=== PATIENT | female | born 1935 | race Caucasian/White ===

== ENCOUNTER 2016-06-27 08:40 | Emergency (ER) | payer MEDICARE, MEDICAID ==
[2016-06-27 08:41] VITALS: BMI 27.3
--- NOTE | 2016-06-27 09:27 | C.PDOC ---
History Of Present Illness 81 year old female is brought into the ED by her daughter due to increased aggression at home. Patient states she feels like she wants to but wanted to come here for help. She notes she sees flames when she closes her eyes and denies auditory hallucination, SOB, chest pain, headache, or taking anything other than her prescribed medication. Time Seen by Provider: 06/27/16 08:50 Chief Complaint (Nursing): Psychiatric Evaluation History Per: Patient, Family (Daughter) History/Exam Limitations: no limitations Onset/Duration Of Symptoms: Days Current Symptoms Are (Timing): Still Present Suicide/Self Injury Attempted (Context): None Modifying Factor(s): None Severity: Mild Past Medical History Reviewed: Historical Data, Nursing Documentation, Vital Signs Vital Signs: Last Vital Signs Temp 98.9 F 06/27/16 14:56 Pulse 78 06/27/16 18:05 Resp 18 06/27/16 18:05 BP 151/79 H 06/27/16 18:05 Pulse Ox 96 06/27/16 18:05 - Medical History PMH: Anxiety, Asthma, COPD (ASTHMA), Depression, Diabetes, Gastritis, HTN, Hypercholesterolemia, Schizophrenia Surgical History: Coronary Stent (CANNOT RECALL DATE) Family History: States: Unknown Family Hx - Social History Hx Tobacco Use: No Hx Alcohol Use: No Hx Substance Use: No - Immunization History Hx Tetanus Toxoid Vaccination: No Hx Influenza Vaccination: Yes Hx Pneumococcal Vaccination: Yes Review Of Systems Except As Marked, All Systems Reviewed And Found Negative. Constitutional: Positive for: Other (+Aggression). Negative for: Fever, Chills Cardiovascular: Negative for: Chest Pain Respiratory: Negative for: Shortness of Breath Neurological: Negative for: Headache Physical Exam - Physical Exam Appears: Non-toxic, No Acute Distress Skin: Normal Color, Warm, Dry Head: Atraumatic, Normacephalic Eye(s): bilateral: Normal Inspection Oral Mucosa: Moist Chest: Symmetrical, No Deformity Cardiovascular: Rhythm Regular, No Murmur Respiratory: Normal Breath Sounds, No Rales, No Rhonchi, No Wheezing Gastrointestinal/Abdominal: Soft, No Distention Extremity: Normal ROM Neurological/Psych: Oriented x3, Normal Speech, Normal Cognition ED Course And Treatment - Laboratory Results Result Diagrams: 06/27/16 09:29 06/27/16 09:29 ECG: Interpreted By Me ECG Rhythm: Sinus Rhythm ECG Interpretation: Normal Rate From EC O2 Sat by Pulse Oximetry: 97 (Room air) Pulse Ox Interpretation: Normal - CT Scan/US CT Head w/o contrast Other Rad Studies (CT/US): Read By Radiologist, Radiology Report Reviewed CT/US Interpretation: IMPRESSION: No intracranial mass, hemorrhage or evidence of acute infarct. Remote ischemic change right caudate head, right external capsule and right thalamus. Moderate chronic microvascular ischemic change. Age -appropriate atrophy. Progress Note: CT Head w/o contrast, CXR, EKG, Blood work, and Urinalysis ordered and reviewed. Case discussed with the crisis who will evaluate the patient. Medical Decision Making Medical Decision Making: Pt is medically stable for PES evaluation / admission Labs unremarkable except, glu 150, urine with 3+ mercedes and 600+ wbc's however pt is asymptomatic culture sent and first dose of macrobid given Recommend, continuing usual meds as well as macrobid pending results of culture Case discussed with dr Tatum at [facility] ED, pt already started abx for the UTI, given cozzar (pt on valsarten our replacement) with improvement in BP Disposition - Disposition Disposition: Trans to Other Acute Care Hosp Disposition Time: 19:12 Condition: FAIR - Clinical Impression Clinical Impression: Schizophrenia - Scribe Statement The provider has reviewed the documentation as recorded by the Scribe Vandana King. Provider Attestation: All medical record entries made by the Scribe were at my direction and personally dictated by me. I have reviewed the chart and agree that the record accurately reflects my personal performance of the history, physical exam, medical decision making, and the department course for this patient. I have also personally directed, reviewed, and agree with the discharge instructions and disposition. Physician Patient Turnover Patient Signed Over To: Clau Lyle Handoff Comments: Pending Tx to [facility]
[2016-06-27 09:36] LABS: BASO % 0.5 % (0.0-2.0); EOS % 0.4 % (0.0-4.0); HEMATOCRIT 35.7 % (34.0-47.0); LYMPH # 2.6 K/uL (1.0-4.3); LYMPH % 35.5 % (20.0-40.0); MEAN CORPUSCULAR HEMOGLOBIN 29.3 pg (27.0-31.0); MEAN CORPUSCULAR HGB CONC 32.7 g/dL (33.0-37.0); MEAN PLATELET VOLUME 8.8 fL (7.2-11.7); MONO # 1.2 K/uL (0.0-0.8); MONO % 15.9 % (0.0-10.0); RED CELL DISTRIBUTION WIDTH 14.5 % (11.5-14.5); WHITE BLOOD COUNT 7.4 K/uL (4.8-10.8)
[2016-06-27 09:40] LABS: MEAN CELL VOLUME 89.6 fL (81.0-99.0)
[2016-06-27 09:47] LABS: CHLORIDE 101 mmol/L (98-107); POTASSIUM 4.2 mmol/L (3.6-5.2); SODIUM 143 mmol/L (132-148)
[2016-06-27 09:49] LABS: ALB/GLOB RATIO 1.1 (1.0-2.1); ALKALINE PHOSPHATASE 73 U/L (38-126); AST/SGOT 19 U/L (14-36); BILIRUBIN,TOTAL 0.2 mg/dL (0.2-1.3); CARBON DIOXIDE 27 mmol/L (22-30); GFR AFRICAN-AMERICAN > 60; TOTAL PROTEIN 7.7 g/dL (6.3-8.3)
[2016-06-27 09:50] LABS: ALCOHOL SERUM < 10 mg/dl (0-10); ALT/SGPT 12 U/L (9-52); BLOOD UREA NITROGEN 24 mg/dL (7-17); CALCIUM 9.5 mg/dl (8.6-10.4); GLUCOSE,RANDOM 150 mg/dL (65-105)
--- NOTE | 2016-06-27 10:15 | CT ---
PROCEDURE: CT HEAD WITHOUT CONTRAST. HISTORY: seeing things, COMPARISON: 04/20/2016 TECHNIQUE: Axial computed tomography images were obtained through the head/brain without intravenous contrast. Radiation dose: Total exam DLP = 759.73 mGy-cm. FINDINGS: HEMORRHAGE: Large remote ischemic change right external capsule/caudate head unchanged from prior. Moderate periventricular and patchy and confluent deep and subcortical chronic microvascular white matter ischemic change. No evidence of acute infarct. BRAIN: No mass effect or edema. Mild diffuse age-appropriate atrophy. VENTRICLES: Dilatation frontal horn right lateral ventricle secondary to adjacent remote ischemic change. No hydrocephalus. No midline shift. CALVARIUM: Unremarkable. PARANASAL SINUSES: Unremarkable as visualized. No significant inflammatory changes. MASTOID AIR CELLS: Unremarkable as visualized. No inflammatory changes. OTHER FINDINGS: None. IMPRESSION: No intracranial mass, hemorrhage or evidence of acute infarct. Remote ischemic change right caudate head, right external capsule and right thalamus. Moderate chronic microvascular ischemic change. Age-appropriate atrophy.
[2016-06-27 11:29] VITALS: RESP 18
--- NOTE | 2016-06-27 11:35 | RAD ---
PROCEDURE: CHEST RADIOGRAPH, 1 VIEW Technique: Single view portable semi erect @ 09:45. HISTORY: Detox/Psy COMPARISON: None. FINDINGS: LUNGS: Clear. PLEURA: No pneumothorax or pleural fluid seen. CARDIOVASCULAR: No radiographic findings to suggest acute or significant cardiovascular disease. OSSEOUS STRUCTURES: No significant abnormalities. VISUALIZED UPPER ABDOMEN: Normal. OTHER FINDINGS: None. IMPRESSION: No active disease.
[2016-06-27 12:27] LABS: RBC URINE 10 /hpf (0-3); URINE BACTERIA MANY (<OCC); URINE BILIRUBIN NEGATIVE (NEGATIVE); URINE BLOOD 1+ (NEGATIVE); URINE COLOR Yellow (YELLOW); URINE GLUCOSE (UA) NORMAL (Normal); URINE KETONE TRACE mg/dL (NEGATIVE); URINE LEUKOCYTE ESTERASE 3+ Leu/uL (Negative); URINE PROTEIN 1+ mg/dL (NEGATIVE); URINE UROBILINOGEN NORMAL mg/dL (0.2-1.0); WBC URINE 608 /hpf (0-5)
[2016-06-27 20:23] VITALS: BP 166/81; PULSE 74; TEMP 98.5; O2SAT 95
--- NOTE | 2016-06-28 10:50 | CARD ---
APPROVED REPORT EKG Measurement Heart [id number] <Conclusion> Normal sinus rhythm Normal ECG
== END 2016-06-27 22:15 | disposition short-term general hospital (02) ==
LOC: C.ER 08:40
DX: F20.9 Schizophrenia, unspecified (principal); N39.0 Urinary tract infection, site not specified; I10 Essential (primary) hypertension
CPT/HCPCS: 70450; 71010; 80053; 81001; 82948; 85025; 87086; 93005; 99285; G0480

== ENCOUNTER 2016-12-15 11:19 | Emergency (ER) | payer MEDICARE, OTHER ==
[2016-12-15 11:21] VITALS: BMI 27.3
[2016-12-15 12:49] LABS: BASO % 0.7 % (0.0-2.0); EOS % 0.5 % (0.0-4.0); HEMATOCRIT 36.4 % (34.0-47.0); LYMPH # 2.4 K/uL (1.0-4.3); LYMPH % 32.5 % (20.0-40.0); MEAN CORPUSCULAR HGB CONC 33.7 g/dL (33.0-37.0); MONO % 14.3 % (0.0-10.0); NRBC % 0.1 % (0.0-2.0); RED CELL DISTRIBUTION WIDTH 13.5 % (11.5-14.5); WHITE BLOOD COUNT 7.3 K/uL (4.8-10.8)
[2016-12-15 13:02] LABS: CHLORIDE 103 mmol/L (98-107)
[2016-12-15 13:03] LABS: POTASSIUM 3.8 mmol/L (3.6-5.2); SODIUM 140 mmol/L (132-148)
[2016-12-15 13:05] LABS: ALB/GLOB RATIO 1.2 (1.0-2.1); ALKALINE PHOSPHATASE 67 U/L (38-126); AST/SGOT 20 U/L (14-36); BILIRUBIN,TOTAL 0.5 mg/dL (0.2-1.3); BLOOD UREA NITROGEN 17 mg/dL (7-17); CARBON DIOXIDE 26 mmol/L (22-30); GFR AFRICAN-AMERICAN > 60; TOTAL PROTEIN 7.6 g/dL (6.3-8.3)
[2016-12-15 13:06] LABS: ALCOHOL SERUM < 10 mg/dl (0-10); ALT/SGPT 26 U/L (9-52); CALCIUM 9.3 mg/dl (8.6-10.4); GLUCOSE,RANDOM 119 mg/dL (65-105)
--- NOTE | 2016-12-15 13:44 | CT ---
PROCEDURE: CT HEAD WITHOUT CONTRAST. HISTORY: hx falls, confused COMPARISON: 06/27/2016 TECHNIQUE: Axial computed tomography images were obtained through the head/brain without intravenous contrast. Radiation dose: Total exam DLP = 1119.61 mGy-cm. This CT exam was performed using one or more of the following dose reduction techniques: Automated exposure control, adjustment of the mA and/or kV according to patient size, and/or use of iterative reconstruction technique. FINDINGS: HEMORRHAGE: No intracranial hemorrhage. BRAIN: Mild diffuse atrophy consistent with patient age. 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 Small old right thalamic lacunar infarct. Mild to moderate periventricular white matter lucency consistent with microvascular ischemic change. No evidence of acute infarct. VENTRICLES: Mild dilatation of the frontal horn of the right lateral ventricle due to ex vacuo dilatation, associated with large right basal ganglia lacunar infarct. No midline shift. CALVARIUM: Unremarkable. PARANASAL SINUSES: Unremarkable as visualized. No significant inflammatory changes. MASTOID AIR CELLS: Unremarkable as visualized. No inflammatory changes. OTHER FINDINGS: None. IMPRESSION: No intracranial hemorrhage. 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 Mild to moderate periventricular white matter ischemic change. No evidence of acute infarct. No intracranial mass.
[2016-12-15 13:48] LABS: RBC URINE < 1 /hpf (0-3); URINE BACTERIA RARE (<OCC); URINE BILIRUBIN NEGATIVE (NEGATIVE); URINE BLOOD NEGATIVE (NEGATIVE); URINE COLOR Yellow (YELLOW); URINE GLUCOSE (UA) NORMAL (Normal); URINE KETONE NEGATIVE (NEGATIVE); URINE LEUKOCYTE ESTERASE NEG Leu/uL (Negative); URINE PROTEIN NEGATIVE (NEGATIVE); URINE UROBILINOGEN NORMAL mg/dL (0.2-1.0); WBC URINE 1 /hpf (0-5)
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
--- NOTE | 2016-12-15 16:23 | RAD ---
HISTORY: med clearance COMPARISON: 06/27/2016 FINDINGS: LUNGS: Examination limited due to steep oblique positioning. No infiltrate. PLEURA: No significant pleural effusion identified, no pneumothorax apparent. CARDIOVASCULAR: Normal. OSSEOUS STRUCTURES: No significant abnormalities. VISUALIZED UPPER ABDOMEN: Normal. OTHER FINDINGS: None. IMPRESSION: No active disease.
[2016-12-15 19:52] VITALS: BP 146/75; PULSE 80; RESP 16; TEMP 97.6; O2SAT 96
== END 2016-12-15 20:02 | disposition short-term general hospital (02) ==
LOC: C.ER 11:19
DX: F20.9 Schizophrenia, unspecified (principal); G30.9 Alzheimer's disease, unspecified; F02.80 Dementia in other diseases classified elsewhere, unspecified severity, without behavioral disturbance, psychotic disturbance, mood disturbance, and anxiety; F41.9 Anxiety disorder, unspecified; I10 Essential (primary) hypertension; E11.9 Type 2 diabetes mellitus without complications; E78.00 Pure hypercholesterolemia, unspecified
CPT/HCPCS: 70450; 71010; 80053; 81001; 85025; 99284; G0480

== ENCOUNTER 2017-02-19 16:38 | Inpatient (IN) | payer MEDICARE, MEDICAID ==
[2017-02-19] MEDS ORDERED: Dextrose 50% SYRINGE Inj (50 ml) ONE ×2 (16:48→21:30)
[2017-02-19 16:53] VITALS: BMI 29.2
[2017-02-19] MEDS ORDERED: Dextrose 50% SYRINGE Inj (50 ml) IV STA ×2 (17:07→21:28)
[2017-02-19 17:17] LABS: BASO % 0.4 % (0.0-2.0); EOS % 0.4 % (0.0-4.0); HEMATOCRIT 37.7 % (34.0-47.0); LYMPH # 2.6 K/uL (1.0-4.3); LYMPH % 24.8 % (20.0-40.0); MEAN CELL VOLUME 88.6 fL (81.0-99.0); MEAN CORPUSCULAR HEMOGLOBIN 29.9 pg (27.0-31.0); MEAN CORPUSCULAR HGB CONC 33.7 g/dL (33.0-37.0); MEAN PLATELET VOLUME 8.9 fL (7.2-11.7); MONO # 1.2 K/uL (0.0-0.8); MONO % 11.4 % (0.0-10.0); NRBC % 0.1 % (0.0-2.0); RED CELL DISTRIBUTION WIDTH 14.1 % (11.5-14.5); WHITE BLOOD COUNT 10.5 K/uL (4.8-10.8)
--- NOTE | 2017-02-19 17:57 | CT ---
PROCEDURE: CT scan brain dated 02/19/2017. HISTORY: altered COMPARISON: Comparison made with prior CT scan brain dated 12/15/2016. TECHNIQUE: Axial computed tomography images were obtained through the head/brain without intravenous contrast. Radiation dose: Total exam DLP = 785.46 mGy-cm. This CT exam was performed using one or more of the following dose reduction techniques: Automated exposure control, adjustment of the mA and/or kV according to patient size, and/or use of iterative reconstruction technique. FINDINGS: HEMORRHAGE: No intracranial hemorrhage. BRAIN: Chronic right anterolateral basal nuclei and right thalamic lacunar type infarcts with ex vacuo dilatation of the right frontal horn. . Additionally, there is very mild chronic periventricular white matter ischemic changes. Mild vascular calcifications are again seen. . Moderate generalized volume loss not withstanding at aforementioned ex vacuo dilatation. VENTRICLES: No obstructive hydrocephalus CALVARIUM: There are no acute calvarial fractures the no PARANASAL SINUSES: Unremarkable as visualized. No significant inflammatory changes. MASTOID AIR CELLS: Unremarkable as visualized. No inflammatory changes. OTHER FINDINGS: Changes of bilateral cataract surgery again noted. IMPRESSION: No acute intracranial hemorrhage. Re- demonstrated are chronic right basal ganglia lacunar type infarct with ex vacuo dilatation of the right frontal horn and anterior body right lateral ventricle. Moderate chronic white matter ischemic changes
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
[2017-02-19 18:00] LABS: ALB/GLOB RATIO 1.2 (1.0-2.1); ALKALINE PHOSPHATASE 70 U/L (38-126); ALT/SGPT 34 U/L (9-52); AST/SGOT 20 U/L (14-36); BILIRUBIN,TOTAL 0.7 mg/dL (0.2-1.3); BLOOD UREA NITROGEN 18 mg/dL (7-17); CARBON DIOXIDE 26 mmol/L (22-30); CHLORIDE 100 mmol/L (98-107); GFR AFRICAN-AMERICAN > 60; GLUCOSE,RANDOM 36 mg/dL (65-105); POTASSIUM 3.3 mmol/L (3.6-5.2); SODIUM 138 mmol/L (132-148); TOTAL PROTEIN 8.2 g/dL (6.3-8.3)
[2017-02-19 21:25] LABS: ALCOHOL SERUM < 10 mg/dl (0-10)
[2017-02-19] MEDS ORDERED: Albuterol-Ipratrop 3 mg / 0.5 (3 ml) UD INH PRN (22:46)
--- NOTE | 2017-02-19 23:22 | CP.PCM.HP ---
<Roseann EdwardsXavier - Last Filed: 02/19/17 23:23> History of Present Illness - History of Present Illness History of Present Illness: CC: legs felt paralyzed HPI: Patient is an 82 y/o F with PMHx of DM, HLD, HTN, Paranoid Schizophrenia who was brought in by her and daughter after an episode where the patient said her legs felt paralyzed. At baseline patient needs help walking and can only walk a small amount in the house. Today, patient's and daughter were helping her walk down the stairs when she stopped and said she couldn't walk further because her legs felt paralyzed. With help she was able to walk down the rest of the stairs. Family was worried and called the ambulance. In ED patient was found to have glucose of 36 and was given 2 amps of D50 and started on D5 @80 mls/hr. Patient's checks her blood sugars and say they range between 100-200. In ED patient complains of diffuse abdominal pain. She says she has not had a bowel movement in two days. Patient also complains of bilateral leg cramping. Patient denies headache, nausea or vomiting. Patient says she is not currently hearing voices or seeing hallucinations, except for when she closes her eyes she sees a hole and herself next to a big rock. Patient admits to having feelings of wanting to hurt herself in the past and right now. PMD: Dr. Rosas Psych: Dr. Avina PMHx: DM, HLD, HTN, Paranoid Schizophrenia Psurg: colonoscopy, hemorrhoidectomy, tubal ligation, hysterectomy Famhx: unknown Social : denies tobacco, alcohol, drugs. Lives with in the same building as her daughter, has a homemaker that comes 6 days per week Allergies: NKDA Present on Admission - Present on Admission Any Indicators Present on Admission: No History of DVT/PE: No History of Uncontrolled Diabetes: No Urinary Catheter: No Decubitus Ulcer Present: No Review of Systems - Constitutional Constitutional: absent: Fever, Headache - Cardiovascular Cardiovascular: absent: Dyspnea, Leg Edema, Pedal Edema - Respiratory Respiratory: absent: Cough, Dyspnea, Wheezing, Stridor - Gastrointestinal Gastrointestinal: Abdominal Pain, Constipation. absent: Diarrhea, Nausea, Vomiting - Genitourinary Genitourinary: absent: Difficulty Urinating - Musculoskeletal Musculoskeletal: Muscle Cramps - Integumentary Integumentary: absent: Rash - Neurological Neurological: Confusion - Psychiatric Psychiatric: Confusion, Depression, Irritability, Paranoia, Suicidal Ideation Past Patient History - Past Medical History & Family History Past Medical History?: Yes - Past Social History Smoking Status: Never Smoked - CARDIAC Hx Cardiac Disorders: No (Patient denied. None reported) Hx Hypertension: Yes - PULMONARY Hx Tuberculosis: No (Patient denied. None reported) - NEUROLOGICAL HX Cerebrovascular Accident: No (Patient denied. None reported) Hx Seizures: No (Patient denied. None reported) - HEENT Hx HEENT Problems: No - RENAL Hx Chronic Kidney Disease: No - ENDOCRINE/METABOLIC Hx Endocrine Disorders: Yes Hx Diabetes Mellitus Type 2: Yes - HEMATOLOGICAL/ONCOLOGICAL Hx Cancer: No (Patient denied. None reported) Hx Human Immunodeficiency Virus (HIV): No (Patient denied. None reported) - INTEGUMENTARY Hx Dermatological Problems: No - MUSCULOSKELETAL/RHEUMATOLOGICAL Hx Falls: Yes - GASTROINTESTINAL Hx Gastritis: Yes - GENITOURINARY/GYNECOLOGICAL Hx Sexually Transmitted Disorders: No (Patient denied. None reported) - PSYCHIATRIC Hx Anxiety: Yes Hx Bipolar Disorder: Yes Hx Depression: Yes Hx Schizophrenia: Yes Hx Substance Use: No - SURGICAL HISTORY Hx Coronary Stent: Yes (CANNOT RECALL DATE) - ANESTHESIA Hx Anesthesia: Yes Hx Anesthesia Reactions: No Hx Malignant Hyperthermia: No Meds Allergies/Adverse Reactions: Allergies Allergy/AdvReac Type Severity Reaction Status Date / Time No Known Allergies Allergy Verified 02/19/17 16:53 Physical Exam - Constitutional Appears: Non-toxic, No Acute Distress - Head Exam Head Exam: ATRAUMATIC, NORMAL INSPECTION, NORMOCEPHALIC - Eye Exam Eye Exam: EOMI, Normal appearance - ENT Exam ENT Exam: Mucous Membranes Moist - Respiratory Exam Respiratory Exam: Clear to Auscultation Bilateral, NORMAL BREATHING PATTERN - Cardiovascular Exam Cardiovascular Exam: +S1, +S2 - GI/Abdominal Exam GI & Abdominal Exam: Distended, Normal Bowel Sounds, Soft - Extremities Exam Extremities exam: Positive for: normal inspection. Negative for: pedal edema - Neurological Exam Neurological exam: Alert - Psychiatric Exam Psychiatric exam: Agitated, Anxious, Depressed - Skin Skin Exam: Intact, Normal Color, Warm Results - Vital Signs Recent Vital Signs: Last Vital Signs Temp 97.4 F L 02/19/17 16:40 Pulse 80 02/19/17 22:49 Resp 20 02/19/17 22:49 BP 128/58 L 02/19/17 22:49 Pulse Ox 95 02/19/17 22:49 - Labs Result Diagrams: 02/19/17 17:12 02/19/17 17:12 Labs: Laboratory Results - last 24 hr 02/19/17 02/19/17 02/19/17 16:49 17:12 17:12 WBC 10.5 RBC 4.25 Hgb 12.7 Hct 37.7 MCV 88.6 MCH 29.9 MCHC 33.7 RDW 14.1 Plt Count 282 MPV 8.9 Neut % (Auto) 63.0 Lymph % (Auto) 24.8 [place] % (Auto) 11.4 H Eos % (Auto) 0.4 Baso % (Auto) 0.4 Neut # 6.6 Lymph # 2.6 [place] # 1.2 H Eos # 0.0 Baso # 0.0 Sodium 138 Potassium 3.3 L Chloride 100 Carbon Dioxide 26 Anion Gap 15 BUN 18 H Creatinine 0.7 Est GFR ( Amer) > 60 Est GFR (Non-Af Amer) > 60 POC Glucose (mg/dL) 32 L* Random Glucose 36 L* D Calcium 9.0 Total Bilirubin 0.7 AST 20 ALT 34 Alkaline Phosphatase 70 Total Creatine Kinase 120 CK-MB (Mass) 1.16 Troponin I < 0.0120 Total Protein 8.2 Albumin 4.4 Globulin 3.8 Albumin/Globulin Ratio 1.2 Alcohol, Quantitative < 10 02/19/17 02/19/17 02/19/17 18:00 19:06 21:20 WBC RBC Hgb Hct MCV MCH MCHC RDW Plt Count MPV Neut % (Auto) Lymph % (Auto) [place] % (Auto) Eos % (Auto) Baso % (Auto) Neut # Lymph # [place] # Eos # Baso # Sodium Potassium Chloride Carbon Dioxide Anion Gap BUN Creatinine Est GFR ( Amer) Est GFR (Non-Af Amer) POC Glucose (mg/dL) 151 H 86 50 L Random Glucose Calcium Total Bilirubin AST ALT Alkaline Phosphatase Total Creatine Kinase CK-MB (Mass) Troponin I Total Protein Albumin Globulin Albumin/Globulin Ratio Alcohol, Quantitative 02/19/17 22:10 WBC RBC Hgb Hct MCV MCH MCHC RDW Plt Count MPV Neut % (Auto) Lymph % (Auto) [place] % (Auto) Eos % (Auto) Baso % (Auto) Neut # Lymph # [place] # Eos # Baso # Sodium Potassium Chloride Carbon Dioxide Anion Gap BUN Creatinine Est GFR ( Amer) Est GFR (Non-Af Amer) POC Glucose (mg/dL) 253 H Random Glucose Calcium Total Bilirubin AST ALT Alkaline Phosphatase Total Creatine Kinase CK-MB (Mass) Troponin I Total Protein Albumin Globulin Albumin/Globulin Ratio Alcohol, Quantitative Assessment & Plan - Assessment and Plan (Free Text) Assessment: AMS 2/2 hypoglycemia, hx schizophrenia CT Head: no acute intracranial hemorrhage. 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 Moderate chronic white matter ischemic changes. Hypoglycemia Patient given 2 amps D50 and started on D5 @ 80 mls/ hr in ED- glucose increased from 36 to 253 D5 lowered to 50 mls/hr, will d/c if blood sugar remains elevated accuchecks q2h Hx DM hold home medications 2/2 hypoglycemia continue home medication: Neurontin 600mg po daily Hx schizophrenia, suicidal ideation Patient 1:1 monitoring Psych, Dr. Oconnell, consulted continue home psych medications: Mirtazapine 15mg PO HS, Seroquel 300mg PO HS Constipation Colace 100mg po TID Hypokalemia K+3.3, KDur 40 meq given Hx HTN Losartan 100mg po daily EKG: NSR @ 73 Hx HLD continue home medication: Rosuvastatin 5 mg PO HS Prophylaxis DVT: SCDs, Heparin 5000u sc q8h GI: Pepcid 20mg po daily <Jake Patten - Last Filed: 02/20/17 06:24> Results - Vital Signs Recent Vital Signs: Last Vital Signs Temp 97.2 F L 02/20/17 00:00 Pulse 86 02/20/17 00:00 Resp 20 02/20/17 00:00 BP 131/68 02/20/17 00:00 Pulse Ox 96 02/20/17 00:00 - Labs Result Diagrams: 02/19/17 17:12 02/19/17 17:12 Labs: Laboratory Results - last 24 hr 02/19/17 02/19/17 02/19/17 16:49 17:12 17:12 WBC 10.5 RBC 4.25 Hgb 12.7 Hct 37.7 MCV 88.6 MCH 29.9 MCHC 33.7 RDW 14.1 Plt Count 282 MPV 8.9 Neut % (Auto) 63.0 Lymph % (Auto) 24.8 [place] % (Auto) 11.4 H Eos % (Auto) 0.4 Baso % (Auto) 0.4 Neut # 6.6 Lymph # 2.6 [place] # 1.2 H Eos # 0.0 Baso # 0.0 Sodium 138 Potassium 3.3 L Chloride 100 Carbon Dioxide 26 Anion Gap 15 BUN 18 H Creatinine 0.7 Est GFR ( Amer) > 60 Est GFR (Non-Af Amer) > 60 POC Glucose (mg/dL) 32 L* Random Glucose 36 L* D Calcium 9.0 Total Bilirubin 0.7 AST 20 ALT 34 Alkaline Phosphatase 70 Total Creatine Kinase 120 CK-MB (Mass) 1.16 Troponin I < 0.0120 Total Protein 8.2 Albumin 4.4 Globulin 3.8 Albumin/Globulin Ratio 1.2 Alcohol, Quantitative < 10 02/19/17 02/19/17 02/19/17 18:00 19:06 21:20 WBC RBC Hgb Hct MCV MCH MCHC RDW Plt Count MPV Neut % (Auto) Lymph % (Auto) [place] % (Auto) Eos % (Auto) Baso % (Auto) Neut # Lymph # [place] # Eos # Baso # Sodium Potassium Chloride Carbon Dioxide Anion Gap BUN Creatinine Est GFR ( Amer) Est GFR (Non-Af Amer) POC Glucose (mg/dL) 151 H 86 50 L Random Glucose Calcium Total Bilirubin AST ALT Alkaline Phosphatase Total Creatine Kinase CK-MB (Mass) Troponin I Total Protein Albumin Globulin Albumin/Globulin Ratio Alcohol, Quantitative 02/19/17 02/20/17 22:10 05:22 WBC RBC Hgb Hct MCV MCH MCHC RDW Plt Count MPV Neut % (Auto) Lymph % (Auto) [place] % (Auto) Eos % (Auto) Baso % (Auto) Neut # Lymph # [place] # Eos # Baso # Sodium Potassium Chloride Carbon Dioxide Anion Gap BUN Creatinine Est GFR ( Amer) Est GFR (Non-Af Amer) POC Glucose (mg/dL) 253 H 146 H Random Glucose Calcium Total Bilirubin AST ALT Alkaline Phosphatase Total Creatine Kinase CK-MB (Mass) Troponin I Total Protein Albumin Globulin Albumin/Globulin Ratio Alcohol, Quantitative Assessment & Plan - Date & Time Date: 02/20/17 (I have seen and examined the patient. I agree with the findings and plan of care as documented by Dr. Edwards. Patient with altered mental status. CT head negative for acute findings. Persistent hypoglycemia. On D5 IVF. Titrate as necessary. Admits to suicidal ideation. Psych consult. 1:1 observation. Monitor for acute changes.) Time: 06:23 Attending/Attestation - Attestation I have personally seen and examined this patient.: Yes I have fully participated in the care of the patient.: Yes I have reviewed all pertinent clinical information: Yes
[2017-02-19] MEDS ORDERED: Potassium Chloride 20 mEq ER Tab PO ONE (23:38)
[2017-02-20] MEDS ORDERED: Potassium Chloride 20 mEq ER Tab PO ONE (03:00)
--- NOTE | 2017-02-20 08:23 | RAD ---
PROCEDURE: CHEST RADIOGRAPH, 1 VIEW HISTORY: Weakness. COMPARISON: None available. FINDINGS: LUNGS: Mild venous congestion. Patchy linear atelectatic changes at the left lung base. Biapical pleural thickening. Chin obscures evaluation of the upper lung zones. Minimal patchy increased markings at the right lung base laterally. PLEURA: No pneumothorax or pleural fluid seen. CARDIOVASCULAR: Tortuous ectatic aorta. OSSEOUS STRUCTURES: Degenerative changes in the spine and shoulders. VISUALIZED UPPER ABDOMEN: Normal. OTHER FINDINGS: None. IMPRESSION: Mild venous congestion. Patchy linear atelectatic changes at the left lung base. Biapical pleural thickening. Chin obscures evaluation of the upper lung zones. Minimal patchy increased markings at the right lung base laterally.
[2017-02-20 08:35] LABS: BASO % 0.4 % (0.0-2.0); EOS % 0.5 % (0.0-4.0); HEMATOCRIT 32.8 % (34.0-47.0); LYMPH # 2.2 K/uL (1.0-4.3); LYMPH % 36.1 % (20.0-40.0); MEAN CELL VOLUME 89.5 fL (81.0-99.0); MEAN CORPUSCULAR HEMOGLOBIN 30.2 pg (27.0-31.0); MEAN CORPUSCULAR HGB CONC 33.8 g/dL (33.0-37.0); MEAN PLATELET VOLUME 9.4 fL (7.2-11.7); MONO # 0.7 K/uL (0.0-0.8); MONO % 11.4 % (0.0-10.0); RED CELL DISTRIBUTION WIDTH 14.2 % (11.5-14.5)
[2017-02-20 09:02] LABS: CHLORIDE 98 mmol/L (98-107)
[2017-02-20 09:25] LABS: ALB/GLOB RATIO 1.3 (1.0-2.1); ALKALINE PHOSPHATASE 62 U/L (38-126); ALT/SGPT 31 U/L (9-52); AST/SGOT 17 U/L (14-36); BILIRUBIN,TOTAL 0.7 mg/dL (0.2-1.3); BLOOD UREA NITROGEN 16 mg/dL (7-17); CALCIUM 8.2 mg/dl (8.6-10.4); CARBON DIOXIDE 25 mmol/L (22-30); GFR AFRICAN-AMERICAN > 60; GLUCOSE,RANDOM 135 mg/dL (65-105); MAGNESIUM 1.6 mg/dL (1.6-2.3); PHOSPHOROUS 3.2 mg/dL (2.5-4.5); POTASSIUM 4.1 mmol/L (3.6-5.2); SODIUM 132 mmol/L (132-148); TOTAL PROTEIN 6.4 g/dL (6.3-8.3)
[2017-02-20] MEDS ORDERED: Potassium Chloride 20 mEq ER Tab PO SCH (10:00)
--- NOTE | 2017-02-20 10:27 | PCM.PSYCH ---
Initial Psychiatric Evaluation - Initial Psychiatric Evaluation Type of Admission: Voluntary Legal Status: Capacity Chief Complaint (in patient's own words): I feel better History of Present Illness and Precipitating Events: The patient was seen, chart reviewed, and case discussed with staff. This is an 82 year old female who lives at home with . He was brought to the hospital because of leg paralysis and pain. Patient reports outpatient psychiatric care with Dr Avina, last seen this month. Staff reports that overnight the patient was talking to herself and voicing suicidal ideations. Daytime staff reports that she has not been talking to herself today. Pt remained somewhat disorganized and internally preoccupied throughout the interview. She remained superficially cooperative but remained guarded about the details. As per the staff last night remained delirious, irritable and agitated. Patient reports multiple past inpatient psychiatric hospitalization. She reports outpatient psychiatric care with a psychiatrist in [place]. She denies any heroin, cocaine, marijuana, or other drug use. Today she denies any SI/HI. Family psychiatric history: unknown Past medical history: DM, HLD, HLD Current Medications: Active Medications Generic Name Dose Route Start Last Admin Trade Name Freq PRN Reason Stop Dose Admin Acetaminophen 650 mg 02/20/17 03:28 02/20/17 03:45 Tylenol 325mg Tab PO 650 mg Q6 PRN Administration Pain, moderate (4-7) Albuterol/Ipratropium 3 ml 02/19/17 22:46 Duoneb 3 Mg/0.5 Mg (3 Ml) Ud INH RQ6 PRN Shortness of Breath Docusate Sodium 100 mg 02/20/17 10:00 Colace PO TID SANTO Famotidine 20 mg 02/20/17 10:00 Pepcid PO DAILY SANTO Gabapentin 600 mg 02/20/17 10:00 Neurontin PO DAILY SANTO Heparin Sodium (Porcine) 5,000 units 02/19/17 23:00 02/20/17 05:50 Heparin SC 5,000 units Q8 SANTO Administration Hydroxyzine HCl 25 mg 02/20/17 10:26 Atarax PO Q6 PRN Agitation Losartan Potassium 100 mg 02/20/17 10:00 Cozaar PO DAILY SANTO Mirtazapine 15 mg 02/19/17 23:00 02/20/17 03:04 Remeron PO 15 mg HS SANTO Administration Pneumococcal Polyvalent Vaccine 0.5 ml 02/21/17 10:00 Pneumovax 23 Vaccine IM 02/21/17 10:01 .ONCE ONE Quetiapine Fumarate 300 mg 02/19/17 23:00 02/20/17 03:00 Seroquel PO 300 mg HS [facility] Administration Rosuvastatin Calcium 5 mg 02/20/17 22:00 Crestor PO [facility] Past Psychiatric History - Past Psychiatric History Previous Treatment History: Inpatient Pertinent Medical Hx (Current Medical&Sleep Prob, Allergies): Allergies Allergy/AdvReac Type Severity Reaction Status Date / Time No Known Allergies Allergy Verified 02/19/17 16:53 Albuterol/Ipratropium [Duoneb 3 mg/0.5 mg (3 ml) UD] 3 ml INH RQ6 PRN #1 neb Atorvastatin [Lipitor] 10 mg PO HS #30 tab 12/25/16 Docusate [Colace] 100 mg PO BID #60 cap 12/25/16 Gabapentin [Neurontin] 600 mg PO DAILY #30 tab 12/25/16 Insulin Glargine, Recombina [Lantus] 25 unit SC HS #1 unit 12/25/16 MetFORMIN [glucoPHAGE] 1,000 mg PO BID #60 tab 12/25/16 Mirtazapine [Remeron] 15 mg PO HS #30 tab 12/25/16 QUEtiapine [SEROquel] 300 mg PO HS #30 tab 12/25/16 Valsartan [Diovan] 160 mg PO DAILY #30 tab 12/25/16 Mental Status Examination - Personal Presentation Personal Presentation: Looks stated age - Affect Affect: Constricted - Motor Activity Motor Activity: Psychomotor Retardation - Reliability in Providing Information Reliability in Providing Information: Poor, due to alteration in thoughts - Speech Speech: Disorganized - Mood Mood: Anxious - Formal Thought Process Formal Thought Process: Hallucinations, Loosening of associations - Obsessions/Compulsions Obsessions: No Compulsions: No - Cognitive Functions Orientation: Person, Place, Situation, Time Sensorium: Alert Attention/Concentration: Attentive Abstract Thinking: Mcgrann Estimate of Intelligence: Below average Judgement: Imparied, as evidence by: Poor judgement, Imparied, as evidence by: Lack of insight into illness - Risk Risk: Diminished functioning - Limitations Limitations: Living alone DSM 5 DX - DSM 5 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
--- NOTE | 2017-02-20 19:43 | CP.PCM.PN ---
Subjective - Date & Time of Evaluation Date of Evaluation: 02/20/17 Time of Evaluation: 15:00 - Subjective Subjective: Patient was seen and examined,Sleeping Objective - Vital Signs/Intake and Output Vital Signs (last 24 hours): Temp Pulse Resp BP Pulse Ox 97.7 F 71 20 104/64 98 02/20/17 15:15 02/20/17 15:15 02/20/17 15:15 02/20/17 15:15 02/20/17 15:15 Intake and Output: 02/20/17 02/21/17 18:59 06:59 Intake Total 650 Balance 650 - Medications Medications: Current Medications Acetaminophen (Tylenol 325mg Tab) 650 mg PO Q6 PRN PRN Reason: Pain, moderate (4-7) Last Admin: 02/20/17 03:45 Dose: 650 mg Albuterol/Ipratropium (Duoneb 3 Mg/0.5 Mg (3 Ml) Ud) 3 ml INH RQ6 PRN PRN Reason: Shortness of Breath Docusate Sodium (Colace) 100 mg PO TID [facility] Last Admin: 02/20/17 18:40 Dose: 100 mg Famotidine (Pepcid) 20 mg PO DAILY [facility] Last Admin: 02/20/17 10:38 Dose: 20 mg Gabapentin (Neurontin) 300 mg PO BID [facility] Last Admin: 02/20/17 18:40 Dose: 300 mg Heparin Sodium (Porcine) (Heparin) 5,000 units SC Q8 [facility] Last Admin: 02/20/17 14:09 Dose: 5,000 units Hydroxyzine HCl (Atarax) 25 mg PO Q6 PRN PRN Reason: Agitation Insulin Glargine (Lantus) 16 unit SC [facility] Losartan Potassium (Cozaar) 100 mg PO DAILY [facility] Last Admin: 02/20/17 10:38 Dose: Not Given Losartan Potassium (Cozaar) 100 mg PO DAILY [facility] Last Admin: 02/20/17 14:54 Dose: Not Given Mirtazapine (Remeron) 15 mg PO [facility] Last Admin: 02/20/17 03:04 Dose: 15 mg Pneumococcal Polyvalent Vaccine (Pneumovax 23 Vaccine) 0.5 ml IM .ONCE ONE Stop: 02/21/17 10:01 Quetiapine Fumarate (Seroquel) 300 mg PO [facility] Last Admin: 02/20/17 03:00 Dose: 300 mg Rosuvastatin Calcium (Crestor) 5 mg PO HS [facility]ANT[facility] - Labs Labs: 02/20/17 08:30 02/20/17 08:30
--- NOTE | 2017-02-20 19:52 | CP.PCM.PN ---
Subjective - Date & Time of Evaluation Date of Evaluation: 02/20/17 Time of Evaluation: 10:00 - Subjective Subjective: Progress note for Dr. Michelle Patient seen and examined at bedside. Patient states she has a lot of pain in her legs and finds it difficult to walk. Patient states she needs help when she walks around. Patient states she has no other complaints other than abdominal pain. Patient denies headache, fever, chills, nausea, vomiting, diarrhea. With attending, patient was more somnolent and fell asleep multiple times during the conversation. Per cardiac cath technologist and RN, patient was given medication during the day which may be the cause of her somnolence. RN noted her blood pressure was low, so home medication for HTN was not administered. Objective - Vital Signs/Intake and Output Vital Signs (last 24 hours): Temp Pulse Resp BP Pulse Ox 97.7 F 71 20 104/64 98 02/20/17 15:15 02/20/17 15:15 02/20/17 15:15 02/20/17 15:15 02/20/17 15:15 Intake and Output: 02/20/17 02/21/17 18:59 06:59 Intake Total 650 Balance 650 - Medications Medications: Current Medications Acetaminophen (Tylenol 325mg Tab) 650 mg PO Q6 PRN PRN Reason: Pain, moderate (4-7) Last Admin: 02/20/17 03:45 Dose: 650 mg Albuterol/Ipratropium (Duoneb 3 Mg/0.5 Mg (3 Ml) Ud) 3 ml INH RQ6 PRN PRN Reason: Shortness of Breath Docusate Sodium (Colace) 100 mg PO TID [facility]S [facility]CLUDE 234 BEDS AT [facility] Last Admin: 02/20/17 18:40 Dose: 100 mg Famotidine (Pepcid) 20 mg PO DAILY [facility]S INCLUDE 234 BEDS AT THE [facility] Last Admin: 02/20/17 10:38 Dose: 20 mg Gabapentin (Neurontin) 300 mg PO BID COUNTS INCLUDE 234 BEDS AT THE [facility] Last Admin: 02/20/17 18:40 Dose: 300 mg Heparin Sodium (Porcine) (Heparin) 5,000 units SC Q8 [facility]S INCLUDE 234 BEDS AT THE [facility] Last Admin: 02/20/17 14:09 Dose: 5,000 units Hydroxyzine HCl (Atarax) 25 mg PO Q6 PRN PRN Reason: Agitation Insulin Glargine (Lantus) 10 unit SC HS COUNTS INCLUDE 234 BEDS AT THE [facility] Losartan Potassium (Cozaar) 100 mg PO DAILY COUNTS INCLUDE 234 BEDS AT THE [facility] Last Admin: 02/20/17 10:38 Dose: Not Given Losartan Potassium (Cozaar) 100 mg PO DAILY COUNTS INCLUDE 234 BEDS AT THE [facility] Last Admin: 02/20/17 14:54 Dose: Not Given Mirtazapine (Remeron) 15 mg PO HS COUNTS INCLUDE 234 BEDS AT THE [facility] Last Admin: 02/20/17 03:04 Dose: 15 mg Pneumococcal Polyvalent Vaccine (Pneumovax 23 Vaccine) 0.5 ml IM .ONCE ONE Stop: 02/21/17 10:01 Quetiapine Fumarate (Seroquel) 300 mg PO [facility] Last Admin: 02/20/17 03:00 Dose: 300 mg Rosuvastatin Calcium (Crestor) 5 mg PO [facility] - Labs Labs: 02/20/17 08:30 02/20/17 08:30 - Constitutional Appears: Non-toxic - Head Exam Head Exam: NORMAL INSPECTION - Eye Exam Additional comments: patient kept her eyes closed for most of the conversation - Respiratory Exam Respiratory Exam: NORMAL BREATHING PATTERN. absent: Accessory Muscle Use, Wheezes - Cardiovascular Exam Cardiovascular Exam: REGULAR RHYTHM, +S1, +S2 - GI/Abdominal Exam GI & Abdominal Exam: Distended, Soft, Tenderness Additional comments: tenderness to palpation of left lower quadrant and right upper quadrant. no rebound tenderness - Extremities Exam Extremities Exam: Full ROM - Neurological Exam Neurological Exam: Awake Neuro motor strength exam: Left Upper Extremity: 5, Right Upper Extremity: 5, Left Lower Extremity: 4, Right Lower Extremity: 4 - Psychiatric Exam Psychiatric exam: Flat Affect - Skin Skin Exam: Dry, Pallor Assessment and Plan - Assessment and Plan (Free Text) Assessment: AMS 2/2 hypoglycemia, hx schizophrenia CT Head: no acute intracranial hemorrhage. 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 Moderate chronic white matter ischemic changes. Hypoglycemia Patient given 2 amps D50 and started on D5 @ 80 mls/ hr in ED- glucose increased from 36 to 253 D5 lowered to 50 mls/hr, will d/c if blood sugar remains elevated accuchecks q2h Hx DM 02/19 hold home medications 2/2 hypoglycemia continue home medication: Neurontin 600mg po daily 02/20 lantus 10u added Glucose Accucheck Hx schizophrenia, suicidal ideation Patient 1:1 monitoring Psych consult: Dr. Anish continue home psych medications: Mirtazapine 15mg PO HS, Seroquel 300mg PO HS Constipation Colace 100mg po TID monitor BM Hypokalemia, repleted Hx HTN Losartan 100mg POQD, hold if BP Systolic <110 EKG: NSR @ 73 Hx HLD continue home medication: Rosuvastatin 5 mg PO HS Prophylaxis DVT: SCDs, Heparin 5000u sc q8h GI: Pepcid 20mg po daily discussed with Dr. Miguel Angel Mitchell, DO PGY1
[2017-02-20] MEDS ORDERED: (Lantus) Insulin Glargine, Recombinant SC SCH ×2 (22:00)
[2017-02-20] MEDS ORDERED: POLYETHYLENE GLYCOL 3350 17 GM/Dose PACKET PO PRN (23:47)
[2017-02-21 08:05] VITALS: O2SAT 99
[2017-02-21] MEDS ORDERED: Pneumococcal 23-Valent Vaccine IM ONE (10:00)
[2017-02-21] MEDS ORDERED: Influenza Vaccine 60 mcg/0.5 mL SYR (4YR UP) IM ONE (10:00)
[2017-02-21 12:05] LABS: BASO % 0.5 % (0.0-2.0); EOS % 0.5 % (0.0-4.0); HEMATOCRIT 35.3 % (34.0-47.0); LYMPH # 3.2 K/uL (1.0-4.3); LYMPH % 36.2 % (20.0-40.0); MEAN CELL VOLUME 89.7 fL (81.0-99.0); MEAN CORPUSCULAR HEMOGLOBIN 30.1 pg (27.0-31.0); MEAN CORPUSCULAR HGB CONC 33.6 g/dL (33.0-37.0); MEAN PLATELET VOLUME 9.1 fL (7.2-11.7); MONO # 1.2 K/uL (0.0-0.8); MONO % 13.2 % (0.0-10.0); RED CELL DISTRIBUTION WIDTH 14.3 % (11.5-14.5); WHITE BLOOD COUNT 8.8 K/uL (4.8-10.8)
--- NOTE | 2017-02-21 12:15 | CP.PCM.DIS ---
Provider - Provider Date of Admission: 02/19/17 21:34 Attending physician: Jake Patten MD Time Spent in preparation of Discharge (in minutes): 35 Hospital Course - Lab Results Lab Results: Most Recent Lab Values WBC 8.8 K/uL (4.8-10.8) 02/21/17 11:55 RBC 3.93 Mil/uL (3.80-5.20) 02/21/17 11:55 Hgb 11.8 g/dL (11.0-16.0) 02/21/17 11:55 Hct 35.3 % (34.0-47.0) 02/21/17 11:55 MCV 89.7 fL (81.0-99.0) 02/21/17 11:55 MCH 30.1 pg (27.0-31.0) 02/21/17 11:55 MCHC 33.6 g/dL (33.0-37.0) 02/21/17 11:55 RDW 14.3 % (11.5-14.5) 02/21/17 11:55 Plt Count 277 K/uL (130-400) 02/21/17 11:55 MPV 9.1 fL (7.2-11.7) 02/21/17 11:55 Neut % (Auto) 49.6 % (50.0-75.0) L 02/21/17 11:55 Lymph % (Auto) 36.2 % (20.0-40.0) 02/21/17 11:55 Terry % (Auto) 13.2 % (0.0-10.0) H 02/21/17 11:55 Eos % (Auto) 0.5 % (0.0-4.0) 02/21/17 11:55 Baso % (Auto) 0.5 % (0.0-2.0) 02/21/17 11:55 Neut # 4.4 K/uL (1.8-7.0) 02/21/17 11:55 Lymph # 3.2 K/uL (1.0-4.3) 02/21/17 11:55 Terry # 1.2 K/uL (0.0-0.8) H 02/21/17 11:55 Eos # 0.0 K/uL (0.0-0.7) 02/21/17 11:55 Baso # 0.0 K/uL (0.0-0.2) 02/21/17 11:55 Sodium 132 mmol/L (132-148) 02/20/17 08:30 Potassium 4.1 mmol/L (3.6-5.2) 02/20/17 08:30 Chloride 98 mmol/L (98-107) 02/20/17 08:30 Carbon Dioxide 25 mmol/L (22-30) 02/20/17 08:30 Anion Gap 13 (10-20) 02/20/17 08:30 BUN 16 mg/dL (7-17) 02/20/17 08:30 Creatinine 0.7 mg/dL (0.7-1.2) 02/20/17 08:30 Est GFR ( Amer) > 60 02/20/17 08:30 Est GFR (Non-Af Amer) > 60 02/20/17 08:30 POC Glucose (mg/dL) 235 mg/dL (65-110) H 02/21/17 11:49 Random Glucose 135 mg/dL (65-105) H 02/20/17 08:30 Hemoglobin A1c 7.1 % (4.2-6.5) H 02/20/17 17:29 Calcium 8.2 mg/dl (8.6-10.4) L 02/20/17 08:30 Phosphorus 3.2 mg/dL (2.5-4.5) 02/20/17 08:30 Magnesium 1.6 mg/dL (1.6-2.3) 02/20/17 08:30 Total Bilirubin 0.7 mg/dL (0.2-1.3) 02/20/17 08:30 AST 17 U/L (14-36) 02/20/17 08:30 ALT 31 U/L (9-52) 02/20/17 08:30 Alkaline Phosphatase 62 U/L (38-126) 02/20/17 08:30 Total Creatine Kinase 120 U/L (30-135) 02/19/17 17:12 CK-MB (Mass) 1.16 ng/mL (0.0-3.38) 02/19/17 17:12 Troponin I < 0.0120 ng/mL (0.00-0.120) 02/19/17 17:12 Total Protein 6.4 g/dL (6.3-8.3) 02/20/17 08:30 Albumin 3.6 g/dL (3.5-5.0) 02/20/17 08:30 Globulin 2.8 gm/dL (2.2-3.9) 02/20/17 08:30 Albumin/Globulin Ratio 1.3 (1.0-2.1) 02/20/17 08:30 Alcohol, Quantitative < 10 mg/dl (0-10) 02/19/17 17:12 - Hospital Course Hospital Course: HPI Patient is an 82 y/o F with PMHx of DM, HLD, HTN, Paranoid Schizophrenia who was brought in by her and daughter after an episode where the patient said her legs felt paralyzed. At baseline patient needs help walking and can only walk a small amount in the house. Today, patient's and daughter were helping her walk down the stairs when she stopped and said she couldn't walk further because her legs felt paralyzed. With help she was able to walk down the rest of the stairs. Family was worried and called the ambulance. In ED patient was found to have glucose of 36 and was given 2 amps of D50 and started on D5 @80 mls/hr. Patient's checks her blood sugars and say they range between 100-200. In ED patient complains of diffuse abdominal pain. She says she has not had a bowel movement in two days. Patient also complains of bilateral leg cramping. Patient denies headache, nausea or vomiting. Patient says she is not currently hearing voices or seeing hallucinations, except for when she closes her eyes she sees a hole and herself next to a big rock. Patient admits to having feelings of wanting to hurt herself in the past and right now. Hospital Course: psychiatry consult Dr. Oconnell On admission, patient had Head CT no signs of bleed or acute processes. Chest XRAY mild venous congestion, biapical pleural thickening, minimal patchy increaed markings at right lung base. Patient's A1c 7.1. Patient treated for hypoglycemia, which normalized in the 100s during hospital stay. Patient placed on Lantus 16 units initially and decreased to Lantus 10 units on 02/20. 02/20 Psychiatry placed patient on Remeron 15mg by mouth QHS, neurontin 300mg POBID, seroquel 300mg POQHS Patient is medically cleared for discharge. Patient has home care who will administer Lantus 16units QHS for the patient. Patient discharged with instructions to follow up with primary care doctor for any adjustments for diabetes medication and to follow up with psychiatrist for new doses of medications. - Date & Time of H&P Date of H&P: 02/21/17 Time of H&P: 14:00 Discharge Exam - Head Exam Head Exam: NORMAL INSPECTION Discharge Plan - Discharge Medications Prescriptions: Gabapentin [Neurontin] 600 mg PO DAILY #30 tab Insulin Glargine, Recombina [Lantus] 16 unit SC HS 14 Days #200 units Mirtazapine [Remeron] 15 mg PO HS 30 Days tab QUEtiapine [SEROquel] 300 mg PO HS #30 tab - Follow Up Plan Condition: FAIR Disposition: HOME/ ROUTINE Additional Instructions: follow up with primary care doctor in 1 week to reevaluate hb A1c 7.1, and lantus 16 units QHS follow up with psychiatrist in 1 week regarding medications home physical therapy ordered please return to ED if symptoms of dizziness, weakness, fainting occur.
[2017-02-21 12:55] LABS: ALB/GLOB RATIO 1.2 (1.0-2.1); ALKALINE PHOSPHATASE 78 U/L (38-126); ALT/SGPT 25 U/L (9-52); AST/SGOT 17 U/L (14-36); BILIRUBIN,TOTAL 0.6 mg/dL (0.2-1.3); BLOOD UREA NITROGEN 17 mg/dL (7-17); CALCIUM 8.6 mg/dl (8.6-10.4); CARBON DIOXIDE 27 mmol/L (22-30); CHLORIDE 98 mmol/L (98-107); GFR AFRICAN-AMERICAN > 60; GLUCOSE,RANDOM 229 mg/dL (65-105); POTASSIUM 4.1 mmol/L (3.6-5.2); SODIUM 136 mmol/L (132-148); TOTAL PROTEIN 7.1 g/dL (6.3-8.3)
[2017-02-21 17:11] VITALS: BP 122/65; PULSE 64; RESP 20; TEMP 97.6
--- NOTE | 2017-02-21 19:10 | CARD ---
APPROVED REPORT EKG Measurement Heart [id number] <Conclusion> Normal sinus rhythm Normal ECG
== END 2017-02-21 17:15 | disposition home or self-care (01) | DRG 638 ==
LOC: C.ER 16:38 → C.9E 21:34 → C.3T 22:29
PROVIDERS: ADMIT Family Medicine; ATTEND Family Medicine
DX: E11.649 Type 2 diabetes mellitus with hypoglycemia without coma (principal); F20.0 Paranoid schizophrenia; R45.851 Suicidal ideations; I10 Essential (primary) hypertension; E78.5 Hyperlipidemia, unspecified; K59.00 Constipation, unspecified; F41.9 Anxiety disorder, unspecified; F31.9 Bipolar disorder, unspecified; Z95.5 Presence of coronary angioplasty implant and graft; E87.6 Hypokalemia; Z79.899 Other long term (current) drug therapy; R45.1 Restlessness and agitation

== ENCOUNTER 2017-02-24 07:08 | Emergency (ER) | payer MEDICARE, MEDICAID ==
[2017-02-24 07:09] VITALS: BMI 29.2
[2017-02-24 07:14] VITALS: O2SAT 100
--- NOTE | 2017-02-24 07:50 | C.PDOC ---
History Of Present Illness 82 y/o female with PMHx of Dementia brought to ED by EMS and [employer] status post patient being retrieved by from restaurant near home. As per who is at bedside patient has not taken medication and became very aggressive while at the restaurant. HPI limited secondary to patient's clinical condition. Time Seen by Provider: 02/24/17 07:30 Chief Complaint (Nursing): Medical Clearance History Per: Family History/Exam Limitations: clinical condition Onset/Duration Of Symptoms: Hrs Current Symptoms Are (Timing): Still Present Past Medical History Reviewed: Historical Data, Nursing Documentation, Vital Signs Vital Signs: Last Vital Signs Temp 98.6 F 02/24/17 07:57 Pulse 88 02/24/17 07:57 Resp 18 02/24/17 07:57 BP 170/74 H 02/24/17 07:57 Pulse Ox 100 02/24/17 07:57 - Medical History PMH: Alzheimer's Disease, Anxiety, Asthma, Bipolar Disorder, COPD, Depression, Diabetes (type 2), Gastritis, HTN, Hypercholesterolemia, Schizophrenia Surgical History: Coronary Stent - [facility] Procedures GROUP PSYCHOTHERAPY (12/15/16) INDIVIDUAL PSYCHOTHERAPY, BEHAVIORAL (12/15/16) Family History: States: No Known Family Hx - Social History Hx Tobacco Use: No Hx Alcohol Use: No Hx Substance Use: No - Immunization History Hx Tetanus Toxoid Vaccination: No Hx Influenza Vaccination: No Hx Pneumococcal Vaccination: Yes Review Of Systems Constitutional: Negative for: Fever, Chills Cardiovascular: Negative for: Chest Pain Gastrointestinal: Negative for: Nausea, Vomiting Skin: Negative for: Rash Neurological: Negative for: Weakness, Numbness Psych: Negative for: Suicidal ideation Physical Exam - Physical Exam Appears: Non-toxic, No Acute Distress Skin: Warm, Dry, No Rash Head: Atraumatic, Normacephalic Eye(s): bilateral: Normal Inspection Oral Mucosa: Moist Neck: Normal ROM, Supple Chest: Symmetrical, No Tenderness Cardiovascular: Rhythm Regular, No Friction Rub, No Murmur Respiratory: Normal Breath Sounds, No Rales, No Rhonchi, No Wheezing Gastrointestinal/Abdominal: Soft, No Tenderness, No Guarding, No Rebound Back: Normal Inspection, No CVA Tenderness Extremity: Normal ROM, Capillary Refill (<2 seconds), No Swelling Neurological/Psych: Normal Speech, Normal Motor Gait: Steady ED Course And Treatment O2 Sat by Pulse Oximetry: 100 (RA) Pulse Ox Interpretation: Normal Medical Decision Making Medical Decision Making: Patient has normal physical exam and has no compliants. Husbands reports that the patient is at baseline and feels comfortably taking the patient home. Disposition - Disposition Referrals: [facility] [Outside] Disposition: HOME/ ROUTINE Disposition Time: 07:54 Condition: GOOD Additional Instructions: Follow up with the medical doctor within 1-2 days. Return if worsened. Forms: Gen Discharge Inst Yemeni, [employer] (Yemeni) Print Language: IRISH - POA Present On Arrival: None - Clinical Impression Clinical Impression: Medical assessment, Dementia - PA / P[employer]ER [employer]E [employer]KER / Resident Statement MD/DO has reviewed & agrees with the documentation as recorded. - Scribe Statement The provider has reviewed the documentation as recorded by the Gonzalesibfeng Davis All medical record entries made by the Gonzalesibfeng were at my direction and personally dictated by me. I have reviewed the chart and agree that the record accurately reflects my personal performance of the history, physical exam, medical decision making, and the department course for this patient. I have also personally directed, reviewed, and agree with the discharge instructions and disposition.
[2017-02-24] MEDS ORDERED: DiphenhydrAMINE 12.5 mg/5 ml LIQ UD (5 ml) ONE (07:53)
--- NOTE | 2017-02-24 07:54 | C.PDOC ---
Time Seen by Provider: 02/24/17 07:30 Chief Complaint (Nursing): Medical Clearance Past Medical History Vital Signs: Last Vital Signs Temp 98.5 F 02/24/17 07:14 Pulse 109 H 02/24/17 07:14 Resp 16 02/24/17 07:14 BP 183/76 H 02/24/17 07:14 Pulse Ox 100 02/24/17 07:14 - Medical History PMH: Alzheimer's Disease, Anxiety, Asthma, Bipolar Disorder, COPD, Depression, Diabetes (type 2), Gastritis, HTN, Hypercholesterolemia, Schizophrenia Denies: Hepatitis (Patient denied. None reported), HIV (Patient denied. None reported), Chronic Kidney Disease, Seizures (Patient denied. None reported), Sexually Transmitted Disease (Patient denied. None reported) Surgical History: Coronary Stent - [facility] Procedures GROUP PSYCHOTHERAPY (12/15/16) INDIVIDUAL PSYCHOTHERAPY, BEHAVIORAL (12/15/16) Family History: States: Unknown Family Hx - Social History Hx Tobacco Use: No Hx Alcohol Use: No Hx Substance Use: No - Immunization History Hx Tetanus Toxoid Vaccination: No Hx Influenza Vaccination: No Hx Pneumococcal Vaccination: Yes ED Course And Treatment O2 Sat by Pulse Oximetry: 100 Disposition - Disposition
[2017-02-24 07:57] VITALS: BP 170/74; PULSE 88; RESP 18; TEMP 98.6
== END 2017-02-24 08:25 | disposition home or self-care (01) ==
LOC: C.ER 07:08
DX: Z04.8 Encounter for examination and observation for other specified reasons (principal); F03.90 Unspecified dementia, unspecified severity, without behavioral disturbance, psychotic disturbance, mood disturbance, and anxiety

== ENCOUNTER 2017-02-25 18:23 | Inpatient (IN) | payer MEDICARE, MEDICAID ==
[2017-02-25 18:23] VITALS: BMI 29.2
--- NOTE | 2017-02-25 19:20 | C.PDOC ---
History Of Present Illness 82 year old female presents to the ER with a complaint of feeling paranoid, she states people are trying to take her medicine. As per , patient has been scratching and biting him since yesterday. Patient has a Hx of psychiatric problems in the past; denies physical complaints at this time. Chief Complaint (Nursing): Psychiatric Evaluation History Per: Patient History/Exam Limitations: no limitations Onset/Duration Of Symptoms: Days Current Symptoms Are (Timing): Still Present Suicide/Self Injury Attempted (Context): None Modifying Factor(s): None Associated Symptoms: Paranoia. denies: Depression, Suicidal Thoughts, Suicidal Plan Involuntary Hold By: None Recent travel outside of the [place]: No Past Medical History Reviewed: Historical Data, Nursing Documentation, Vital Signs Vital Signs: Last Vital Signs Temp 98.6 F 02/25/17 23:19 Pulse 91 H 02/25/17 23:19 Resp 17 02/25/17 23:19 BP 172/74 H 02/25/17 23:19 Pulse Ox 97 02/26/17 00:19 - Medical History PMH: Alzheimer's Disease, Anxiety, Asthma, Bipolar Disorder, COPD, Depression, Diabetes (type 2), Gastritis, HTN, Hypercholesterolemia, Schizophrenia Surgical History: Coronary Stent - [facility] Procedures GROUP PSYCHOTHERAPY (12/15/16) INDIVIDUAL PSYCHOTHERAPY, BEHAVIORAL (12/15/16) Family History: States: Unknown Family Hx - Social History Hx Tobacco Use: No Hx Alcohol Use: No Hx Substance Use: No - Immunization History Hx Tetanus Toxoid Vaccination: No Hx Influenza Vaccination: No Hx Pneumococcal Vaccination: Yes Review Of Systems Constitutional: Negative for: Fever, Chills Gastrointestinal: Negative for: Nausea, Vomiting, Diarrhea Psych: Positive for: Other (Paranoia) Physical Exam - Physical Exam Appears: Non-toxic, No Acute Distress Skin: Normal Color, Warm, Dry Head: Atraumatic, Normacephalic Eye(s): bilateral: Normal Inspection Oral Mucosa: Moist Chest: Symmetrical, No Tenderness Cardiovascular: Rhythm Regular Respiratory: Normal Breath Sounds, No Rales, No Rhonchi, No Wheezing Gastrointestinal/Abdominal: Soft, No Tenderness Neurological/Psych: Oriented x3, Normal Speech, Other (No focal deficits) ED Course And Treatment - Laboratory Results Result Diagrams: 02/25/17 20:21 02/25/17 23:29 O2 Sat by Pulse Oximetry: 97 (Room air) Pulse Ox Interpretation: Normal Progress Note: Blood work and urinalysis ordered. Patient is not on any sulfanilia to induce hypoglycemia. Disposition Discussed With Dr.: Summer Cerda Doctor Will See Patient In The: Hospital Counseled Patient/Family Regarding: Diagnosis - Disposition Disposition: HOSPITALIZED Disposition Time: 00:54 Condition: STABLE Forms: [facility] ([place] Islander) - POA Present On Arrival: None - Clinical Impression Clinical Impression: Hypoglycemia due to insulin, Schizophrenia - Scribe Statement The provider has reviewed the documentation as recorded by the Scribfeng Braga All medical record entries made by the Scribe were at my direction and personally dictated by me. I have reviewed the chart and agree that the record accurately reflects my personal performance of the history, physical exam, medical decision making, and the department course for this patient. I have also personally directed, reviewed, and agree with the discharge instructions and disposition.
[2017-02-25 20:29] LABS: BASO % 0.4 % (0.0-2.0); EOS % 0.1 % (0.0-4.0); HEMATOCRIT 35.6 % (34.0-47.0); LYMPH # 2.2 K/uL (1.0-4.3); LYMPH % 23.3 % (20.0-40.0); MEAN CELL VOLUME 90.9 fL (81.0-99.0); MEAN CORPUSCULAR HEMOGLOBIN 30.2 pg (27.0-31.0); MEAN CORPUSCULAR HGB CONC 33.2 g/dL (33.0-37.0); MEAN PLATELET VOLUME 8.9 fL (7.2-11.7); MONO # 1.1 K/uL (0.0-0.8); MONO % 11.5 % (0.0-10.0); RED CELL DISTRIBUTION WIDTH 14.6 % (11.5-14.5); WHITE BLOOD COUNT 9.6 K/uL (4.8-10.8)
[2017-02-25 20:39] LABS: ALB/GLOB RATIO 0.9 (1.0-2.1); ALCOHOL SERUM < 10 mg/dl (0-10); ALKALINE PHOSPHATASE 69 U/L (38-126); ALT/SGPT 34 U/L (9-52); AST/SGOT 28 U/L (14-36); BILIRUBIN,TOTAL 0.4 mg/dL (0.2-1.3); BLOOD UREA NITROGEN 31 mg/dL (7-17); CALCIUM 9.7 mg/dl (8.6-10.4); CARBON DIOXIDE 26 mmol/L (22-30); CHLORIDE 105 mmol/L (98-107); GFR AFRICAN-AMERICAN > 60; GLUCOSE,RANDOM 42 mg/dL (65-105); POTASSIUM 3.6 mmol/L (3.6-5.2); SODIUM 142 mmol/L (132-148); TOTAL PROTEIN 8.8 g/dL (6.3-8.3)
[2017-02-25] MEDS ORDERED: Dextrose 5%/0.45% NS 1,000 ML IV ONE (20:59)
[2017-02-25] MEDS ORDERED: Dextrose 50% SYRINGE Inj (50 ml) IV STA (21:00)
[2017-02-25 21:48] LABS: ALKALINE PHOSPHATASE 68 U/L (38-126); ALT/SGPT 37 U/L (9-52); AST/SGOT 25 U/L (14-36); BILIRUBIN,TOTAL 0.4 mg/dL (0.2-1.3); BLOOD UREA NITROGEN 29 mg/dL (7-17); CALCIUM 9.4 mg/dl (8.6-10.4); CARBON DIOXIDE 27 mmol/L (22-30); CHLORIDE 103 mmol/L (98-107); GFR AFRICAN-AMERICAN > 60; GLUCOSE,RANDOM 46 mg/dL (65-105); POTASSIUM 3.3 mmol/L (3.6-5.2); SODIUM 141 mmol/L (132-148); TOTAL PROTEIN 8.5 g/dL (6.3-8.3)
[2017-02-25 22:08] LABS: RBC URINE 1 /hpf (0-3); URINE BILIRUBIN NEGATIVE (NEGATIVE); URINE BLOOD NEGATIVE (NEGATIVE); URINE COLOR Yellow (YELLOW); URINE GLUCOSE (UA) NORMAL (Normal); URINE KETONE NEGATIVE (NEGATIVE); URINE LEUKOCYTE ESTERASE 2+ Leu/uL (Negative); URINE PROTEIN NEGATIVE (NEGATIVE); URINE UROBILINOGEN NORMAL mg/dL (0.2-1.0); WBC URINE 16 /hpf (0-5)
[2017-02-25 23:58] LABS: ALKALINE PHOSPHATASE 77 U/L (38-126); ALT/SGPT 27 U/L (9-52); AST/SGOT 25 U/L (14-36); BILIRUBIN,TOTAL 0.4 mg/dL (0.2-1.3); BLOOD UREA NITROGEN 29 mg/dL (7-17); CALCIUM 8.8 mg/dl (8.6-10.4); CARBON DIOXIDE 24 mmol/L (22-30); CHLORIDE 103 mmol/L (98-107); GFR AFRICAN-AMERICAN > 60; GLUCOSE,RANDOM 190 mg/dL (65-105); POTASSIUM 3.8 mmol/L (3.6-5.2); SODIUM 138 mmol/L (132-148); TOTAL PROTEIN 7.9 g/dL (6.3-8.3)
[2017-02-26] MEDS ORDERED: Dextrose 5%/0.45% NS 1,000 ML IV ONE (00:42)
[2017-02-26] MEDS ORDERED: Ciprofloxacin 400mg/200ml D5W 400 MG/200 ML BAG IVPB STA (00:43)
[2017-02-26] MEDS ORDERED: Ciprofloxacin 400mg/200ml D5W 400 MG/200 ML BAG IVPB ONE (01:49)
[2017-02-26] MEDS ORDERED: Albuterol-Ipratrop 3 mg / 0.5 (3 ml) UD INH PRN (05:24)
--- NOTE | 2017-02-26 09:33 | RAD ---
HISTORY: TRANSFER TO [facility] COMPARISON: Portable chest 02/19/2017. FINDINGS: Patient rotated toward the right once again, limiting the evaluation of the cardiomediastinal silhouette. LUNGS: No definite active pulmonary disease appreciated although linear atelectasis or fibrosis in the inferior left lung zone once again. PLEURA: No significant pleural effusion identified, no pneumothorax apparent. CARDIOVASCULAR: Normal. OSSEOUS STRUCTURES: No significant abnormalities. VISUALIZED UPPER ABDOMEN: Normal. OTHER FINDINGS: None. IMPRESSION: Stable chest radiograph with the patient remaining rotated sharply to the right without obvious acute cardiopulmonary is appreciable. Clinically correlate further nevertheless. Linear atelectasis or fibrosis again seen at the left base.
[2017-02-26] MEDS ORDERED: Home Med 1 UNIT (Valsartan [Diovan] 160 MG) PO SCH (10:00)
[2017-02-26] MEDS: Enoxaparin 40 mg Syringe SC SCH (10:18)
[2017-02-26] MEDS: Pantoprazole 40 mg EC Tab PO SCH (10:18)
--- NOTE | 2017-02-26 11:37 | PCM.PSYCH ---
Initial Psychiatric Evaluation - Initial Psychiatric Evaluation Chief Complaint (in patient's own words): "I want to go home" History of Present Illness and Precipitating Events: The pt is seen, chart reviewed, incl. previous psych admissions, case discussed Hospital Insurance Clerk called her but no one answered. Consult was requested for agitation. She was in ED waiting for admission. She is a very poor historian due to dementia. She was also dx'ed with "schizophrenia" but that needs to be confirmed, i.e. past history of symptoms, treatment, admission etc. She is however psychotic, which does happen in dementia, and claims people are after her and her . She also told us there was a cat in her room in ED. Her told ED staff that she was agitated and claiming people steal her meds. She is disoriented and very forgetful. She thinks she is "39 years old." She was on high dose of seroquel 300 mg (for her age), as well as 600 mg gabapentin (not clear why once a day) and other medical meds Past psych hx: Ad[facility] to [facility], dx of Alzheimer's confirmed , put on said meds Medical hx: HTN, pls see chart for details Family psych hx: Unknown Current Medications: Active Medications Generic Name Dose Route Start Last Admin Trade Name Freq PRN Reason Stop Dose Admin Albuterol/Ipratropium 3 ml 02/26/17 05:24 Duoneb 3 Mg/0.5 Mg (3 Ml) Ud INH RQ6 PRN Shortness of Breath Docusate Sodium 100 mg 02/26/17 10:00 02/26/17 10:18 Colace PO 100 mg BID SANTO Administration Enoxaparin Sodium 40 mg 02/26/17 10:00 02/26/17 10:18 Lovenox SC 40 mg DAILY SANTO Administration Gabapentin 600 mg 02/26/17 10:00 02/26/17 10:18 Neurontin PO 600 mg DAILY SANTO Administration Home Med 10 mg 02/26/17 22:00 Atorvastatin [Lipitor] PO HS SANTO Home Med 300 mg 02/26/17 22:00 Quetiapine [Seroquel] PO HS SANTO Dextrose 500 mls @ 10 mls/hr 02/26/17 05:30 02/26/17 06:04 Dextrose 10% In Water IV 10 mls/hr .Q24H SANTO Administration Losartan Potassium 100 mg 02/26/17 10:00 02/26/17 10:18 Cozaar PO 100 mg DAILY SANTO Administration Mirtazapine 15 mg 02/26/17 22:00 Remeron PO HS SANTO Pantoprazole Sodium 40 mg 02/26/17 10:00 02/26/17 10:18 Protonix Ec Tab PO 40 mg DAILY SANTO Administration Past Psychiatric History - Past Psychiatric History Previous Treatment History: Inpatient Pertinent Medical Hx (Current Medical&Sleep Prob, Allergies): Allergies Allergy/AdvReac Type Severity Reaction Status Date / Time No Known Allergies Allergy Verified 02/25/17 18:41 Albuterol/Ipratropium [Duoneb 3 mg/0.5 mg (3 ml) UD] 3 ml INH RQ6 PRN #1 neb Atorvastatin [Lipitor] 10 mg PO HS #30 tab 12/25/16 Docusate [Colace] 100 mg PO BID #60 cap 12/25/16 Valsartan [Diovan] 160 mg PO DAILY #30 tab 12/25/16 Gabapentin [Neurontin] 600 mg PO DAILY #30 tab 02/21/17 Mirtazapine [Remeron] 15 mg PO HS 30 Days tab 02/21/17 QUEtiapine [SEROquel] 300 mg PO HS #30 tab 02/21/17 Review of Systems - Psychiatric Psychiatric: Abnormal Sleep Pattern, Anxiety, Auditory Hallucinations, Confusion , Depression, Difficulty Concentrating, Hallucinations, Memory Loss, Mood Swings , Paranoia, Visual Hallucinations. absent: Homicidal Ideation, Suicidal Ideation Mental Status Examination - Personal Presentation Personal Presentation: Looks stated age - Affect Affect: Constricted - Motor Activity Motor Activity: Violent - Reliability in Providing Information Reliability in Providing Information: Poor, due to cognitve impairment - Speech Speech: Disorganized - Mood Mood: Anxious - Formal Thought Process Formal Thought Process: Hallucinations, Delusions, Paranoia, Loosening of associations - Cognitive Functions Orientation: Place (Knew she was in a hospital but not oriented to time/person/ other place questions) Sensorium: Drowsy Attention/Concentration: Easily distracted Judgement: Imparied, as evidence by: Poor judgement Memory: Recent impaired, as evidence by: Inability to recall events of the day, Remote impaired as evidenced by: Inability to recall sig life events - Risk Risk: Diminished functioning - Strength & Assets Inventory Strength & Assets Inventory: Family support DSM 5 DX - DSM 5 DSM 5 Diagnosis: Alzheimer's dementia with behavioral problems, with psychosis r/o Psychosis unspecified r/o - delirium - Recommended/Plan of Treatment Treatment Recommendations and Plan of Treatment: Seroquel 200 mg HS Inderal 10 mg TID helps behavioral problems Split gabapentin to 200 tid instead of 600 mg one time (short-acting medication) Monitor MSE, 1:1 for safety, frequent orientation/support Family involvement (Guardianship?) Consider NH placement if OK 32 min
--- NOTE | 2017-02-26 20:12 | CP.PCM.HP ---
History of Present Illness - History of Present Illness History of Present Illness: An 82-year-old female with PMHAlzheimer's disease, anxiety, asthma, bipolar disorder, COPD, depression, DM, HTN, hypercholesterolemia and schizophrenia presents to the ER C/ paranoia. C/Opatient is feeling paranoid since the last few days. She states that people are trying to take her medications. As per the the patient is continuously biting her since yesterday. Due to patient's dementia further history cannot be elicited. Present on Admission - Present on Admission Any Indicators Present on Admission: No Past Patient History - Past Medical History & Family History Past Medical History?: Yes - Past Social History Smoking Status: Never Smoked - CARDIAC Hx Hypercholesterolemia: Yes Hx Hypertension: Yes - PULMONARY Hx Asthma: Yes Hx Chronic Obstructive Pulmonary Disease (COPD): Yes - NEUROLOGICAL Hx Alzheimer's Disease: Yes - HEENT Hx HEENT Problems: No - RENAL Hx Chronic Kidney Disease: No - ENDOCRINE/METABOLIC Hx Diabetes Mellitus Type 2: Yes - HEMATOLOGICAL/ONCOLOGICAL Hx Blood Disorders: No - INTEGUMENTARY Hx Dermatological Problems: No - MUSCULOSKELETAL/RHEUMATOLOGICAL Hx Musculoskeletal Disorders: Yes Hx Falls: Yes - GASTROINTESTINAL Hx Gastritis: Yes - GENITOURINARY/GYNECOLOGICAL Hx Sexually Transmitted Disorders: No (Patient denied. None reported) - PSYCHIATRIC Hx Anxiety: Yes Hx Bipolar Disorder: Yes Hx Depression: Yes Hx Schizophrenia: Yes Hx Substance Use: No - SURGICAL HISTORY Hx Coronary Stent: Yes - ANESTHESIA Hx Anesthesia: Yes Hx Anesthesia Reactions: No Hx Malignant Hyperthermia: No Meds Allergies/Adverse Reactions: Allergies Allergy/AdvReac Type Severity Reaction Status Date / Time No Known Allergies Allergy Verified 02/25/17 18:41 Physical Exam - Constitutional Appears: Well - Head Exam Head Exam: ATRAUMATIC, NORMAL INSPECTION, NORMOCEPHALIC - Eye Exam Eye Exam: EOMI, Normal appearance, PERRL Pupil Exam: NORMAL ACCOMODATION, PERRL - ENT Exam ENT Exam: Mucous Membranes Moist, Normal Exam - Neck Exam Neck exam: Positive for: Normal Inspection - Respiratory Exam Respiratory Exam: Decreased Breath Sounds - Cardiovascular Exam Cardiovascular Exam: REGULAR RHYTHM, +S1, +S2 - GI/Abdominal Exam GI & Abdominal Exam: Diminished Bowel Sounds, Soft - Rectal Exam Rectal Exam: Deferred Results - Vital Signs Recent Vital Signs: Last Vital Signs Temp 99.3 F 02/26/17 18:58 Pulse 87 02/26/17 18:58 Resp 20 02/26/17 18:58 BP 119/58 L 02/26/17 18:58 Pulse Ox 95 02/26/17 18:58 - Labs Result Diagrams: 02/28/17 11:18 02/28/17 11:18 Labs: Laboratory Results - last 24 hr 02/25/17 02/25/17 02/25/17 20:21 20:21 20:21 WBC 9.6 RBC 3.91 Hgb 11.8 Hct 35.6 MCV 90.9 MCH 30.2 MCHC 33.2 RDW 14.6 H Plt Count 283 MPV 8.9 Neut % (Auto) 64.7 Lymph % (Auto) 23.3 [place] % (Auto) 11.5 H Eos % (Auto) 0.1 Baso % (Auto) 0.4 Neut # 6.2 Lymph # 2.2 [place] # 1.1 H Eos # 0.0 Baso # 0.0 Sodium 142 Potassium 3.6 Chloride 105 Carbon Dioxide 26 Anion Gap 15 BUN 31 H Creatinine 0.9 Est GFR ( Amer) > 60 Est GFR (Non-Af Amer) > 60 POC Glucose (mg/dL) Random Glucose 42 L Calcium 9.7 Total Bilirubin 0.4 AST 28 ALT 34 Alkaline Phosphatase 69 Total Protein 8.8 H Albumin 4.2 Globulin 4.6 H Albumin/Globulin Ratio 0.9 L Urine Color Urine Clarity Urine pH Ur Specific [place] Urine Protein Urine Glucose (UA) Urine Ketones Urine Blood Urine Nitrate Urine Bilirubin Urine Urobilinogen Ur Leukocyte Esterase Urine WBC (Auto) Urine RBC (Auto) Urine Opiates Screen Negative Urine Methadone Screen Negative Ur Barbiturates Screen Negative Ur Phencyclidine Scrn Negative Ur Amphetamines Screen Negative U Benzodiazepines Scrn Negative U Oth Cocaine Metabols Negative U Cannabinoids Screen Negative Alcohol, Quantitative < 10 02/25/17 02/25/17 02/25/17 20:48 21:05 21:29 WBC RBC Hgb Hct MCV MCH MCHC RDW Plt Count MPV Neut % (Auto) Lymph % (Auto) [place] % (Auto) Eos % (Auto) Baso % (Auto) Neut # Lymph # [place] # Eos # Baso # Sodium 141 Potassium 3.3 L Chloride 103 Carbon Dioxide 27 Anion Gap 15 BUN 29 H Creatinine 0.9 Est GFR ( Amer) > 60 Est GFR (Non-Af Amer) > 60 POC Glucose (mg/dL) 36 L* 65 Random Glucose 46 L Calcium 9.4 Total Bilirubin 0.4 AST 25 ALT 37 Alkaline Phosphatase 68 Total Protein 8.5 H Albumin 4.2 Globulin 4.3 H Albumin/Globulin Ratio 1.0 Urine Color Urine Clarity Urine pH Ur Specific [place] Urine Protein Urine Glucose (UA) Urine Ketones Urine Blood Urine Nitrate Urine Bilirubin Urine Urobilinogen Ur Leukocyte Esterase Urine WBC (Auto) Urine RBC (Auto) Urine Opiates Screen Urine Methadone Screen Ur Barbiturates Screen Ur Phencyclidine Scrn Ur Amphetamines Screen U Benzodiazepines Scrn U Oth Cocaine Metabols U Cannabinoids Screen Alcohol, Quantitative 02/25/17 02/25/17 02/25/17 21:38 21:56 23:29 WBC RBC Hgb Hct MCV MCH MCHC RDW Plt Count MPV Neut % (Auto) Lymph % (Auto) [place] % (Auto) Eos % (Auto) Baso % (Auto) Neut # Lymph # [place] # Eos # Baso # Sodium 138 Potassium 3.8 Chloride 103 Carbon Dioxide 24 Anion Gap 15 BUN 29 H Creatinine 0.9 Est GFR ( Amer) > 60 Est GFR (Non-Af Amer) > 60 POC Glucose (mg/dL) 202 H Random Glucose 190 H Calcium 8.8 Total Bilirubin 0.4 AST 25 ALT 27 Alkaline Phosphatase 77 Total Protein 7.9 Albumin 3.9 Globulin 4.0 H Albumin/Globulin Ratio 1.0 Urine Color Yellow Urine Clarity Hazy Urine pH 5.0 Ur Specific [place] 1.020 Urine Protein Negative Urine Glucose (UA) Normal Urine Ketones Negative Urine Blood Negative Urine Nitrate Negative Urine Bilirubin Negative Urine Urobilinogen Normal Ur Leukocyte Esterase 2+ H Urine WBC (Auto) 16 H Urine RBC (Auto) 1 Urine Opiates Screen Urine Methadone Screen Ur Barbiturates Screen Ur Phencyclidine Scrn Ur Amphetamines Screen U Benzodiazepines Scrn U Oth Cocaine Metabols U Cannabinoids Screen Alcohol, Quantitative 02/26/17 02/26/17 02/26/17 00:37 05:51 06:23 WBC RBC Hgb Hct MCV MCH MCHC RDW Plt Count MPV Neut % (Auto) Lymph % (Auto) [place] % (Auto) Eos % (Auto) Baso % (Auto) Neut # Lymph # [place] # Eos # Baso # Sodium Potassium Chloride Carbon Dioxide Anion Gap BUN Creatinine Est GFR ( Amer) Est GFR (Non-Af Amer) POC Glucose (mg/dL) 159 H 42 L 65 Random Glucose Calcium Total Bilirubin AST ALT Alkaline Phosphatase Total Protein Albumin Globulin Albumin/Globulin Ratio Urine Color Urine Clarity Urine pH Ur Specific [place] Urine Protein Urine Glucose (UA) Urine Ketones Urine Blood Urine Nitrate Urine Bilirubin Urine Urobilinogen Ur Leukocyte Esterase Urine WBC (Auto) Urine RBC (Auto) Urine Opiates Screen Urine Methadone Screen Ur Barbiturates Screen Ur Phencyclidine Scrn Ur Amphetamines Screen U Benzodiazepines Scrn U Oth Cocaine Metabols U Cannabinoids Screen Alcohol, Quantitative 02/26/17 02/26/17 02/26/17 06:52 07:33 11:30 WBC RBC Hgb Hct MCV MCH MCHC RDW Plt Count MPV Neut % (Auto) Lymph % (Auto) [place] % (Auto) Eos % (Auto) Baso % (Auto) Neut # Lymph # [place] # Eos # Baso # Sodium Potassium Chloride Carbon Dioxide Anion Gap BUN Creatinine Est GFR ( Amer) Est GFR (Non-Af Amer) POC Glucose (mg/dL) 94 118 H 112 H Random Glucose Calcium Total Bilirubin AST ALT Alkaline Phosphatase Total Protein Albumin Globulin Albumin/Globulin Ratio Urine Color Urine Clarity Urine pH Ur Specific [place] Urine Protein Urine Glucose (UA) Urine Ketones Urine Blood Urine Nitrate Urine Bilirubin Urine Urobilinogen Ur Leukocyte Esterase Urine WBC (Auto) Urine RBC (Auto) Urine Opiates Screen Urine Methadone Screen Ur Barbiturates Screen Ur Phencyclidine Scrn Ur Amphetamines Screen U Benzodiazepines Scrn U Oth Cocaine Metabols U Cannabinoids Screen Alcohol, Quantitative 02/26/17 16:27 WBC RBC Hgb Hct MCV MCH MCHC RDW Plt Count MPV Neut % (Auto) Lymph % (Auto) [place] % (Auto) Eos % (Auto) Baso % (Auto) Neut # Lymph # [place] # Eos # Baso # Sodium Potassium Chloride Carbon Dioxide Anion Gap BUN Creatinine Est GFR ( Amer) Est GFR (Non-Af Amer) POC Glucose (mg/dL) 71 Random Glucose Calcium Total Bilirubin AST ALT Alkaline Phosphatase Total Protein Albumin Globulin Albumin/Globulin Ratio Urine Color Urine Clarity Urine pH Ur Specific [place] Urine Protein Urine Glucose (UA) Urine Ketones Urine Blood Urine Nitrate Urine Bilirubin Urine Urobilinogen Ur Leukocyte Esterase Urine WBC (Auto) Urine RBC (Auto) Urine Opiates Screen Urine Methadone Screen Ur Barbiturates Screen Ur Phencyclidine Scrn Ur Amphetamines Screen U Benzodiazepines Scrn U Oth Cocaine Metabols U Cannabinoids Screen Alcohol, Quantitative
[2017-02-26] MEDS ORDERED: QUETIAPINE 300 MG PO SCH (22:00)
[2017-02-27] MEDS ORDERED: Glucagon Recombinant 1 mg Inj IM PRN (07:06)
[2017-02-27] MEDS ORDERED: Dextrose 50% SYRINGE Inj (50 ml) IV PRN (07:06)
[2017-02-27] MEDS: Pantoprazole 40 mg EC Tab PO SCH (09:44)
[2017-02-27] MEDS: Enoxaparin 40 mg Syringe SC SCH (09:45)
--- NOTE | 2017-02-27 09:59 | CP.PCM.PN ---
<Mani Vallejo - Last Filed: 02/27/17 09:59> Subjective - Date & Time of Evaluation Date of Evaluation: 02/27/17 Time of Evaluation: 10:02 - Subjective Subjective: PGY2 Note for Dr. Bari Cerda; all management as per Dr. Bari Cerda Patient seen and examined at bedside; she is pleasantly demented however unable to voice all needs as she does not engage in meaningful conversation and frequently forgets what we are talking about. She denies all symptoms today and states that she "feels good". Nursing reports that overnight she had no events and is eating well. Objective - Vital Signs/Intake and Output Vital Signs (last 24 hours): Temp Pulse Resp BP Pulse Ox 97.8 F 71 18 132/76 97 02/27/17 08:05 02/27/17 08:05 02/27/17 08:05 02/27/17 08:05 02/27/17 08:05 Intake and Output: 02/27/17 02/27/17 06:59 18:59 Intake Total 120 Balance 120 - Medications Medications: Current Medications Albuterol/Ipratropium (Duoneb 3 Mg/0.5 Mg (3 Ml) Ud) 3 ml INH RQ6 PRN PRN Reason: Shortness of Breath Dextrose (Dextrose 50% Inj) 0 ml IV STAT PRN; Protocol PRN Reason: Hypoglycemia Protocol Dextrose (Glutose 15) 0 gm PO ONCE PRN; Protocol PRN Reason: Hypoglycemia Protocol Docusate Sodium (Colace) 100 mg PO BID [facility] Last Admin: 02/27/17 09:44 Dose: 100 mg Enoxaparin Sodium (Lovenox) 40 mg SC DAILY [facility] Last Admin: 02/27/17 09:45 Dose: 40 mg Gabapentin (Neurontin) 200 mg PO TID [facility] Last Admin: 02/27/17 09:43 Dose: 200 mg Glucagon (Glucagen Diagnostic Kit) 0 mg IM STAT PRN; Protocol PRN Reason: Hypoglycemia Protocol Dextrose (Dextrose 10% In Water) 500 mls @ 10 mls/hr IV .Q24H [facility] Last Admin: 02/27/17 05:30 Dose: Not Given Dextrose (Dextrose 5% In Water 1000 Ml) 1,000 mls @ 0 mls/hr IV .Q0M PRN; Protocol; Per Protocol PRN Reason: Hypoglycemia Protocol Insulin Aspart (Novolog) 0 unit SC ACHS [facility] PRN Reason: Protocol Losartan Potassium (Cozaar) 100 mg PO DAILY [facility] Last Admin: 02/27/17 09:44 Dose: 100 mg Mirtazapine (Remeron) 15 mg PO [facility] Last Admin: 02/26/17 21:33 Dose: 15 mg Pantoprazole Sodium (Protonix Ec Tab) 40 mg PO DAILY [facility] Last Admin: 02/27/17 09:44 Dose: 40 mg Propranolol HCl (Inderal) 10 mg PO TID [facility] Last Admin: 02/27/17 09:45 Dose: 10 mg Quetiapine Fumarate (Seroquel) 200 mg PO [facility] Last Admin: 02/26/17 21:33 Dose: 200 mg Rosuvastatin Calcium (Crestor) 5 mg PO [facility] Last Admin: 02/26/17 21:33 Dose: 5 mg - Labs Labs: 02/25/17 20:21 02/25/17 23:29 - Constitutional Appears: Non-toxic, Chronically Ill - Head Exam Head Exam: ATRAUMATIC - Eye Exam Eye Exam: EOMI Pupil Exam: PERRL - ENT Exam ENT Exam: Mucous Membranes Moist - Neck Exam Neck Exam: Full ROM - Respiratory Exam Respiratory Exam: Clear to Ausculation Bilateral, NORMAL BREATHING PATTERN - Cardiovascular Exam Cardiovascular Exam: REGULAR RHYTHM - GI/Abdominal Exam GI & Abdominal Exam: Soft, Normal Bowel Sounds - Extremities Exam Extremities Exam: absent: Calf Tenderness - Back Exam Back Exam: absent: CVA tenderness (L), CVA tenderness (R) - Neurological Exam Neurological Exam: Awake - Psychiatric Exam Psychiatric exam: Normal Affect - Skin Skin Exam: Warm Assessment and Plan - Assessment and Plan (Free Text) Assessment: 82yo F admitted for advanced dementia and failure to thrive Dementia with psychotic features -Dr. [place]; recs appreciated Seroquel 200 mg HS Inderal 10 mg TID helps behavioral problems Split gabapentin to 200 tid instead of 600 mg one time (short-acting medication) Monitor MSE, 1:1 for safety, frequent orientation/support Family involvement (Guardianship?) Consider [facility] placement if OK Mirtazapine Agree with NH placement; will speak to family today stable UTI; resolved positive UA; treated with ciprofloxacin HLD -c/w Lipitor 10mg HTN c/w Valsartan Proph 1:1 SCD Protonix Dispo: pending conversation with and possible pen[facility]iary placement All management as per Dr. Bari Cerda <Summer Cerda S - Last Filed: 02/28/17 15:42> Objective - Vital Signs/Intake and Output Vital Signs (last 24 hours): Temp Pulse Resp BP Pulse Ox 98.8 F 73 20 119/71 97 02/28/17 07:52 02/28/17 07:52 02/28/17 07:52 02/28/17 07:52 02/28/17 07:52 Intake and Output: 02/28/17 02/28/17 06:59 18:59 Intake Total 370 360 Balance 370 360 - Medications Medications: Current Medications Albuterol/Ipratropium (Duoneb 3 Mg/0.5 Mg (3 Ml) Ud) 3 ml INH RQ6 PRN PRN Reason: Shortness of Breath Dextrose (Dextrose 50% Inj) 0 ml IV STAT PRN; Protocol PRN Reason: Hypoglycemia Protocol Dextrose (Glutose 15) 0 gm PO ONCE PRN; Protocol PRN Reason: Hypoglycemia Protocol Docusate Sodium (Colace) 100 mg PO BID [facility] Last Admin: 02/28/17 09:34 Dose: 100 mg Enoxaparin Sodium (Lovenox) 40 mg SC DAILY [facility] Last Admin: 02/28/17 09:34 Dose: 40 mg Gabapentin (Neurontin) 200 mg PO TID [facility] Last Admin: 02/28/17 14:12 Dose: 200 mg Glucagon (Glucagen Diagnostic Kit) 0 mg IM STAT PRN; Protocol PRN Reason: Hypoglycemia Protocol Dextrose (Dextrose 10% In Water) 500 mls @ 10 mls/hr IV .Q24H [facility] Last Admin: 02/28/17 05:42 Dose: Not Given Dextrose (Dextrose 5% In Water 1000 Ml) 1,000 mls @ 0 mls/hr IV .Q0M PRN; Protocol; Per Protocol PRN Reason: Hypoglycemia Protocol Insulin Aspart (Novolog) 0 unit SC ACHS [facility] PRN Reason: Protocol Last Admin: 02/28/17 12:15 Dose: 3 unit Losartan Potassium (Cozaar) 100 mg PO DAILY [facility] Last Admin: 02/28/17 09:35 Dose: 100 mg Mirtazapine (Remeron) 15 mg PO HS [facility] Last Admin: 02/27/17 22:15 Dose: 15 mg Pantoprazole Sodium (Protonix Ec Tab) 40 mg PO DAILY [facility] Last Admin: 02/28/17 09:34 Dose: 40 mg Propranolol HCl (Inderal) 10 mg PO TID [facility] Last Admin: 02/28/17 14:12 Dose: 10 mg Quetiapine Fumarate (Seroquel) 200 mg PO HS [facility] Last Admin: 02/27/17 22:15 Dose: 200 mg Rosuvastatin Calcium (Crestor) 5 mg PO [facility] Last Admin: 02/27/17 22:14 Dose: 5 mg - Labs Labs: 02/28/17 11:18 02/28/17 11:18 Attending/Attestation - Attestation I have personally seen and examined this patient.: Yes I have fully participated in the care of the patient.: Yes I have reviewed all pertinent clinical information, including history, physical exam and plan: Yes Notes (Text): Patient examined. Chest x-ray normal. Patient observed at bedside, unable to voice or needs and does not engage in any meaningful conversations. Patient is demented. Continue quetiapine, mirtazapine and antidiabetic medications. Continue propanol. Continue bronchodilators and supportive care.
[2017-02-27] MEDS: (Novolog) Insulin Aspart, Recombinant 100 u/ml 10 ml vial SC SCH ×3 (12:21→22:16)
--- NOTE | 2017-02-27 16:01 | CP.PCM.PN ---
Subjective - Date & Time of Evaluation Date of Evaluation: 02/27/17 Time of Evaluation: 08:20 - Subjective Subjective: clinically same Objective - Vital Signs/Intake and Output Vital Signs (last 24 hours): Temp Pulse Resp BP Pulse Ox 97.8 F 71 18 132/76 97 02/27/17 08:05 02/27/17 08:05 02/27/17 08:05 02/27/17 08:05 02/27/17 08:05 Intake and Output: 02/27/17 02/27/17 06:59 18:59 Intake Total 360 Balance 360 - Medications Medications: Current Medications Albuterol/Ipratropium (Duoneb 3 Mg/0.5 Mg (3 Ml) Ud) 3 ml INH RQ6 PRN PRN Reason: Shortness of Breath Dextrose (Dextrose 50% Inj) 0 ml IV STAT PRN; Protocol PRN Reason: Hypoglycemia Protocol Dextrose (Glutose 15) 0 gm PO ONCE PRN; Protocol PRN Reason: Hypoglycemia Protocol Docusate Sodium (Colace) 100 mg PO BID [facility] Last Admin: 02/27/17 09:44 Dose: 100 mg Enoxaparin Sodium (Lovenox) 40 mg SC DAILY [facility] Last Admin: 02/27/17 09:45 Dose: 40 mg Gabapentin (Neurontin) 200 mg PO TID [facility] Last Admin: 02/27/17 13:46 Dose: 200 mg Glucagon (Glucagen Diagnostic Kit) 0 mg IM STAT PRN; Protocol PRN Reason: Hypoglycemia Protocol Dextrose (Dextrose 10% In Water) 500 mls @ 10 mls/hr IV .Q24H [facility] Last Admin: 02/27/17 05:30 Dose: Not Given Dextrose (Dextrose 5% In Water 1000 Ml) 1,000 mls @ 0 mls/hr IV .Q0M PRN; Protocol; Per Protocol PRN Reason: Hypoglycemia Protocol Insulin Aspart (Novolog) 0 unit SC ACHS [facility] PRN Reason: Protocol Last Admin: 02/27/17 12:21 Dose: Not Given Losartan Potassium (Cozaar) 100 mg PO DAILY [facility] Last Admin: 02/27/17 09:44 Dose: 100 mg Mirtazapine (Remeron) 15 mg PO HS [facility] Last Admin: 02/26/17 21:33 Dose: 15 mg Pantoprazole Sodium (Protonix Ec Tab) 40 mg PO DAILY [facility] Last Admin: 02/27/17 09:44 Dose: 40 mg Propranolol HCl (Inderal) 10 mg PO TID [facility] Last Admin: 02/27/17 13:46 Dose: 10 mg Quetiapine Fumarate (Seroquel) 200 mg PO [facility] Last Admin: 02/26/17 21:33 Dose: 200 mg Rosuvastatin Calcium (Crestor) 5 mg PO [facility] Last Admin: 02/26/17 21:33 Dose: 5 mg - Labs Labs: 02/25/17 20:21 02/25/17 23:29 - Constitutional Appears: Well - Head Exam Head Exam: ATRAUMATIC, NORMAL INSPECTION, NORMOCEPHALIC - Eye Exam Eye Exam: EOMI, Normal appearance, PERRL Pupil Exam: NORMAL ACCOMODATION, PERRL - ENT Exam ENT Exam: Mucous Membranes Moist, Normal Exam - Neck Exam Neck Exam: Full ROM, Normal Inspection. absent: Lymphadenopathy - Respiratory Exam Respiratory Exam: Clear to Ausculation Bilateral, NORMAL BREATHING PATTERN - Cardiovascular Exam Cardiovascular Exam: REGULAR RHYTHM, +S1, +S2. absent: Murmur - GI/Abdominal Exam GI & Abdominal Exam: Soft, Normal Bowel Sounds. absent: Tenderness - Rectal Exam Rectal Exam: Deferred - Extremities Exam Extremities Exam: Full ROM, Normal Capillary Refill, Normal Inspection. absent : Joint Swelling, Pedal Edema - Back Exam Back Exam: NORMAL INSPECTION Assessment and Plan (1) Hypoglycemia due to insulin Status: Acute (2) Schizophrenia Status: Acute (3) Abdominal pain Status: Acute (4) Abdominal pain Status: Acute (5) Agitation Status: Acute (6) Chest pain Status: Acute (7) Constipation Status: Acute (8) Contusion Status: Acute (9) Dementia Status: Acute (10) Diabetes mellitus Status: Acute (11) Dizziness Status: Acute (12) Gastroenteritis Status: Acute (13) HTN (hypertension) Status: Acute (14) Head injury Status: Acute (15) Headache Status: Acute (16) Hypoglycemia Status: Acute (17) Knee pain Status: Acute (18) Leg pain Status: Acute (19) Medical assessment Status: Acute (20) Minor head injury without loss of consciousness Status: Acute (21) Paranoia Status: Acute (22) Renal insufficiency Status: Acute (23) UTI (urinary tract infection) Status: Acute - Assessment and Plan (Free Text) Plan: Patient examined. Patient is demented. Patient is unable to engage in a meaningful conversation. Continue quetiapine, mirtazapine. Continue antidiabetic medications. Continue bronchodilators and supportive care.
[2017-02-27 16:28] VITALS: RESP 20
[2017-02-28] MEDS: (Novolog) Insulin Aspart, Recombinant 100 u/ml 10 ml vial SC SCH ×3 (08:01→17:06)
[2017-02-28] MEDS: Pantoprazole 40 mg EC Tab PO SCH (09:34)
[2017-02-28] MEDS: Enoxaparin 40 mg Syringe SC SCH (09:34)
--- NOTE | 2017-02-28 10:36 | CP.PCM.PN ---
<Kenneth Murray - Last Filed: 02/28/17 18:15> Subjective - Date & Time of Evaluation Date of Evaluation: 02/28/17 Time of Evaluation: 07:05 - Subjective Subjective: PGY2 Resident - Medicine Progress Note Patient seen and examined at bedside. No acute distress. No overnight events. She is currently AAOx3, despite being pleasantly demented. She is urinating and passing BMs well. She reports feeling well today. She denies fever, chills, headache, changes in vision, chest pain, palpitations, dyspnea, cough, abdominal pain, nausea/vomiting, diarrhea/constipation, dysuria, or any additional acute complaints. Patient is stable for discharge per Dr. Bari Cerda. Patient should resume all medications as outlined in this document. Additionally, patient should take the new medications listed below (scripts provided). Please make an appointment and follow up with your Primary Doctor Dr. Bari Cerda within one week of discharge. Patient should return to ED immediately if symptoms return or worsen. Instructions discussed with patient who understood and agreed. Newly prescribed medications: Neurontin 200mg PO TID #30days Propranolol 10mg PO TID #30days Seroquel 200mg PO HS #30days (changed from a 600mg once daily dose, to 3 separate 200mg doses to be given three times per day) Objective - Vital Signs/Intake and Output Vital Signs (last 24 hours): Temp Pulse Resp BP Pulse Ox 98.8 F 73 20 119/71 97 02/28/17 07:52 02/28/17 07:52 02/28/17 07:52 02/28/17 07:52 02/28/17 07:52 Intake and Output: 02/28/17 02/28/17 06:59 18:59 Intake Total 370 Balance 370 - Medications Medications: Current Medications Albuterol/Ipratropium (Duoneb 3 Mg/0.5 Mg (3 Ml) Ud) 3 ml INH RQ6 PRN PRN Reason: Shortness of Breath Dextrose (Dextrose 50% Inj) 0 ml IV STAT PRN; Protocol PRN Reason: Hypoglycemia Protocol Dextrose (Glutose 15) 0 gm PO ONCE PRN; Protocol PRN Reason: Hypoglycemia Protocol Docusate Sodium (Colace) 100 mg PO BID [facility] Last Admin: 02/28/17 09:34 Dose: 100 mg Enoxaparin Sodium (Lovenox) 40 mg SC DAILY [facility] Last Admin: 02/28/17 09:34 Dose: 40 mg Gabapentin (Neurontin) 200 mg PO TID [facility] Last Admin: 02/28/17 09:34 Dose: 200 mg Glucagon (Glucagen Diagnostic Kit) 0 mg IM STAT PRN; Protocol PRN Reason: Hypoglycemia Protocol Dextrose (Dextrose 10% In Water) 500 mls @ 10 mls/hr IV .Q24H [facility] Last Admin: 02/28/17 05:42 Dose: Not Given Dextrose (Dextrose 5% In Water 1000 Ml) 1,000 mls @ 0 mls/hr IV .Q0M PRN; Protocol; Per Protocol PRN Reason: Hypoglycemia Protocol Insulin Aspart (Novolog) 0 unit SC [facility] PRN Reason: Protocol Last Admin: 02/28/17 08:01 Dose: 1 unit Losartan Potassium (Cozaar) 100 mg PO DAILY [facility] Last Admin: 02/28/17 09:35 Dose: 100 mg Mirtazapine (Remeron) 15 mg PO [facility] Last Admin: 02/27/17 22:15 Dose: 15 mg Pantoprazole Sodium (Protonix Ec Tab) 40 mg PO DAILY [facility] Last Admin: 02/28/17 09:34 Dose: 40 mg Propranolol HCl (Inderal) 10 mg PO TID [facility] Last Admin: 02/28/17 09:35 Dose: 10 mg Quetiapine Fumarate (Seroquel) 200 mg PO [facility] Last Admin: 02/27/17 22:15 Dose: 200 mg Rosuvastatin Calcium (Crestor) 5 mg PO [facility] Last Admin: 02/27/17 22:14 Dose: 5 mg - Labs Labs: 02/25/17 20:21 02/25/17 23:29 - Additional Findings Additional findings: - Constitutional Appears: Non-toxic, Chronically Ill - Head Exam Head Exam: ATRAUMATIC - Eye Exam Eye Exam: EOMI Pupil Exam: PERRL - ENT Exam ENT Exam: Mucous Membranes Moist - Neck Exam Neck Exam: Full ROM - Respiratory Exam Respiratory Exam: Clear to Ausculation Bilateral, NORMAL BREATHING PATTERN - Cardiovascular Exam Cardiovascular Exam: REGULAR RHYTHM, +S1, +S2 - GI/Abdominal Exam GI & Abdominal Exam: Soft, Normal Bowel Sounds, Distended (mild) - Extremities Exam Extremities Exam: absent: Calf Tenderness - Back Exam Back Exam: absent: CVA tenderness (L), CVA tenderness (R) - Neurological Exam Neurological Exam: Awake - Psychiatric Exam Psychiatric exam: Normal Affect - Skin Skin Exam: Warm Assessment and Plan - Assessment and Plan (Free Text) Assessment: 82yo F admitted for advanced dementia and failure to thrive Dementia with psychotic features -Dr. [place]; recs appreciated Seroquel 200 mg HS Inderal 10 mg TID helps behavioral problems Split gabapentin to 200 tid instead of 600 mg one time (short-acting medication) Monitor MSE, 1:1 for safety, frequent orientation/support Family involvement (Guardianship?) Consider NH placement if OK Mirtazapine Agree with NH placement; will speak to family today stable UTI; resolved 02/28: UC clean catch, negative positive UA; treated with ciprofloxacin HLD -c/w Lipitor 10mg HTN c/w Valsartan Proph 1:1 SCD Protonix Dispo: pending conversation with and possible retirement placement All management as per Dr. Bari Cerda <Summer Cerda S - Last Filed: 03/01/17 15:33> Objective - Vital Signs/Intake and Output Vital Signs (last 24 hours): Temp Pulse Resp BP Pulse Ox 98.8 F 73 20 119/71 97 02/28/17 07:52 02/28/17 07:52 02/28/17 07:52 02/28/17 07:52 02/28/17 07:52 Intake and Output: 02/28/17 02/28/17 06:59 18:59 Intake Total 370 360 Balance 370 360 - Medications Medications: Current Medications Albuterol/Ipratropium (Duoneb 3 Mg/0.5 Mg (3 Ml) Ud) 3 ml INH RQ6 PRN PRN Reason: Shortness of Breath Dextrose (Dextrose 50% Inj) 0 ml IV STAT PRN; Protocol PRN Reason: Hypoglycemia Protocol Dextrose (Glutose 15) 0 gm PO ONCE PRN; Protocol PRN Reason: Hypoglycemia Protocol Docusate Sodium (Colace) 100 mg PO BID [facility] Last Admin: 02/28/17 09:34 Dose: 100 mg Enoxaparin Sodium (Lovenox) 40 mg SC DAILY [facility] Last Admin: 02/28/17 09:34 Dose: 40 mg Gabapentin (Neurontin) 200 mg PO TID [facility] Last Admin: 02/28/17 14:12 Dose: 200 mg Glucagon (Glucagen Diagnostic Kit) 0 mg IM STAT PRN; Protocol PRN Reason: Hypoglycemia Protocol Dextrose (Dextrose 10% In Water) 500 mls @ 10 mls/hr IV .Q24H [facility] Last Admin: 02/28/17 05:42 Dose: Not Given Dextrose (Dextrose 5% In Water 1000 Ml) 1,000 mls @ 0 mls/hr IV .Q0M PRN; Protocol; Per Protocol PRN Reason: Hypoglycemia Protocol Insulin Aspart (Novolog) 0 unit SC A[facility]S [facility] PRN Reason: Protocol Last Admin: 02/28/17 12:15 Dose: 3 unit Losartan Potassium (Cozaar) 100 mg PO DAILY [facility] Last Admin: 02/28/17 09:35 Dose: 100 mg Mirtazapine (Remeron) 15 mg PO HS [facility] Last Admin: 02/27/17 22:15 Dose: 15 mg Pantoprazole Sodium (Protonix Ec Tab) 40 mg PO DAILY [facility] Last Admin: 02/28/17 09:34 Dose: 40 mg Propranolol HCl (Inderal) 10 mg PO TID [facility] Last Admin: 02/28/17 14:12 Dose: 10 mg Quetiapine Fumarate (Seroquel) 200 mg PO HS [facility] Last Admin: 02/27/17 22:15 Dose: 200 mg Rosuvastatin Calcium (Crestor) 5 mg PO HS [facility] Last Admin: 02/27/17 22:14 Dose: 5 mg - Labs Labs: 02/28/17 11:18 02/28/17 11:18 Assessment and Plan (1) Hypoglycemia due to insulin Status: Acute (2) Schizophrenia Status: Acute (3) Abdominal pain Status: Acute (4) Abdominal pain Status: Acute (5) Agitation Status: Acute (6) Chest pain Status: Acute (7) Constipation Status: Acute (8) Contusion Status: Acute (9) Dementia Status: Acute (10) Diabetes mellitus Status: Acute (11) Dizziness Status: Acute (12) Gastroenteritis Status: Acute (13) HTN (hypertension) Status: Acute (14) Head injury Status: Acute (15) Headache Status: Acute (16) Hypoglycemia Status: Acute (17) Knee pain Status: Acute (18) Leg pain Status: Acute (19) Medical assessment Status: Acute (20) Minor head injury without loss of consciousness Status: Acute (21) Paranoia Status: Acute (22) Renal insufficiency Status: Acute (23) UTI (urinary tract infection) Status: Acute Attending/Attestation - Attestation I have personally seen and examined this patient.: Yes I have fully participated in the care of the patient.: Yes I have reviewed all pertinent clinical information, including history, physical exam and plan: Yes Notes (Text): Patient examined. No acute overnight events. Patient is demented. Continue quetiapine and mirtazapine. Continue antidiabetic medications. Continue supportive care.
[2017-02-28 11:30] LABS: BASO # 0.1 K/uL (0.0-0.2); BASO % 0.8 % (0.0-2.0); EOS # 0.1 K/uL (0.0-0.7); EOS % 1.1 % (0.0-4.0); HEMATOCRIT 34.1 % (34.0-47.0); LYMPH # 2.8 K/uL (1.0-4.3); LYMPH % 36.1 % (20.0-40.0); MEAN CELL VOLUME 91.2 fL (81.0-99.0); MEAN CORPUSCULAR HEMOGLOBIN 30.2 pg (27.0-31.0); MEAN CORPUSCULAR HGB CONC 33.1 g/dL (33.0-37.0); MEAN PLATELET VOLUME 9.8 fL (7.2-11.7); MONO # 0.9 K/uL (0.0-0.8); NRBC % 0.1 % (0.0-2.0); RED CELL DISTRIBUTION WIDTH 14.6 % (11.5-14.5); WHITE BLOOD COUNT 7.7 K/uL (4.8-10.8)
[2017-02-28 11:52] LABS: ALB/GLOB RATIO 1.2 (1.0-2.1); ALKALINE PHOSPHATASE 70 U/L (38-126); ALT/SGPT 30 U/L (9-52); AST/SGOT 16 U/L (14-36); BILIRUBIN,TOTAL 0.7 mg/dL (0.2-1.3); BLOOD UREA NITROGEN 31 mg/dL (7-17); CALCIUM 8.8 mg/dl (8.6-10.4); CARBON DIOXIDE 26 mmol/L (22-30); CHLORIDE 100 mmol/L (98-107); GFR AFRICAN-AMERICAN > 60; GLUCOSE,RANDOM 241 mg/dL (65-105); MAGNESIUM 1.6 mg/dL (1.6-2.3); PHOSPHOROUS 3.2 mg/dL (2.5-4.5); SODIUM 135 mmol/L (132-148); TOTAL PROTEIN 6.8 g/dL (6.3-8.3)
--- NOTE | 2017-02-28 14:39 | CP.PCM.CON ---
History of Present Illness - History of Present Illness History of Present Illness: Palliative consult requested for goals of care discussion Patient is a 82 yo female admitted from home with paranoid behavior and being abusive to her . Per , patient has had those episodes in the past due to her psych Hx. but this time she was more aggressive despite all medications. It is important to say, that patient's grandchild just last Sunday at age of 6 months , what is believed had triggered this behavior. PMH: alzheimer's, anxiety, Bi polar disorder, schizophreni, COPD Soc. Hx: lives at home with Fam. hx: none Review of Systems - Constitutional Constitutional: absent: As Per HPI, Anorexia, Chills, Daytime Sleepiness, Excessive Sweating, Fatigue, Fever, Frequent Falls, Headache, Increased Appetite , Lethargy, Malaise, Night Sweats, Snoring, Sleep Apnea, Weight Gain, Weight Loss, Weakness, Other - EENT Eyes: absent: As Per HPI, Blind Spots, Blurred Vision, Change in Vision, Decreased Night Vision, Diplopia, Discharge, Dry Eye, Exophthalmos, Floaters, Irritation, Itchy Eyes, Loss of Peripheral Vision, Pain, Photophobia, Requires Corrective Lenses, Sees Flashes, Spots in Vision, Tunnel Vision, Other Visual Disturbances, Loss of Vision, Other Ears: absent: As Per HPI, Decreased Hearing, Ear Discharge, Ear Pain, Tinnitus, Abnormal Hearing, Disequilibrium, Dizziness, Other - Breasts Breasts: absent: As Per HPI, Change in Shape, Mass, Pain, Nipple Discharge, Nipple Inversion, Skin Changes, Swelling, Other - Cardiovascular Cardiovascular: absent: As Per HPI, Acrocyanosis, Chest Pain, Chest Pain at Rest , Chest Pain with Activity, Claudication, Diaphoresis, Dyspnea, Dyspnea on Exertion, Edema, Irregular Heart Rhythm, Pain Radiating to Arm/Neck/Jaw, Leg Edema, Leg Ulcers, Lightheadedness, Orthopnea, Palpitations, Paroxysmal Nocturnal Dyspnea, Pedal Edema, Radiating Pain, Rapid Heart Rate, Slow Heart Rate, Syncope, Other - Respiratory Respiratory: absent: As Per HPI, Cough, Dyspnea, Hemoptysis, Dyspnea on Exertion , Wheezing, Snoring, Stridor, Pain on Inspiration, Chest Congestion, Excessive Mucous Production, Change in Mucous Color, Pain with Coughing, Other - Gastrointestinal Gastrointestinal: absent: As Per HPI, Abdominal Pain, Belching, Bloating, Change in Bowel Habits, Change in Stool Character, Coffee Ground Emesis, Constipation, Cramping, Diarrhea, Dyspepsia, Dysphagia, Early Satiety, Excessive Flatus, Fecal Incontinence, Heartburn, Hematemesis, Hematochezia, Loose Stools, Melena, Nausea, Odynophagia, Temesmus, Vomiting, Other - Genitourinary Genitourinary: absent: As Per HPI, Change in Urinary Stream, Difficulty Urinating, Dysuria, Flank Pain, Hematuria, Pyuria, Nocturia, Urinary Incontinence, Urinary Frequency, Urinary Hesitance, Urinary Urgency, Voiding Freq/Small Amts, Freq UTI, Hx Renal/Bladder Calculi, Hx /Renal Surgery, Bladder Distension, Other - Reproductive: Female Reproductive:Female: Post Menopausal - Menstruation Menstruation: Post Menopausal - Musculoskeletal Musculoskeletal: absent: As Per HPI, Abnormal Gait, Arthralgias, Atrophy, Back Pain, Deformity, Joint Swelling, Limited Range of Motion, Loss of Height, Muscle Cramps, Muscle Weakness, Myalgias, Neck Pain, Numbness, Radiating Pain into Limb, Stiffness, Tingling, Other - Integumentary Integumentary: absent: As Per HPI, Acne, Alopecia, Bleeding Lesions, Change in Hair, Change in Nails, Change in Pigmentation, Changing Lesions, Dry Skin, Erythema, Furuncle, Hirsutism, Lesions, New Lesions, Non-Healing Lesions, Photosensitivity, Pruritus, Rash, Skin Pain, Skin Ulcer, Sores, Striae, Swelling , Unusual Bruising, Wounds, Jaundice, Other - Neurological Neurological: Behavioral Changes, Confusion, Memory Loss - Psychiatric Psychiatric: Anxiety, Hallucinations, Homicidal Ideation, Paranoia - Endocrine Endocrine: absent: As Per HPI, Change in Body Appearance, Change in Libido, Cold Intolorance, Deepening of Voice, Excessive Sweating, Fatigue, Flushing, Heat Intolorance, Increase in Ring/Shoe/Hat Size, Palpitations, Polydipsia, Polyphagia, Polyuria, Other - Hematologic/Lymphatic Hematologic: absent: As Per HPI, Easy Bleeding, Easy Bruising, Lymphadenopathy, Other Past Patient History - Past Medical History & Family History Past Medical History?: Yes - Past Social History Smoking Status: Never Smoked - CARDIAC Hx Cardiac Disorders: Yes Hx Hypercholesterolemia: Yes Hx Hypertension: Yes - PULMONARY Hx Chronic Obstructive Pulmonary Disease (COPD): Yes - NEUROLOGICAL Hx Neurological Disorder: Yes Hx Alzheimer's Disease: Yes - HEENT Hx HEENT Problems: No - RENAL Hx Chronic Kidney Disease: No - ENDOCRINE/METABOLIC Hx Diabetes Mellitus Type 2: Yes - HEMATOLOGICAL/ONCOLOGICAL Hx Blood Disorders: No - INTEGUMENTARY Hx Dermatological Problems: No - MUSCULOSKELETAL/RHEUMATOLOGICAL Hx Musculoskeletal Disorders: Yes Hx Falls: Yes - GASTROINTESTINAL Hx Gastrointestinal Disorders: Yes Hx Gastritis: Yes - GENITOURINARY/GYNECOLOGICAL Hx Genitourinary Disorders: No Hx Sexually Transmitted Disorders: No (Patient denied. None reported) - PSYCHIATRIC Hx Psychophysiologic Disorder: Yes Hx Anxiety: Yes Hx Bipolar Disorder: Yes Hx Depression: Yes Hx Schizophrenia: Yes Hx Substance Use: No - SURGICAL HISTORY Hx Surgeries: Yes Hx Coronary Stent: Yes - ANESTHESIA Hx Anesthesia: Yes Hx Anesthesia Reactions: No Hx Malignant Hyperthermia: No Meds Allergies/Adverse Reactions: Allergies Allergy/AdvReac Type Severity Reaction Status Date / Time No Known Allergies Allergy Verified 02/25/17 18:41 - Medications Medications: Current Medications Albuterol/Ipratropium (Duoneb 3 Mg/0.5 Mg (3 Ml) Ud) 3 ml INH RQ6 PRN PRN Reason: Shortness of Breath Dextrose (Dextrose 50% Inj) 0 ml IV STAT PRN; Protocol PRN Reason: Hypoglycemia Protocol Dextrose (Glutose 15) 0 gm PO ONCE PRN; Protocol PRN Reason: Hypoglycemia Protocol Docusate Sodium (Colace) 100 mg PO BID [facility] Last Admin: 02/28/17 09:34 Dose: 100 mg Enoxaparin Sodium (Lovenox) 40 mg SC DAILY [facility] Last Admin: 02/28/17 09:34 Dose: 40 mg Gabapentin (Neurontin) 200 mg PO TID [facility] Last Admin: 02/28/17 14:12 Dose: 200 mg Glucagon (Glucagen Diagnostic Kit) 0 mg IM STAT PRN; Protocol PRN Reason: Hypoglycemia Protocol Dextrose (Dextrose 10% In Water) 500 mls @ 10 mls/hr IV .Q24H [facility] Last Admin: 02/28/17 05:42 Dose: Not Given Dextrose (Dextrose 5% In Water 1000 Ml) 1,000 mls @ 0 mls/hr IV .Q0M PRN; Protocol; Per Protocol PRN Reason: Hypoglycemia Protocol Insulin Aspart (Novolog) 0 unit SC ACHS [facility] PRN Reason: Protocol Last Admin: 02/28/17 12:15 Dose: 3 unit Losartan Potassium (Cozaar) 100 mg PO DAILY [facility] Last Admin: 02/28/17 09:35 Dose: 100 mg Mirtazapine (Remeron) 15 mg PO HS [facility] Last Admin: 02/27/17 22:15 Dose: 15 mg Pantoprazole Sodium (Protonix Ec Tab) 40 mg PO DAILY [facility] Last Admin: 02/28/17 09:34 Dose: 40 mg Propranolol HCl (Inderal) 10 mg PO TID [facility] Last Admin: 02/28/17 14:12 Dose: 10 mg Quetiapine Fumarate (Seroquel) 200 mg PO [facility] Last Admin: 02/27/17 22:15 Dose: 200 mg Rosuvastatin Calcium (Crestor) 5 mg PO [facility] Last Admin: 02/27/17 22:14 Dose: 5 mg Physical Exam - Constitutional Appears: No Acute Distress, Chronically Ill - Head Exam Head Exam: ATRAUMATIC, NORMAL INSPECTION, NORMOCEPHALIC - Eye Exam Eye Exam: EOMI, Normal appearance, PERRL Pupil Exam: NORMAL ACCOMODATION, PERRL - ENT Exam ENT Exam: Mucous Membranes Moist, Normal Exam - Neck Exam Neck exam: Positive for: Normal Inspection - Respiratory Exam Respiratory Exam: NORMAL BREATHING PATTERN - Cardiovascular Exam Cardiovascular Exam: Tachycardia, REGULAR RHYTHM - GI/Abdominal Exam GI & Abdominal Exam: Normal Bowel Sounds, Soft - Rectal Exam Rectal Exam: Deferred - Extremities Exam Extremities exam: Positive for: normal inspection - Back Exam Back exam: NORMAL INSPECTION - Neurological Exam Neurological exam: Alert, Altered - Psychiatric Exam Psychiatric exam: Agitated, Anxious - Skin Skin Exam: Pallor Results - Vital Signs Recent Vital Signs: Last Vital Signs Temp 98.8 F 02/28/17 07:52 Pulse 73 02/28/17 07:52 Resp 20 02/28/17 07:52 BP 119/71 02/28/17 07:52 Pulse Ox 97 02/28/17 07:52 - Labs Result Diagrams: 02/28/17 11:18 02/28/17 11:18 Labs: Laboratory Results - last 24 hr 02/27/17 02/27/17 02/28/17 16:12 20:56 00:26 WBC RBC Hgb Hct MCV MCH MCHC RDW Plt Count MPV Neut % (Auto) Lymph % (Auto) [place] % (Auto) Eos % (Auto) Baso % (Auto) Neut # Lymph # [place]dwell # Eos # Baso # Sodium Potassium Chloride Carbon Dioxide Anion Gap BUN Creatinine Est GFR ( Amer) Est GFR (Non-Af Amer) POC Glucose (mg/dL) 239 H 203 H 248 H Random Glucose Calcium Phosphorus Magnesium Total Bilirubin AST ALT Alkaline Phosphatase Total Protein Albumin Globulin Albumin/Globulin Ratio 02/28/17 02/28/17 02/28/17 05:08 07:41 11:18 WBC 7.7 RBC 3.74 L Hgb 11.3 Hct 34.1 MCV 91.2 MCH 30.2 MCHC 33.1 RDW 14.6 H Plt Count 273 MPV 9.8 Neut % (Auto) 50.0 Lymph % (Auto) 36.1 [place]dwell % (Auto) 12.0 H Eos % (Auto) 1.1 Baso % (Auto) 0.8 Neut # 3.8 Lymph # 2.8 Caldwell # 0.9 H Eos # 0.1 Baso # 0.1 Sodium Potassium Chloride Carbon Dioxide Anion Gap BUN Creatinine Est GFR ( Amer) Est GFR (Non-Af Amer) POC Glucose (mg/dL) 180 H 164 H Random Glucose Calcium Phosphorus Magnesium Total Bilirubin AST ALT Alkaline Phosphatase Total Protein Albumin Globulin Albumin/Globulin Ratio 02/28/17 11:18 WBC RBC Hgb Hct MCV MCH MCHC RDW Plt Count MPV Neut % (Auto) Lymph % (Auto) Caldwell % (Auto) Eos % (Auto) Baso % (Auto) Neut # Lymph # Caldwell # Eos # Baso # Sodium 135 Potassium 4.0 Chloride 100 Carbon Dioxide 26 Anion Gap 14 BUN 31 H Creatinine 1.0 Est GFR ( Amer) > 60 Est GFR (Non-Af Amer) 53 POC Glucose (mg/dL) Random Glucose 241 H Calcium 8.8 Phosphorus 3.2 Magnesium 1.6 Total Bilirubin 0.7 AST 16 ALT 30 Alkaline Phosphatase 70 Total Protein 6.8 Albumin 3.7 Globulin 3.1 Albumin/Globulin Ratio 1.2 Assessment & Plan - Assessment and Plan (Free Text) Assessment: Palliative consult No advance directive on chart, PPS 30% I reviewed medical records, all diagnostic studies, examined patient in the bed and discussed goals of care with at bed side. Patient is alert, calm at present, speaking in Amharic only. Patient was telling me about " some blood being smeared over her skin". When asked where she was , patient was not sure, but she recognized her . BP 119/71, HR 88 , afebrile. Labs are WNL. Patient seen by psychiatrist and is placed on psych meds. Goals of care discussed with at bed side. he understands 's behavior as a disease and tries his best to hel her. He stated would like her to return home and claims having enough support. His daughter lives at the same building just one level above and friends from [place] visit often. Patient also has a vp home health for 6 hr a day. Code status discussed. Mr. Gonzalez, the said that he had a Living Will at home and was to bring the copy in , in am. Translation was provided by [employer] . I reassured of patient's stable condition at present. Impression * Patient is with extensive psych Hx in no acute distress * Patient is alert, forgetful with paranoid ides, such as seen blood... * Patient needs max assistance with ADLs and guidance * At risk of self injury and danger to others * Family is supportive and prefer patient returns home as oppose custodial Suggestions * Promote safety * will bring in a copy of living will * Home discharge when stable Thank you for consulting palliative care
[2017-02-28 16:10] VITALS: BP 106/55; PULSE 61; TEMP 98.3; O2SAT 95
--- NOTE | 2017-02-28 16:12 | PCM.PYCHPN ---
Psychiatric Progress Note - Psychiatric Progress Note Patient seen today, length of contact: 18 Patient Chief Complaint: "I'm alright" Problems Identified/Issues Discussed: The pt is seen, chart reviewed, case discussed with staff. The pt is compliant with medications and reports no side-effects. Symptoms are improving but needs more time to stabilize. Pt is still slightly disoriented but improving. Medication Change: No Medical Record Reviewed: Yes Mental Status Examination - Cognitive Function Orientation: Person, Place (Knew she was in a hospital but not oriented to time/ person/other place questions), Situation Memory: Recent Attention: WNL Concentration: Poor Association: Loose Fund of Knowledge: Poor - Mood Mood: Depressed, Anxious - Affect Affect: Constricted - Speech Speech: Soft - Formal Thought Process Formal Thought Process: Hallucinations, Delusions, Paranoia, Loosening of associations - Suicidal Ideation Suicidal Ideation: No - Homicidal Ideation Homicidal Ideation: No Goal/Treatment Plan - Goal/Treatment Plan Need for Continued Stay: Remain at risks for inpatient hospitalization, Discharge may exacerbated symptoms, Severe functional impairment Progress Toward Problem(s) and Goals/Treatment Plan: Seroquel 200 mg HS Inderal 10 mg TID helps behavioral problems Split gabapentin to 200 tid instead of 600 mg one time (short-acting medication) Monitor MSE, 1:1 for safety, frequent orientation/support Family involvement (Guardianship?) Consider NH placement if OK 32 min
== END 2017-02-28 17:50 | disposition home or self-care (01) | DRG 57 ==
LOC: C.ER 18:23 → C.9E 02-26 00:55 → C.3T 02-26 23:39
PROVIDERS: ADMIT Internal Medicine Nephrology; ATTEND Internal Medicine Nephrology
DX: G30.9 Alzheimer's disease, unspecified (principal); F02.81 Dementia in other diseases classified elsewhere, unspecified severity, with behavioral disturbance; E11.9 Type 2 diabetes mellitus without complications; E16.0 Drug-induced hypoglycemia without coma; N39.0 Urinary tract infection, site not specified; R62.7 Adult failure to thrive; E78.5 Hyperlipidemia, unspecified; I10 Essential (primary) hypertension; T38.3X5A Adverse effect of insulin and oral hypoglycemic [antidiabetic] drugs, initial encounter; F20.9 Schizophrenia, unspecified

== ENCOUNTER 2017-05-09 22:11 | Inpatient (IN) | payer MEDICARE, MEDICAID ==
[2017-05-09 22:11] VITALS: BMI 29.2
[2017-05-09 23:30] LABS: BASO # 0.1 K/uL (0.0-0.2); EOS # 0.1 K/uL (0.0-0.7); EOS % 0.8 % (0.0-4.0); HEMOGLOBIN 13.6 g/dL (11.0-16.0); LYMPH # 2.8 K/uL (1.0-4.3); LYMPH % 31.7 % (20.0-40.0); MEAN CORPUSCULAR HEMOGLOBIN 30.8 pg (27.0-31.0); MEAN CORPUSCULAR HGB CONC 34.2 g/dL (33.0-37.0); MEAN PLATELET VOLUME 8.8 fL (7.2-11.7); MONO # 1.2 K/uL (0.0-0.8); MONO % 13.5 % (0.0-10.0); NEUT # 4.6 K/uL (1.8-7.0); RBC 4.41 Mil/uL (3.80-5.20); RED CELL DISTRIBUTION WIDTH 13.9 % (11.5-14.5); WHITE BLOOD COUNT 8.7 K/uL (4.8-10.8)
[2017-05-09 23:42] LABS: CALCIUM 9.6 mg/dl (8.6-10.4); GFR AFRICAN-AMERICAN 37; GFR NON-AFRICAN AMERICAN 31
[2017-05-09 23:43] LABS: ALB/GLOB RATIO 0.9 (1.0-2.1); ALBUMIN 4.5 g/dL (3.5-5.0); ALT/SGPT 18 U/L (9-52); AST/SGOT 40 U/L (14-36); BLOOD UREA NITROGEN 45 mg/dL (7-17)
--- NOTE | 2017-05-10 00:29 | C.PDOC ---
History Of Present Illness Patient is an 82 y/o female with a past medical history of schizophrenia, not taking medications. Patient is a poor historian. Today patient was noted to be talking crazy and seemed paranoid and agitated per daughter. Family called EMS for transportation to the ED for evaluation. PMD: Dr. Jackie Bernal Time Seen by Provider: 05/09/17 22:48 Chief Complaint (Nursing): Med Refill History Per: Patient History/Exam Limitations: clinical condition (schizophrenia, dementia) Onset/Duration Of Symptoms: Days Current Symptoms Are (Timing): Still Present Additional History Per: Family (daughter) Past Medical History Reviewed: Historical Data, Nursing Documentation, Vital Signs Vital Signs: Last Vital Signs Temp 98.5 F 05/09/17 22:51 Pulse 85 05/09/17 22:51 Resp 19 05/09/17 22:51 BP 181/75 H 05/09/17 22:51 Pulse Ox 98 05/10/17 00:33 - Medical History PMH: Alzheimer's Disease, Anxiety, Asthma, Bipolar Disorder, COPD, Depression, Diabetes (type 2), Gastritis, HTN, Hypercholesterolemia, Schizophrenia Denies: Chronic Kidney Disease, Sexually Transmitted Disease (Patient denied. None reported) Surgical History: Coronary Stent - [facility] GROUP PSYCHOTHERAPY (12/15/16) INDIVIDUAL PSYCHOTHERAPY, BEHAVIORAL (12/15/16) Family History: States: Unknown Family Hx - Social History Hx Tobacco Use: No Hx Alcohol Use: No Hx Substance Use: No - Immunization History Hx Tetanus Toxoid Vaccination: No Hx Influenza Vaccination: No Hx Pneumococcal Vaccination: Yes Review Of Systems Constitutional: Negative for: Fever, Chills, Sweats Cardiovascular: Negative for: Chest Pain, Palpitations Respiratory: Negative for: Cough, Shortness of Breath Gastrointestinal: Negative for: Nausea, Vomiting, Abdominal Pain Genitourinary: Negative for: Incontinence Skin: Negative for: Rash Neurological: Negative for: Weakness, Numbness, Incoordination, Change in Speech , Seizures, Altered Mental Status Psych: Positive for: Other (agitated, "talking crazy") Physical Exam - Physical Exam Appears: Non-toxic, No Acute Distress Skin: Normal Color, Warm, Dry Head: Atraumatic, Normacephalic Eye(s): bilateral: Normal Inspection, PERRL, EOMI Oral Mucosa: Moist Neck: Normal ROM, Supple Chest: Symmetrical Cardiovascular: Rhythm Regular Respiratory: Normal Breath Sounds, No Accessory Muscle Use Gastrointestinal/Abdominal: Normal Exam, Soft, No Tenderness Back: Normal Inspection Extremity: Bilateral: Atraumatic, Normal Color And Temperature, Normal ROM Neurological/Psych: Other (Alert and awake, unable to assess if oriented) ED Course And Treatment - Laboratory Results Result Diagrams: 05/09/17 23:26 02 23:26 O2 Sat by Pulse Oximetry: 98 (RA) Pulse Ox Interpretation: Normal Progress Note: Patient evaluated by crisis counselor. Full medical workup ordered. Medical Decision Making Medical Decision Making: Time: 23:07 Plan: * Alcohol serum * Urine drug screen * CMP * CBC * Urinalysis * Pending crisis evaluation Disposition - Disposition Disposition Time: 00:47 Condition: STABLE Forms: [employer] (Georgian) - Clinical Impression Clinical Impression: Schizophrenia, Renal insufficiency - Scribe Statement The provider has reviewed the documentation as recorded by the Scribe (Zoya Herrera) Provider Attestation: All medical record entries made by the Scribe were at my direction and personally dictated by me. I have reviewed the chart and agree that the record accurately reflects my personal performance of the history, physical exam, medical decision making, and the department course for this patient. I have also personally directed, reviewed, and agree with the discharge instructions and disposition. Physician Patient Turnover Patient Signed Over To: Clau Lyle Handoff Comments: pending CT, CXR and labs for medical clearance
[2017-05-10] MEDS ORDERED: Sodium Chloride 0.9% 1,000 ML IV ONE ×2 (01:04→05:58)
[2017-05-10] MEDS ORDERED: Sodium Chloride 0.9% 1,000 ML ONE ×2 (01:20→06:18)
--- NOTE | 2017-05-10 02:20 | CT ---
EXAM: CT Head Without Intravenous Contrast EXAM DATE/TIME: 05/10/2017 12:42 AM CLINICAL HISTORY: 82 years old, female; Pain; Headache; Patient HX: 02-19-17; Additional info: Medical clearance TECHNIQUE: Axial computed tomography images of the head/brain without intravenous contrast. All CT scans at this facility use one or more dose reduction techniques, viz.: automated exposure control; ma/kV adjustment per patient size (including targeted exams where dose is matched to indication; i.e. head); or iterative reconstruction technique. COMPARISON: CT - HEAD W/O CONTRAST 2017-02-19 17:32 FINDINGS: There is atrophy. There is chronic small vessel ischemic disease. There an area of low attenuation in the right basal ganglia consistent with old lacunar infarct with ex vacuo dilatation of the adjacent right lateral ventricle similar to prior. There is no hemorrhage or edema. No significant fluid in the sinuses. The osseous structures are normal. IMPRESSION: No acute findings.
[2017-05-10 02:27] LABS: FREE T4 0.86 ng/dL (0.78-2.19)
--- NOTE | 2017-05-10 08:53 | RAD ---
Chest x-ray single frontal view History: Medical clearance. Comparison: 02/26/2017 Findings: Enlarged ectatic aorta. Cardiomegaly. Patient is rotated. Blunted right costophrenic angle. Diffuse increased interstitial lung markings. Degenerative changes in the spine and shoulders. Suggestion of a deformity of the right proximal humerus. Impression: Enlarged ectatic aorta. Cardiomegaly. Patient is rotated. Blunted right costophrenic angle. Diffuse increased interstitial lung markings.
--- NOTE | 2017-05-10 18:29 | CP.PCM.HP ---
Past Patient History - Past Medical History & Family History Past Medical History?: Yes - Past Social History Smoking Status: Never Smoked - CARDIAC Hx Cardiac Disorders: Yes Hx Hypertension: Yes - PULMONARY Hx Tuberculosis: No - NEUROLOGICAL HX Cerebrovascular Accident: No Hx Seizures: Yes - HEENT Hx HEENT Problems: No - RENAL Hx Chronic Kidney Disease: No - ENDOCRINE/METABOLIC Hx Diabetes Mellitus Type 2: Yes - HEMATOLOGICAL/ONCOLOGICAL Hx Cancer: No Hx Human Immunodeficiency Virus (HIV): No - INTEGUMENTARY Hx Dermatological Problems: No - MUSCULOSKELETAL/RHEUMATOLOGICAL Hx Musculoskeletal Disorders: Yes Hx Falls: Yes - GASTROINTESTINAL Hx Gastritis: Yes - GENITOURINARY/GYNECOLOGICAL Hx Sexually Transmitted Disorders: No (Patient denied. None reported) - PSYCHIATRIC Hx Anxiety: Yes Hx Bipolar Disorder: Yes Hx Depression: Yes Hx Schizophrenia: Yes Hx Substance Use: No - SURGICAL HISTORY Hx Coronary Stent: Yes - ANESTHESIA Hx Anesthesia: Yes Hx Anesthesia Reactions: No Hx Malignant Hyperthermia: No Meds Allergies/Adverse Reactions: Allergies Allergy/AdvReac Type Severity Reaction Status Date / Time No Known Allergies Allergy Verified 02/25/17 18:41 Physical Exam - Constitutional Appears: Well - Head Exam Head Exam: ATRAUMATIC, NORMAL INSPECTION, NORMOCEPHALIC - Eye Exam Eye Exam: EOMI, Normal appearance, PERRL Pupil Exam: NORMAL ACCOMODATION, PERRL - ENT Exam ENT Exam: Mucous Membranes Moist, Normal Exam - Neck Exam Neck exam: Positive for: Normal Inspection - Respiratory Exam Respiratory Exam: Decreased Breath Sounds - Cardiovascular Exam Cardiovascular Exam: REGULAR RHYTHM, +S1, +S2 - GI/Abdominal Exam GI & Abdominal Exam: Diminished Bowel Sounds, Soft - Rectal Exam Rectal Exam: Deferred Results - Vital Signs Recent Vital Signs: Last Vital Signs Temp 98.7 F 05/10/17 13:50 Pulse 86 05/10/17 14:50 Resp 17 05/10/17 14:50 BP 169/66 H 05/10/17 14:50 Pulse Ox 95 05/10/17 14:50 - Labs Result Diagrams: 05/09/17 23:26 05/09/17 23:26 Labs: Laboratory Results - last 24 hr 05/09/17 05/09/17 05/09/17 00:00 00:00 23:26 WBC 8.7 RBC 4.41 Hgb 13.6 D Hct 39.7 MCV 90.0 MCH 30.8 MCHC 34.2 RDW 13.9 Plt Count 323 MPV 8.8 Neut % (Auto) 53.0 Lymph % (Auto) 31.7 [place] % (Auto) 13.5 H Eos % (Auto) 0.8 Baso % (Auto) 1.0 Neut # (Auto) 4.6 Lymph # (Auto) 2.8 [place] # (Auto) 1.2 H Eos # (Auto) 0.1 Baso # (Auto) 0.1 Sodium Potassium Chloride Carbon Dioxide Anion Gap BUN Creatinine Est GFR ( Amer) Est GFR (Non-Af Amer) POC Glucose (mg/dL) Random Glucose Calcium Total Bilirubin AST ALT Alkaline Phosphatase Ammonia Total Protein Albumin Globulin Albumin/Globulin Ratio Vitamin B12 Folate Free T4 TSH 3rd Generation Urine Color Yellow Urine Clarity Hazy Urine pH 5.0 Ur Specific [place] 1.011 Urine Protein Negative Urine Glucose (UA) Normal Urine Ketones Negative Urine Blood Negative Urine Nitrate Negative Urine Bilirubin Negative Urine Urobilinogen Normal Ur Leukocyte Esterase 2+ H Urine WBC (Auto) 82 H Urine RBC (Auto) 1 Urine Bacteria Occ H Urine Opiates Screen Negative Urine Methadone Screen Negative Ur Barbiturates Screen Negative Ur Phencyclidine Scrn Negative Ur Amphetamines Screen Negative U Benzodiazepines Scrn Negative U Oth Cocaine Metabols Negative U Cannabinoids Screen No result Alcohol, Quantitative HIV 1&2 Antibody Screen 05/09/17 05/10/17 05/10/17 23:26 01:54 01:54 WBC RBC Hgb Hct MCV MCH MCHC RDW Plt Count MPV Neut % (Auto) Lymph % (Auto) [place] % (Auto) Eos % (Auto) Baso % (Auto) Neut # (Auto) Lymph # (Auto) [place] # (Auto) Eos # (Auto) Baso # (Auto) Sodium 137 Potassium 5.3 H Chloride 95 L Carbon Dioxide 28 Anion Gap 19 BUN 45 H Creatinine 1.6 H Est GFR ( Amer) 37 Est GFR (Non-Af Amer) 31 POC Glucose (mg/dL) Random Glucose 141 H Calcium 9.6 Total Bilirubin 1.0 AST 40 H D ALT 18 Alkaline Phosphatase 75 Ammonia Total Protein 9.6 H Albumin 4.5 Globulin 5.1 H Albumin/Globulin Ratio 0.9 L Vitamin B12 Folate 10.4 Free T4 0.86 TSH 3rd Generation 2.83 Urine Color Urine Clarity Urine pH Ur Specific [place] Urine Protein Urine Glucose (UA) Urine Ketones Urine Blood Urine Nitrate Urine Bilirubin Urine Urobilinogen Ur Leukocyte Esterase Urine WBC (Auto) Urine RBC (Auto) Urine Bacteria Urine Opiates Screen Urine Methadone Screen Ur Barbiturates Screen Ur Phencyclidine Scrn Ur Amphetamines Screen U Benzodiazepines Scrn U Oth Cocaine Metabols U Cannabinoids Screen Alcohol, Quantitative < 10 HIV 1&2 Antibody Screen 05/10/17 05/10/17 05/10/17 05:00 05:00 07:19 WBC RBC Hgb Hct MCV MCH MCHC RDW Plt Count MPV Neut % (Auto) Lymph % (Auto) [place] % (Auto) Eos % (Auto) Baso % (Auto) Neut # (Auto) Lymph # (Auto) [place] # (Auto) Eos # (Auto) Baso # (Auto) Sodium Potassium Chloride Carbon Dioxide Anion Gap BUN Creatinine Est GFR ( Amer) Est GFR (Non-Af Amer) POC Glucose (mg/dL) Random Glucose Calcium Total Bilirubin AST ALT Alkaline Phosphatase Ammonia 12 Total Protein Albumin Globulin Albumin/Globulin Ratio Vitamin B12 402 Folate Free T4 TSH 3rd Generation Urine Color Urine Clarity Urine pH Ur Specific [place] Urine Protein Urine Glucose (UA) Urine Ketones Urine Blood Urine Nitrate Urine Bilirubin Urine Urobilinogen Ur Leukocyte Esterase Urine WBC (Auto) Urine RBC (Auto) Urine Bacteria Urine Opiates Screen Urine Methadone Screen Ur Barbiturates Screen Ur Phencyclidine Scrn Ur Amphetamines Screen U Benzodiazepines Scrn U Oth Cocaine Metabols U Cannabinoids Screen Alcohol, Quantitative HIV 1&2 Antibody Screen Negative 05/10/17 07:24 WBC RBC Hgb Hct MCV MCH MCHC RDW Plt Count MPV Neut % (Auto) Lymph % (Auto) [place] % (Auto) Eos % (Auto) Baso % (Auto) Neut # (Auto) Lymph # (Auto) [place] # (Auto) Eos # (Auto) Baso # (Auto) Sodium Potassium Chloride Carbon Dioxide Anion Gap BUN Creatinine Est GFR ( Amer) Est GFR (Non-Af Amer) POC Glucose (mg/dL) 161 H Random Glucose Calcium Total Bilirubin AST ALT Alkaline Phosphatase Ammonia Total Protein Albumin Globulin Albumin/Globulin Ratio Vitamin B12 Folate Free T4 TSH 3rd Generation Urine Color Urine Clarity Urine pH Ur Specific [place] Urine Protein Urine Glucose (UA) Urine Ketones Urine Blood Urine Nitrate Urine Bilirubin Urine Urobilinogen Ur Leukocyte Esterase Urine WBC (Auto) Urine RBC (Auto) Urine Bacteria Urine Opiates Screen Urine Methadone Screen Ur Barbiturates Screen Ur Phencyclidine Scrn Ur Amphetamines Screen U Benzodiazepines Scrn U Oth Cocaine Metabols U Cannabinoids Screen Alcohol, Quantitative HIV 1&2 Antibody Screen
[2017-05-10] MEDS: (Novolog) Insulin Aspart, Recombinant 100 u/ml 10 ml vial SC SCH (21:57)
[2017-05-11 01:22] VITALS: RESP 20
[2017-05-11 07:55] LABS: MEAN CELL VOLUME 90.6 fL (81.0-99.0); MEAN CORPUSCULAR HEMOGLOBIN 30.4 pg (27.0-31.0); MEAN CORPUSCULAR HGB CONC 33.6 g/dL (33.0-37.0); RBC 3.75 Mil/uL (3.80-5.20); RED CELL DISTRIBUTION WIDTH 13.6 % (11.5-14.5); WHITE BLOOD COUNT 7.9 K/uL (4.8-10.8)
[2017-05-11] MEDS: (Novolog) Insulin Aspart, Recombinant 100 u/ml 10 ml vial SC SCH ×4 (08:06→22:06)
[2017-05-11 08:08] LABS: ALB/GLOB RATIO 0.9 (1.0-2.1); ALBUMIN 3.6 g/dL (3.5-5.0); CALCIUM 8.7 mg/dl (8.6-10.4)
[2017-05-11 08:10] LABS: HEMOGLOBIN 11.4 g/dL (11.0-16.0)
--- NOTE | 2017-05-11 17:49 | CP.PCM.PN ---
Subjective - Date & Time of Evaluation Date of Evaluation: 05/11/17 Time of Evaluation: 10:20 - Subjective Subjective: clinically same Objective - Vital Signs/Intake and Output Vital Signs (last 24 hours): Temp Pulse Resp BP Pulse Ox 98.3 F 74 20 109/61 95 05/11/17 09:01 05/11/17 09:01 05/11/17 09:01 05/11/17 09:01 05/11/17 09:01 Intake and Output: 05/11/17 05/11/17 06:59 18:59 Intake Total 220 500 Balance 220 500 - Medications Medications: Current Medications Gabapentin (Neurontin) 200 mg PO TID [facility] Last Admin: 05/11/17 14:32 Dose: 200 mg Heparin Sodium (Porcine) (Heparin) 5,000 units SC Q12 [facility] Last Admin: 05/11/17 09:48 Dose: 5,000 units Insulin Aspart (Novolog) 0 unit SC ACHS [facility] PRN Reason: Protocol Last Admin: 05/11/17 12:26 Dose: 3 unit Losartan Potassium (Cozaar) 100 mg PO DAILY [facility] Last Admin: 05/11/17 09:48 Dose: 100 mg Pneumococcal Polyvalent Vaccine (Pneumovax 23 Vaccine) 0.5 ml IM .ONCE ONE Stop: 05/12/17 10:01 Quetiapine Fumarate (Seroquel) 200 mg PO HS [facility] Last Admin: 05/10/17 21:19 Dose: 200 mg Tramadol HCl (Ultram) 50 mg PO Q6 PRN PRN Reason: pain Last Admin: 05/10/17 21:18 Dose: 50 mg - Labs Labs: 05/11/17 07:13 05/11/17 07:13 - Constitutional Appears: Well - Head Exam Head Exam: ATRAUMATIC, NORMAL INSPECTION, NORMOCEPHALIC - Eye Exam Eye Exam: EOMI, Normal appearance, PERRL Pupil Exam: NORMAL ACCOMODATION, PERRL - ENT Exam ENT Exam: Mucous Membranes Moist, Normal Exam - Neck Exam Neck Exam: Full ROM, Normal Inspection. absent: Lymphadenopathy - Respiratory Exam Respiratory Exam: Decreased Breath Sounds - Cardiovascular Exam Cardiovascular Exam: REGULAR RHYTHM, +S1, +S2 - GI/Abdominal Exam GI & Abdominal Exam: Soft, Diminished Bowel Sounds - Rectal Exam Rectal Exam: Deferred Assessment and Plan (1) Dementia Status: Acute (2) Diabetes mellitus Status: Acute (3) Renal insufficiency Status: Acute (4) Schizophrenia Status: Acute (5) Abdominal pain Status: Acute (6) Abdominal pain Status: Acute (7) Agitation Status: Acute (8) Chest pain Status: Acute (9) Constipation Status: Acute (10) Contusion Status: Acute (11) Dizziness Status: Acute (12) Gastroenteritis Status: Acute (13) HTN (hypertension) Status: Acute (14) Head injury Status: Acute (15) Headache Status: Acute (16) Hypoglycemia Status: Acute (17) Hypoglycemia due to insulin Status: Acute (18) Knee pain Status: Acute (19) Leg pain Status: Acute (20) Medical assessment Status: Acute (21) Minor head injury without loss of consciousness Status: Acute (22) Paranoia Status: Acute (23) Schizophrenia Status: Acute (24) UTI (urinary tract infection) Status: Acute - Assessment and Plan (Free Text) Plan: Follow-up with the psych doctor GI prophylaxis DVT prophylaxis Folate Serum vitamin B12 TSH FtS ABS follow-up
[2017-05-12] MEDS: (Novolog) Insulin Aspart, Recombinant 100 u/ml 10 ml vial SC SCH ×4 (08:22→21:41)
[2017-05-12 08:48] LABS: BASO % 0.5 % (0.0-2.0); EOS # 0.1 K/uL (0.0-0.7); EOS % 0.8 % (0.0-4.0); HEMOGLOBIN 11.9 g/dL (11.0-16.0); LYMPH # 2.1 K/uL (1.0-4.3); LYMPH % 22.8 % (20.0-40.0); MEAN CELL VOLUME 89.7 fL (81.0-99.0); MEAN CORPUSCULAR HEMOGLOBIN 30.9 pg (27.0-31.0); MEAN CORPUSCULAR HGB CONC 34.5 g/dL (33.0-37.0); MEAN PLATELET VOLUME 9.2 fL (7.2-11.7); MONO # 1.2 K/uL (0.0-0.8); MONO % 12.8 % (0.0-10.0); NEUT # 5.9 K/uL (1.8-7.0); NEUT % 63.1 % (50.0-75.0); RBC 3.85 Mil/uL (3.80-5.20); RED CELL DISTRIBUTION WIDTH 13.8 % (11.5-14.5); WHITE BLOOD COUNT 9.3 K/uL (4.8-10.8)
[2017-05-12 08:59] LABS: ALBUMIN 3.8 g/dL (3.5-5.0); ALT/SGPT 23 U/L (9-52); AST/SGOT 24 U/L (14-36); BLOOD UREA NITROGEN 24 mg/dL (7-17); CALCIUM 9.3 mg/dl (8.6-10.4); GFR AFRICAN-AMERICAN > 60; GFR NON-AFRICAN AMERICAN 53
[2017-05-12 09:54] LABS: FOLATE 14.3 ng/mL
[2017-05-12] MEDS ORDERED: Pneumococcal 23-Valent Vaccine IM ONE (10:00)
--- NOTE | 2017-05-12 11:51 | PCM.PSYCH ---
Initial Psychiatric Evaluation - Initial Psychiatric Evaluation History of Present Illness and Precipitating Events: The pt is seen, chart reviewed, incl. previous psych admissions, case discussed She is known from a previous consult in 01/2017 Consult was requested for her psychosis. She is a very poor historian due to dementia and psychosis She was also dx'ed with "schizophrenia" but that, again, needs to be confirmed, i.e. past history of symptoms, treatment, admission etc. She is still psychotic,though, which happens in dementia too. She claims people are after her, stealing her stuff, and that police was involved. She is disoriented and very forgetful. Her came in and she was not sure if he was her , and said "that's what he says he is, I don't know." She is on high dose of seroquel 200 mg for her age and gabapentin (reason?) Past psych hx: Admitted to [facility], dx of Alzheimer's confirmed , put on said meds Medical hx: HTN, pls see chart for details Family psych hx: Unknown Current Medications: Active Medications Generic Name Dose Route Start Last Admin Trade Name Freq PRN Reason Stop Dose Admin Gabapentin 200 mg 05/10/17 18:00 05/12/17 10:08 Neurontin PO 200 mg TID [facility] Administration Heparin Sodium (Porcine) 5,000 units 05/10/17 22:00 05/12/17 10:09 Heparin SC 5,000 units Q12 [facility] Administration Insulin Aspart 0 unit 05/10/17 22:00 05/12/17 08:22 Novolog SC 2 unit ACHS [facility] Administration Protocol Losartan Potassium 100 mg 05/11/17 10:00 05/12/17 10:08 Cozaar PO 100 mg DAILY [facility] Administration Quetiapine Fumarate 200 mg 05/10/17 22:00 05/11/17 22:03 Seroquel PO 200 mg HS [facility] Administration Tramadol HCl 50 mg 05/10/17 18:26 05/12/17 08:24 Ultram PO 50 mg Q6 PRN Administration pain Past Psychiatric History - Past Psychiatric History Previous Treatment History: Inpatient Pertinent Medical Hx (Current Medical&Sleep Prob, Allergies): Allergies Allergy/AdvReac Type Severity Reaction Status Date / Time No Known Allergies Allergy Verified 02/25/17 18:41 Valsartan [Diovan] 160 mg PO DAILY #30 tab 12/25/16 Gabapentin [Neurontin] 200 mg PO TID 30 Days cap 02/28/17 QUEtiapine [SEROquel] 200 mg PO HS 30 Days tab 02/28/17 Insulin Glargine, Recombina [Lantus] 1 unit SC DAILY 05/09/17 MetFORMIN [glucOPHAGE] 1,000 mg PO DAILY 05/09/17 Review of Systems - Neurological Neurological: Confusion, Weakness - Psychiatric Psychiatric: Abnormal Sleep Pattern, Anxiety, Confusion, Difficulty Concentrating, Memory Loss, Mood Swings, Paranoia. absent: Homicidal Ideation, Suicidal Ideation Mental Status Examination - Personal Presentation Personal Presentation: Looks stated age - Affect Affect: Constricted - Motor Activity Motor Activity: Calm - Reliability in Providing Information Reliability in Providing Information: Poor, due to alteration in thoughts, Poor , due to cognitve impairment - Speech Speech: Organized - Mood Mood: Depressed, Anxious - Formal Thought Process Formal Thought Process: Delusions, Paranoia, Perservation - Cognitive Functions Orientation: Place (not oriented in all spheres) Sensorium: Drowsy Attention/Concentration: Easily distracted Abstract Thinking: [place] Judgement: Imparied, as evidence by: Poor judgement Memory: Recent impaired, as evidence by: Inability to recall events of the day, Remote impaired as evidenced by: Inability to recall sig life events - Risk Risk: Diminished functioning DSM 5 DX - DSM 5 DSM 5 Diagnosis: Dementia of Alzheimer's type r/o Schizophrenia - Recommended/Plan of Treatment Treatment Recommendations and Plan of Treatment: Continue seroquel for now She may need prison placement prn haldol 0.5 for agitation 33 min
--- NOTE | 2017-05-12 16:25 | CP.PCM.PN ---
Subjective - Date & Time of Evaluation Date of Evaluation: 05/12/17 Time of Evaluation: 08:20 - Subjective Subjective: clinically same Objective - Vital Signs/Intake and Output Vital Signs (last 24 hours): Temp Pulse Resp BP Pulse Ox 98.4 F 83 20 106/63 96 05/12/17 16:05 05/12/17 16:05 05/12/17 16:05 05/12/17 16:05 05/12/17 16:05 Intake and Output: 05/12/17 05/12/17 06:59 18:59 Intake Total 200 240 Balance 200 240 - Medications Medications: Current Medications Gabapentin (Neurontin) 200 mg PO TID [facility] Last Admin: 05/12/17 14:22 Dose: 200 mg Heparin Sodium (Porcine) (Heparin) 5,000 units SC Q12 [facility] Last Admin: 05/12/17 10:09 Dose: 5,000 units Insulin Aspart (Novolog) 0 unit SC ACHS [facility] PRN Reason: Protocol Last Admin: 05/12/17 12:39 Dose: 2 unit Losartan Potassium (Cozaar) 100 mg PO DAILY [facility] Last Admin: 05/12/17 10:08 Dose: 100 mg Quetiapine Fumarate (Seroquel) 200 mg PO HS [facility] Last Admin: 05/11/17 22:03 Dose: 200 mg Tramadol HCl (Ultram) 50 mg PO Q6 PRN PRN Reason: pain Last Admin: 05/12/17 14:23 Dose: 50 mg - Labs Labs: 05/12/17 08:13 05/12/17 08:13 - Constitutional Appears: Well - Head Exam Head Exam: ATRAUMATIC, NORMAL INSPECTION, NORMOCEPHALIC - Eye Exam Eye Exam: EOMI, Normal appearance, PERRL Pupil Exam: NORMAL ACCOMODATION, PERRL - ENT Exam ENT Exam: Mucous Membranes Moist, Normal Exam - Neck Exam Neck Exam: Full ROM, Normal Inspection. absent: Lymphadenopathy - Respiratory Exam Respiratory Exam: Decreased Breath Sounds - Cardiovascular Exam Cardiovascular Exam: REGULAR RHYTHM, +S1, +S2 - GI/Abdominal Exam GI & Abdominal Exam: Soft, Diminished Bowel Sounds - Rectal Exam Rectal Exam: Deferred Assessment and Plan (1) Dementia Status: Acute (2) Diabetes mellitus Status: Acute (3) Renal insufficiency Status: Acute (4) Schizophrenia Status: Acute (5) Abdominal pain Status: Acute (6) Abdominal pain Status: Acute (7) Agitation Status: Acute (8) Chest pain Status: Acute (9) Constipation Status: Acute (10) Contusion Status: Acute (11) Dizziness Status: Acute (12) Gastroenteritis Status: Acute (13) HTN (hypertension) Status: Acute (14) Head injury Status: Acute (15) Headache Status: Acute (16) Hypoglycemia Status: Acute (17) Hypoglycemia due to insulin Status: Acute (18) Knee pain Status: Acute (19) Leg pain Status: Acute (20) Medical assessment Status: Acute (21) Minor head injury without loss of consciousness Status: Acute (22) Paranoia Status: Acute (23) Schizophrenia Status: Acute (24) UTI (urinary tract infection) Status: Acute
[2017-05-13] MEDS: (Novolog) Insulin Aspart, Recombinant 100 u/ml 10 ml vial SC SCH ×4 (08:53→22:35)
--- NOTE | 2017-05-13 14:26 | CP.PCM.PN ---
Subjective - Date & Time of Evaluation Date of Evaluation: 05/13/17 Time of Evaluation: 08:20 - Subjective Subjective: clinically same Objective - Vital Signs/Intake and Output Vital Signs (last 24 hours): Temp Pulse Resp BP Pulse Ox 98.9 F 92 H 20 108/63 96 05/13/17 00:00 05/13/17 00:00 05/13/17 00:00 05/13/17 00:00 05/13/17 00:00 Intake and Output: 05/13/17 05/13/17 06:59 18:59 Intake Total 440 Balance 440 - Medications Medications: Current Medications Gabapentin (Neurontin) 200 mg PO TID [facility] Last Admin: 05/13/17 10:31 Dose: 200 mg Heparin Sodium (Porcine) (Heparin) 5,000 units SC Q12 [facility] Last Admin: 05/13/17 10:31 Dose: 5,000 units Insulin Aspart (Novolog) 0 unit SC ACHS [facility] PRN Reason: Protocol Last Admin: 05/13/17 08:53 Dose: 3 unit Losartan Potassium (Cozaar) 100 mg PO DAILY [facility] Last Admin: 05/13/17 10:31 Dose: 100 mg Quetiapine Fumarate (Seroquel) 200 mg PO HS [facility] Last Admin: 05/12/17 21:41 Dose: 200 mg Tramadol HCl (Ultram) 50 mg PO Q6 PRN PRN Reason: pain Last Admin: 05/13/17 04:08 Dose: 50 mg - Labs Labs: 05/12/17 08:13 05/12/17 08:13 - Constitutional Appears: Well - Head Exam Head Exam: ATRAUMATIC, NORMAL INSPECTION, NORMOCEPHALIC - Eye Exam Eye Exam: EOMI, Normal appearance, PERRL Pupil Exam: NORMAL ACCOMODATION, PERRL - ENT Exam ENT Exam: Mucous Membranes Moist, Normal Exam - Neck Exam Neck Exam: Full ROM, Normal Inspection. absent: Lymphadenopathy - Respiratory Exam Respiratory Exam: Decreased Breath Sounds - Cardiovascular Exam Cardiovascular Exam: REGULAR RHYTHM, +S1, +S2 - GI/Abdominal Exam GI & Abdominal Exam: Soft, Diminished Bowel Sounds - Rectal Exam Rectal Exam: Deferred Assessment and Plan (1) Dementia Status: Acute (2) Diabetes mellitus Status: Acute (3) Renal insufficiency Status: Acute (4) Schizophrenia Status: Acute (5) Abdominal pain Status: Acute (6) Abdominal pain Status: Acute (7) Agitation Status: Acute (8) Chest pain Status: Acute (9) Constipation Status: Acute (10) Contusion Status: Acute (11) Dizziness Status: Acute (12) Gastroenteritis Status: Acute (13) HTN (hypertension) Status: Acute (14) Head injury Status: Acute (15) Headache Status: Acute (16) Hypoglycemia Status: Acute (17) Hypoglycemia due to insulin Status: Acute (18) Knee pain Status: Acute (19) Leg pain Status: Acute (20) Medical assessment Status: Acute (21) Minor head injury without loss of consciousness Status: Acute (22) Paranoia Status: Acute (23) Schizophrenia Status: Acute (24) UTI (urinary tract infection) Status: Acute
[2017-05-14 01:41] VITALS: O2SAT 95
[2017-05-14] MEDS: (Novolog) Insulin Aspart, Recombinant 100 u/ml 10 ml vial SC SCH ×3 (08:45→17:13)
[2017-05-14 12:02] LABS: BASO % 0.5 % (0.0-2.0); EOS # 0.1 K/uL (0.0-0.7); EOS % 0.8 % (0.0-4.0); HEMOGLOBIN 11.7 g/dL (11.0-16.0); LYMPH # 1.9 K/uL (1.0-4.3); LYMPH % 23.5 % (20.0-40.0); MEAN CELL VOLUME 90.3 fL (81.0-99.0); MEAN CORPUSCULAR HEMOGLOBIN 30.9 pg (27.0-31.0); MEAN CORPUSCULAR HGB CONC 34.2 g/dL (33.0-37.0); MEAN PLATELET VOLUME 9.5 fL (7.2-11.7); MONO # 1.3 K/uL (0.0-0.8); MONO % 16.2 % (0.0-10.0); NEUT # 4.8 K/uL (1.8-7.0); RBC 3.8 Mil/uL (3.80-5.20); WHITE BLOOD COUNT 8.1 K/uL (4.8-10.8)
--- NOTE | 2017-05-14 13:10 | PCM.PYCHPN ---
Psychiatric Progress Note - Psychiatric Progress Note Patient seen today, length of contact: 15 min Patient Chief Complaint: "I'm OK" Problems Identified/Issues Discussed: The pt is seen, chart reviewed, case discussed [employer] also spoke to her PA and her daughter Alexia Much better today NO paranoid stuff came up Daughter says these episodes don't last long More oriented, pleasant, smiling Medication Change: No Medical Record Reviewed: Yes Mental Status Examination - Cognitive Function Orientation: Person, Place, Situation Memory: Impaired Attention: Poor Concentration: Poor Association: Loose Fund of Knowledge: Poor - Mood Mood: Depressed, Anxious - Affect Affect: Constricted - Speech Speech: Slurred - Formal Thought Process Formal Thought Process: Paranoia, Perservation - Suicidal Ideation Suicidal Ideation: No - Homicidal Ideation Homicidal Ideation: No Goal/Treatment Plan - Goal/Treatment Plan Progress Toward Problem(s) and Goals/Treatment Plan: Continue seroquel for now She may need prison placement - daughter says that they will do their best to keep her at home Cleared for d/c
[2017-05-14 17:06] VITALS: BP 126/74; PULSE 86; TEMP 97.8
--- NOTE | 2017-05-14 17:44 | CP.PCM.PN ---
Subjective - Date & Time of Evaluation Date of Evaluation: 05/14/17 Time of Evaluation: 11:00 - Subjective Subjective: Alert, awake, confused but no agitation, NAD. Objective - Vital Signs/Intake and Output Vital Signs (last 24 hours): Temp Pulse Resp BP Pulse Ox 97.8 F 86 20 126/74 95 05/14/17 16:59 05/14/17 16:59 05/14/17 16:59 05/14/17 16:59 05/14/17 16:59 Intake and Output: 05/14/17 05/14/17 06:59 18:59 Intake Total 440 Balance 440 - Medications Medications: Current Medications Gabapentin (Neurontin) 200 mg PO TID [facility] Last Admin: 05/14/17 17:26 Dose: 200 mg Insulin Aspart (Novolog) 0 unit SC ACHS [facility] PRN Reason: Protocol Last Admin: 05/14/17 17:13 Dose: 8 unit Losartan Potassium (Cozaar) 100 mg PO DAILY [facility] Last Admin: 05/14/17 09:52 Dose: 100 mg Metformin HCl (Glucophage) 1,000 mg PO BIDCC [facility] Last Admin: 05/14/17 17:25 Dose: 1,000 mg Quetiapine Fumarate (Seroquel) 200 mg PO HS [facility] Last Admin: 05/13/17 21:02 Dose: 200 mg Tramadol HCl (Ultram) 50 mg PO Q6 PRN PRN Reason: pain Last Admin: 05/13/17 15:03 Dose: 50 mg - Labs Labs: 05/14/17 11:46 05/12/17 08:13 Assessment and Plan - Assessment and Plan (Free Text) Assessment: Patient is seen and examined, alert, awake, no agitation. Discussed with DR Washington and DR Bari Cerda, plan to discharge home with family on present meds. Ativan 1mg given for anxiety to use as needed at night as per DR [place]. Advised to follow up with psyche and PMD in 1 week. Home care, home PT arranged. Daughter and verbalized understanding of the instructions given.
== END 2017-05-14 17:57 | disposition home or self-care (01) | DRG 690 ==
LOC: C.ER 22:11 → C.9E 05-10 04:33 → C.3T 05-10 16:11 → C.9E 05-10 16:13 → C.3T 05-10 16:35
PROVIDERS: ADMIT Internal Medicine Nephrology; ATTEND Internal Medicine Nephrology
DX: N39.0 Urinary tract infection, site not specified (principal); G30.9 Alzheimer's disease, unspecified; F02.80 Dementia in other diseases classified elsewhere, unspecified severity, without behavioral disturbance, psychotic disturbance, mood disturbance, and anxiety; F05 Delirium due to known physiological condition; S09.90XA Unspecified injury of head, initial encounter; E16.0 Drug-induced hypoglycemia without coma; E11.9 Type 2 diabetes mellitus without complications; K59.00 Constipation, unspecified; N28.9 Disorder of kidney and ureter, unspecified; K52.9 Noninfective gastroenteritis and colitis, unspecified; I10 Essential (primary) hypertension; F31.9 Bipolar disorder, unspecified; F22 Delusional disorders; F20.9 Schizophrenia, unspecified; E78.00 Pure hypercholesterolemia, unspecified; F41.9 Anxiety disorder, unspecified; J44.9 Chronic obstructive pulmonary disease, unspecified; T38.3X5A Adverse effect of insulin and oral hypoglycemic [antidiabetic] drugs, initial encounter; X58.XXXA Exposure to other specified factors, initial encounter; Z79.899 Other long term (current) drug therapy; Z95.5 Presence of coronary angioplasty implant and graft

== ENCOUNTER 2017-06-22 16:12 | Inpatient (IN) | payer MEDICARE, MEDICAID ==
[2017-06-22 16:13] VITALS: BMI 29.2
--- NOTE | 2017-06-22 16:54 | C.PDOC ---
History Of Present Illness 82 year old female with PMHx of dementia, schizophrenia, DM is brought to the ED by EMS for evaluation of weakness. Patient reportedly feels weak, sat down in the third floor of her apartment building. Patient provided limited history because of her dementia, can't verbalize any other complaints. later arrives and states "pt collapsed in her arm" Time Seen by Provider: 06/22/17 16:44 Chief Complaint (Nursing): Medical Clearance History Per: EMS History/Exam Limitations: clinical condition Onset/Duration Of Symptoms: Hrs Current Symptoms Are (Timing): Still Present Recent travel outside of the [place]: No Additional History Per: EMS Past Medical History Reviewed: Historical Data, Nursing Documentation, Vital Signs Vital Signs: Last Vital Signs Temp 99.3 F 06/22/17 22:29 Pulse 89 06/22/17 22:29 Resp 20 06/22/17 22:29 BP 133/53 L 06/22/17 22:29 Pulse Ox 92 L 06/22/17 23:20 - Medical History PMH: Alzheimer's Disease, Anxiety, Asthma, Bipolar Disorder, COPD, Depression, Diabetes (type 2), Gastritis, HTN, Hypercholesterolemia, Schizophrenia, Seizures Denies: Hepatitis, HIV, Chronic Kidney Disease, Sexually Transmitted Disease (Patient denied. None reported) Surgical History: Coronary Stent - [facility] GROUP PSYCHOTHERAPY (12/15/16) INDIVIDUAL PSYCHOTHERAPY, BEHAVIORAL (12/15/16) Family History: States: Unknown Family Hx - Social History Hx Tobacco Use: No Hx Alcohol Use: No Hx Substance Use: No - Immunization History Hx Tetanus Toxoid Vaccination: No Hx Influenza Vaccination: No Hx Pneumococcal Vaccination: Yes Review Of Systems Except As Marked, All Systems Reviewed And Found Negative. Constitutional: Positive for: Weakness Neurological: Positive for: Confusion Physical Exam - Physical Exam Appears: Non-toxic, Other (Bizarre thoughts) Skin: Normal Color, Warm, Dry Head: Atraumatic, Normacephalic Eye(s): bilateral: Normal Inspection Nose: No Discharge Oral Mucosa: Moist Neck: Normal ROM, Supple Chest: Symmetrical Cardiovascular: Rhythm Regular, No Murmur Respiratory: Normal Breath Sounds, No Rales, No Rhonchi, No Wheezing Gastrointestinal/Abdominal: Soft, No Tenderness, No Guarding, No Rebound Extremity: Normal ROM, No Tenderness, No Swelling Neurological/Psych: No Oriented x3 (dementia ) ED Course And Treatment - Laboratory Results Result Diagrams: 06/22/17 17:26 06/22/17 17:26 O2 Sat by Pulse Oximetry: 92 Medical Decision Making Medical Decision Making: Impression: weakness later states "pt collapsed in his arm" Plan: ro metabolic infectious cardiact intracranil etiology * EKG * Labs * CXR * UA ekg nsr [address] twave changes nomral intevals case discussed with dr rosas accepts for adimission Disposition - Disposition Disposition: HOSPITALIZED Disposition Time: 23:17 Condition: STABLE - Clinical Impression Clinical Impression: Syncope, UTI (urinary tract infection) - Scribe Statement The provider has reviewed the documentation as recorded by the Scribe Carlos Winslow All medical record entries made by the Scribe were at my direction and personally dictated by me. I have reviewed the chart and agree that the record accurately reflects my personal performance of the history, physical exam, medical decision making, and the department course for this patient. I have also personally directed, reviewed, and agree with the discharge instructions and disposition. Decision To Admit - Pt Status Changed To: Hospital Disposition Of: Inpatient - Admit Certification Admit to Inpatient:: After my assessment, the patient will require hospitalization for at least two midnights. This is because of the severity of symptoms shown, intensity of services needed, and/or the medical risk in this patient being treated as an outpatient. - InPatient: Physician Admission Certification: I certify that this patient requires 2 or more midnights of care for the following reason:: syncope - . Bed Request Type: Telemetry Admitting Physician: Suraj Rosas Patient Diagnosis: Syncope, UTI (urinary tract infection)
[2017-06-22 17:36] LABS: BASO % 0.3 % (0.0-2.0); EOS % 0.3 % (0.0-4.0); HEMOGLOBIN 10.4 g/dL (11.0-16.0); LYMPH # 1.2 K/uL (1.0-4.3); LYMPH % 11.2 % (20.0-40.0); MEAN CELL VOLUME 90.2 fL (81.0-99.0); MEAN CORPUSCULAR HEMOGLOBIN 31.1 pg (27.0-31.0); MEAN CORPUSCULAR HGB CONC 34.5 g/dL (33.0-37.0); MONO # 1.5 K/uL (0.0-0.8); MONO % 13.6 % (0.0-10.0); NEUT # 8.1 K/uL (1.8-7.0); NEUT % 74.6 % (50.0-75.0); NRBC % 0.1 % (0.0-2.0); RBC 3.33 Mil/uL (3.80-5.20); RED CELL DISTRIBUTION WIDTH 14.7 % (11.5-14.5); WHITE BLOOD COUNT 10.9 K/uL (4.8-10.8)
[2017-06-22 17:40] LABS: PROTHROMBIN TIME 11.3 SECONDS (9.7-12.2)
[2017-06-22 17:46] LABS: ALB/GLOB RATIO 0.8 (1.0-2.1); ALBUMIN 3.7 g/dL (3.5-5.0); CALCIUM 8.6 mg/dl (8.6-10.4)
[2017-06-22 17:55] LABS: TROPONIN I 0.114 ng/mL (0.00-0.120)
--- NOTE | 2017-06-22 18:23 | CT ---
PROCEDURE: CT HEAD WITHOUT CONTRAST. HISTORY: ams COMPARISON: 05/10/2017 TECHNIQUE: Axial computed tomography images were obtained through the head/brain without intravenous contrast. Radiation dose: Total exam DLP = 767.82 mGy-cm. This CT exam was performed using one or more of the following dose reduction techniques: Automated exposure control, adjustment of the mA and/or kV according to patient size, and/or use of iterative reconstruction technique. FINDINGS: HEMORRHAGE: No intracranial hemorrhage. BRAIN: No mass effect or edema. Mild diffuse age-appropriate atrophy. Moderate periventricular white matter lucency with patchy and confluent deep and subcortical white matter lucency, consistent with age related microvascular ischemic change. 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 No evidence of acute infarct. VENTRICLES: Ex vacuo dilatation of frontal horn of right lateral ventricle. No hydrocephalus. No midline shift. CALVARIUM: Unremarkable. PARANASAL SINUSES: Unremarkable as visualized. No significant inflammatory changes. MASTOID AIR CELLS: Unremarkable as visualized. No inflammatory changes. OTHER FINDINGS: None. IMPRESSION: No intracranial mass, hemorrhage or evidence of acute infarct. Old right basal ganglia lacunar infarct. Age related involutional change.
[2017-06-22 19:46] LABS: SQUAMOUS EPITHIAL 2 /hpf (0-5); URINE BACTERIA MANY (<OCC); URINE BILIRUBIN NEGATIVE (NEGATIVE); URINE BLOOD 1+ (NEGATIVE); URINE CLARITY Hazy (Clear); URINE COLOR Yellow (YELLOW); URINE GLUCOSE (UA) NORMAL (Normal); URINE LEUKOCYTE ESTERASE 3+ Leu/uL (Negative); URINE PROTEIN 1+ mg/dL (NEGATIVE); URINE UROBILINOGEN NORMAL mg/dL (0.2-1.0); WBC CLUMPS MANY /hpf
[2017-06-22] MEDS ORDERED: cefTRIAXone IV 1 gm in Dextros 50 ML IVPB ONE ×2 (19:47→20:01)
[2017-06-23 07:42] LABS: BASO % 0.4 % (0.0-2.0); EOS # 0.1 K/uL (0.0-0.7); EOS % 0.7 % (0.0-4.0); HEMOGLOBIN 10.1 g/dL (11.0-16.0); LYMPH # 1.5 K/uL (1.0-4.3); LYMPH % 16.1 % (20.0-40.0); MEAN CELL VOLUME 89.7 fL (81.0-99.0); MEAN CORPUSCULAR HEMOGLOBIN 30.5 pg (27.0-31.0); MEAN PLATELET VOLUME 9.3 fL (7.2-11.7); MONO # 1.5 K/uL (0.0-0.8); MONO % 16.6 % (0.0-10.0); NEUT % 66.2 % (50.0-75.0); RBC 3.32 Mil/uL (3.80-5.20); RED CELL DISTRIBUTION WIDTH 14.6 % (11.5-14.5); WHITE BLOOD COUNT 9.1 K/uL (4.8-10.8)
[2017-06-23 07:51] LABS: ALB/GLOB RATIO 0.9 (1.0-2.1); ALBUMIN 3.5 g/dL (3.5-5.0); CALCIUM 8.4 mg/dl (8.6-10.4)
[2017-06-23] MEDS: (Novolog) Insulin Aspart, Recombinant 100 u/ml 10 ml vial SC SCH ×4 (07:53→21:36)
--- NOTE | 2017-06-23 09:02 | RAD ---
PROCEDURE: CHEST RADIOGRAPH, 1 VIEW HISTORY: Chest pain COMPARISON: 02/19/2017. FINDINGS: LUNGS: The lungs are well inflated and clear. PLEURA: No pneumothorax or pleural fluid seen. CARDIOVASCULAR: Normal. OSSEOUS STRUCTURES: No significant abnormalities. VISUALIZED UPPER ABDOMEN: Normal. OTHER FINDINGS: None. IMPRESSION: No active pulmonary disease.
[2017-06-23] MEDS: Enoxaparin 30 mg Syringe SC SCH (11:12)
--- NOTE | 2017-06-23 16:56 | CP.PCM.CON ---
History of Present Illness - History of Present Illness History of Present Illness: pt had a syncopal episode x 1. Pt unable to recall presyncopal LH or dizziness. denies cp or palp. She is c/o decreased urine output. pts bp low , labs reveal prerenal state. uti noted on labs Review of Systems - Constitutional Constitutional: As Per HPI. absent: Anorexia, Chills, Daytime Sleepiness, Excessive Sweating, Fatigue, Fever, Frequent Falls, Headache, Increased Appetite , Lethargy, Malaise, Night Sweats, Snoring, Sleep Apnea, Weight Gain, Weight Loss, Weakness, Other - EENT Eyes: As Per HPI. absent: Blind Spots, Blurred Vision, Change in Vision, Decreased Night Vision, Diplopia, Discharge, Dry Eye, Exophthalmos, Floaters, Irritation, Itchy Eyes, Loss of Peripheral Vision, Pain, Photophobia, Requires Corrective Lenses, Sees Flashes, Spots in Vision, Tunnel Vision, Other Visual Disturbances, Loss of Vision, Other Ears: As Per HPI. absent: Decreased Hearing, Ear Discharge, Ear Pain, Tinnitus , Abnormal Hearing, Disequilibrium, Dizziness, Other Nose/Mouth/Throat: As Per HPI. absent: Epistaxis, Nasal Congestion, Nasal Discharge, Nasal Obstruction, Nasal Trauma, Nose Pain, Post Nasal Drip, Sinus Pain, Sinus Pressure, Bleeding Gums, Change in Voice, Dental Pain, Dry Mouth, Dysphagia, Halitosis, Hoarsness, Lip Swelling, Mouth Lesions, Mouth Pain, Odynophagia, Sore Throat, Throat Swelling, Tongue Swelling, Facial Pain, Neck Pain, Neck Mass, Other - Breasts Breasts: As Per HPI. absent: Change in Shape, Mass, Pain, Nipple Discharge, Nipple Inversion, Skin Changes, Swelling, Other - Cardiovascular Cardiovascular: As Per HPI. absent: Acrocyanosis, Chest Pain, Chest Pain at Rest, Chest Pain with Activity, Claudication, Diaphoresis, Dyspnea, Dyspnea on Exertion, Edema, Irregular Heart Rhythm, Pain Radiating to Arm/Neck/Jaw, Leg Edema, Leg Ulcers, Lightheadedness, Orthopnea, Palpitations, Paroxysmal Nocturnal Dyspnea, Pedal Edema, Radiating Pain, Rapid Heart Rate, Slow Heart Rate, Syncope, Other - Respiratory Respiratory: As Per HPI. absent: Cough, Dyspnea, Hemoptysis, Dyspnea on Exertion, Wheezing, Snoring, Stridor, Pain on Inspiration, Chest Congestion, Excessive Mucous Production, Change in Mucous Color, Pain with Coughing, Other - Gastrointestinal Gastrointestinal: As Per HPI. absent: Abdominal Pain, Belching, Bloating, Change in Bowel Habits, Change in Stool Character, Coffee Ground Emesis, Constipation, Cramping, Diarrhea, Dyspepsia, Dysphagia, Early Satiety, Excessive Flatus, Fecal Incontinence, Heartburn, Hematemesis, Hematochezia, Loose Stools, Melena, Nausea, Odynophagia, Temesmus, Vomiting, Other - Genitourinary Genitourinary: As Per HPI. absent: Change in Urinary Stream, Difficulty Urinating, Dysuria, Flank Pain, Hematuria, Pyuria, Nocturia, Urinary Incontinence, Urinary Frequency, Urinary Hesitance, Urinary Urgency, Voiding Freq/Small Amts, Freq UTI, Hx Renal/Bladder Calculi, Hx /Renal Surgery, Bladder Distension, Other - Reproductive: Female Reproductive:Female: As Per HPI. absent: Amenorrhea, Amenorrhea/ Control, Currently Menstual, Cycle <21 Days, Cycle >35 Days, Cycle Variable, Menses 1-7 Days, Menses >/= 8 Days, Menses Variable, Cycle > 4 Weeks Between, No Menses for 6 Months, Heavy Menses, Light Menses, Normal Menses, Spotting Between Cycles , S/P Hysterectomy, Menopausal, Post Menopausal, Premenarche, Abnormal Vaginal Bleeding, Dysmenorrhea, Dyspareunia, Genital Lesions, Genital Pruritis, Pelvic Pain, Prolapse Symptoms, Sexual Dysfunction, Vaginal Discharge, Vaginal Dryness , Vaginal Odor, Vaginal Pruritis, Other - Menstruation Menstruation: As Per HPI. absent: Amenorrhea, Amenorrhea/ Control, Currently Menstual, Cycle <21 Days, Cycle >35 Days, Cycle Variable, Menses 1-7 Days, Menses >/= 8 Days, Menses Variable, Cycle > 4 Weeks Between, No Menses for 6 Months, Heavy Menses, Light Menses, Normal Menses, Spotting Between Cycles , S/P Hysterectomy, Menopausal, Post Menopausal, Premenarche, Abnormal Vaginal Bleeding, Dysmenorrhea, Other - Musculoskeletal Musculoskeletal: As Per HPI. absent: Abnormal Gait, Arthralgias, Atrophy, Back Pain, Deformity, Joint Swelling, Limited Range of Motion, Loss of Height, Muscle Cramps, Muscle Weakness, Myalgias, Neck Pain, Numbness, Radiating Pain into Limb, Stiffness, Tingling, Other - Integumentary Integumentary: As Per HPI. absent: Acne, Alopecia, Bleeding Lesions, Change in Hair, Change in Nails, Change in Pigmentation, Changing Lesions, Dry Skin, Erythema, Furuncle, Hirsutism, Lesions, New Lesions, Non-Healing Lesions, Photosensitivity, Pruritus, Rash, Skin Pain, Skin Ulcer, Sores, Striae, Swelling , Unusual Bruising, Wounds, Jaundice, Other - Neurological Neurological: As Per HPI. absent: Abnormal Gait, Abnormal Hearing, Abnormal Movements, Abnormal Speech, Behavioral Changes, Burning Sensations, Confusion, Convulsions, Disequilibrium, Dizziness, Numbness, Focal Weakness, Frequent Falls , Headaches, Lack of Coordination, Loss of Vision, Memory Loss, Paresthesias, Radicular Pain, Restless Legs, Sensory Deficit, Syncope, Tingling, Tremor, Vertigo, Weakness, Other Visual Disturbances, Other - Psychiatric Psychiatric: As Per HPI. absent: Abnormal Sleep Pattern, Anhedonia, Anxiety, Auditory Hallucinations, Behavioral Changes, Change in Appetite, Change in Libido, Confusion, Depression, Difficulty Concentrating, Hallucinations, Homicidal Ideation, Hopelessness, Irritability, Memory Loss, Mood Swings, Panic Attacks, Paranoia, Suicidal Ideation, Visual Hallucinations, Tactile Hallucinations, Other - Endocrine Endocrine: As Per HPI. absent: Change in Body Appearance, Change in Libido, Cold Intolorance, Deepening of Voice, Excessive Sweating, Fatigue, Flushing, Heat Intolorance, Increase in Ring/Shoe/Hat Size, Palpitations, Polydipsia, Polyphagia, Polyuria, Other - Hematologic/Lymphatic Hematologic: As Per HPI. absent: Easy Bleeding, Easy Bruising, Lymphadenopathy , Other Past Patient History - Past Medical History & Family History Past Medical History?: Yes - Past Social History Smoking Status: Never Smoked Chewing Tobacco Use: No Cigar Use: No Alcohol: None Drugs: Denies Home Situation {Lives}: With Family Domestic Violence: Negative - CARDIAC Hx Hypercholesterolemia: Yes Hx Hypertension: Yes - PULMONARY Hx Asthma: Yes Hx Chronic Obstructive Pulmonary Disease (COPD): Yes - NEUROLOGICAL Hx Alzheimer's Disease: Yes Hx Seizures: Yes - HEENT Hx HEENT Problems: No - RENAL Hx Chronic Kidney Disease: No - ENDOCRINE/METABOLIC Hx Endocrine Disorders: Yes Hx Diabetes Mellitus Type 2: Yes - HEMATOLOGICAL/ONCOLOGICAL Hx Human Immunodeficiency Virus (HIV): No - INTEGUMENTARY Hx Dermatological Problems: No - MUSCULOSKELETAL/RHEUMATOLOGICAL Hx Falls: No - GASTROINTESTINAL Hx Gastritis: Yes - GENITOURINARY/GYNECOLOGICAL Hx Sexually Transmitted Disorders: No (Patient denied. None reported) - PSYCHIATRIC Hx Substance Use: No - SURGICAL HISTORY Hx Coronary Stent: Yes - ANESTHESIA Hx Anesthesia: Yes Hx Anesthesia Reactions: No Hx Malignant Hyperthermia: No Meds Allergies/Adverse Reactions: Allergies Allergy/AdvReac Type Severity Reaction Status Date / Time No Known Allergies Allergy Verified 06/22/17 16:38 - Medications Medications: Current Medications Acetaminophen (Tylenol 325mg Tab) 650 mg PO Q6 PRN PRN Reason: Pain, moderate (4-7) Last Admin: 06/23/17 14:01 Dose: 650 mg Enoxaparin Sodium (Lovenox) 30 mg SC DAILY [facility] Last Admin: 06/23/17 11:12 Dose: 30 mg Gabapentin (Neurontin) 200 mg PO TID [facility] Last Admin: 06/23/17 14:01 Dose: 200 mg Ceftriaxone Sodium 1 gm/ (Sodium Chloride) 100 mls @ 100 mls/hr IVPB DAILY [facility] PRN Reason: Protocol Last Admin: 06/23/17 09:32 Dose: 100 mls/hr Insulin Aspart (Novolog) 0 unit SC ACHS [facility] PRN Reason: Protocol Last Admin: 06/23/17 12:36 Dose: Not Given Insulin Glargine (Lantus) 25 unit SC HS [facility] Lorazepam (Ativan) 1 mg PO HS PRN PRN Reason: Anxiety Last Admin: 06/23/17 00:39 Dose: 1 mg Losartan Potassium (Cozaar) 100 mg PO DAILY [facility] Last Admin: 06/23/17 09:34 Dose: 100 mg Metformin HCl (Glucophage) 1,000 mg PO BID [facility] Last Admin: 06/23/17 09:33 Dose: 1,000 mg Quetiapine Fumarate (Seroquel) 200 mg PO HS [facility] Physical Exam - Constitutional Appears: Non-toxic - Head Exam Head Exam: ATRAUMATIC, NORMAL INSPECTION, NORMOCEPHALIC - Eye Exam Eye Exam: EOMI, Normal appearance, PERRL. absent: Conjunctival injection, Nystagmus, Periorbital swelling, Periorbital tenderness, Scleral icterus Pupil Exam: NORMAL ACCOMODATION, PERRL. absent: Fixed, Irregular, Miosis, Mydriatic, Unequal - ENT Exam ENT Exam: Mucous Membranes Dry. absent: Mucous Membranes Moist, Normal Exam, Normal External Ear Exam, Normal Oropharynx, TM's Normal Bilaterally - Neck Exam Neck exam: Positive for: Normal Inspection. Negative for: Full Rom, Lymphadenopathy, Meningismus, Tenderness, Thyromegaly - Respiratory Exam Respiratory Exam: Clear to Auscultation Bilateral, NORMAL BREATHING PATTERN. absent: Accessory Muscle Use, Chest Wall Tenderness, Decreased Breath Sounds, Prolonged Expiratory Phase, Rales, Rhonchi, Wheezes, Respiratory Distress, Stridor - Cardiovascular Exam Cardiovascular Exam: REGULAR RHYTHM, +S1, +S2, Systolic Murmur. absent: Bradycardia, Tachycardia, Clicks, Diastolic murmur, Gallop, Irregular Rhythm, JVD, RRR, Rubs, +S4 - GI/Abdominal Exam GI & Abdominal Exam: Normal Bowel Sounds, Soft. absent: Bruit, Diminished Bowel Sounds, Distended, Firm, Guarding, Hernia, Hyperactive Bowel Sounds, Hypoactive Bowel Sounds, Mass, Organomegaly, Pulsatile Mass, Rebound, Rigid, Tenderness - Rectal Exam Rectal Exam: Deferred - Extremities Exam Extremities exam: Positive for: normal inspection. Negative for: calf tenderness, full ROM, joint swelling, normal capillary refill, pedal edema, tenderness, pedal pulses present - Back Exam Back exam: NORMAL INSPECTION. absent: CVA tenderness (L), CVA tenderness (R), FULL ROM, muscle spasm, paraspinal tenderness, rash noted, tenderness, vertebral tenderness - Neurological Exam Neurological exam: CN II-XII Intact, Oriented x3 - Psychiatric Exam Psychiatric exam: Anxious, Normal Mood - Skin Skin Exam: Dry, Intact, Normal Color, Warm Results - Vital Signs Recent Vital Signs: Last Vital Signs Temp 99.8 F H 06/23/17 15:04 Pulse 88 06/23/17 15:04 Resp 18 06/23/17 15:04 BP 112/63 06/23/17 15:04 Pulse Ox 96 06/23/17 15:04 - Labs Result Diagrams: 06/24/17 07:45 06/24/17 07:45 Labs: Laboratory Results - last 24 hr 06/22/17 06/22/17 06/22/17 16:37 17:26 17:26 WBC 10.9 H RBC 3.33 L Hgb 10.4 L Hct 30.1 L MCV 90.2 MCH 31.1 H MCHC 34.5 RDW 14.7 H Plt Count 286 MPV 10.0 Neut % (Auto) 74.6 Lymph % (Auto) 11.2 L [place] % (Auto) 13.6 H Eos % (Auto) 0.3 Baso % (Auto) 0.3 Neut # (Auto) 8.1 H Lymph # (Auto) 1.2 [place] # (Auto) 1.5 H Eos # (Auto) 0.0 Baso # (Auto) 0.0 PT 11.3 INR 1.0 APTT 23 Sodium Potassium Chloride Carbon Dioxide Anion Gap BUN Creatinine Est GFR ( Amer) Est GFR (Non-Af Amer) POC Glucose (mg/dL) 297 H Random Glucose Calcium Total Bilirubin AST ALT Alkaline Phosphatase Troponin I Total Protein Albumin Globulin Albumin/Globulin Ratio Urine Color Urine Clarity Urine pH Ur Specific [place] Urine Protein Urine Glucose (UA) Urine Ketones Urine Blood Urine Nitrate Urine Bilirubin Urine Urobilinogen Ur Leukocyte Esterase Urine WBC (Auto) Urine RBC (Auto) Urine WBC Clumps (Auto) Ur Squamous Epith Cells Ur Transition Epith Cell Urine Bacteria Stool Occult Blood 06/22/17 06/22/17 06/22/17 17:26 19:03 19:38 WBC RBC Hgb Hct MCV MCH MCHC RDW Plt Count MPV Neut % (Auto) Lymph % (Auto) [place] % (Auto) Eos % (Auto) Baso % (Auto) Neut # (Auto) Lymph # (Auto) [place] # (Auto) Eos # (Auto) Baso # (Auto) PT INR APTT Sodium 133 Potassium 4.3 Chloride 96 L Carbon Dioxide 21 L Anion Gap 20 BUN 49 H Creatinine 1.2 Est GFR ( Amer) 52 Est GFR (Non-Af Amer) 43 POC Glucose (mg/dL) Random Glucose 330 H Calcium 8.6 Total Bilirubin 0.5 AST 26 ALT 17 Alkaline Phosphatase 90 Troponin I 0.1140 Total Protein 8.4 H Albumin 3.7 Globulin 4.7 H Albumin/Globulin Ratio 0.8 L Urine Color Yellow Urine Clarity Hazy Urine pH 5.0 Ur Specific [place] 1.017 Urine Protein 1+ H Urine Glucose (UA) Normal Urine Ketones Negative Urine Blood 1+ H Urine Nitrate Positive H Urine Bilirubin Negative Urine Urobilinogen Normal Ur Leukocyte Esterase 3+ H Urine WBC (Auto) 1127 H Urine RBC (Auto) 10 H Urine WBC Clumps (Auto) Many H Ur Squamous Epith Cells 2 Ur Transition Epith Cell < 1 Urine Bacteria Many H Stool Occult Blood Negative 06/22/17 06/23/17 06/23/17 21:27 06:19 07:19 WBC 9.1 RBC 3.32 L Hgb 10.1 L Hct 29.8 L MCV 89.7 MCH 30.5 MCHC 34.0 RDW 14.6 H Plt Count 290 MPV 9.3 Neut % (Auto) 66.2 Lymph % (Auto) 16.1 L [place] % (Auto) 16.6 H Eos % (Auto) 0.7 Baso % (Auto) 0.4 Neut # (Auto) 6.0 Lymph # (Auto) 1.5 [place] # (Auto) 1.5 H Eos # (Auto) 0.1 Baso # (Auto) 0.0 PT INR APTT Sodium Potassium Chloride Carbon Dioxide Anion Gap BUN Creatinine Est GFR ( Amer) Est GFR (Non-Af Amer) POC Glucose (mg/dL) 170 H 106 Random Glucose Calcium Total Bilirubin AST ALT Alkaline Phosphatase Troponin I Total Protein Albumin Globulin Albumin/Globulin Ratio Urine Color Urine Clarity Urine pH Ur Specific [place] Urine Protein Urine Glucose (UA) Urine Ketones Urine Blood Urine Nitrate Urine Bilirubin Urine Urobilinogen Ur Leukocyte Esterase Urine WBC (Auto) Urine RBC (Auto) Urine WBC Clumps (Auto) Ur Squamous Epith Cells Ur Transition Epith Cell Urine Bacteria Stool Occult Blood 06/23/17 06/23/17 06/23/17 07:19 12:15 16:44 WBC RBC Hgb Hct MCV MCH MCHC RDW Plt Count MPV Neut % (Auto) Lymph % (Auto) [place] % (Auto) Eos % (Auto) Baso % (Auto) Neut # (Auto) Lymph # (Auto) [place] # (Auto) Eos # (Auto) Baso # (Auto) PT INR APTT Sodium 135 Potassium 3.9 Chloride 99 Carbon Dioxide 22 Anion Gap 18 BUN 48 H Creatinine 1.1 Est GFR ( Amer) 58 Est GFR (Non-Af Amer) 48 POC Glucose (mg/dL) 141 H 137 H Random Glucose 113 H Calcium 8.4 L Total Bilirubin 0.5 AST 33 ALT 27 Alkaline Phosphatase 88 Troponin I Total Protein 7.4 Albumin 3.5 Globulin 4.0 H Albumin/Globulin Ratio 0.9 L Urine Color Urine Clarity Urine pH Ur Specific [place] Urine Protein Urine Glucose (UA) Urine Ketones Urine Blood Urine Nitrate Urine Bilirubin Urine Urobilinogen Ur Leukocyte Esterase Urine WBC (Auto) Urine RBC (Auto) Urine WBC Clumps (Auto) Ur Squamous Epith Cells Ur Transition Epith Cell Urine Bacteria Stool Occult Blood Assessment & Plan (1) Syncope Status: Acute Priority: High (2) UTI (urinary tract infection) Status: Acute Priority: High (3) Prerenal azotemia Status: Acute - Assessment and Plan (Free Text) Plan: ivf for prerenal echo to eval valves and ef abx for uti monitor lytes
[2017-06-23] MEDS ORDERED: Sodium Chloride 0.9% 1,000 ML IV SCH (17:00)
[2017-06-23] MEDS: Sodium Chloride 0.9% 1,000 ML IV SCH (17:36)
--- NOTE | 2017-06-23 18:10 | CP.PCM.HP ---
History of Present Illness - History of Present Illness History of Present Illness: 82 years old female with PMH significant for Type II DM, HTN, Schizophrenia, Dementia brought to ED by EMS after a syncopal episode witnessed by . Patient is not cooperative due to Dementia condition. Present on Admission - Present on Admission Any Indicators Present on Admission: Yes History of Uncontrolled Diabetes: Yes Review of Systems - Constitutional Constitutional: Weakness - Cardiovascular Cardiovascular: Syncope - Psychiatric Psychiatric: Abnormal Sleep Pattern Past Patient History - Past Medical History & Family History Past Medical History?: Yes - Past Social History Smoking Status: Never Smoked - CARDIAC Hx Hypercholesterolemia: Yes Hx Hypertension: Yes - PULMONARY Hx Asthma: Yes Hx Chronic Obstructive Pulmonary Disease (COPD): Yes - NEUROLOGICAL Hx Alzheimer's Disease: Yes Hx Seizures: Yes - HEENT Hx HEENT Problems: No - RENAL Hx Chronic Kidney Disease: No - ENDOCRINE/METABOLIC Hx Endocrine Disorders: Yes Hx Diabetes Mellitus Type 2: Yes - HEMATOLOGICAL/ONCOLOGICAL Hx Human Immunodeficiency Virus (HIV): No - INTEGUMENTARY Hx Dermatological Problems: No - MUSCULOSKELETAL/RHEUMATOLOGICAL Hx Falls: No - GASTROINTESTINAL Hx Gastritis: Yes - GENITOURINARY/GYNECOLOGICAL Hx Sexually Transmitted Disorders: No (Patient denied. None reported) - PSYCHIATRIC Hx Substance Use: No - SURGICAL HISTORY Hx Coronary Stent: Yes - ANESTHESIA Hx Anesthesia: Yes Hx Anesthesia Reactions: No Hx Malignant Hyperthermia: No Meds Allergies/Adverse Reactions: Allergies Allergy/AdvReac Type Severity Reaction Status Date / Time No Known Allergies Allergy Verified 06/22/17 16:38 Physical Exam - Constitutional Appears: Non-toxic, No Acute Distress - Head Exam Head Exam: ATRAUMATIC, NORMAL INSPECTION, NORMOCEPHALIC - Neck Exam Neck exam: Positive for: Normal Inspection - Respiratory Exam Respiratory Exam: Clear to Auscultation Bilateral, NORMAL BREATHING PATTERN - Cardiovascular Exam Cardiovascular Exam: REGULAR RHYTHM, +S1, +S2 - GI/Abdominal Exam GI & Abdominal Exam: Normal Bowel Sounds, Soft - Back Exam Back exam: NORMAL INSPECTION - Neurological Exam Neurological exam: Alert - Psychiatric Exam Psychiatric exam: Normal Affect, Normal Mood - Skin Skin Exam: Dry Results - Vital Signs Recent Vital Signs: Last Vital Signs Temp 99.8 F H 06/23/17 15:04 Pulse 88 06/23/17 15:04 Resp 18 06/23/17 15:04 BP 112/63 06/23/17 15:04 Pulse Ox 96 06/23/17 15:04 - Labs Result Diagrams: 06/23/17 07:19 06/23/17 07:19 Labs: Laboratory Results - last 24 hr 06/22/17 06/22/17 06/22/17 19:03 19:38 21:27 WBC RBC Hgb Hct MCV MCH MCHC RDW Plt Count MPV Neut % (Auto) Lymph % (Auto) [place] % (Auto) Eos % (Auto) Baso % (Auto) Neut # (Auto) Lymph # (Auto) [place] # (Auto) Eos # (Auto) Baso # (Auto) Sodium Potassium Chloride Carbon Dioxide Anion Gap BUN Creatinine Est GFR ( Amer) Est GFR (Non-Af Amer) POC Glucose (mg/dL) 170 H Random Glucose Calcium Total Bilirubin AST ALT Alkaline Phosphatase Total Protein Albumin Globulin Albumin/Globulin Ratio Urine Color Yellow Urine Clarity Hazy Urine pH 5.0 Ur Specific [place] 1.017 Urine Protein 1+ H Urine Glucose (UA) Normal Urine Ketones Negative Urine Blood 1+ H Urine Nitrate Positive H Urine Bilirubin Negative Urine Urobilinogen Normal Ur Leukocyte Esterase 3+ H Urine WBC (Auto) 1127 H Urine RBC (Auto) 10 H Urine WBC Clumps (Auto) Many H Ur Squamous Epith Cells 2 Ur Transition Epith Cell < 1 Urine Bacteria Many H Stool Occult Blood Negative 06/23/17 06/23/17 06/23/17 06:19 07:19 07:19 WBC 9.1 RBC 3.32 L Hgb 10.1 L Hct 29.8 L MCV 89.7 MCH 30.5 MCHC 34.0 RDW 14.6 H Plt Count 290 MPV 9.3 Neut % (Auto) 66.2 Lymph % (Auto) 16.1 L [place] % (Auto) 16.6 H Eos % (Auto) 0.7 Baso % (Auto) 0.4 Neut # (Auto) 6.0 Lymph # (Auto) 1.5 [place] # (Auto) 1.5 H Eos # (Auto) 0.1 Baso # (Auto) 0.0 Sodium 135 Potassium 3.9 Chloride 99 Carbon Dioxide 22 Anion Gap 18 BUN 48 H Creatinine 1.1 Est GFR ( Amer) 58 Est GFR (Non-Af Amer) 48 POC Glucose (mg/dL) 106 Random Glucose 113 H Calcium 8.4 L Total Bilirubin 0.5 AST 33 ALT 27 Alkaline Phosphatase 88 Total Protein 7.4 Albumin 3.5 Globulin 4.0 H Albumin/Globulin Ratio 0.9 L Urine Color Urine Clarity Urine pH Ur Specific [place] Urine Protein Urine Glucose (UA) Urine Ketones Urine Blood Urine Nitrate Urine Bilirubin Urine Urobilinogen Ur Leukocyte Esterase Urine WBC (Auto) Urine RBC (Auto) Urine WBC Clumps (Auto) Ur Squamous Epith Cells Ur Transition Epith Cell Urine Bacteria Stool Occult Blood 06/23/17 06/23/17 12:15 16:44 WBC RBC Hgb Hct MCV MCH MCHC RDW Plt Count MPV Neut % (Auto) Lymph % (Auto) [place] % (Auto) Eos % (Auto) Baso % (Auto) Neut # (Auto) Lymph # (Auto) [place] # (Auto) Eos # (Auto) Baso # (Auto) Sodium Potassium Chloride Carbon Dioxide Anion Gap BUN Creatinine Est GFR ( Amer) Est GFR (Non-Af Amer) POC Glucose (mg/dL) 141 H 137 H Random Glucose Calcium Total Bilirubin AST ALT Alkaline Phosphatase Total Protein Albumin Globulin Albumin/Globulin Ratio Urine Color Urine Clarity Urine pH Ur Specific [place] Urine Protein Urine Glucose (UA) Urine Ketones Urine Blood Urine Nitrate Urine Bilirubin Urine Urobilinogen Ur Leukocyte Esterase Urine WBC (Auto) Urine RBC (Auto) Urine WBC Clumps (Auto) Ur Squamous Epith Cells Ur Transition Epith Cell Urine Bacteria Stool Occult Blood Assessment & Plan (1) Syncope Assessment and Plan: ECG. 2D Echo. Cardiology evaluation. IV Fluids. Patient's case discussed with Farm Instructor Dr. Abdullahi. Status: Acute Priority: High (2) UTI (urinary tract infection) Assessment and Plan: BC x 2. UA C&S. Rocephin IV. IV Fluids. Status: Acute Priority: High (3) Diabetes mellitus Assessment and Plan: Continue same treatment. Novolog coverage ACHS. Status: Chronic Priority: Medium (4) HTN (hypertension) Assessment and Plan: Continue same treatment. Status: Chronic Priority: Medium (5) Dementia Assessment and Plan: Continue same treatment. Status: Chronic Priority: Medium
[2017-06-23] MEDS: (Lantus) Insulin Glargine, Recombinant SC SCH (21:37)
[2017-06-24] MEDS: Sodium Chloride 0.9% 1,000 ML IV SCH ×6 (03:15→23:35)
[2017-06-24] MEDS: (Novolog) Insulin Aspart, Recombinant 100 u/ml 10 ml vial SC SCH ×4 (07:56→21:36)
[2017-06-24 07:57] LABS: HEMOGLOBIN 9.3 g/dL (11.0-16.0); MEAN CORPUSCULAR HEMOGLOBIN 30.4 pg (27.0-31.0); MEAN CORPUSCULAR HGB CONC 33.4 g/dL (33.0-37.0); RBC 3.06 Mil/uL (3.80-5.20); RED CELL DISTRIBUTION WIDTH 14.8 % (11.5-14.5); WHITE BLOOD COUNT 9.6 K/uL (4.8-10.8)
[2017-06-24 08:23] LABS: BLOOD UREA NITROGEN 34 mg/dL (7-17); GFR AFRICAN-AMERICAN > 60; GFR NON-AFRICAN AMERICAN > 60
[2017-06-24] MEDS: Enoxaparin 30 mg Syringe SC SCH (10:09)
--- NOTE | 2017-06-24 17:34 | CP.PCM.PN ---
Subjective - Date & Time of Evaluation Date of Evaluation: 06/24/17 Time of Evaluation: 17:31 - Subjective Subjective: Afebrile, in no aparent distress. Objective - Vital Signs/Intake and Output Vital Signs (last 24 hours): Temp Pulse Resp BP Pulse Ox 100.0 F H 77 18 115/57 L 96 06/24/17 15:05 06/24/17 15:05 06/24/17 15:05 06/24/17 15:05 06/24/17 15:05 Intake and Output: 06/24/17 06/24/17 06:59 18:59 Intake Total 800 700 Balance 800 700 - Medications Medications: Current Medications Acetaminophen (Tylenol 325mg Tab) 650 mg PO Q6 PRN PRN Reason: Pain, moderate (4-7) Last Admin: 06/24/17 13:52 Dose: 650 mg Enoxaparin Sodium (Lovenox) 30 mg SC DAILY [facility] Last Admin: 06/24/17 10:09 Dose: 30 mg Gabapentin (Neurontin) 200 mg PO TID [facility] Last Admin: 06/24/17 13:46 Dose: 200 mg Ceftriaxone Sodium 1 gm/ (Sodium Chloride) 100 mls @ 100 mls/hr IVPB DAILY [facility] PRN Reason: Protocol Last Admin: 06/24/17 10:08 Dose: 100 mls/hr Sodium Chloride (Sodium Chloride 0.9%) 1,000 mls @ 100 mls/hr IV .Q10H [facility] Last Admin: 06/24/17 13:44 Dose: Not Given Insulin Aspart (Novolog) 0 unit SC ACHS [facility] PRN Reason: Protocol Last Admin: 06/24/17 16:49 Dose: Not Given Insulin Glargine (Lantus) 25 unit SC HS [facility] Last Admin: 06/23/17 21:37 Dose: 25 unit Lorazepam (Ativan) 1 mg PO HS PRN PRN Reason: Anxiety Last Admin: 06/23/17 21:56 Dose: 1 mg Losartan Potassium (Cozaar) 100 mg PO DAILY [facility] Last Admin: 06/24/17 10:10 Dose: 100 mg Metformin HCl (Glucophage) 1,000 mg PO BID [facility] Last Admin: 06/24/17 10:10 Dose: 1,000 mg Quetiapine Fumarate (Seroquel) 200 mg PO HS [facility] Last Admin: 06/23/17 21:37 Dose: 200 mg - Labs Labs: 06/24/17 07:45 06/24/17 07:45 PT 11.3 SECONDS (9.7-12.2) 06/22/17 17:26 INR 1.0 06/22/17 17:26 APTT 23 SECONDS (21-34) 06/22/17 17:26 - Head Exam Head Exam: ATRAUMATIC, NORMAL INSPECTION - Neck Exam Neck Exam: Full ROM, Normal Inspection - Respiratory Exam Respiratory Exam: Clear to Ausculation Bilateral, NORMAL BREATHING PATTERN - Cardiovascular Exam Cardiovascular Exam: REGULAR RHYTHM, +S1, +S2 - GI/Abdominal Exam GI & Abdominal Exam: Soft, Normal Bowel Sounds - Extremities Exam Extremities Exam: Full ROM, Normal Capillary Refill, Normal Inspection - Neurological Exam Neurological Exam: Alert, Awake, CN II-XII Intact, Oriented x3 - Psychiatric Exam Psychiatric exam: Normal Affect, Normal Mood Assessment and Plan (1) UTI (urinary tract infection) Assessment & Plan: Continue same treatment. Rocephin + IV Fluids. Pending UA Sensitivity. Status: Acute (2) Syncope Assessment & Plan: Cardiology on board. Status: Acute (3) Diabetes mellitus Assessment & Plan: Continue same treatment. Status: Chronic (4) HTN (hypertension) Assessment & Plan: Continue same treatment. Status: Chronic (5) Dementia Assessment & Plan: Continue same treatment. Status: Chronic
--- NOTE | 2017-06-24 18:25 | CP.PCM.PN ---
Subjective - Date & Time of Evaluation Date of Evaluation: 06/24/17 Time of Evaluation: 18:22 - Subjective Subjective: no further syncopal events or dizziness Objective - Vital Signs/Intake and Output Vital Signs (last 24 hours): Temp Pulse Resp BP Pulse Ox 100.0 F H 77 18 115/57 L 96 06/24/17 15:05 06/24/17 15:05 06/24/17 15:05 06/24/17 15:05 06/24/17 15:05 Intake and Output: 06/24/17 06/24/17 06:59 18:59 Intake Total 800 700 Balance 800 700 - Medications Medications: Current Medications Acetaminophen (Tylenol 325mg Tab) 650 mg PO Q6 PRN PRN Reason: Pain, moderate (4-7) Last Admin: 06/24/17 13:52 Dose: 650 mg Enoxaparin Sodium (Lovenox) 30 mg SC DAILY [facility] Last Admin: 06/24/17 10:09 Dose: 30 mg Gabapentin (Neurontin) 200 mg PO TID [facility] Last Admin: 06/24/17 17:39 Dose: 200 mg Ceftriaxone Sodium 1 gm/ (Sodium Chloride) 100 mls @ 100 mls/hr IVPB DAILY [facility] PRN Reason: Protocol Last Admin: 06/24/17 10:08 Dose: 100 mls/hr Sodium Chloride (Sodium Chloride 0.9%) 1,000 mls @ 100 mls/hr IV .Q10H [facility] Last Admin: 06/24/17 13:44 Dose: Not Given Insulin Aspart (Novolog) 0 unit SC ACHS [facility] PRN Reason: Protocol Last Admin: 06/24/17 16:49 Dose: Not Given Insulin Glargine (Lantus) 25 unit SC HS [facility] Last Admin: 06/23/17 21:37 Dose: 25 unit Lorazepam (Ativan) 1 mg PO HS PRN PRN Reason: Anxiety Last Admin: 06/23/17 21:56 Dose: 1 mg Losartan Potassium (Cozaar) 100 mg PO DAILY [facility] Last Admin: 06/24/17 10:10 Dose: 100 mg Metformin HCl (Glucophage) 1,000 mg PO BID [facility] Last Admin: 06/24/17 17:39 Dose: 1,000 mg Quetiapine Fumarate (Seroquel) 200 mg PO HS [facility] Last Admin: 06/23/17 21:37 Dose: 200 mg - Labs Labs: 06/24/17 07:45 06/24/17 07:45 PT 11.3 SECONDS (9.7-12.2) 06/22/17 17:26 INR 1.0 06/22/17 17:26 APTT 23 SECONDS (21-34) 06/22/17 17:26 - Constitutional Appears: Well - Head Exam Head Exam: ATRAUMATIC, NORMAL INSPECTION, NORMOCEPHALIC - Eye Exam Eye Exam: EOMI, Normal appearance, PERRL. absent: Conjunctival injection, Nystagmus, Periorbital swelling, Periorbital tenderness, Scleral icterus Pupil Exam: NORMAL ACCOMODATION, PERRL - ENT Exam ENT Exam: Mucous Membranes Moist, Normal Exam. absent: Mucous Membranes Dry, Normal External Ear Exam, Normal Oropharynx, TM's Normal Bilaterally - Neck Exam Neck Exam: Full ROM, Normal Inspection. absent: Lymphadenopathy, Meningismus, Tenderness, Thyromegaly - Respiratory Exam Respiratory Exam: Clear to Ausculation Bilateral, NORMAL BREATHING PATTERN. absent: Accessory Muscle Use, Chest Wall Tenderness, Decreased Breath Sounds, Prolonged Expiratory Phase, Rales, Rhonchi, Wheezes, Respiratory Distress, Stridor - Cardiovascular Exam Cardiovascular Exam: REGULAR RHYTHM, +S1, +S2, Murmur. absent: Bradycardia, Tachycardia, Clicks, Diastolic murmur, Gallop, Irregular Rhythm, JVD, RRR, Rubs , +S4 - GI/Abdominal Exam GI & Abdominal Exam: Soft, Normal Bowel Sounds. absent: Bruit, Distended, Firm , Guarding, Rigid, Tenderness, Diminished Bowel Sounds, Hernia, Hyperactive Bowel Sounds, Hypoactive Bowel Sounds, Organomegaly, Pulsatile Mass, Rebound, Mass - Rectal Exam Rectal Exam: Deferred - Extremities Exam Extremities Exam: Full ROM, Normal Capillary Refill, Normal Inspection, Pedal Edema. absent: Joint Swelling - Back Exam Back Exam: NORMAL INSPECTION. absent: CVA tenderness (L), CVA tenderness (R), Full ROM, muscle spasm, paraspinal tenderness, rash noted, tenderness, vertebral tenderness - Neurological Exam Neurological Exam: Alert, Awake, CN II-XII Intact, Oriented x3. absent: Abnormal Gait, Altered, Motor Sensory Deficit, Reflexes Normal - Psychiatric Exam Psychiatric exam: Normal Affect, Normal Mood. absent: Agitated, Anxious, Depressed, Flat Affect, Homicidal Ideation, Manic, Suicidal Ideation - Skin Skin Exam: Dry, Intact, Normal Color, Warm. absent: Abrasion, Cyanosis, Diaphoretic, Erythema, Mottled, Pallor, Pallor, Petechiae, Rash, Urticaria, Vesicles Assessment and Plan (1) Syncope Status: Acute (2) UTI (urinary tract infection) Status: Acute (3) Prerenal azotemia Status: Acute - Assessment and Plan (Free Text) Plan: prerenal improving cont ivf bp improving on ivf cont abx may need lower dose losartan
[2017-06-24 19:36] LABS: IRON 16 ug/dL (37-170)
[2017-06-24 19:45] LABS: % IRON SATURATION 7 (20-55); TOTAL IRON BINDING CAPACITY 225 ug/dL (250-450)
[2017-06-24 20:43] LABS: FOLATE 8.3 ng/mL
[2017-06-24] MEDS: (Lantus) Insulin Glargine, Recombinant SC SCH (21:41)
[2017-06-25 07:43] LABS: BASO # 0.1 K/uL (0.0-0.2); BASO % 0.6 % (0.0-2.0); EOS # 0.1 K/uL (0.0-0.7); EOS % 0.8 % (0.0-4.0); HEMOGLOBIN 9.4 g/dL (11.0-16.0); LYMPH # 2.3 K/uL (1.0-4.3); MEAN CELL VOLUME 91.1 fL (81.0-99.0); MEAN CORPUSCULAR HEMOGLOBIN 30.3 pg (27.0-31.0); MEAN CORPUSCULAR HGB CONC 33.2 g/dL (33.0-37.0); MEAN PLATELET VOLUME 9.3 fL (7.2-11.7); MONO # 1.9 K/uL (0.0-0.8); NEUT # 6.6 K/uL (1.8-7.0); NEUT % 60.6 % (50.0-75.0); RBC 3.12 Mil/uL (3.80-5.20); RED CELL DISTRIBUTION WIDTH 14.5 % (11.5-14.5); WHITE BLOOD COUNT 10.9 K/uL (4.8-10.8)
--- NOTE | 2017-06-25 08:15 | CP.PCM.PN ---
Subjective - Date & Time of Evaluation Date of Evaluation: 06/25/17 Time of Evaluation: 08:00 - Subjective Subjective: patient has no current chest pain or dyspnea. receiving antibiotics Objective - Vital Signs/Intake and Output Vital Signs (last 24 hours): Temp Pulse Resp BP Pulse Ox 98.8 F 80 20 144/73 98 06/25/17 06:04 06/25/17 06:04 06/25/17 06:04 06/25/17 06:04 06/25/17 06:04 Intake and Output: 06/25/17 06/25/17 06:59 18:59 Intake Total 700 Balance 700 - Medications Medications: Current Medications Acetaminophen (Tylenol 325mg Tab) 650 mg PO Q6 PRN PRN Reason: Pain, moderate (4-7) Last Admin: 06/24/17 13:52 Dose: 650 mg Enoxaparin Sodium (Lovenox) 30 mg SC DAILY [facility] Last Admin: 06/24/17 10:09 Dose: 30 mg Gabapentin (Neurontin) 200 mg PO TID [facility] Last Admin: 06/24/17 17:39 Dose: 200 mg Ceftriaxone Sodium 1 gm/ (Sodium Chloride) 100 mls @ 100 mls/hr IVPB DAILY [facility] PRN Reason: Protocol Last Admin: 06/24/17 10:08 Dose: 100 mls/hr Sodium Chloride (Sodium Chloride 0.9%) 1,000 mls @ 100 mls/hr IV .Q10H [facility] Last Admin: 06/24/17 23:35 Dose: Not Given Insulin Aspart (Novolog) 0 unit SC ACHS [facility] PRN Reason: Protocol Last Admin: 06/24/17 21:36 Dose: Not Given Insulin Glargine (Lantus) 25 unit SC [facility] Last Admin: 06/24/17 21:41 Dose: Not Given Lorazepam (Ativan) 1 mg PO HS PRN PRN Reason: Anxiety Last Admin: 06/24/17 21:42 Dose: 1 mg Losartan Potassium (Cozaar) 100 mg PO DAILY [facility] Last Admin: 06/24/17 10:10 Dose: 100 mg Metformin HCl (Glucophage) 1,000 mg PO BID [facility] Last Admin: 06/24/17 17:39 Dose: 1,000 mg Quetiapine Fumarate (Seroquel) 200 mg PO HS [facility] Last Admin: 03/25/18 23:40 Dose: 200 mg - Labs Labs: 06/25/17 07:32 06/24/17 07:45 PT 11.3 SECONDS (9.7-12.2) 06/22/17 17:26 INR 1.0 06/22/17 17:26 APTT 23 SECONDS (21-34) 06/22/17 17:26 - Constitutional Appears: Non-toxic - Head Exam Head Exam: NORMAL INSPECTION - Eye Exam Eye Exam: Normal appearance - ENT Exam ENT Exam: Mucous Membranes Moist - Neck Exam Neck Exam: Full ROM - Respiratory Exam Respiratory Exam: Decreased Breath Sounds - Cardiovascular Exam Cardiovascular Exam: REGULAR RHYTHM - GI/Abdominal Exam GI & Abdominal Exam: Normal Bowel Sounds - Rectal Exam Rectal Exam: Deferred - Extremities Exam Extremities Exam: absent: Pedal Edema - Back Exam Back Exam: NORMAL INSPECTION - Neurological Exam Neurological Exam: Alert - Psychiatric Exam Psychiatric exam: Normal Affect - Skin Skin Exam: Normal Color Assessment and Plan (1) Syncope Assessment & Plan: no events on telemetry. may be manifestation of infection. receiving antibiotics. stable cardiac status. Status: Acute
[2017-06-25] MEDS: (Novolog) Insulin Aspart, Recombinant 100 u/ml 10 ml vial SC SCH ×4 (08:32→21:37)
[2017-06-25] MEDS: Enoxaparin 30 mg Syringe SC SCH (09:39)
[2017-06-25] MEDS: Sodium Chloride 0.9% 1,000 ML IV SCH ×2 (09:45→22:06)
--- NOTE | 2017-06-25 12:26 | CARD ---
APPROVED REPORT EXAM: Two-dimensional and M-mode echocardiogram with Doppler and color Doppler. Other Information Quality : Technically LimitedRhythm : INDICATION Dizziness and Vertigo Syncope RISK FACTORS Hypertension Diabetes M-Mode DIMENSIONS Left Atrium (MM)2.58 (2.5-4.0cm)Aortic Root3.10 (2.2-3.7cm) Aortic Cusp Exc.1.88 (1.5-2.0cm) Mitral Valve MV E Ldozvlbz60.4cm/sMV A Ayetlqef240.2cm/sE/A ratio0.7 TDI E/Lateral E'0.0E/Medial E'0.0 Tricuspid Valve TR Peak Mweslezn681oj/sTR Peak [id number] LEFT VENTRICLE The left ventricle is normal size. There is normal left ventricular wall thickness. Left ventricle systolic function is normal. The Ejection Fraction is 60-65%. There is normal LV segmental wall motion. Transmitral Doppler flow pattern is Grade I-abnormal relaxation pattern. There is no ventricular septal defect visualized. RIGHT VENTRICLE The right ventricle is normal size. The right ventricular systolic function is normal. ATRIA The left atrium is mildly dilated. The right atrium size is normal. AORTIC VALVE The aortic valve is mildly to moderately sclerotic. The aortic valve is probably tri-cuspid. No aortic regurgitation is present. There is no aortic valvular stenosis. MITRAL VALVE The mitral valve is not well visualized. There is no evidence of mitral valve prolapse. There is no mitral valve regurgitation noted. TRICUSPID VALVE The tricuspid valve is not well visualized. There is trace tricuspid regurgitation. Right ventricular systolic pressure is estimated at less than 30 mmHg. There is no pulmonary hypertension. PULMONIC VALVE The pulmonic valve is not well visualized. There is no pulmonic valvular regurgitation. GREAT VESSELS The aortic root is normal in size. The ascending aorta is normal in size. The IVC is normal in size and collapses >50% with inspiration. PERICARDIAL EFFUSION There is no pericardial effusion. <Conclusion> Left ventricle systolic function is normal. The Ejection Fraction is 60-65%. Transmitral Doppler flow pattern is Grade I-abnormal relaxation pattern.
--- NOTE | 2017-06-25 13:01 | CARD ---
APPROVED REPORT EKG Measurement Heart [id number] <Conclusion> Accelerated Junctional rhythm Abnormal ECG
--- NOTE | 2017-06-25 14:56 | CP.PCM.PN ---
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 COLI D/W Dr. Rosas , Dr. Andrade for ID consult D/w Dr. Andrade regarding sensitivity , will start on meropenum and US of bladder and kidney will monitor labs Objective - Vital Signs/Intake and Output Vital Signs (last 24 hours): Temp Pulse Resp BP Pulse Ox 98.9 F 82 18 129/69 97 06/25/17 07:35 06/25/17 07:35 06/25/17 07:35 06/25/17 07:35 06/25/17 07:35 Intake and Output: 06/25/17 06/25/17 06:59 18:59 Intake Total 700 Balance 700 - Medications Medications: Current Medications Acetaminophen (Tylenol 325mg Tab) 650 mg PO Q6 PRN PRN Reason: Pain, moderate (4-7) Last Admin: 06/25/17 14:00 Dose: 650 mg Enoxaparin Sodium (Lovenox) 30 mg SC DAILY [facility] Last Admin: 06/25/17 09:39 Dose: 30 mg Gabapentin (Neurontin) 200 mg PO TID [facility] Last Admin: 06/25/17 14:00 Dose: 200 mg Sodium Chloride (Sodium Chloride 0.9%) 1,000 mls @ 100 mls/hr IV .Q10H [facility] Last Admin: 06/25/17 09:45 Dose: 100 mls/hr Meropenem 500 mg/ Sodium (Chloride) 100 mls @ 100 mls/hr IVPB Q8 [facility] PRN Reason: Protocol Insulin Aspart (Novolog) 0 unit SC ACHS [facility] PRN Reason: Protocol Last Admin: 06/25/17 12:03 Dose: Not Given Insulin Glargine (Lantus) 25 unit SC HS [facility] Last Admin: 06/24/17 21:41 Dose: Not Given Lorazepam (Ativan) 1 mg PO HS PRN PRN Reason: Anxiety Last Admin: 06/24/17 21:42 Dose: 1 mg Losartan Potassium (Cozaar) 100 mg PO DAILY [facility] Last Admin: 06/25/17 09:46 Dose: 100 mg Metformin HCl (Glucophage) 1,000 mg PO BID [facility] Last Admin: 06/25/17 09:39 Dose: 1,000 mg Quetiapine Fumarate (Seroquel) 200 mg PO [facility] Last Admin: 06/24/17 23:40 Dose: 200 mg - Labs Labs: 06/25/17 07:32 06/24/17 07:45 PT 11.3 SECONDS (9.7-12.2) 06/22/17 17:26 INR 1.0 06/22/17 17:26 APTT 23 SECONDS (21-34) 06/22/17 17:26
[2017-06-25] MEDS ORDERED: Meropenem 500 MG in Sodium Chloride 0.9% 100 ML IVPB SCH (15:00)
[2017-06-25 15:28] VITALS: RESP 20
[2017-06-25] MEDS: Meropenem 500 MG in Sodium Chloride 0.9% 100 ML IVPB SCH ×2 (16:00→21:38)
--- NOTE | 2017-06-25 17:27 | CP.PCM.PN ---
Subjective - Date & Time of Evaluation Date of Evaluation: 06/25/17 Time of Evaluation: 17:25 - Subjective Subjective: (+) Constipation. Objective - Vital Signs/Intake and Output Vital Signs (last 24 hours): Temp Pulse Resp BP Pulse Ox 98.9 F 75 20 144/64 97 06/25/17 15:26 06/25/17 15:26 06/25/17 15:26 06/25/17 15:26 06/25/17 15:26 Intake and Output: 06/25/17 06/25/17 06:59 18:59 Intake Total 700 Balance 700 - Medications Medications: Current Medications Acetaminophen (Tylenol 325mg Tab) 650 mg PO Q6 PRN PRN Reason: Pain, moderate (4-7) Last Admin: 06/25/17 14:00 Dose: 650 mg Enoxaparin Sodium (Lovenox) 30 mg SC DAILY [facility] Last Admin: 06/25/17 09:39 Dose: 30 mg Ferrous Sulfate (Feosol) 325 mg PO DAILY [facility] Last Admin: 06/25/17 16:31 Dose: 325 mg Gabapentin (Neurontin) 200 mg PO TID [facility] Last Admin: 06/25/17 14:00 Dose: 200 mg Sodium Chloride (Sodium Chloride 0.9%) 1,000 mls @ 100 mls/hr IV .Q10H [facility] Last Admin: 06/25/17 09:45 Dose: 100 mls/hr Meropenem 500 mg/ Sodium (Chloride) 100 mls @ 100 mls/hr IVPB Q8 [facility] PRN Reason: Protocol Last Admin: 06/25/17 16:00 Dose: 100 mls/hr Insulin Aspart (Novolog) 0 unit SC ACHS [facility] PRN Reason: Protocol Last Admin: 06/25/17 16:35 Dose: Not Given Insulin Glargine (Lantus) 25 unit SC HS [facility] Last Admin: 06/24/17 21:41 Dose: Not Given Lorazepam (Ativan) 1 mg PO HS PRN PRN Reason: Anxiety Last Admin: 06/24/17 21:42 Dose: 1 mg Losartan Potassium (Cozaar) 100 mg PO DAILY [facility] Last Admin: 06/25/17 09:46 Dose: 100 mg Metformin HCl (Glucophage) 1,000 mg PO BID [facility] Last Admin: 06/25/17 09:39 Dose: 1,000 mg Mirtazapine (Remeron) 15 mg PO HS [facility] Quetiapine Fumarate (Seroquel) 200 mg PO HS [facility] Last Admin: 06/24/17 23:40 Dose: 200 mg Senna/Docusate Sodium (Senokot S 50 Mg-8.6 Mg) 1 tab PO BID [facility] - Labs Labs: 06/25/17 07:32 06/24/17 07:45 PT 11.3 SECONDS (9.7-12.2) 06/22/17 17:26 INR 1.0 06/22/17 17:26 APTT 23 SECONDS (21-34) 06/22/17 17:26 - Constitutional Appears: Well, Non-toxic - Head Exam Head Exam: ATRAUMATIC, NORMAL INSPECTION, NORMOCEPHALIC - Eye Exam Eye Exam: EOMI, Normal appearance, PERRL - Neck Exam Neck Exam: Full ROM, Normal Inspection - Respiratory Exam Respiratory Exam: Clear to Ausculation Bilateral, NORMAL BREATHING PATTERN - Cardiovascular Exam Cardiovascular Exam: REGULAR RHYTHM, +S1, +S2 - GI/Abdominal Exam GI & Abdominal Exam: Soft Assessment and Plan (1) UTI (urinary tract infection) Assessment & Plan: ID evaluation. D/C Ceftriaxone. Start Meropenem. Status: Acute (2) Diabetes mellitus Assessment & Plan: Continue same treatment. Status: Chronic (3) HTN (hypertension) Assessment & Plan: Continue same treatment. Status: Chronic (4) Dementia Assessment & Plan: Continue same treatment. Status: Chronic (5) Constipation Assessment & Plan: Senna Plus 1 PO BID. Status: Acute (6) Syncope Status: Acute
[2017-06-25] MEDS: Docusate-Senna 50 mg-8.6 mg Tab PO SCH (18:40)
--- NOTE | 2017-06-25 21:10 | US ---
EXAM: US Retroperitoneal Limited, Renal CLINICAL HISTORY: 82 years old, female; Signs and symptoms; Other: Uti TECHNIQUE: Real-time ultrasound of the retroperitoneum (limited) with image documentation. COMPARISON: No relevant prior studies available. FINDINGS: Right kidney: Normal echogenicity. 1.1 cm cyst. No calculi. No hydronephrosis. Left kidney: Normal echogenicity. No mass. No calculi. No hydronephrosis. Bladder: Possible mild wall thickening. IMPRESSION: 1. Possible mild bladder wall thickening. Correlate with urinalysis to exclude infection. 2. Incidental/non-acute findings are described above.
[2017-06-25] MEDS: (Lantus) Insulin Glargine, Recombinant SC SCH (21:42)
--- NOTE | 2017-06-25 22:12 | US ---
EXAM: US Retroperitoneal Complete, bladder CLINICAL HISTORY: 82 years old, female; Signs and symptoms; Other: Uti; Additional info: Uti , R/O retention TECHNIQUE: Real-time ultrasound of the bladder (complete) with image documentation. COMPARISON: US - RENAL 2017-06-25 18:04 FINDINGS: Bladder: Debris within lumen. Bilateral ureteral jets visualized. Pre-void volume = 295 cc. Patient unable to void. IMPRESSION: 1. Debris within bladder. Correlate with urinalysis to exclude infection. 2. Incidental/non-acute findings are described above.
[2017-06-26] MEDS: Meropenem 500 MG in Sodium Chloride 0.9% 100 ML IVPB SCH ×4 (00:16→23:56)
[2017-06-26] MEDS: Sodium Chloride 0.9% 1,000 ML IV SCH ×3 (05:33→18:09)
[2017-06-26] MEDS: (Novolog) Insulin Aspart, Recombinant 100 u/ml 10 ml vial SC SCH ×4 (07:35→21:16)
[2017-06-26 07:59] LABS: BASO # 0.1 K/uL (0.0-0.2); BASO % 0.6 % (0.0-2.0); EOS # 0.1 K/uL (0.0-0.7); EOS % 0.6 % (0.0-4.0); HEMOGLOBIN 9.5 g/dL (11.0-16.0); LYMPH # 2.1 K/uL (1.0-4.3); LYMPH % 19.2 % (20.0-40.0); MEAN CELL VOLUME 90.6 fL (81.0-99.0); MEAN CORPUSCULAR HEMOGLOBIN 31.3 pg (27.0-31.0); MEAN CORPUSCULAR HGB CONC 34.5 g/dL (33.0-37.0); MEAN PLATELET VOLUME 8.7 fL (7.2-11.7); MONO # 1.7 K/uL (0.0-0.8); MONO % 15.4 % (0.0-10.0); NEUT # 6.9 K/uL (1.8-7.0); NEUT % 64.2 % (50.0-75.0); NRBC % 0.1 % (0.0-2.0); RBC 3.05 Mil/uL (3.80-5.20); RED CELL DISTRIBUTION WIDTH 14.3 % (11.5-14.5); WHITE BLOOD COUNT 10.7 K/uL (4.8-10.8)
[2017-06-26 08:26] LABS: ALB/GLOB RATIO 0.8 (1.0-2.1); ALBUMIN 2.9 g/dL (3.5-5.0); ALT/SGPT 12 U/L (9-52); AST/SGOT 18 U/L (14-36); BILIRUBIN,DIRECT 0.3 mg/dL (0.0-0.4); BLOOD UREA NITROGEN 11 mg/dL (7-17); CALCIUM 8.6 mg/dl (8.6-10.4); GFR AFRICAN-AMERICAN > 60; GFR NON-AFRICAN AMERICAN > 60
[2017-06-26] MEDS: Docusate-Senna 50 mg-8.6 mg Tab PO SCH ×2 (09:41→17:26)
[2017-06-26] MEDS: Enoxaparin 30 mg Syringe SC SCH (09:42)
--- NOTE | 2017-06-26 12:27 | CP.PCM.CON ---
History of Present Illness - History of Present Illness History of Present Illness: 82 year old female with PMHx of dementia, schizophrenia, DM is brought to the ED by EMS for evaluation of weakness. Patient reportedly feels weak, sat down in the third floor of her apartment building. Patient provided limited history because of her dementia, can't verbalize any other complaints. later arrives and states "pt collapsed in her arm" cardiac work up in progress found to have UTI- ESBL + IV rx in progress - Medical History PMH: Alzheimer's Disease, Anxiety, Asthma, Bipolar Disorder, COPD, Depression, Diabetes (type 2), Gastritis, HTN, Hypercholesterolemia, Schizophrenia, Seizures Denies: Hepatitis, HIV, Chronic Kidney Disease, Sexually Transmitted Disease (Patient denied. None reported) Surgical History: Coronary Stent Review of Systems - Review of Systems Systems not reviewed;Unavailable: Altered Mental Status All systems: reviewed and no additional remarkable complaints except - Constitutional Constitutional: As Per HPI - EENT Eyes: absent: As Per HPI, Blind Spots, Blurred Vision, Change in Vision, Decreased Night Vision, Diplopia, Discharge, Dry Eye, Exophthalmos, Floaters, Irritation, Itchy Eyes, Loss of Peripheral Vision, Pain, Photophobia, Requires Corrective Lenses, Sees Flashes, Spots in Vision, Tunnel Vision, Other Visual Disturbances, Loss of Vision, Other Ears: absent: As Per HPI, Decreased Hearing, Ear Discharge, Ear Pain, Tinnitus, Abnormal Hearing, Disequilibrium, Dizziness, Other Nose/Mouth/Throat: absent: As Per HPI, Epistaxis, Nasal Congestion, Nasal Discharge, Nasal Obstruction, Nasal Trauma, Nose Pain, Post Nasal Drip, Sinus Pain, Sinus Pressure, Bleeding Gums, Change in Voice, Dental Pain, Dry Mouth, Dysphagia, Halitosis, Hoarsness, Lip Swelling, Mouth Lesions, Mouth Pain, Odynophagia, Sore Throat, Throat Swelling, Tongue Swelling, Facial Pain, Neck Pain, Neck Mass, Other - Breasts Breasts: absent: As Per HPI, Change in Shape, Mass, Pain, Nipple Discharge, Nipple Inversion, Skin Changes, Swelling, Other - Cardiovascular Cardiovascular: As Per HPI - Respiratory Respiratory: absent: As Per HPI, Cough, Dyspnea, Hemoptysis, Dyspnea on Exertion , Wheezing, Snoring, Stridor, Pain on Inspiration, Chest Congestion, Excessive Mucous Production, Change in Mucous Color, Pain with Coughing, Other - Gastrointestinal Gastrointestinal: absent: As Per HPI, Abdominal Pain, Belching, Bloating, Change in Bowel Habits, Change in Stool Character, Coffee Ground Emesis, Constipation, Cramping, Diarrhea, Dyspepsia, Dysphagia, Early Satiety, Excessive Flatus, Fecal Incontinence, Heartburn, Hematemesis, Hematochezia, Loose Stools, Melena, Nausea, Odynophagia, Temesmus, Vomiting, Other - Genitourinary Genitourinary: As Per HPI - Reproductive: Female Reproductive:Female: absent: As Per HPI, Amenorrhea, Amenorrhea/ Control, Currently Menstual, Cycle <21 Days, Cycle >35 Days, Cycle Variable, Menses 1-7 Days, Menses >/= 8 Days, Menses Variable, Cycle > 4 Weeks Between, No Menses for 6 Months, Heavy Menses, Light Menses, Normal Menses, Spotting Between Cycles , S/P Hysterectomy, Menopausal, Post Menopausal, Premenarche, Abnormal Vaginal Bleeding, Dysmenorrhea, Dyspareunia, Genital Lesions, Genital Pruritis, Pelvic Pain, Prolapse Symptoms, Sexual Dysfunction, Vaginal Discharge, Vaginal Dryness , Vaginal Odor, Vaginal Pruritis, Other - Menstruation Menstruation: absent: As Per HPI, Amenorrhea, Amenorrhea/ Control, Currently Menstual, Cycle <21 Days, Cycle >35 Days, Cycle Variable, Menses 1-7 Days, Menses >/= 8 Days, Menses Variable, Cycle > 4 Weeks Between, No Menses for 6 Months, Heavy Menses, Light Menses, Normal Menses, Spotting Between Cycles , S/P Hysterectomy, Menopausal, Post Menopausal, Premenarche, Abnormal Vaginal Bleeding, Dysmenorrhea, Other - Musculoskeletal Musculoskeletal: absent: As Per HPI, Abnormal Gait, Arthralgias, Atrophy, Back Pain, Deformity, Joint Swelling, Limited Range of Motion, Loss of Height, Muscle Cramps, Muscle Weakness, Myalgias, Neck Pain, Numbness, Radiating Pain into Limb, Stiffness, Tingling, Other - Integumentary Integumentary: absent: As Per HPI, Acne, Alopecia, Bleeding Lesions, Change in Hair, Change in Nails, Change in Pigmentation, Changing Lesions, Dry Skin, Erythema, Furuncle, Hirsutism, Lesions, New Lesions, Non-Healing Lesions, Photosensitivity, Pruritus, Rash, Skin Pain, Skin Ulcer, Sores, Striae, Swelling , Unusual Bruising, Wounds, Jaundice, Other - Neurological Neurological: absent: As Per HPI, Abnormal Gait, Abnormal Hearing, Abnormal Movements, Abnormal Speech, Behavioral Changes, Burning Sensations, Confusion, Convulsions, Disequilibrium, Dizziness, Numbness, Focal Weakness, Frequent Falls , Headaches, Lack of Coordination, Loss of Vision, Memory Loss, Paresthesias, Radicular Pain, Restless Legs, Sensory Deficit, Syncope, Tingling, Tremor, Vertigo, Weakness, Other Visual Disturbances, Other - Psychiatric Psychiatric: absent: As Per HPI, Abnormal Sleep Pattern, Anhedonia, Anxiety, Auditory Hallucinations, Behavioral Changes, Change in Appetite, Change in Libido, Confusion, Depression, Difficulty Concentrating, Hallucinations, Homicidal Ideation, Hopelessness, Irritability, Memory Loss, Mood Swings, Panic Attacks, Paranoia, Suicidal Ideation, Visual Hallucinations, Tactile Hallucinations, Other - Endocrine Endocrine: absent: As Per HPI, Change in Body Appearance, Change in Libido, Cold Intolorance, Deepening of Voice, Excessive Sweating, Fatigue, Flushing, Heat Intolorance, Increase in Ring/Shoe/Hat Size, Palpitations, Polydipsia, Polyphagia, Polyuria, Other - Hematologic/Lymphatic Hematologic: absent: As Per HPI, Easy Bleeding, Easy Bruising, Lymphadenopathy, Other Past Patient History - Past Medical History & Family History Past Medical History?: Yes - Past Social History Smoking Status: Never Smoked Chewing Tobacco Use: No Cigar Use: No Alcohol: None Drugs: Denies Home Situation {Lives}: With Family Domestic Violence: Negative - CARDIAC Hx Hypercholesterolemia: Yes Hx Hypertension: Yes - PULMONARY Hx Chronic Obstructive Pulmonary Disease (COPD): Yes - NEUROLOGICAL Hx Alzheimer's Disease: Yes Hx Seizures: Yes - HEENT Hx HEENT Problems: No - RENAL Hx Chronic Kidney Disease: No - ENDOCRINE/METABOLIC Hx Diabetes Mellitus Type 2: Yes - HEMATOLOGICAL/ONCOLOGICAL Hx Human Immunodeficiency Virus (HIV): No - INTEGUMENTARY Hx Dermatological Problems: No - MUSCULOSKELETAL/RHEUMATOLOGICAL Hx Falls: No - GASTROINTESTINAL Hx Gastritis: Yes - GENITOURINARY/GYNECOLOGICAL Hx Sexually Transmitted Disorders: No (Patient denied. None reported) - PSYCHIATRIC Hx Substance Use: No - SURGICAL HISTORY Hx Coronary Stent: Yes - ANESTHESIA Hx Anesthesia: Yes Hx Anesthesia Reactions: No Hx Malignant Hyperthermia: No Meds Allergies/Adverse Reactions: Allergies Allergy/AdvReac Type Severity Reaction Status Date / Time No Known Allergies Allergy Verified 06/22/17 16:38 - Medications Medications: Current Medications Acetaminophen (Tylenol 325mg Tab) 650 mg PO Q6 PRN PRN Reason: Pain, moderate (4-7) Last Admin: 06/26/17 03:43 Dose: 650 mg Enoxaparin Sodium (Lovenox) 30 mg SC DAILY [facility] Last Admin: 06/26/17 09:42 Dose: 30 mg Ferrous Sulfate (Feosol) 325 mg PO DAILY [facility] Last Admin: 06/26/17 09:42 Dose: 325 mg Gabapentin (Neurontin) 200 mg PO TID [facility] Last Admin: 06/26/17 09:41 Dose: 200 mg Sodium Chloride (Sodium Chloride 0.9%) 1,000 mls @ 100 mls/hr IV .Q10H [facility] Last Admin: 06/26/17 09:41 Dose: 100 mls/hr Meropenem 500 mg/ Sodium (Chloride) 100 mls @ 100 mls/hr IVPB Q8H [facility] PRN Reason: Protocol Last Admin: 06/26/17 07:49 Dose: 100 mls/hr Insulin Aspart (Novolog) 0 unit SC ACHS [facility] PRN Reason: Protocol Last Admin: 06/26/17 12:09 Dose: 3 unit Insulin Glargine (Lantus) 25 unit SC HS [facility] Last Admin: 06/25/17 21:42 Dose: 25 unit Lorazepam (Ativan) 1 mg PO HS PRN PRN Reason: Anxiety Last Admin: 06/24/17 21:42 Dose: 1 mg Losartan Potassium (Cozaar) 100 mg PO DAILY [facility] Last Admin: 06/26/17 09:41 Dose: 100 mg Metformin HCl (Glucophage) 1,000 mg PO BID [facility] Last Admin: 06/26/17 09:41 Dose: 1,000 mg Mirtazapine (Remeron) 15 mg PO HS [facility] Last Admin: 06/25/17 21:37 Dose: 15 mg Quetiapine Fumarate (Seroquel) 200 mg PO HS [facility] Last Admin: 06/25/17 21:37 Dose: 200 mg Senna/Docusate Sodium (Senokot S 50 Mg-8.6 Mg) 1 tab PO BID [facility] Last Admin: 06/26/17 09:41 Dose: 1 tab Physical Exam - Constitutional Appears: Non-toxic, Chronically Ill - Head Exam Head Exam: NORMOCEPHALIC - Eye Exam Eye Exam: PERRL. absent: Scleral icterus - ENT Exam ENT Exam: Mucous Membranes Dry, Normal External Ear Exam, Normal Oropharynx - Neck Exam Neck exam: Negative for: Lymphadenopathy - Respiratory Exam Respiratory Exam: Decreased Breath Sounds, Rhonchi - Cardiovascular Exam Cardiovascular Exam: REGULAR RHYTHM, +S1, +S2 - GI/Abdominal Exam GI & Abdominal Exam: Diminished Bowel Sounds, Soft. absent: Tenderness - Rectal Exam Rectal Exam: Deferred - Exam Exam: NORMAL INSPECTION - Extremities Exam Extremities exam: Positive for: pedal pulses present. Negative for: calf tenderness, pedal edema, tenderness - Back Exam Back exam: absent: CVA tenderness (L), CVA tenderness (R), paraspinal tenderness - Neurological Exam Neurological exam: Alert, Altered, CN II-XII Intact - Psychiatric Exam Psychiatric exam: Depressed - Skin Skin Exam: Dry Results - Vital Signs Recent Vital Signs: Last Vital Signs Temp 98.5 F 06/26/17 07:30 Pulse 88 06/26/17 12:00 Resp 20 06/26/17 07:30 BP 165/72 H 06/26/17 09:40 Pulse Ox 97 06/26/17 07:30 - Labs Result Diagrams: 06/26/17 07:41 06/26/17 07:41 Labs: Laboratory Results - last 24 hr 06/25/17 06/25/17 06/26/17 16:20 20:40 06:26 WBC RBC Hgb Hct MCV MCH MCHC RDW Plt Count MPV Neut % (Auto) Lymph % (Auto) [place] % (Auto) Eos % (Auto) Baso % (Auto) Neut # (Auto) Lymph # (Auto) [place] # (Auto) Eos # (Auto) Baso # (Auto) Sodium Potassium Chloride Carbon Dioxide Anion Gap BUN Creatinine Est GFR ( Amer) Est GFR (Non-Af Amer) POC Glucose (mg/dL) 113 H 162 H 143 H Random Glucose Calcium Total Bilirubin Direct Bilirubin AST ALT Alkaline Phosphatase Total Protein Albumin Globulin Albumin/Globulin Ratio 06/26/17 06/26/17 06/26/17 07:41 07:41 11:46 WBC 10.7 RBC 3.05 L Hgb 9.5 L Hct 27.6 L MCV 90.6 MCH 31.3 H MCHC 34.5 RDW 14.3 Plt Count 373 MPV 8.7 Neut % (Auto) 64.2 Lymph % (Auto) 19.2 L [place] % (Auto) 15.4 H Eos % (Auto) 0.6 Baso % (Auto) 0.6 Neut # (Auto) 6.9 Lymph # (Auto) 2.1 [place] # (Auto) 1.7 H Eos # (Auto) 0.1 Baso # (Auto) 0.1 Sodium 140 Potassium 4.4 Chloride 108 H Carbon Dioxide 22 Anion Gap 15 BUN 11 Creatinine 0.7 Est GFR ( Amer) > 60 Est GFR (Non-Af Amer) > 60 POC Glucose (mg/dL) 221 H Random Glucose 135 H Calcium 8.6 Total Bilirubin 0.3 Direct Bilirubin 0.3 AST 18 ALT 12 Alkaline Phosphatase 81 Total Protein 6.5 Albumin 2.9 L Globulin 3.7 Albumin/Globulin Ratio 0.8 L Assessment & Plan (1) Prerenal azotemia Status: Acute (2) Syncope Status: Acute Priority: High (3) UTI (urinary tract infection) Status: Acute Priority: High - Assessment and Plan (Free Text) Assessment: uti r/o pyelonephritis r/o bladder outlet obst consider eval and imaging would check bladder for post void residual IV Merrem for min 7-14 days
[2017-06-26] MEDS: (Lantus) Insulin Glargine, Recombinant SC SCH (21:23)
--- NOTE | 2017-06-26 21:23 | CP.PCM.PN ---
Subjective - Date & Time of Evaluation Date of Evaluation: 06/26/17 Time of Evaluation: 21:20 - Subjective Subjective: Afebrile, in no apparent distress. Objective - Vital Signs/Intake and Output Vital Signs (last 24 hours): Temp Pulse Resp BP Pulse Ox 99.4 F 86 20 191/79 H 96 06/26/17 15:25 06/26/17 15:25 06/26/17 15:25 06/26/17 15:25 06/26/17 15:25 Intake and Output: 06/26/17 06/27/17 18:59 06:59 Intake Total 1000 Balance 1000 - Medications Medications: Current Medications Acetaminophen (Tylenol 325mg Tab) 650 mg PO Q6 PRN PRN Reason: Pain, moderate (4-7) Last Admin: 06/26/17 17:25 Dose: 650 mg Enoxaparin Sodium (Lovenox) 30 mg SC DAILY [facility] Last Admin: 06/26/17 09:42 Dose: 30 mg Ferrous Sulfate (Feosol) 325 mg PO DAILY [facility] Last Admin: 06/26/17 09:42 Dose: 325 mg Gabapentin (Neurontin) 200 mg PO TID [facility] Last Admin: 06/26/17 17:26 Dose: 200 mg Meropenem 500 mg/ Sodium (Chloride) 100 mls @ 100 mls/hr IVPB Q8H [facility] PRN Reason: Protocol Last Admin: 06/26/17 16:20 Dose: 100 mls/hr Insulin Aspart (Novolog) 0 unit SC ACHS [facility] PRN Reason: Protocol Last Admin: 06/26/17 21:16 Dose: Not Given Insulin Glargine (Lantus) 25 unit SC HS [facility] Last Admin: 06/25/17 21:42 Dose: 25 unit Lorazepam (Ativan) 1 mg PO HS PRN PRN Reason: Anxiety Last Admin: 06/24/17 21:42 Dose: 1 mg Losartan Potassium (Cozaar) 100 mg PO DAILY [facility] Last Admin: 06/26/17 09:41 Dose: 100 mg Metformin HCl (Glucophage) 1,000 mg PO BID [facility] Last Admin: 06/26/17 17:25 Dose: 1,000 mg Mirtazapine (Remeron) 15 mg PO HS [facility] Last Admin: 06/25/17 21:37 Dose: 15 mg Quetiapine Fumarate (Seroquel) 200 mg PO HS [facility] Last Admin: 06/25/17 21:37 Dose: 200 mg Senna/Docusate Sodium (Senokot S 50 Mg-8.6 Mg) 1 tab PO BID [facility] Last Admin: 06/26/17 17:26 Dose: 1 tab - Labs Labs: 06/26/17 07:41 06/26/17 07:41 PT 11.3 SECONDS (9.7-12.2) 06/22/17 17:26 INR 1.0 06/22/17 17:26 APTT 23 SECONDS (21-34) 06/22/17 17:26 - Head Exam Head Exam: ATRAUMATIC, NORMAL INSPECTION, NORMOCEPHALIC - Eye Exam Eye Exam: EOMI, Normal appearance Pupil Exam: Fixed - ENT Exam ENT Exam: Mucous Membranes Moist, Normal Exam - Neck Exam Neck Exam: Full ROM, Normal Inspection - Respiratory Exam Respiratory Exam: Clear to Ausculation Bilateral, NORMAL BREATHING PATTERN - Cardiovascular Exam Cardiovascular Exam: REGULAR RHYTHM, +S1, +S2 - GI/Abdominal Exam GI & Abdominal Exam: Soft, Normal Bowel Sounds - Extremities Exam Extremities Exam: Full ROM, Normal Capillary Refill, Normal Inspection Assessment and Plan (1) UTI (urinary tract infection) Assessment & Plan: Continue same treatment. Urology evaluation. Status: Acute (2) Diabetes mellitus Assessment & Plan: Continue same treatment. Status: Chronic (3) HTN (hypertension) Assessment & Plan: Continue same treatment. Status: Chronic (4) Dementia Assessment & Plan: Continue same treatment. Status: Chronic (5) Constipation Assessment & Plan: Continue same treatment. Status: Acute (6) Syncope Status: Acute
[2017-06-27] MEDS: (Novolog) Insulin Aspart, Recombinant 100 u/ml 10 ml vial SC SCH ×4 (07:38→21:28)
[2017-06-27] MEDS: Meropenem 500 MG in Sodium Chloride 0.9% 100 ML IVPB SCH ×2 (07:51→17:00)
[2017-06-27] MEDS: Docusate-Senna 50 mg-8.6 mg Tab PO SCH ×2 (09:42→17:57)
[2017-06-27] MEDS: Enoxaparin 30 mg Syringe SC SCH (09:42)
--- NOTE | 2017-06-27 10:12 | CP.PCM.PN ---
Subjective - Date & Time of Evaluation Date of Evaluation: 06/27/17 Time of Evaluation: 10:09 - Subjective Subjective: 82 year old female admitted w syncope found ro have uti being treated by ID. Pt has dementia DM and Schizophrenia US shows mild thickining of bladder and debris within bladder consistant with infection. Urine C7S + E coli. A Cystitis possible sepsis,Suggest Since pt has no hydro or renal Hosayfailure, and pvr is measured as 200 cc(unlikley pt understood instructions yo void) Suggest no intervention at this time if pt continues to have uti and or the Ecoli can not be eradicated Cysyoscopic eval may be necessary.[place] Objective - Vital Signs/Intake and Output Vital Signs (last 24 hours): Temp Pulse Resp BP Pulse Ox 98.5 F 93 H 20 183/93 H 95 06/27/17 08:35 06/27/17 09:42 06/27/17 08:35 06/27/17 09:42 06/27/17 08:35 - Medications Medications: Current Medications Acetaminophen (Tylenol 325mg Tab) 650 mg PO Q6 PRN PRN Reason: Pain, moderate (4-7) Last Admin: 06/26/17 17:25 Dose: 650 mg Enoxaparin Sodium (Lovenox) 30 mg SC DAILY [facility] Last Admin: 06/27/17 09:42 Dose: 30 mg Ferrous Sulfate (Feosol) 325 mg PO DAILY [facility] Last Admin: 06/27/17 09:42 Dose: 325 mg Gabapentin (Neurontin) 200 mg PO TID [facility] Last Admin: 06/27/17 09:41 Dose: 200 mg Meropenem 500 mg/ Sodium (Chloride) 100 mls @ 100 mls/hr IVPB Q8H [facility] PRN Reason: Protocol Last Admin: 06/27/17 07:51 Dose: 100 mls/hr Insulin Aspart (Novolog) 0 unit SC ACHS [facility] PRN Reason: Protocol Last Admin: 06/27/17 07:38 Dose: Not Given Insulin Glargine (Lantus) 25 unit SC HS [facility] Last Admin: 06/26/17 21:23 Dose: 25 unit Lorazepam (Ativan) 1 mg PO HS PRN PRN Reason: Anxiety Last Admin: 06/26/17 22:18 Dose: 1 mg Losartan Potassium (Cozaar) 100 mg PO DAILY [facility] Last Admin: 06/27/17 09:41 Dose: 100 mg Metformin HCl (Glucophage) 1,000 mg PO BID [facility] Last Admin: 06/27/17 09:42 Dose: 1,000 mg Mirtazapine (Remeron) 15 mg PO HS [facility] Last Admin: 06/25/17 21:37 Dose: 15 mg Quetiapine Fumarate (Seroquel) 200 mg PO [facility] Last Admin: 06/26/17 21:23 Dose: 200 mg Senna/Docusate Sodium (Senokot S 50 Mg-8.6 Mg) 1 tab PO BID [facility] Last Admin: 06/27/17 09:42 Dose: 1 tab - Labs Labs: 06/26/17 07:41 06/26/17 07:41 PT 11.3 SECONDS (9.7-12.2) 06/22/17 17:26 INR 1.0 06/22/17 17:26 APTT 23 SECONDS (21-34) 06/22/17 17:26
[2017-06-27] MEDS ORDERED: POLYETHYLENE GLYCOL 3350 17 GM/Dose PACKET PO ONE (13:48)
--- NOTE | 2017-06-27 13:53 | CP.PCM.PN ---
Subjective - Date & Time of Evaluation Date of Evaluation: 06/27/17 Time of Evaluation: 13:51 - Subjective Subjective: Patient complaints of constipation. Objective - Vital Signs/Intake and Output Vital Signs (last 24 hours): Temp Pulse Resp BP Pulse Ox 98.5 F 89 20 183/93 H 95 06/27/17 08:35 06/27/17 12:00 06/27/17 08:35 06/27/17 09:42 06/27/17 08:35 - Medications Medications: Current Medications Acetaminophen (Tylenol 325mg Tab) 650 mg PO Q6 PRN PRN Reason: Pain, moderate (4-7) Last Admin: 06/26/17 17:25 Dose: 650 mg Enoxaparin Sodium (Lovenox) 30 mg SC DAILY [facility] Last Admin: 06/27/17 09:42 Dose: 30 mg Ferrous Sulfate (Feosol) 325 mg PO DAILY [facility] Last Admin: 06/27/17 09:42 Dose: 325 mg Gabapentin (Neurontin) 200 mg PO TID [facility] Last Admin: 06/27/17 13:06 Dose: 200 mg Meropenem 500 mg/ Sodium (Chloride) 100 mls @ 100 mls/hr IVPB Q8H [facility] PRN Reason: Protocol Last Admin: 06/27/17 07:51 Dose: 100 mls/hr Insulin Aspart (Novolog) 0 unit SC ACHS [facility] PRN Reason: Protocol Last Admin: 06/27/17 12:07 Dose: 2 unit Insulin Glargine (Lantus) 25 unit SC HS [facility] Last Admin: 06/26/17 21:23 Dose: 25 unit Lorazepam (Ativan) 1 mg PO HS PRN PRN Reason: Anxiety Last Admin: 06/26/17 22:18 Dose: 1 mg Losartan Potassium (Cozaar) 100 mg PO DAILY [facility] Last Admin: 06/27/17 09:41 Dose: 100 mg Metformin HCl (Glucophage) 1,000 mg PO BID [facility] Last Admin: 06/27/17 09:42 Dose: 1,000 mg Mirtazapine (Remeron) 15 mg PO HS [facility] Last Admin: 06/25/17 21:37 Dose: 15 mg Polyethylene Glycol (Miralax) 17 gm PO ONCE ONE Stop: 06/27/17 13:49 Quetiapine Fumarate (Seroquel) 200 mg PO [facility] Last Admin: 06/26/17 21:23 Dose: 200 mg Senna/Docusate Sodium (Senokot S 50 Mg-8.6 Mg) 1 tab PO BID [facility] Last Admin: 06/27/17 09:42 Dose: 1 tab - Labs Labs: 06/26/17 07:41 06/26/17 07:41 PT 11.3 SECONDS (9.7-12.2) 06/22/17 17:26 INR 1.0 06/22/17 17:26 APTT 23 SECONDS (21-34) 06/22/17 17:26 - Constitutional Appears: Well, Non-toxic - Head Exam Head Exam: ATRAUMATIC, NORMAL INSPECTION, NORMOCEPHALIC - Eye Exam Eye Exam: EOMI, Normal appearance, PERRL - ENT Exam ENT Exam: Mucous Membranes Moist, Normal Exam - Neck Exam Neck Exam: Full ROM, Normal Inspection - Respiratory Exam Respiratory Exam: Clear to Ausculation Bilateral, NORMAL BREATHING PATTERN - Cardiovascular Exam Cardiovascular Exam: REGULAR RHYTHM, +S1, +S2 - GI/Abdominal Exam GI & Abdominal Exam: Soft, Normal Bowel Sounds - Extremities Exam Extremities Exam: Full ROM, Normal Capillary Refill, Normal Inspection - Back Exam Back Exam: Full ROM, NORMAL INSPECTION - Neurological Exam Neurological Exam: Alert, Awake Assessment and Plan (1) UTI (urinary tract infection) Assessment & Plan: Continue same treatment. Status: Acute (2) Diabetes mellitus Assessment & Plan: Continue same treatment. Status: Chronic (3) HTN (hypertension) Assessment & Plan: Continue same treatment. Status: Chronic (4) Dementia Assessment & Plan: Continue same treatment. Status: Chronic (5) Constipation Assessment & Plan: Continue same treatment. Add Miralax. Status: Acute (6) Syncope Status: Acute
--- NOTE | 2017-06-27 14:26 | CP.PCM.PN ---
Subjective - Date & Time of Evaluation Date of Evaluation: 06/27/17 Time of Evaluation: 08:00 - Subjective Subjective: imporoving afebrile for d/c home on IV rx follow up Objective - Vital Signs/Intake and Output Vital Signs (last 24 hours): Temp Pulse Resp BP Pulse Ox 98.5 F 89 20 183/93 H 95 06/27/17 08:35 06/27/17 12:00 06/27/17 08:35 06/27/17 09:42 06/27/17 08:35 Intake and Output: 06/27/17 06/27/17 06:59 18:59 Intake Total 350 Balance 350 - Medications Medications: Current Medications Acetaminophen (Tylenol 325mg Tab) 650 mg PO Q6 PRN PRN Reason: Pain, moderate (4-7) Last Admin: 06/26/17 17:25 Dose: 650 mg Enoxaparin Sodium (Lovenox) 30 mg SC DAILY [facility] Last Admin: 06/27/17 09:42 Dose: 30 mg Ferrous Sulfate (Feosol) 325 mg PO DAILY [facility] Last Admin: 06/27/17 09:42 Dose: 325 mg Gabapentin (Neurontin) 200 mg PO TID [facility] Last Admin: 06/27/17 13:06 Dose: 200 mg Meropenem 500 mg/ Sodium (Chloride) 100 mls @ 100 mls/hr IVPB Q8H [facility] PRN Reason: Protocol Last Admin: 06/27/17 07:51 Dose: 100 mls/hr Insulin Aspart (Novolog) 0 unit SC ACHS [facility] PRN Reason: Protocol Last Admin: 06/27/17 12:07 Dose: 2 unit Insulin Glargine (Lantus) 25 unit SC HS [facility] Last Admin: 06/26/17 21:23 Dose: 25 unit Lorazepam (Ativan) 1 mg PO HS PRN PRN Reason: Anxiety Last Admin: 06/26/17 22:18 Dose: 1 mg Losartan Potassium (Cozaar) 100 mg PO DAILY [facility] Last Admin: 06/27/17 09:41 Dose: 100 mg Metformin HCl (Glucophage) 1,000 mg PO BID [facility] Last Admin: 06/27/17 09:42 Dose: 1,000 mg Mirtazapine (Remeron) 15 mg PO HS [facility] Last Admin: 06/25/17 21:37 Dose: 15 mg Quetiapine Fumarate (Seroquel) 200 mg PO HS [facility] Last Admin: 06/26/17 21:23 Dose: 200 mg Senna/Docusate Sodium (Senokot S 50 Mg-8.6 Mg) 1 tab PO BID [facility] Last Admin: 06/27/17 09:42 Dose: 1 tab - Labs Labs: 06/26/17 07:41 06/26/17 07:41 PT 11.3 SECONDS (9.7-12.2) 06/22/17 17:26 INR 1.0 06/22/17 17:26 APTT 23 SECONDS (21-34) 06/22/17 17:26 - Constitutional Appears: Non-toxic, Chronically Ill - Head Exam Head Exam: NORMOCEPHALIC - Eye Exam Eye Exam: PERRL - ENT Exam ENT Exam: Mucous Membranes Dry - Neck Exam Neck Exam: absent: Thyromegaly - Respiratory Exam Respiratory Exam: Decreased Breath Sounds - Cardiovascular Exam Cardiovascular Exam: REGULAR RHYTHM - GI/Abdominal Exam GI & Abdominal Exam: Distended, Soft Assessment and Plan (1) Prerenal azotemia Status: Acute (2) Syncope Status: Acute (3) UTI (urinary tract infection) Status: Acute
--- NOTE | 2017-06-27 15:06 | CP.PCM.PN ---
Subjective - Date & Time of Evaluation Date of Evaluation: 06/27/17 Time of Evaluation: 15:04 - Subjective Subjective: DISCUSSED PLAN FOR D/C WITH DR. PETE AND DR. WILLIAM. PER DR. WILLIAM, PT TO CONTINUE MEROPENEM 500 MG IV Q8 HOURS X14 DAYS (STARTED ON 06/26 AND LAST DOSE FOR 07/10). HAD LENGTHY DISCUSSION WITH PT AND AND THEY ARE IN AGREEMENT WITH HOME IV ABX INFUSION. AND DAUGHTER WILL BE ABLE TO PROVIDE IV ABX Q8 HOURS. PICC LINE TO BE INSERTED TODAY (CONSENT OBTAINED WITH PT AND ). PT ALSO SEEN BY DR MURRAY THIS MORNING AND NO INTERVENTION AT THIS TIME. PLAN IS FOR D/C HOME TOMORROW ONCE IV INFUSION ARRANGED. RX GIVEN TO CM FOR MEROPENEM. NO FURTHER ORDERS. Objective - Vital Signs/Intake and Output Vital Signs (last 24 hours): Temp Pulse Resp BP Pulse Ox 98.5 F 89 20 183/93 H 95 06/27/17 08:35 06/27/17 12:00 06/27/17 08:35 06/27/17 09:42 06/27/17 08:35 Intake and Output: 06/27/17 06/27/17 06:59 18:59 Intake Total 350 Balance 350 - Medications Medications: Current Medications Acetaminophen (Tylenol 325mg Tab) 650 mg PO Q6 PRN PRN Reason: Pain, moderate (4-7) Last Admin: 06/26/17 17:25 Dose: 650 mg Enoxaparin Sodium (Lovenox) 30 mg SC DAILY [facility] Last Admin: 06/27/17 09:42 Dose: 30 mg Ferrous Sulfate (Feosol) 325 mg PO DAILY [facility] Last Admin: 06/27/17 09:42 Dose: 325 mg Gabapentin (Neurontin) 200 mg PO TID [facility] Last Admin: 06/27/17 13:06 Dose: 200 mg Meropenem 500 mg/ Sodium (Chloride) 100 mls @ 100 mls/hr IVPB Q8H [facility] PRN Reason: Protocol Last Admin: 06/27/17 07:51 Dose: 100 mls/hr Insulin Aspart (Novolog) 0 unit SC ACHS [facility] PRN Reason: Protocol Last Admin: 06/27/17 12:07 Dose: 2 unit Insulin Glargine (Lantus) 25 unit SC HS [facility] Last Admin: 06/26/17 21:23 Dose: 25 unit Lorazepam (Ativan) 1 mg PO HS PRN PRN Reason: Anxiety Last Admin: 06/26/17 22:18 Dose: 1 mg Losartan Potassium (Cozaar) 100 mg PO DAILY [facility] Last Admin: 06/27/17 09:41 Dose: 100 mg Metformin HCl (Glucophage) 1,000 mg PO BID [facility] Last Admin: 06/27/17 09:42 Dose: 1,000 mg Mirtazapine (Remeron) 15 mg PO HS [facility] Last Admin: 06/25/17 21:37 Dose: 15 mg Quetiapine Fumarate (Seroquel) 200 mg PO HS [facility] Last Admin: 06/26/17 21:23 Dose: 200 mg Senna/Docusate Sodium (Senokot S 50 Mg-8.6 Mg) 1 tab PO BID [facility] Last Admin: 06/27/17 09:42 Dose: 1 tab - Labs Labs: 06/26/17 07:41 06/26/17 07:41 PT 11.3 SECONDS (9.7-12.2) 06/22/17 17:26 INR 1.0 06/22/17 17:26 APTT 23 SECONDS (21-34) 06/22/17 17:26
--- NOTE | 2017-06-27 15:58 | RAD ---
HISTORY: verify right PICC COMPARISON: Chest radiograph dated 06/22/2017 FINDINGS: Patient rotation limits evaluation. LUNGS: Pulmonary vascular congestion. Right basilar atelectasis. PLEURA: Small right pleural effusion. No pneumothorax apparent. CARDIOVASCULAR: Cardiomediastinal silhouette within normal limits. OSSEOUS STRUCTURES: Unchanged. VISUALIZED UPPER ABDOMEN: Normal. OTHER FINDINGS: New right upper extremity PICC with catheter tip curved over the mediastinum. IMPRESSION: Limited evaluation due to patient rotation. New right upper extremity PICC with catheter tip curved over the mediastinum. PICC adjustment followed by repeat chest radiograph is recommended. New small right pleural effusion.
--- NOTE | 2017-06-27 17:17 | RAD ---
HISTORY: PICC line adjusted COMPARISON: Portable chest 06/27/2017 3:34 p.m. FINDINGS: Adjustment of the right PICC now terminates in distal superior vena cava away from azygos vein. LUNGS: Borderline atelectasis medial left base. Right basilar atelectasis resolved. PLEURA: No significant pleural effusion identified, no pneumothorax apparent. CARDIOVASCULAR: Diminishing CHF pattern. Cardiac silhouette stable. OSSEOUS STRUCTURES: No significant abnormalities. VISUALIZED UPPER ABDOMEN: Normal. OTHER FINDINGS: None. IMPRESSION: 1. Adjusted right PICC terminates in SVC. 2. Interval limited medial basilar atelectasis suggested. Prior right basilar atelectasis resolved. 3. Diminishing CHF pattern.
[2017-06-27] MEDS: (Lantus) Insulin Glargine, Recombinant SC SCH (21:28)
--- NOTE | 2017-06-27 23:38 | CARD ---
APPROVED REPORT EKG Measurement Heart [id number] <Conclusion> Normal sinus rhythm Normal ECG
[2017-06-28] MEDS: Meropenem 500 MG in Sodium Chloride 0.9% 100 ML IVPB SCH ×2 (00:11→08:40)
[2017-06-28] MEDS: (Novolog) Insulin Aspart, Recombinant 100 u/ml 10 ml vial SC SCH ×2 (08:18→12:45)
[2017-06-28] MEDS: Docusate-Senna 50 mg-8.6 mg Tab PO SCH (10:58)
[2017-06-28] MEDS: Enoxaparin 30 mg Syringe SC SCH (10:58)
[2017-06-28 11:22] VITALS: BP 158/72
--- NOTE | 2017-06-28 12:36 | CP.PCM.PN ---
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 Patient seen today , awake, alert, ox3, denies any abdominal pain, flank pain, N /V/D a febrile Objective - Vital Signs/Intake and Output Vital Signs (last 24 hours): Temp Pulse Resp BP Pulse Ox 98.0 F 94 H 20 158/72 H 96 06/28/17 08:25 06/28/17 10:56 06/28/17 08:25 06/28/17 10:56 06/28/17 08:25 - Medications Medications: Current Medications Acetaminophen (Tylenol 325mg Tab) 650 mg PO Q6 PRN PRN Reason: Pain, moderate (4-7) Last Admin: 06/27/17 19:31 Dose: 650 mg Enoxaparin Sodium (Lovenox) 30 mg SC DAILY [facility] Last Admin: 06/28/17 10:58 Dose: 30 mg Ferrous Sulfate (Feosol) 325 mg PO DAILY [facility] Last Admin: 06/28/17 10:58 Dose: 325 mg Gabapentin (Neurontin) 200 mg PO TID [facility] Last Admin: 06/28/17 10:58 Dose: 200 mg Meropenem 500 mg/ Sodium (Chloride) 100 mls @ 100 mls/hr IVPB Q8H [facility] PRN Reason: Protocol Last Admin: 06/28/17 08:40 Dose: 100 mls/hr Insulin Aspart (Novolog) 0 unit SC ACHS [facility] PRN Reason: Protocol Last Admin: 06/28/17 08:18 Dose: Not Given Insulin Glargine (Lantus) 25 unit SC HS [facility] Last Admin: 06/27/17 21:28 Dose: Not Given Lorazepam (Ativan) 1 mg PO HS PRN PRN Reason: Anxiety Last Admin: 06/27/17 21:27 Dose: 1 mg Losartan Potassium (Cozaar) 100 mg PO DAILY [facility] Last Admin: 06/28/17 10:58 Dose: 100 mg Metformin HCl (Glucophage) 1,000 mg PO BID [facility] Last Admin: 06/28/17 10:58 Dose: 1,000 mg Mirtazapine (Remeron) 15 mg PO HS [facility] Last Admin: 06/27/17 21:27 Dose: 15 mg Quetiapine Fumarate (Seroquel) 200 mg PO HS [facility] Last Admin: 06/27/17 21:27 Dose: 200 mg Senna/Docusate Sodium (Senokot S 50 Mg-8.6 Mg) 1 tab PO BID [facility] Last Admin: 06/28/17 10:58 Dose: 1 tab - Labs Labs: 06/26/17 07:41 06/26/17 07:41 PT 11.3 SECONDS (9.7-12.2) 06/22/17 17:26 INR 1.0 06/22/17 17:26 APTT 23 SECONDS (21-34) 06/22/17 17:26 Assessment and Plan - Assessment and Plan (Free Text) Assessment: A/P 82 year old female with PMHx of dementia, schizophrenia, DM admitted for weakness urine culture -+ E coli and sensitive to merepenum and started on merrum and Dr. Andrade on ID consult Family refuse patti idea of [facility] for antibiotics and agreed to go home with home IV infusion As per CM/SW home infusion set it up and VNA service arranged D/W with Dr. Ralph lombardi for discharge home today and continue home IV infusion
[2017-06-28 14:41] VITALS: TEMP 98.2; O2SAT 95
[2017-06-28 14:43] VITALS: PULSE 95
--- NOTE | 2017-06-29 13:38 | CP.PCM.DIS ---
Provider - Provider Date of Admission: 06/22/17 18:33 Attending physician: Suraj Pete MD Time Spent in preparation of Discharge (in minutes): 30 Diagnosis - Discharge Diagnosis (1) E. coli UTI (urinary tract infection) Status: Acute Priority: High Comment: S/P PICC line placement. Continue Meropenem IV. (2) UTI (urinary tract infection) Status: Acute Priority: High (3) Diabetes mellitus Status: Chronic Priority: Medium (4) HTN (hypertension) Status: Chronic Priority: Medium (5) Dementia Status: Chronic Priority: Medium (6) Constipation Status: Acute (7) Syncope Status: Acute Priority: High Hospital Course - Lab Results Lab Results: Micro Results 06/23/17 19:30 Blood Blood Culture - Final NO GROWTH AFTER 5 DAYS 06/23/17 19:30 Blood Gram Stain - Final TEST NOT PERFORMED 06/23/17 19:00 Blood Blood Culture - Final NO GROWTH AFTER 5 DAYS 06/23/17 19:00 Blood Gram Stain - Final TEST NOT PERFORMED 06/23/17 05:44 Urine,Clean Catch Urine Culture - Final Escherichia Coli Most Recent Lab Values WBC 10.7 K/uL (4.8-10.8) 06/26/17 07:41 RBC 3.05 Mil/uL (3.80-5.20) L 06/26/17 07:41 Hgb 9.5 g/dL (11.0-16.0) L 06/26/17 07:41 Hct 27.6 % (34.0-47.0) L 06/26/17 07:41 MCV 90.6 fL (81.0-99.0) 06/26/17 07:41 MCH 31.3 pg (27.0-31.0) H 06/26/17 07:41 MCHC 34.5 g/dL (33.0-37.0) 06/26/17 07:41 RDW 14.3 % (11.5-14.5) 06/26/17 07:41 Plt Count 373 K/uL (130-400) 06/26/17 07:41 MPV 8.7 fL (7.2-11.7) 06/26/17 07:41 Neut % (Auto) 64.2 % (50.0-75.0) 06/26/17 07:41 Lymph % (Auto) 19.2 % (20.0-40.0) L 06/26/17 07:41 [place] % (Auto) 15.4 % (0.0-10.0) H 06/26/17 07:41 Eos % (Auto) 0.6 % (0.0-4.0) 06/26/17 07:41 Baso % (Auto) 0.6 % (0.0-2.0) 06/26/17 07:41 Neut # (Auto) 6.9 K/uL (1.8-7.0) 06/26/17 07:41 Lymph # (Auto) 2.1 K/uL (1.0-4.3) 06/26/17 07:41 [place] # (Auto) 1.7 K/uL (0.0-0.8) H 06/26/17 07:41 Eos # (Auto) 0.1 K/uL (0.0-0.7) 06/26/17 07:41 Baso # (Auto) 0.1 K/uL (0.0-0.2) 06/26/17 07:41 PT 11.3 SECONDS (9.7-12.2) 06/22/17 17:26 INR 1.0 06/22/17 17:26 APTT 23 SECONDS (21-34) 06/22/17 17:26 Sodium 140 mmol/L (132-148) 06/26/17 07:41 Potassium 4.4 mmol/L (3.6-5.2) 06/26/17 07:41 Chloride 108 mmol/L (98-107) H 06/26/17 07:41 Carbon Dioxide 22 mmol/L (22-30) 06/26/17 07:41 Anion Gap 15 (10-20) 06/26/17 07:41 BUN 11 mg/dL (7-17) 06/26/17 07:41 Creatinine 0.7 mg/dL (0.7-1.2) 06/26/17 07:41 Est GFR ( Amer) > 60 06/26/17 07:41 Est GFR (Non-Af Amer) > 60 06/26/17 07:41 POC Glucose (mg/dL) 177 mg/dL (65-110) H 06/28/17 11:30 Random Glucose 135 mg/dL (65-105) H 06/26/17 07:41 Calcium 8.6 mg/dl (8.6-10.4) 06/26/17 07:41 Magnesium 2.0 mg/dL (1.6-2.3) 06/24/17 07:45 Iron 16 ug/dL (37-170) L 06/24/17 19:19 TIBC 225 ug/dL (250-450) L 06/24/17 19:19 % Saturation 7 (20-55) L 06/24/17 19:19 Ferritin 191.0 ng/mL 06/24/17 19:19 Total Bilirubin 0.3 mg/dL (0.2-1.3) 06/26/17 07:41 Direct Bilirubin 0.3 mg/dL (0.0-0.4) 06/26/17 07:41 AST 18 U/L (14-36) 06/26/17 07:41 ALT 12 U/L (9-52) 06/26/17 07:41 Alkaline Phosphatase 81 U/L (38-126) 06/26/17 07:41 Troponin I 0.1140 ng/mL (0.00-0.120) 06/22/17 17:26 Total Protein 6.5 g/dL (6.3-8.3) 06/26/17 07:41 Albumin 2.9 g/dL (3.5-5.0) L 06/26/17 07:41 Globulin 3.7 gm/dL (2.2-3.9) 06/26/17 07:41 Albumin/Globulin Ratio 0.8 (1.0-2.1) L 06/26/17 07:41 Vitamin B12 419 pg/mL (239-931) 06/24/17 19:19 Folate 8.3 ng/mL 06/24/17 19:19 Urine Color Yellow (YELLOW) 06/22/17 19:38 Urine Clarity Hazy (Clear) 06/22/17 19:38 Urine pH 5.0 (5.0-8.0) 06/22/17 19:38 Ur Specific [place] 1.017 (1.003-1.030) 06/22/17 19:38 Urine Protein 1+ mg/dL (NEGATIVE) H 06/22/17 19:38 Urine Glucose (UA) Normal mg/dL (Normal) 06/22/17 19:38 Urine Ketones Negative mg/dL (NEGATIVE) 06/22/17 19:38 Urine Blood 1+ (NEGATIVE) H 06/22/17 19:38 Urine Nitrate Positive (NEGATIVE) H 06/22/17 19:38 Urine Bilirubin Negative (NEGATIVE) 06/22/17 19:38 Urine Urobilinogen Normal mg/dL (0.2-1.0) 06/22/17 19:38 Ur Leukocyte Esterase 3+ Berny/uL (Negative) H 06/22/17 19:38 Urine WBC (Auto) 1127 /hpf (0-5) H 06/22/17 19:38 Urine RBC (Auto) 10 /hpf (0-3) H 06/22/17 19:38 Urine WBC Clumps (Auto) Many /hpf (NONE) H 06/22/17 19:38 Ur Squamous Epith Cells 2 /hpf (0-5) 06/22/17 19:38 Ur Transition Epith Cell < 1 /hpf (0-3) 06/22/17 19:38 Urine Bacteria Many (<OCC) H 06/22/17 19:38 Stool Occult Blood Negative (NEGATIVE) 06/22/17 19:03 - Hospital Course Hospital Course: 82 years old female admitted for Near-Syncope evaluation. Cardiology consult ordered. During hospitalization patient found to have UTI due to E. coli resistant to multiple antibiotics. ID and Urology consult requested. Patient started on IV Meropenem. requested patient discharge home. PICC line placed, patient discharged home to continue Merpenem IV. Discharge Exam - Head Exam Head Exam: ATRAUMATIC, NORMAL INSPECTION, NORMOCEPHALIC - Eye Exam Eye Exam: EOMI, Normal appearance, PERRL - ENT Exam ENT Exam: Mucous Membranes Moist, Normal Exam - Neck Exam Neck exam: Full Rom, Normal Inspection - Respiratory Exam Respiratory Exam: Clear to PA & Lateral, NORMAL BREATHING PATTERN, UNREMARKABLE - Cardiovascular Exam Cardiovascular Exam: REGULAR RHYTHM, +S1, +S2 - GI/Abdominal Exam GI & Abdominal Exam: Normal Bowel Sounds, Unremarkable - Extremities Exam Extremities exam: full ROM, normal inspection - Neurological Exam Neurological exam: Alert, CN II-XII Intact, Oriented x3 - Psychiatric Exam Psychiatric exam: Normal Affect, Normal Mood Discharge Plan - Discharge Medications Prescriptions: Meropenem [Merrem IV] 500 mg IVPB Q8H 14 Days #42 vial - Follow Up Plan Condition: STABLE Disposition: DISCHARGED TO HOME CARE Instructions: Heart Healthy Diet, Syncope (Fainting) (DC), Meropenem, Urinary Tract Infection in Women (DC) Additional Instructions: -YOU WILL BE ON AN ANTIBIOTIC, MEROPENEM, 500 MG IV EVERY 8 HOURS FOR A TOTAL OF 14 DAYS AT HOME. THIS MEDICINE WAS STARTED ON 06/26/17 AND THE LAST DAY WILL BE GIVEN ON 07/10/17. THE PICC LINE WILL BE REMOVED AFTER THE LAST DOSE AT HOME BY THE INFUSION COMPANY. Please do lab work cbc, bmp, LFT q weekly starting sunday x 2 weeks Resume all other home medications PLEASE F/U WITH DR. PETE OFFICE IN 1-2 WEEKS Referrals: Suraj Pete MD [Staff Provider] - Manav Bautista Jr., MD [Staff Provider] - José Luis Andrade MD [Staff Provider] -
== END 2017-06-28 14:03 | disposition home health service (06) | DRG 312 ==
LOC: C.ER 16:12 → C.9E 18:33 → C.6T 21:32
PROVIDERS: ADMIT Internal Medicine; ATTEND Internal Medicine
PROC: 02HV33Z Insertion of Infusion Device into Superior Vena Cava, Percutaneous Approach (ICD-10-PCS; principal; 2017-06-27)
PROC: 3E04329 Introduction of Other Anti-infective into Central Vein, Percutaneous Approach (ICD-10-PCS; 2017-06-27)
DX: R55 Syncope and collapse (principal); F20.9 Schizophrenia, unspecified; F02.80 Dementia in other diseases classified elsewhere, unspecified severity, without behavioral disturbance, psychotic disturbance, mood disturbance, and anxiety; E11.9 Type 2 diabetes mellitus without complications; R53.1 Weakness; J44.9 Chronic obstructive pulmonary disease, unspecified; I10 Essential (primary) hypertension; F31.9 Bipolar disorder, unspecified; G30.9 Alzheimer's disease, unspecified; E78.00 Pure hypercholesterolemia, unspecified; R56.9 Unspecified convulsions; F41.9 Anxiety disorder, unspecified; Z95.5 Presence of coronary angioplasty implant and graft; N30.90 Cystitis, unspecified without hematuria; R79.89 Other specified abnormal findings of blood chemistry; Z16.12 Extended spectrum beta lactamase (ESBL) resistance; D64.9 Anemia, unspecified; B96.20 Unspecified Escherichia coli [E. coli] as the cause of diseases classified elsewhere; K59.00 Constipation, unspecified

== ENCOUNTER 2017-07-03 15:32 | Inpatient (IN) | payer MEDICARE, MEDICAID ==
[2017-07-03 15:32] VITALS: BMI 29.2
[2017-07-03] MEDS ORDERED: Enalaprilat 2.5 MG/2 ML IV ONE (16:46)
[2017-07-03 16:59] LABS: BASO # 0.2 K/uL (0.0-0.2); BASO % 1.8 % (0.0-2.0); EOS # 0.1 K/uL (0.0-0.7); EOS % 0.7 % (0.0-4.0); HEMOGLOBIN 11.4 g/dL (11.0-16.0); LYMPH # 2.6 K/uL (1.0-4.3); LYMPH % 24.3 % (20.0-40.0); MEAN CORPUSCULAR HEMOGLOBIN 30.7 pg (27.0-31.0); MEAN CORPUSCULAR HGB CONC 34.2 g/dL (33.0-37.0); MEAN PLATELET VOLUME 7.8 fL (7.2-11.7); MONO # 1.1 K/uL (0.0-0.8); MONO % 10.7 % (0.0-10.0); NEUT # 6.7 K/uL (1.8-7.0); NEUT % 62.5 % (50.0-75.0); RBC 3.72 Mil/uL (3.80-5.20); RED CELL DISTRIBUTION WIDTH 14.4 % (11.5-14.5); WHITE BLOOD COUNT 10.7 K/uL (4.8-10.8)
[2017-07-03 17:12] LABS: ALB/GLOB RATIO 0.8 (1.0-2.1); ALBUMIN 3.8 g/dL (3.5-5.0); ALT/SGPT 18 U/L (9-52); AST/SGOT 19 U/L (14-36); BLOOD UREA NITROGEN 17 mg/dL (7-17); CALCIUM 9.1 mg/dl (8.6-10.4); GFR AFRICAN-AMERICAN > 60; GFR NON-AFRICAN AMERICAN > 60
[2017-07-03 17:17] LABS: INR 1.1; PROTHROMBIN TIME 12.3 SECONDS (9.7-12.2)
--- NOTE | 2017-07-03 17:18 | RAD ---
PROCEDURE: CHEST RADIOGRAPH, 1 VIEW HISTORY: SOB COMPARISON: 06/27/2017 FINDINGS: LUNGS: Shallow lung volumes. The interstitial lung markings appear abnormally prominent and interstitial pulmonary edema and/or interstitial chronic pulmonary lung disease changes are suspect. Concomitant mild pulmonary venous congestion compatible with this. PLEURA: No pneumothorax. Probable trace right pleural effusion present -not significantly changed. Chronic pleural thickening can resemble S CARDIOVASCULAR: Cardiac silhouette within normal limits. PICC line tip in the region of superior vena cava unchanged. OSSEOUS STRUCTURES: Generalized osteopenia. VISUALIZED UPPER ABDOMEN: Normal. OTHER FINDINGS: None. IMPRESSION: Limited exam given the shallow inspiration. Nevertheless no worsening consolidative infiltrates suggested. The interstitial lung markings appear diffusely increased and an element of interstitial pulmonary edema with or without chronic interstitial lung disease is suspect. Other findings as above
[2017-07-03 17:22] LABS: B-TYPE NATRIURETIC PEPTIDE 299 pg/mL (0-900)
[2017-07-03] MEDS ORDERED: Enalaprilat 2.5 MG/2 ML ONE (17:29)
[2017-07-03 17:36] LABS: SQUAMOUS EPITHIAL 2 /hpf (0-5); URINE BACTERIA FEW (<OCC); URINE BILIRUBIN NEGATIVE (NEGATIVE); URINE BLOOD 1+ (NEGATIVE); URINE CLARITY Clear (Clear); URINE COLOR Yellow (YELLOW); URINE GLUCOSE (UA) NORMAL (Normal); URINE LEUKOCYTE ESTERASE TRACE Leu/uL (Negative); URINE PROTEIN NEGATIVE (NEGATIVE); URINE UROBILINOGEN NORMAL mg/dL (0.2-1.0)
--- NOTE | 2017-07-03 18:17 | C.PDOC ---
History Of Present Illness 82 year old female, whose PMHx includes DM and HTN, presents to the ED with for evaluation of elevated blood pressure. Patient's states that she appears tired more often than usual. Patient has extensive psychiatric history and was recently admitted for a UTI. She denies fever, chills. Time Seen by Provider: 07/03/17 16:33 Chief Complaint (Nursing): Altered Mental Status History Per: Patient, Family History/Exam Limitations: None Onset/Duration Of Symptoms: Hrs Current Symptoms Are (Timing): Still Present Additional History Per: Patient, Family Associated Symptoms: denies: Fever, Chills Past Medical History Reviewed: Historical Data, Nursing Documentation, Vital Signs Vital Signs: Last Vital Signs Temp 98.4 F 07/03/17 20:50 Pulse 83 07/03/17 20:50 Resp 20 07/03/17 20:50 BP 162/80 H 07/03/17 20:50 Pulse Ox 94 L 07/03/17 20:50 - Medical History PMH: Alzheimer's Disease, Anxiety, Asthma, Bipolar Disorder, COPD, Depression, Diabetes (type 2), Gastritis, HTN, Hypercholesterolemia, Schizophrenia, Seizures Denies: Hepatitis, HIV, Chronic Kidney Disease, Sexually Transmitted Disease (Patient denied. None reported) Surgical History: Coronary Stent - [facility] Procedures GROUP PSYCHOTHERAPY (12/15/16) INDIVIDUAL PSYCHOTHERAPY, BEHAVIORAL (12/15/16) INSERTION OF INFUSION DEV INTO SUP VENA CAVA, PERC APPROACH (06/22/17) INTRODUCE OTH ANTI-INFECT IN CENTRAL VEIN, PERC (06/22/17) Family History: States: Unknown Family Hx - Social History Hx Tobacco Use: No Hx Alcohol Use: No Hx Substance Use: No - Immunization History Hx Tetanus Toxoid Vaccination: No Hx Influenza Vaccination: No Hx Pneumococcal Vaccination: Yes Review Of Systems Constitutional: Positive for: Other (elevated blood pressure ) Physical Exam - Physical Exam Appears: Non-toxic, No Acute Distress, Other (elderly female ) Skin: Normal Color, Warm, Dry, Other (2x2cm ulcer to medial aspect of left heel. area is well-healing, nontender, with no foul odor ) Head: Atraumatic, Normacephalic Eye(s): bilateral: Normal Inspection Oral Mucosa: Moist Neck: Supple Chest: Symmetrical, No Deformity, No Tenderness Cardiovascular: Rhythm Regular, No Murmur Respiratory: Normal Breath Sounds, No Rales, No Rhonchi, No Wheezing Gastrointestinal/Abdominal: Soft, No Tenderness, No Guarding, No Rebound, Other (obese) Extremity: Normal ROM, Capillary Refill (less than 2 seconds ) Neurological/Psych: Oriented x3, Normal Speech, Normal Cognition Gait: Steady ED Course And Treatment - Laboratory Results Result Diagrams: 07/03/17 16:56 07/03/17 16:56 Lab Interpretation: Abnormal (mild elev glu) ECG: Interpreted By Me ECG Rhythm: Sinus Rhythm ECG Interpretation: Normal Rate From EC O2 Sat by Pulse Oximetry: 97 Pulse Ox Interpretation: Normal - Radiology CXR: Interpreted by Me CXR Interpretation: Yes: No Acute Disease Progress Note: Bloodwork, UA, CXR, EKG ordered and reviewed. Vasotec IV administered. Reevaluation Time: 18:17 Reassessment Condition: Improved (remains comfortable) - Physician Consult Information Outcome Of Conversation: 1815: d/w Dr. Latoya Cerda admitting michael Donald to Obs. Medical Decision Making Medical Decision Making: HTN dementia Schizo chronic L heel wound Disposition Doctor Will See Patient In The: Hospital Counseled Patient/Family Regarding: Studies Performed, Diagnosis - Disposition Disposition: HOSPITALIZED Disposition Time: 18:18 Condition: GOOD - Clinical Impression Clinical Impression: Confusion, Non healing left heel wound, Dementia
--- NOTE | 2017-07-03 21:44 | CP.PCM.HP ---
Past Patient History - Past Medical History & Family History Past Medical History?: Yes - Past Social History Smoking Status: Never Smoked - CARDIAC Hx Hypercholesterolemia: Yes Hx Hypertension: Yes - PULMONARY Hx Asthma: Yes Hx Chronic Obstructive Pulmonary Disease (COPD): Yes - NEUROLOGICAL Hx Alzheimer's Disease: Yes Hx Seizures: Yes - HEENT Hx HEENT Problems: No - RENAL Hx Chronic Kidney Disease: No - ENDOCRINE/METABOLIC Hx Diabetes Mellitus Type 2: Yes - HEMATOLOGICAL/ONCOLOGICAL Hx Human Immunodeficiency Virus (HIV): No - INTEGUMENTARY Hx Dermatological Problems: No - MUSCULOSKELETAL/RHEUMATOLOGICAL Hx Falls: No - GASTROINTESTINAL Hx Gastritis: Yes - GENITOURINARY/GYNECOLOGICAL Hx Sexually Transmitted Disorders: No (Patient denied. None reported) - PSYCHIATRIC Hx Anxiety: Yes Hx Bipolar Disorder: Yes Hx Depression: Yes Hx Schizophrenia: Yes Hx Substance Use: No - SURGICAL HISTORY Hx Coronary Stent: Yes - ANESTHESIA Hx Anesthesia: Yes Hx Anesthesia Reactions: No Hx Malignant Hyperthermia: No Meds Allergies/Adverse Reactions: Allergies Allergy/AdvReac Type Severity Reaction Status Date / Time No Known Allergies Allergy Verified 07/03/17 15:41 Physical Exam - Constitutional Appears: Well - Head Exam Head Exam: ATRAUMATIC, NORMAL INSPECTION, NORMOCEPHALIC - Eye Exam Eye Exam: EOMI, Normal appearance, PERRL Pupil Exam: NORMAL ACCOMODATION, PERRL - ENT Exam ENT Exam: Mucous Membranes Moist, Normal Exam - Neck Exam Neck exam: Positive for: Normal Inspection - Respiratory Exam Respiratory Exam: Decreased Breath Sounds - Cardiovascular Exam Cardiovascular Exam: REGULAR RHYTHM, +S1, +S2 - GI/Abdominal Exam GI & Abdominal Exam: Diminished Bowel Sounds, Soft - Rectal Exam Rectal Exam: Deferred Results - Vital Signs Recent Vital Signs: Last Vital Signs Temp 98.4 F 07/03/17 20:50 Pulse 83 07/03/17 20:50 Resp 20 07/03/17 20:50 BP 162/80 H 07/03/17 20:50 Pulse Ox 94 L 07/03/17 20:50 - Labs Result Diagrams: 07/03/17 16:56 07/03/17 16:56 Labs: Laboratory Results - last 24 hr 07/03/17 07/03/17 07/03/17 16:56 16:56 16:56 WBC 10.7 RBC 3.72 L Hgb 11.4 Hct 33.5 L MCV 90.0 MCH 30.7 MCHC 34.2 RDW 14.4 Plt Count 582 H D MPV 7.8 Neut % (Auto) 62.5 Lymph % (Auto) 24.3 [place] % (Auto) 10.7 H Eos % (Auto) 0.7 Baso % (Auto) 1.8 Neut # (Auto) 6.7 Lymph # (Auto) 2.6 [place] # (Auto) 1.1 H Eos # (Auto) 0.1 Baso # (Auto) 0.2 PT 12.3 H INR 1.1 APTT 30 Sodium 142 Potassium 4.3 Chloride 99 Carbon Dioxide 26 Anion Gap 22 H BUN 17 Creatinine 0.6 L Est GFR ( Amer) > 60 Est GFR (Non-Af Amer) > 60 POC Glucose (mg/dL) Random Glucose 198 H Calcium 9.1 Total Bilirubin 0.5 AST 19 ALT 18 Alkaline Phosphatase 83 Troponin I < 0.0120 NT-Pro-B Natriuret Pep 299 Total Protein 8.4 H Albumin 3.8 Globulin 4.6 H Albumin/Globulin Ratio 0.8 L Urine Color Urine Clarity Urine pH Ur Specific [place] Urine Protein Urine Glucose (UA) Urine Ketones Urine Blood Urine Nitrate Urine Bilirubin Urine Urobilinogen Ur Leukocyte Esterase Urine WBC (Auto) Urine RBC (Auto) Ur Squamous Epith Cells Urine Bacteria 07/03/17 07/03/17 17:22 20:54 WBC RBC Hgb Hct MCV MCH MCHC RDW Plt Count MPV Neut % (Auto) Lymph % (Auto) [place] % (Auto) Eos % (Auto) Baso % (Auto) Neut # (Auto) Lymph # (Auto) [place] # (Auto) Eos # (Auto) Baso # (Auto) PT INR APTT Sodium Potassium Chloride Carbon Dioxide Anion Gap BUN Creatinine Est GFR ( Amer) Est GFR (Non-Af Amer) POC Glucose (mg/dL) 129 H Random Glucose Calcium Total Bilirubin AST ALT Alkaline Phosphatase Troponin I NT-Pro-B Natriuret Pep Total Protein Albumin Globulin Albumin/Globulin Ratio Urine Color Yellow Urine Clarity Clear Urine pH 7.0 Ur Specific [place] 1.013 Urine Protein Negative Urine Glucose (UA) Normal Urine Ketones Trace Urine Blood 1+ H Urine Nitrate Negative Urine Bilirubin Negative Urine Urobilinogen Normal Ur Leukocyte Esterase Trace Urine WBC (Auto) 25 H Urine RBC (Auto) 15 H Ur Squamous Epith Cells 2 Urine Bacteria Few H
[2017-07-04] MEDS ORDERED: Piperacill/Tazo 3.375gm in Dex 3.375 GM/50 ML BAG IVPB SCH
[2017-07-04] MEDS: Meropenem 500 MG in Sodium Chloride 0.9% 100 ML IVPB SCH ×3 (00:05→16:00)
[2017-07-04] MEDS ORDERED: Simethicone 80 mg Chewtab PO ONE (06:33)
[2017-07-04] MEDS: (Novolog) Insulin Aspart, Recombinant 100 u/ml 10 ml vial SC SCH ×4 (08:02→21:50)
--- NOTE | 2017-07-04 08:47 | CP.PCM.CON ---
History of Present Illness - History of Present Illness History of Present Illness: Vascular Surgery - Dr. Su Pt is an 82 yo F w/ hx of DM, HTN, Dementia, Psychiatric disorder, who was brought to ED by for elevated blood pressure and fatigue. Surgery was consulted for a non-healing L Heal ulcer. Pt is a poor historian and history was obtained from the chart. She was recently admitted for a UTI and currently has a PICC line in place for IV Abx. At time of exam pt complained mostly of "gas pains". When asked about this pt states that it has been present for "20 years" and she has some mild pain to the area. No fevers or chills. PMH; DM, HTN, Dementia, Psychiatric disorder PSH; Hysterectomy (per pt) Meds as per chart NKDA Review of Systems - Review of Systems All systems: reviewed and no additional remarkable complaints except (as per HPI ) Past Patient History - Past Medical History & Family History Past Medical History?: Yes - Past Social History Smoking Status: Never Smoked - CARDIAC Hx Hypercholesterolemia: Yes Hx Hypertension: Yes - PULMONARY Hx Asthma: Yes Hx Chronic Obstructive Pulmonary Disease (COPD): Yes - NEUROLOGICAL Hx Alzheimer's Disease: Yes Hx Seizures: Yes - HEENT Hx HEENT Problems: No - RENAL Hx Chronic Kidney Disease: No - ENDOCRINE/METABOLIC Hx Diabetes Mellitus Type 2: Yes - HEMATOLOGICAL/ONCOLOGICAL Hx Human Immunodeficiency Virus (HIV): No - INTEGUMENTARY Hx Dermatological Problems: No - MUSCULOSKELETAL/RHEUMATOLOGICAL Hx Falls: No - GASTROINTESTINAL Hx Gastritis: Yes - GENITOURINARY/GYNECOLOGICAL Hx Sexually Transmitted Disorders: No (Patient denied. None reported) - PSYCHIATRIC Hx Anxiety: Yes Hx Bipolar Disorder: Yes Hx Depression: Yes Hx Schizophrenia: Yes Hx Substance Use: No - SURGICAL HISTORY Hx Coronary Stent: Yes - ANESTHESIA Hx Anesthesia: Yes Hx Anesthesia Reactions: No Hx Malignant Hyperthermia: No Meds Allergies/Adverse Reactions: Allergies Allergy/AdvReac Type Severity Reaction Status Date / Time No Known Allergies Allergy Verified 07/03/17 15:41 - Medications Medications: Current Medications Enoxaparin Sodium (Lovenox) 40 mg SC DAILY [facility] Gabapentin (Neurontin) 200 mg PO TID [facility] Hydrochlorothiazide (Microzide) 12.5 mg PO DAILY [facility] Meropenem 500 mg/ Sodium (Chloride) 100 mls @ 100 mls/hr IVPB Q8H [facility] PRN Reason: Protocol Last Admin: 07/04/17 00:05 Dose: 100 mls/hr Insulin Aspart (Novolog) 0 unit SC ACHS [facility] PRN Reason: Protocol Last Admin: 07/04/17 08:02 Dose: Not Given Losartan Potassium (Cozaar) 100 mg PO DAILY [facility] Metformin HCl (Glucophage) 1,000 mg PO BID [facility] Mirtazapine (Remeron) 15 mg PO HS [facility] Last Admin: 07/03/17 22:41 Dose: 15 mg Quetiapine Fumarate (Seroquel) 300 mg PO HS [facility] Rosuvastatin Calcium (Crestor) 5 mg PO HS [facility] Physical Exam - Constitutional Appears: No Acute Distress - Head Exam Head Exam: ATRAUMATIC, NORMAL INSPECTION, NORMOCEPHALIC - Eye Exam Eye Exam: Normal appearance - Respiratory Exam Respiratory Exam: NORMAL BREATHING PATTERN. absent: Respiratory Distress - Extremities Exam Extremities exam: Positive for: normal capillary refill, pedal pulses present. Negative for: calf tenderness, pedal edema Additional comments: Left heal ulcer with clean base and granulation tissue approx 3x2cm, slight erythema - Neurological Exam Neurological exam: Alert - Psychiatric Exam Psychiatric exam: Anxious - Skin Skin Exam: Dry, Normal Color Results - Vital Signs Recent Vital Signs: Last Vital Signs Temp 98.5 F 07/04/17 08:17 Pulse 83 07/04/17 08:17 Resp 20 07/04/17 08:17 BP 169/86 H 07/04/17 08:17 Pulse Ox 95 07/04/17 08:17 - Labs Result Diagrams: 07/03/17 16:56 07/03/17 16:56 Labs: Laboratory Results - last 24 hr 07/03/17 07/03/17 07/03/17 16:56 16:56 16:56 WBC 10.7 RBC 3.72 L Hgb 11.4 Hct 33.5 L MCV 90.0 MCH 30.7 MCHC 34.2 RDW 14.4 Plt Count 582 H D MPV 7.8 Neut % (Auto) 62.5 Lymph % (Auto) 24.3 [place] % (Auto) 10.7 H Eos % (Auto) 0.7 Baso % (Auto) 1.8 Neut # (Auto) 6.7 Lymph # (Auto) 2.6 [place] # (Auto) 1.1 H Eos # (Auto) 0.1 Baso # (Auto) 0.2 PT 12.3 H INR 1.1 APTT 30 Sodium 142 Potassium 4.3 Chloride 99 Carbon Dioxide 26 Anion Gap 22 H BUN 17 Creatinine 0.6 L Est GFR ( Amer) > 60 Est GFR (Non-Af Amer) > 60 POC Glucose (mg/dL) Random Glucose 198 H Calcium 9.1 Total Bilirubin 0.5 AST 19 ALT 18 Alkaline Phosphatase 83 Troponin I < 0.0120 NT-Pro-B Natriuret Pep 299 Total Protein 8.4 H Albumin 3.8 Globulin 4.6 H Albumin/Globulin Ratio 0.8 L Urine Color Urine Clarity Urine pH Ur Specific [place] Urine Protein Urine Glucose (UA) Urine Ketones Urine Blood Urine Nitrate Urine Bilirubin Urine Urobilinogen Ur Leukocyte Esterase Urine WBC (Auto) Urine RBC (Auto) Ur Squamous Epith Cells Urine Bacteria 07/03/17 07/03/17 07/04/17 17:22 20:54 07:29 WBC RBC Hgb Hct MCV MCH MCHC RDW Plt Count MPV Neut % (Auto) Lymph % (Auto) [place] % (Auto) Eos % (Auto) Baso % (Auto) Neut # (Auto) Lymph # (Auto) [place] # (Auto) Eos # (Auto) Baso # (Auto) PT INR APTT Sodium Potassium Chloride Carbon Dioxide Anion Gap BUN Creatinine Est GFR ( Amer) Est GFR (Non-Af Amer) POC Glucose (mg/dL) 129 H 145 H Random Glucose Calcium Total Bilirubin AST ALT Alkaline Phosphatase Troponin I NT-Pro-B Natriuret Pep Total Protein Albumin Globulin Albumin/Globulin Ratio Urine Color Yellow Urine Clarity Clear Urine pH 7.0 Ur Specific [place] 1.013 Urine Protein Negative Urine Glucose (UA) Normal Urine Ketones Trace Urine Blood 1+ H Urine Nitrate Negative Urine Bilirubin Negative Urine Urobilinogen Normal Ur Leukocyte Esterase Trace Urine WBC (Auto) 25 H Urine RBC (Auto) 15 H Ur Squamous Epith Cells 2 Urine Bacteria Few H Assessment & Plan - Assessment and Plan (Free Text) Assessment: 82 yo F w/ DM, HTN, non-healing L heal ulcer -Will F/U arterial/venous dopplers -Medical management as per primary -Further reccs as per Dr. Su
--- NOTE | 2017-07-04 09:32 | CP.PCM.PN ---
Subjective - Date & Time of Evaluation Date of Evaluation: 07/04/17 Time of Evaluation: 08:20 - Subjective Subjective: clinically same Objective - Vital Signs/Intake and Output Vital Signs (last 24 hours): Temp Pulse Resp BP Pulse Ox 98.5 F 83 20 169/86 H 95 07/04/17 08:17 07/04/17 08:17 07/04/17 08:17 07/04/17 08:17 07/04/17 08:17 Intake and Output: 07/04/17 07/04/17 06:59 18:59 Intake Total 250 Balance 250 - Medications Medications: Current Medications Enoxaparin Sodium (Lovenox) 40 mg SC DAILY [facility] Gabapentin (Neurontin) 200 mg PO TID [facility] Hydrochlorothiazide (Microzide) 12.5 mg PO DAILY [facility] Meropenem 500 mg/ Sodium (Chloride) 100 mls @ 100 mls/hr IVPB Q8H [facility] PRN Reason: Protocol Last Admin: 07/04/17 08:58 Dose: 100 mls/hr Insulin Aspart (Novolog) 0 unit SC ACHS [facility] PRN Reason: Protocol Last Admin: 07/04/17 08:02 Dose: Not Given Losartan Potassium (Cozaar) 100 mg PO DAILY [facility] Metformin HCl (Glucophage) 1,000 mg PO BID [facility] Last Admin: 07/04/17 08:58 Dose: 1,000 mg Mirtazapine (Remeron) 15 mg PO HS [facility] Last Admin: 07/03/17 22:41 Dose: 15 mg Quetiapine Fumarate (Seroquel) 300 mg PO HS [facility] Rosuvastatin Calcium (Crestor) 5 mg PO HS [facility] - Labs Labs: 07/03/17 16:56 07/03/17 16:56 PT 12.3 SECONDS (9.7-12.2) H 07/03/17 16:56 INR 1.1 07/03/17 16:56 APTT 30 SECONDS (21-34) 07/03/17 16:56 - Constitutional Appears: Well - Head Exam Head Exam: ATRAUMATIC, NORMAL INSPECTION, NORMOCEPHALIC - Eye Exam Eye Exam: EOMI, Normal appearance, PERRL Pupil Exam: NORMAL ACCOMODATION, PERRL - ENT Exam ENT Exam: Mucous Membranes Moist, Normal Exam - Neck Exam Neck Exam: Full ROM, Normal Inspection. absent: Lymphadenopathy - Respiratory Exam Respiratory Exam: Decreased Breath Sounds - Cardiovascular Exam Cardiovascular Exam: REGULAR RHYTHM, +S1, +S2 - GI/Abdominal Exam GI & Abdominal Exam: Soft, Diminished Bowel Sounds - Rectal Exam Rectal Exam: Deferred
[2017-07-04] MEDS: Enoxaparin 40 mg Syringe SC SCH (10:44)
--- NOTE | 2017-07-04 13:09 | CP.PCM.CON ---
History of Present Illness - History of Present Illness History of Present Illness: 82 year old female, whose PMHx includes DM and HTN, presents to the ED with for evaluation of elevated blood pressure. Patient's states that she appears tired more often than usual. Patient has extensive psychiatric history and was recently admitted for a UTI. She denies fever, chills. was recently here for ESBL E Coli infection Restarted antibiotics pending cultures - Medical History PMH: Alzheimer's Disease, Anxiety, Asthma, Bipolar Disorder, COPD, Depression, Diabetes (type 2), Gastritis, HTN, Hypercholesterolemia, Schizophrenia, Seizures Denies: Hepatitis, HIV, Chronic Kidney Disease, Sexually Transmitted Disease (Patient denied. None reported) Surgical History: Coronary Stent - [facility] Procedures GROUP PSYCHOTHERAPY (12/15/16) INDIVIDUAL PSYCHOTHERAPY, BEHAVIORAL (12/15/16) INSERTION OF INFUSION DEV INTO SUP VENA CAVA, PERC APPROACH (06/22/17) INTRODUCE OTH ANTI-INFECT IN CENTRAL VEIN, PERC (06/22/17) - Medical History PMH: Alzheimer's Disease, Anxiety, Asthma, Bipolar Disorder, COPD, Depression, Diabetes (type 2), Gastritis, HTN, Hypercholesterolemia, Schizophrenia, Seizures Denies: Hepatitis, HIV, Chronic Kidney Disease, Sexually Transmitted Disease (Patient denied. None reported) Surgical History: Coronary Stent Review of Systems - Review of Systems Systems not reviewed;Unavailable: Altered Mental Status All systems: reviewed and no additional remarkable complaints except - Constitutional Constitutional: As Per HPI - EENT Eyes: absent: As Per HPI, Blind Spots, Blurred Vision, Change in Vision, Decreased Night Vision, Diplopia, Discharge, Dry Eye, Exophthalmos, Floaters, Irritation, Itchy Eyes, Loss of Peripheral Vision, Pain, Photophobia, Requires Corrective Lenses, Sees Flashes, Spots in Vision, Tunnel Vision, Other Visual Disturbances, Loss of Vision, Other Ears: absent: As Per HPI, Decreased Hearing, Ear Discharge, Ear Pain, Tinnitus, Abnormal Hearing, Disequilibrium, Dizziness, Other Nose/Mouth/Throat: absent: As Per HPI, Epistaxis, Nasal Congestion, Nasal Discharge, Nasal Obstruction, Nasal Trauma, Nose Pain, Post Nasal Drip, Sinus Pain, Sinus Pressure, Bleeding Gums, Change in Voice, Dental Pain, Dry Mouth, Dysphagia, Halitosis, Hoarsness, Lip Swelling, Mouth Lesions, Mouth Pain, Odynophagia, Sore Throat, Throat Swelling, Tongue Swelling, Facial Pain, Neck Pain, Neck Mass, Other - Breasts Breasts: absent: As Per HPI, Change in Shape, Mass, Pain, Nipple Discharge, Nipple Inversion, Skin Changes, Swelling, Other - Cardiovascular Cardiovascular: As Per HPI - Respiratory Respiratory: absent: As Per HPI, Cough, Dyspnea, Hemoptysis, Dyspnea on Exertion , Wheezing, Snoring, Stridor, Pain on Inspiration, Chest Congestion, Excessive Mucous Production, Change in Mucous Color, Pain with Coughing, Other - Gastrointestinal Gastrointestinal: absent: As Per HPI, Abdominal Pain, Belching, Bloating, Change in Bowel Habits, Change in Stool Character, Coffee Ground Emesis, Constipation, Cramping, Diarrhea, Dyspepsia, Dysphagia, Early Satiety, Excessive Flatus, Fecal Incontinence, Heartburn, Hematemesis, Hematochezia, Loose Stools, Melena, Nausea, Odynophagia, Temesmus, Vomiting, Other - Genitourinary Genitourinary: As Per HPI - Reproductive: Female Reproductive:Female: absent: As Per HPI, Amenorrhea, Amenorrhea/ Control, Currently Menstual, Cycle <21 Days, Cycle >35 Days, Cycle Variable, Menses 1-7 Days, Menses >/= 8 Days, Menses Variable, Cycle > 4 Weeks Between, No Menses for 6 Months, Heavy Menses, Light Menses, Normal Menses, Spotting Between Cycles , S/P Hysterectomy, Menopausal, Post Menopausal, Premenarche, Abnormal Vaginal Bleeding, Dysmenorrhea, Dyspareunia, Genital Lesions, Genital Pruritis, Pelvic Pain, Prolapse Symptoms, Sexual Dysfunction, Vaginal Discharge, Vaginal Dryness , Vaginal Odor, Vaginal Pruritis, Other - Menstruation Menstruation: absent: As Per HPI, Amenorrhea, Amenorrhea/ Control, Currently Menstual, Cycle <21 Days, Cycle >35 Days, Cycle Variable, Menses 1-7 Days, Menses >/= 8 Days, Menses Variable, Cycle > 4 Weeks Between, No Menses for 6 Months, Heavy Menses, Light Menses, Normal Menses, Spotting Between Cycles , S/P Hysterectomy, Menopausal, Post Menopausal, Premenarche, Abnormal Vaginal Bleeding, Dysmenorrhea, Other - Musculoskeletal Musculoskeletal: absent: As Per HPI, Abnormal Gait, Arthralgias, Atrophy, Back Pain, Deformity, Joint Swelling, Limited Range of Motion, Loss of Height, Muscle Cramps, Muscle Weakness, Myalgias, Neck Pain, Numbness, Radiating Pain into Limb, Stiffness, Tingling, Other - Integumentary Integumentary: absent: As Per HPI, Acne, Alopecia, Bleeding Lesions, Change in Hair, Change in Nails, Change in Pigmentation, Changing Lesions, Dry Skin, Erythema, Furuncle, Hirsutism, Lesions, New Lesions, Non-Healing Lesions, Photosensitivity, Pruritus, Rash, Skin Pain, Skin Ulcer, Sores, Striae, Swelling , Unusual Bruising, Wounds, Jaundice, Other - Neurological Neurological: absent: As Per HPI, Abnormal Gait, Abnormal Hearing, Abnormal Movements, Abnormal Speech, Behavioral Changes, Burning Sensations, Confusion, Convulsions, Disequilibrium, Dizziness, Numbness, Focal Weakness, Frequent Falls , Headaches, Lack of Coordination, Loss of Vision, Memory Loss, Paresthesias, Radicular Pain, Restless Legs, Sensory Deficit, Syncope, Tingling, Tremor, Vertigo, Weakness, Other Visual Disturbances, Other - Psychiatric Psychiatric: absent: As Per HPI, Abnormal Sleep Pattern, Anhedonia, Anxiety, Auditory Hallucinations, Behavioral Changes, Change in Appetite, Change in Libido, Confusion, Depression, Difficulty Concentrating, Hallucinations, Homicidal Ideation, Hopelessness, Irritability, Memory Loss, Mood Swings, Panic Attacks, Paranoia, Suicidal Ideation, Visual Hallucinations, Tactile Hallucinations, Other - Endocrine Endocrine: absent: As Per HPI, Change in Body Appearance, Change in Libido, Cold Intolorance, Deepening of Voice, Excessive Sweating, Fatigue, Flushing, Heat Intolorance, Increase in Ring/Shoe/Hat Size, Palpitations, Polydipsia, Polyphagia, Polyuria, Other - Hematologic/Lymphatic Hematologic: absent: As Per HPI, Easy Bleeding, Easy Bruising, Lymphadenopathy, Other Past Patient History - Past Medical History & Family History Past Medical History?: Yes - Past Social History Smoking Status: Never Smoked - CARDIAC Hx Hypercholesterolemia: Yes Hx Hypertension: Yes - PULMONARY Hx Asthma: Yes Hx Chronic Obstructive Pulmonary Disease (COPD): Yes - NEUROLOGICAL Hx Alzheimer's Disease: Yes Hx Seizures: Yes - HEENT Hx HEENT Problems: No - RENAL Hx Chronic Kidney Disease: No - ENDOCRINE/METABOLIC Hx Diabetes Mellitus Type 2: Yes - HEMATOLOGICAL/ONCOLOGICAL Hx Human Immunodeficiency Virus (HIV): No - INTEGUMENTARY Hx Dermatological Problems: No - MUSCULOSKELETAL/RHEUMATOLOGICAL Hx Falls: No - GASTROINTESTINAL Hx Gastritis: Yes - GENITOURINARY/GYNECOLOGICAL Hx Sexually Transmitted Disorders: No (Patient denied. None reported) - PSYCHIATRIC Hx Anxiety: Yes Hx Bipolar Disorder: Yes Hx Depression: Yes Hx Schizophrenia: Yes Hx Substance Use: No - SURGICAL HISTORY Hx Coronary Stent: Yes - ANESTHESIA Hx Anesthesia: Yes Hx Anesthesia Reactions: No Hx Malignant Hyperthermia: No Meds Allergies/Adverse Reactions: Allergies Allergy/AdvReac Type Severity Reaction Status Date / Time No Known Allergies Allergy Verified 07/03/17 15:41 - Medications Medications: Current Medications Enoxaparin Sodium (Lovenox) 40 mg SC DAILY [facility] Last Admin: 07/04/17 10:44 Dose: 40 mg Gabapentin (Neurontin) 200 mg PO TID [facility] Last Admin: 07/04/17 10:44 Dose: 200 mg Hydrochlorothiazide (Microzide) 12.5 mg PO DAILY [facility] Last Admin: 07/04/17 10:44 Dose: 12.5 mg Meropenem 500 mg/ Sodium (Chloride) 100 mls @ 100 mls/hr IVPB Q8H [facility] PRN Reason: Protocol Last Admin: 07/04/17 08:58 Dose: 100 mls/hr Insulin Aspart (Novolog) 0 unit SC ACHS [facility] PRN Reason: Protocol Last Admin: 07/04/17 12:31 Dose: Not Given Losartan Potassium (Cozaar) 100 mg PO DAILY [facility] Last Admin: 07/04/17 10:44 Dose: 100 mg Metformin HCl (Glucophage) 1,000 mg PO BID [facility] Last Admin: 07/04/17 10:44 Dose: 1,000 mg Mirtazapine (Remeron) 15 mg PO HS [facility] Last Admin: 07/03/17 22:41 Dose: 15 mg Quetiapine Fumarate (Seroquel) 300 mg PO HS [facility] Rosuvastatin Calcium (Crestor) 5 mg PO HS [facility] Physical Exam - Constitutional Appears: Confused, Chronically Ill - Head Exam Head Exam: ATRAUMATIC, NORMAL INSPECTION, NORMOCEPHALIC - Eye Exam Eye Exam: EOMI, PERRL. absent: Scleral icterus - ENT Exam ENT Exam: Mucous Membranes Dry, Normal External Ear Exam - Neck Exam Neck exam: Negative for: Lymphadenopathy, Thyromegaly - Respiratory Exam Respiratory Exam: Decreased Breath Sounds, Clear to Auscultation Bilateral - Cardiovascular Exam Cardiovascular Exam: REGULAR RHYTHM, +S1, +S2 - GI/Abdominal Exam GI & Abdominal Exam: Diminished Bowel Sounds, Soft. absent: Tenderness - Rectal Exam Rectal Exam: Deferred - Exam Exam: NORMAL INSPECTION - Extremities Exam Extremities exam: Negative for: pedal edema - Back Exam Back exam: absent: CVA tenderness (L), CVA tenderness (R) - Neurological Exam Neurological exam: Alert, Altered - Psychiatric Exam Psychiatric exam: Depressed - Skin Skin Exam: Dry Results - Vital Signs Recent Vital Signs: Last Vital Signs Temp 98.5 F 07/04/17 08:17 Pulse 83 07/04/17 08:17 Resp 20 07/04/17 08:17 BP 169/86 H 07/04/17 08:17 Pulse Ox 95 07/04/17 08:17 - Labs Result Diagrams: 07/03/17 16:56 07/03/17 16:56 Labs: Laboratory Results - last 24 hr 07/03/17 07/03/17 07/03/17 16:56 16:56 16:56 WBC 10.7 RBC 3.72 L Hgb 11.4 Hct 33.5 L MCV 90.0 MCH 30.7 MCHC 34.2 RDW 14.4 Plt Count 582 H D MPV 7.8 Neut % (Auto) 62.5 Lymph % (Auto) 24.3 [place] % (Auto) 10.7 H Eos % (Auto) 0.7 Baso % (Auto) 1.8 Neut # (Auto) 6.7 Lymph # (Auto) 2.6 [place] # (Auto) 1.1 H Eos # (Auto) 0.1 Baso # (Auto) 0.2 PT 12.3 H INR 1.1 APTT 30 Sodium 142 Potassium 4.3 Chloride 99 Carbon Dioxide 26 Anion Gap 22 H BUN 17 Creatinine 0.6 L Est GFR ( Amer) > 60 Est GFR (Non-Af Amer) > 60 POC Glucose (mg/dL) Random Glucose 198 H Calcium 9.1 Total Bilirubin 0.5 AST 19 ALT 18 Alkaline Phosphatase 83 Troponin I < 0.0120 NT-Pro-B Natriuret Pep 299 Total Protein 8.4 H Albumin 3.8 Globulin 4.6 H Albumin/Globulin Ratio 0.8 L Urine Color Urine Clarity Urine pH Ur Specific [place] Urine Protein Urine Glucose (UA) Urine Ketones Urine Blood Urine Nitrate Urine Bilirubin Urine Urobilinogen Ur Leukocyte Esterase Urine WBC (Auto) Urine RBC (Auto) Ur Squamous Epith Cells Urine Bacteria 07/03/17 07/03/17 07/04/17 17:22 20:54 07:29 WBC RBC Hgb Hct MCV MCH MCHC RDW Plt Count MPV Neut % (Auto) Lymph % (Auto) [place] % (Auto) Eos % (Auto) Baso % (Auto) Neut # (Auto) Lymph # (Auto) [place] # (Auto) Eos # (Auto) Baso # (Auto) PT INR APTT Sodium Potassium Chloride Carbon Dioxide Anion Gap BUN Creatinine Est GFR ( Amer) Est GFR (Non-Af Amer) POC Glucose (mg/dL) 129 H 145 H Random Glucose Calcium Total Bilirubin AST ALT Alkaline Phosphatase Troponin I NT-Pro-B Natriuret Pep Total Protein Albumin Globulin Albumin/Globulin Ratio Urine Color Yellow Urine Clarity Clear Urine pH 7.0 Ur Specific [place] 1.013 Urine Protein Negative Urine Glucose (UA) Normal Urine Ketones Trace Urine Blood 1+ H Urine Nitrate Negative Urine Bilirubin Negative Urine Urobilinogen Normal Ur Leukocyte Esterase Trace Urine WBC (Auto) 25 H Urine RBC (Auto) 15 H Ur Squamous Epith Cells 2 Urine Bacteria Few H 07/04/17 11:22 WBC RBC Hgb Hct MCV MCH MCHC RDW Plt Count MPV Neut % (Auto) Lymph % (Auto) [place] % (Auto) Eos % (Auto) Baso % (Auto) Neut # (Auto) Lymph # (Auto) [place] # (Auto) Eos # (Auto) Baso # (Auto) PT INR APTT Sodium Potassium Chloride Carbon Dioxide Anion Gap BUN Creatinine Est GFR ( Amer) Est GFR (Non-Af Amer) POC Glucose (mg/dL) 123 H Random Glucose Calcium Total Bilirubin AST ALT Alkaline Phosphatase Troponin I NT-Pro-B Natriuret Pep Total Protein Albumin Globulin Albumin/Globulin Ratio Urine Color Urine Clarity Urine pH Ur Specific [place] Urine Protein Urine Glucose (UA) Urine Ketones Urine Blood Urine Nitrate Urine Bilirubin Urine Urobilinogen Ur Leukocyte Esterase Urine WBC (Auto) Urine RBC (Auto) Ur Squamous Epith Cells Urine Bacteria Assessment & Plan (1) Confusion Status: Acute (2) Non healing left heel wound Status: Acute (3) Dementia Status: Chronic Priority: Medium (4) E. coli UTI (urinary tract infection) Status: Acute Priority: High - Assessment and Plan (Free Text) Assessment: await cultures cont wound care for heel iv antibiotics consider MRI await cultures
--- NOTE | 2017-07-04 14:19 | VASCLAB ---
PROCEDURE: Lower Extremity Venous Duplex Exam. HISTORY: left foot edema and left heel ulcer PRIORS: None. TECHNIQUE: Bilateral common femoral, femoral, popliteal and posterior tibial, peroneal and great saphenous veins were evaluated. Flow was assessed with color Doppler, compressibility, assessment of phasic flow and augmentation response. Report prepared by José Luis Archibald, JADA, RVT FINDINGS: RIGHT: 1. Common Femoral Vein: 1.1. Compressibility - Fully compressible: Thrombus - None : Flow - Phasic: Augmentation -Normal: Reflux - None. 2. Femoral Vein: 2.1. Compressibility - Fully compressible: Thrombus - None : Flow - Phasic: Augmentation -Normal: Reflux - None. 3. Popliteal Vein: 3.1. Compressibility - Fully compressible: Thrombus - None : Flow - Phasic: Augmentation -Normal: Reflux - None. 4. Posterior Tibial Vein: 4.1. Compressibility - Fully compressible: Thrombus - None: Flow - Phasic: Augmentation -Normal: Reflux - None. 5. Peroneal Vein: 5.1. Compressibility - Fully compressible: Thrombus - None: Flow - Phasic: Augmentation -Normal: Reflux - None. 6. Great Saphenous Vein: 6.1. Compressibility - Fully compressible: Thrombus - None: Flow - : Augmentation - : Reflux - . LEFT: 1. Common Femoral Vein: 1.1. Compressibility - Fully compressible: Thrombus - None: Flow - Phasic: Augmentation -Normal: Reflux - None. 2. Femoral Vein: 2.1. Compressibility - Fully compressible: Thrombus - None: Flow - Phasic: Augmentation -Normal: Reflux - None. 3. Popliteal Vein: 3.1. Compressibility - Fully compressible: Thrombus - None : Flow - Phasic: Augmentation -Normal: Reflux - None. 4. Posterior Tibial Vein: 4.1. Compressibility - Fully compressible: Thrombus - None: Flow - Phasic: Augmentation -Normal: Reflux - None. 5. Peroneal Vein: 5.1. Compressibility - Fully compressible: Thrombus - None: Flow - Phasic: Augmentation -Normal: Reflux - None. 6. Great Saphenous Vein: 6.1. Compressibility - Fully compressible: Thrombus - None: Flow - : Augmentation - : Reflux - . OTHER FINDINGS: Right: None significant. Left: None significant. IMPRESSION: Right: No evidence of deep or superficial vein thrombosis of the right lower extremity. Normal valve function noted of the right side. Left: No evidence of deep or superficial vein thrombosis of the left lower extremity. Normal valve function noted of the left side.
--- NOTE | 2017-07-04 15:46 | CP.PCM.PN ---
Subjective - Date & Time of Evaluation Date of Evaluation: 07/04/17 Time of Evaluation: 11:00 - Subjective Subjective: Patient seen and examined with Dr. Su, no adverse events overnight. patient states that pain is well controlled on current regimen Objective - Vital Signs/Intake and Output Vital Signs (last 24 hours): Temp Pulse Resp BP Pulse Ox 98.5 F 83 20 169/86 H 95 07/04/17 08:17 07/04/17 08:17 07/04/17 08:17 07/04/17 08:17 07/04/17 08:17 Intake and Output: 07/04/17 07/04/17 06:59 18:59 Intake Total 250 Balance 250 - Medications Medications: Current Medications Enoxaparin Sodium (Lovenox) 40 mg SC DAILY [facility] Last Admin: 07/04/17 10:44 Dose: 40 mg Gabapentin (Neurontin) 200 mg PO TID [facility] Last Admin: 07/04/17 14:09 Dose: 200 mg Hydrochlorothiazide (Microzide) 12.5 mg PO DAILY [facility] Last Admin: 07/04/17 10:44 Dose: 12.5 mg Meropenem 500 mg/ Sodium (Chloride) 100 mls @ 100 mls/hr IVPB Q8H [facility] PRN Reason: Protocol Last Admin: 07/04/17 08:58 Dose: 100 mls/hr Insulin Aspart (Novolog) 0 unit SC ACHS [facility] PRN Reason: Protocol Last Admin: 07/04/17 12:31 Dose: Not Given Losartan Potassium (Cozaar) 100 mg PO DAILY [facility] Last Admin: 07/04/17 10:44 Dose: 100 mg Metformin HCl (Glucophage) 1,000 mg PO BID [facility] Last Admin: 07/04/17 10:44 Dose: 1,000 mg Mirtazapine (Remeron) 15 mg PO HS [facility] Last Admin: 07/03/17 22:41 Dose: 15 mg Quetiapine Fumarate (Seroquel) 300 mg PO HS [facility] Rosuvastatin Calcium (Crestor) 5 mg PO HS [facility] - Labs Labs: 07/03/17 16:56 07/03/17 16:56 PT 12.3 SECONDS (9.7-12.2) H 07/03/17 16:56 INR 1.1 07/03/17 16:56 APTT 30 SECONDS (21-34) 07/03/17 16:56 - Constitutional Appears: Well, Non-toxic, No Acute Distress - Head Exam Head Exam: ATRAUMATIC, NORMOCEPHALIC - Eye Exam Eye Exam: Normal appearance. absent: Conjunctival injection, Scleral icterus - ENT Exam ENT Exam: Mucous Membranes Moist - Respiratory Exam Respiratory Exam: NORMAL BREATHING PATTERN. absent: Accessory Muscle Use, Respiratory Distress - Extremities Exam Extremities Exam: absent: Calf Tenderness, Pedal Edema Additional comments: superficial ulcer on medial left heel with no surrounding erythema or drainage - Neurological Exam Neurological Exam: Alert, Awake, Oriented x3 - Psychiatric Exam Psychiatric exam: Normal Affect, Normal Mood - Skin Skin Exam: Dry, Normal Color, Warm Assessment and Plan - Assessment and Plan (Free Text) Assessment: 82F with chronic wound of left medial heel Plan: Patient has strong palpable TP pulses bilaterally and good waveforms on REGI's. No further vascular evaluation or intervention required. Continue excellent local wound care by wound care nursing Encourage activity as possible with PT/OT PRN pain medication management per primary Seen and examiend with DR. Georgse Clement PGY2
--- NOTE | 2017-07-04 16:03 | VASCLAB ---
STUDY DESCRIPTION: HISTORY: left heel wound and edema PRIORS: None. TECHNIQUE: Pulse volume recording waveforms and segmental pressures of bilateral lower extremities at multiple levels were obtained. Ankle Brachial Indices (ABIs) were calculated. Report prepared by JADA Sal, RVT RIGHT LOWER EXTREMITY: * Brachial artery: Pressure - mmHg. * High thigh: Pressure - mmHg: Ratio - : PVR waveform - Pulsatile * Low thigh: Pressure - mmHg: Ratio - PVR waveform: Pulsatile * Calf: Pressure - 220 mmHg: Ratio - NC PVR waveform: Pulsatile * Posterior tibial Artery: Pressure - 220 mmHg: Ratio - NC PVR waveform: Pulsatile * Dorsalis pedis Artery: Pressure - 220 mmHg: Ratio - NC PVR waveform: Pulsatile * Great toe: Pressure - mmHg: Ratio - PVR waveform: Ankle brachial index (REGI): CN LEFT LOWER EXTREMITY: * Brachial artery: Pressure - 220 mmHg. * High thigh: Pressure - mmHg: Ratio - : PVR waveform - Pulsatile * Low thigh: Pressure - mmHg: Ratio - PVR waveform: Pulsatile * Calf: Pressure - 220 mmHg: Ratio - NC PVR waveform: Pulsatile * Posterior tibial Artery: Pressure - 218 mmHg: Ratio - NC PVR waveform: Pulsatile * Dorsalis pedis Artery: Pressure - 220 mmHg: Ratio - NC PVR waveform: Pulsatile * Great toe: Pressure - mmHg: Ratio - PVR waveform: Ankle brachial index (REGI): NC OTHER FINDINGS: Right: Left: IMPRESSION: High systemic blood pressure renders this test less accurate. Repeat testing is recommended after control of hypertension.
[2017-07-05] MEDS: Meropenem 500 MG in Sodium Chloride 0.9% 100 ML IVPB SCH ×3 (00:30→16:05)
[2017-07-05] MEDS: (Novolog) Insulin Aspart, Recombinant 100 u/ml 10 ml vial SC SCH ×4 (08:00→22:09)
[2017-07-05 08:03] LABS: SQUAMOUS EPITHIAL 1 /hpf (0-5); URINE BACTERIA OCC (<OCC); URINE BILIRUBIN NEGATIVE (NEGATIVE); URINE BLOOD NEGATIVE (NEGATIVE); URINE CLARITY Clear (Clear); URINE COLOR Yellow (YELLOW); URINE GLUCOSE (UA) NORMAL (Normal); URINE LEUKOCYTE ESTERASE 2+ Leu/uL (Negative); URINE PROTEIN 1+ mg/dL (NEGATIVE); URINE UROBILINOGEN NORMAL mg/dL (0.2-1.0)
[2017-07-05] MEDS ORDERED: Iodixanol 320 MG/ML 100 ML BOTTLE IV ONE (08:14)
--- NOTE | 2017-07-05 08:20 | CT ---
PROCEDURE: CT HEAD WITHOUT CONTRAST. HISTORY: pupil changes, acute COMPARISON: 06/22/2017. TECHNIQUE: Axial computed tomography images were obtained through the head/brain without intravenous contrast. Radiation dose: Total exam DLP = 830.76 MGy-cm. This CT exam was performed using one or more of the following dose reduction techniques: Automated exposure control, adjustment of the mA and/or kV according to patient size, and/or use of iterative reconstruction technique. FINDINGS: HEMORRHAGE: No intracranial hemorrhage. 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 There is no mass, mass effect or abnormal extra-axial fluid collection There are coarse atherosclerotic calcifications in the cavernous carotid arteries. VENTRICLES: There is moderate age-related global parenchymal volume loss and proportionate enlargement of the ventricles and cortical sulci. CALVARIUM: The skull base and calvarium are normal. PARANASAL SINUSES: Predominantly clear. MASTOID AIR CELLS: Predominantly clear. OTHER FINDINGS: None. IMPRESSION: No acute intracranial abnormality. If there is a persistent focal neurologic deficit and an ongoing clinical concern for acute infarction, an MRI of the brain without intravenous contrast would be a more sensitive modality for evaluation of hyperacute/acute ischemic infarction. No significant interval change. Important findings were discussed with nurse Nhan Canales on the floor on 07/05/2017 at 8:15 a.m.
--- NOTE | 2017-07-05 08:46 | PCM.RRT ---
<Diogenes Quach - Last Filed: 07/05/17 08:47> [facility] Nurses Assessment - Situation Date: 07/05/17 Time [facility] was called: 07:54 [facility] Responder Arrival Time:: 07:55 [facility] Location:: Med/Oncology Room Number: 359A [facility] Reason for Call: Change in Mental Status [facility] Called By: RN - IV IV Inserted during [facility]?: No - Respiratory [facility] Delivery Method: Nasal Cannula @L/min Received Nebulizer Treatments: No Was the Patient Ventilated with Bag/Mask 100% O2?: No Secretions Suctioned?: No Was the Patient Intubated?: No Was the Patient Placed on a Ventilator?: No - Diagnostic Test Ordered EKG: Yes CT Scan: Yes Other Diagnostic Test Ordered: head CPR started during [facility]?: No - Vital Signs Vital Signs: Rapid Response Vital Sign Blood Pressure 132/69 Pulse Rate 74 Respiratory Rate 20 Temperature 96.3 F - Time [facility] Ended Time [facility] Ended: 08:34 - Vital Signs at end of [facility] Vital Signs at end of [facility]: Rapid Response End Vital Sign Blood Pressure 146/70 Pulse Rate 88 Respiratory Rate 20 Temperature 97.3 F O2 Sat by Pulse Oximetry 96 - Recommendations 5) [facility] Level of Care Recommendations: Remain in current setting Notifications: Attending Physician, Consultations I.Reason for [facility] - A) Acute Change in Patient: (Select all that apply): Staff member or family is worried about patient - Neurological Status (Select all that apply): absent: Alert, Responsive, Verbal, Follows Commands - Respiratory Oxygen Delivery Method: Nasal Cannula @L/min - Constitutional Appears: Chronically Ill, Other (Unresponsive) - Head Head Exam: ATRAUMATIC, NORMOCEPHALIC - Eyes Eye Exam: absent: Normal appearance (pinpoint pupils bilaterally) - Respiratory Exam Respiratory Exam: Decreased Breath Sounds. absent: Rales, Rhonchi, Wheezes - Cardiovascular Exam Cardiovascular Exam: REGULAR RHYTHM, +S1, +S2 - GI/Abdominal Exam GI & Abdominal Exam: Distended, Soft, Normal Bowel Sounds - Neurological Exam Neurological Exam: absent: Alert, Awake, Oriented x3 Additional exam: Could not assess NIHSS due to unresponsiveness - Extremities Exam Extremities Exam: absent: Pedal Edema Plan - Assessment of Findings&Treatment Plan Rapid response was called for this 82 year old female that was here for uncontrolled hypertension, pneumonia, and dementia. Patient was last known well at 5:30 AM by the night nurse. Patient found unresponsive this morning and rapid response was called. Patient was not responding at all to painful stimuli. Also, the pupils were pinpoint. At that time, a stroke was suspected and code stroke was called. Unable to assess neurological since the patient was completely unresponsive. Patient taken down for both CT head without contrast and CTA Head/Neck with contrast. Code stroke neurologist Dr. Arevalo was called and notified. Keppra 1000 mg IV was ordered. Both imaging studies were negative for acute pathologies. Patient eventually became responsive and was speaking and moving all extremities spontaneously. EKG was in NSR. Admitting attending Dr. Dwayne Cerda was notified and also requested CBC, CMP, Mag, Phos. <Summer Cerda S - Last Filed: 07/05/17 17:54> [facility] Nurses Assessment - Vital Signs Vital Signs: Rapid Response Vital Sign Blood Pressure 132/69 Pulse Rate 74 Respiratory Rate 20 Temperature 96.3 F - Vital Signs at end of [facility] Vital Signs at end of [facility]: Rapid Response End Vital Sign Blood Pressure 146/70 Pulse Rate 88 Respiratory Rate 20 Temperature 97.3 F O2 Sat by Pulse Oximetry 96
[2017-07-05] MEDS ORDERED: levETIRAcetam 1,000 MG in Sodium Chloride 0.9% 100 ML IVPB ONE (09:00)
--- NOTE | 2017-07-05 09:45 | CT ---
PROCEDURE: CTA HEAD AND NECK WITH CONTRAST HISTORY: Code Stroke COMPARISON: None available. TECHNIQUE: Initial noncontrast head CT was performed. Subsequently, CT angiogram of the head and neck were performed after the intravenous administration of 80 mL of Omnipaque 350. Contiguous 1.5mm thick images were obtained in the axial plane of the neck. 2-D coronal and sagittal MPR images were obtained. Imaging postprocessing was performed with 3-D images also obtained. A delayed contrast head CT was also obtained. This CT exam was performed using one or more of the following dose reduction techniques: Automated exposure control, adjustment of the mA and/or kV according to patient size, and/or use of iterative reconstruction technique. Contrast dose: 100 mL Visipaque There are atherosclerotic calcifications in the carotid bulbs and proximal internal carotid artery is. Radiation dose: Total exam DLP = 469.86 mGy-cm. FINDINGS: HEAD: There are calcified atherosclerotic plaques in the cavernous segments of the internal carotid arteries. Right: The intracranial internal carotid artery, and anterior and middle cerebral arteries are widely patent. Left: The intracranial internal carotid artery, and anterior and middle cerebral arteries are widely patent. The left A1 segment is aplastic, an anatomic variant. Posterior circulation: The visualized intracranial vertebral arteries, basilar artery and posterior cerebral arteries are widely patent. There is no endoluminal filling defect to suggest thrombus. There is no intracranial saccular aneurysm. NECK: There is a two vessel aortic arc with common origins of the innominate and left common carotid arteries. There is no stenosis at the origins of the great vessels at the level of the aortic arch. There are calcified atherosclerotic plaques in the common carotid and proximal internal carotid arteries. Right Carotid: On the right, the common carotid, internal carotid and external carotid arteries are widely patent. There is no hemodynamically significant stenosis in the internal carotid artery by NASCET criteria. Left Carotid: On the left, the common carotid, internal carotid and external carotid arteries are widely patent. There is no hemodynamically significant stenosis in the internal carotid artery by NASCET criteria. The vertebral arteries are widely patent. The lung apices are clear. IMPRESSION: No evidence of endoluminal thrombus, definite significant stenosis or occlusion. No evidence of hemodynamically significant stenosis in the internal carotid arteries.
[2017-07-05] MEDS: Enoxaparin 40 mg Syringe SC SCH (10:27)
--- NOTE | 2017-07-05 11:27 | CP.PCM.PN ---
Subjective - Date & Time of Evaluation Date of Evaluation: 07/05/17 Time of Evaluation: 08:00 - Subjective Subjective: clinically same Objective - Vital Signs/Intake and Output Vital Signs (last 24 hours): Temp Pulse Resp BP Pulse Ox 97.8 F 78 20 111/65 95 07/05/17 07:00 07/05/17 07:00 07/05/17 07:00 07/05/17 07:00 07/05/17 07:00 Intake and Output: 07/05/17 07/05/17 06:59 18:59 Intake Total 800 Balance 800 - Medications Medications: Current Medications Enoxaparin Sodium (Lovenox) 40 mg SC DAILY [facility] Last Admin: 07/05/17 10:27 Dose: 40 mg Gabapentin (Neurontin) 200 mg PO TID [facility] Last Admin: 07/05/17 10:27 Dose: Not Given Hydrochlorothiazide (Microzide) 12.5 mg PO DAILY [facility] Last Admin: 07/05/17 10:25 Dose: 12.5 mg Meropenem 500 mg/ Sodium (Chloride) 100 mls @ 100 mls/hr IVPB Q8H [facility] PRN Reason: Protocol Last Admin: 07/05/17 10:23 Dose: 100 mls/hr Insulin Aspart (Novolog) 0 unit SC ACHS [facility] PRN Reason: Protocol Last Admin: 07/05/17 08:00 Dose: Not Given Losartan Potassium (Cozaar) 100 mg PO DAILY [facility] Last Admin: 07/05/17 10:27 Dose: 100 mg Metformin HCl (Glucophage) 1,000 mg PO BID [facility] Last Admin: 07/05/17 10:27 Dose: Not Given Mirtazapine (Remeron) 7.5 mg PO HS [facility] Quetiapine Fumarate (Seroquel) 300 mg PO HS [facility] Last Admin: 07/04/17 21:49 Dose: 300 mg Rosuvastatin Calcium (Crestor) 5 mg PO HS [facility] Last Admin: 07/04/17 21:49 Dose: 5 mg - Labs Labs: 07/03/17 16:56 07/03/17 16:56 PT 12.3 SECONDS (9.7-12.2) H 07/03/17 16:56 INR 1.1 07/03/17 16:56 APTT 30 SECONDS (21-34) 07/03/17 16:56 - Constitutional Appears: Well - Head Exam Head Exam: ATRAUMATIC, NORMAL INSPECTION, NORMOCEPHALIC - Eye Exam Eye Exam: EOMI, Normal appearance, PERRL Pupil Exam: NORMAL ACCOMODATION, PERRL - ENT Exam ENT Exam: Mucous Membranes Moist, Normal Exam - Neck Exam Neck Exam: Full ROM, Normal Inspection. absent: Lymphadenopathy - Respiratory Exam Respiratory Exam: Decreased Breath Sounds - Cardiovascular Exam Cardiovascular Exam: REGULAR RHYTHM, +S1, +S2 - GI/Abdominal Exam GI & Abdominal Exam: Soft, Diminished Bowel Sounds - Rectal Exam Rectal Exam: Deferred Assessment and Plan - Assessment and Plan (Free Text) Plan: Positive for response Discussed with the family CAT scan of the head Neurology Continue as ordered Psych consult to reduce the medicines
[2017-07-05 11:31] LABS: BASO % 0.6 % (0.0-2.0); EOS % 0.6 % (0.0-4.0); HEMOGLOBIN 10.1 g/dL (11.0-16.0); LYMPH # 2.8 K/uL (1.0-4.3); LYMPH % 37.8 % (20.0-40.0); MEAN CELL VOLUME 90.9 fL (81.0-99.0); MEAN CORPUSCULAR HEMOGLOBIN 30.8 pg (27.0-31.0); MEAN CORPUSCULAR HGB CONC 33.8 g/dL (33.0-37.0); MEAN PLATELET VOLUME 8.6 fL (7.2-11.7); MONO % 13.6 % (0.0-10.0); NEUT # 3.5 K/uL (1.8-7.0); NEUT % 47.4 % (50.0-75.0); RBC 3.29 Mil/uL (3.80-5.20); RED CELL DISTRIBUTION WIDTH 14.7 % (11.5-14.5); WHITE BLOOD COUNT 7.3 K/uL (4.8-10.8)
[2017-07-05 11:51] LABS: ALB/GLOB RATIO 0.9 (1.0-2.1); ALBUMIN 3.4 g/dL (3.5-5.0); ALT/SGPT 16 U/L (9-52); AST/SGOT 19 U/L (14-36); BLOOD UREA NITROGEN 18 mg/dL (7-17); CALCIUM 8.9 mg/dl (8.6-10.4); GFR AFRICAN-AMERICAN > 60; GFR NON-AFRICAN AMERICAN > 60
[2017-07-06] MEDS: Meropenem 500 MG in Sodium Chloride 0.9% 100 ML IVPB SCH ×4 (00:05→23:39)
--- NOTE | 2017-07-06 07:51 | CON ---
DATE: CARDIOLOGY CONSULTATION HISTORY OF PRESENT ILLNESS: This is an 82-year-old female, who was admitted through emergency room. The patient came to the emergency room for evaluation of high blood pressure. The patient also gets forgetful. The patient complained of fatigue. The patient has extensive psychiatric history and was recently admitted for a UTI. The patient denies having any fever or chills. No history of chest pain or shortness of breath. REVIEW OF SYSTEMS: CARDIOVASCULAR: Negative for chest pain. RESPIRATORY: Negative for shortness of breath. GI: Negative for nausea, vomiting, abdominal pain. MARKETING AND OUTREACH COORDINATOR: No focal neurological complaints offered. The patient is forgetful. EXTREMITIES: No edema of the legs. PAST HISTORY: History of Alzheimer's disease, anxiety, bipolar disorder, asthma, COPD, depression, diabetes, gastritis, hypertension, hyperlipemia, schizophrenia, and seizure disorder. The patient denies having any HIV or chronic renal problem. ALLERGIES: THE PATIENT IS NONALLERGIC TO ANYTHING. FAMILY HISTORY: No known family history. SOCIAL HISTORY: Nonsmoker, nonalcoholic, no IVDA. PHYSICAL EXAMINATION: GENERAL: This is an 82-year-old female, awake, comfortable . VITAL SIGNS: Temperature 98.4, pulse 83, respirations 20, blood pressure 162/80 mmHg, pulse ox is 94 at room air. HEENT: Normal. NECK: JVP is flat. Carotids, no bruits. LUNGS: No rales. No wheezing. HEART: S1 and S2 normal. No gallop. No murmur. ABDOMEN: Soft, nontender. No organomegaly. MARKETING AND OUTREACH COORDINATOR: No focal neurological deficit. No edema of the legs. LABORATORY DATA: Reviewed. IMPRESSION: The patient has history of syncope this morning in the hospital, hypertension, and diabetes. The patient with Alzheimer's disease and dementia. Suggest I agree with present management. We will keep observing the patient. Control the blood pressure. Other cardiac workup as needed. Claritza Cerda MD
[2017-07-06] MEDS: (Novolog) Insulin Aspart, Recombinant 100 u/ml 10 ml vial SC SCH ×4 (08:44→21:42)
--- NOTE | 2017-07-06 10:16 | CARD ---
APPROVED REPORT EKG Measurement Heart [id number] [id number] <Conclusion> Normal sinus rhythm Normal ECG
[2017-07-06] MEDS: Enoxaparin 40 mg Syringe SC SCH (10:24)
--- NOTE | 2017-07-06 12:11 | CP.PCM.PN ---
Subjective - Date & Time of Evaluation Date of Evaluation: 07/06/17 Time of Evaluation: 12:08 - Subjective Subjective: NO FURTHER SYNCOPE. CARDIAC STABLE. ECHO DONE EARLIER IS WNL. FOR MRI BRAIN. Objective - Vital Signs/Intake and Output Vital Signs (last 24 hours): Temp Pulse Resp BP Pulse Ox 98.4 F 88 22 119/72 97 07/06/17 08:03 07/06/17 08:03 07/06/17 08:03 07/06/17 08:03 07/06/17 08:03 Intake and Output: 07/06/17 07/06/17 06:59 18:59 Intake Total 250 220 Balance 250 220 - Medications Medications: Current Medications Enoxaparin Sodium (Lovenox) 40 mg SC DAILY [facility] Last Admin: 07/06/17 10:24 Dose: 40 mg Gabapentin (Neurontin) 200 mg PO TID [facility] Last Admin: 07/06/17 10:24 Dose: 200 mg Hydrochlorothiazide (Microzide) 12.5 mg PO DAILY [facility] Last Admin: 07/06/17 10:24 Dose: 12.5 mg Meropenem 500 mg/ Sodium (Chloride) 100 mls @ 100 mls/hr IVPB Q8H [facility] PRN Reason: Protocol Last Admin: 07/06/17 08:47 Dose: 100 mls/hr Insulin Aspart (Novolog) 0 unit SC ACHS [facility] PRN Reason: Protocol Last Admin: 07/06/17 08:44 Dose: 1 unit Losartan Potassium (Cozaar) 100 mg PO DAILY [facility] Last Admin: 07/06/17 10:24 Dose: 100 mg Metformin HCl (Glucophage) 1,000 mg PO BID [facility] Last Admin: 07/06/17 10:24 Dose: 1,000 mg Mirtazapine (Remeron) 7.5 mg PO HS [facility] Last Admin: 07/05/17 22:09 Dose: 7.5 mg Quetiapine Fumarate (Seroquel) 300 mg PO HS [facility] Last Admin: 07/05/17 22:08 Dose: 300 mg Rosuvastatin Calcium (Crestor) 5 mg PO HS [facility] Last Admin: 07/05/17 22:11 Dose: 5 mg - Labs Labs: 07/05/17 11:15 07/05/17 11:15 PT 12.3 SECONDS (9.7-12.2) H 07/03/17 16:56 INR 1.1 07/03/17 16:56 APTT 30 SECONDS (21-34) 07/03/17 16:56 - Constitutional Appears: No Acute Distress, Chronically Ill - Eye Exam Eye Exam: PERRL - ENT Exam ENT Exam: Mucous Membranes Moist, Normal Exam - Neck Exam Neck Exam: Full ROM, Normal Inspection. absent: Lymphadenopathy - Respiratory Exam Respiratory Exam: Clear to Ausculation Bilateral, NORMAL BREATHING PATTERN - Cardiovascular Exam Cardiovascular Exam: REGULAR RHYTHM, +S1, +S2. absent: Murmur - GI/Abdominal Exam GI & Abdominal Exam: Soft, Normal Bowel Sounds. absent: Tenderness - Neurological Exam Neurological Exam: Alert, Awake, CN II-XII Intact, Normal Gait, Oriented x3 - Psychiatric Exam Psychiatric exam: Normal Affect, Normal Mood Assessment and Plan - Assessment and Plan (Free Text) Assessment: UTI GM POD COCCI. SYNCOPE. DM HTN. Plan: CT PRESENT TREAMENT.
--- NOTE | 2017-07-06 15:48 | MRI ---
PROCEDURE: MRI of the brain dated 07/06/2017 HISTORY: change of mental status COMPARISON: Comparison made with CT scan of the brain and CTA neck and brain both dated 07/05/2017 TECHNIQUE: Multiplanar, multisequence MR images of the brain were obtained without intravenous contrast enhancement. FINDINGS: HEMORRHAGE: No acute parenchymal, subarachnoid nor extra-axial hemorrhage. No evidence of hemosiderin deposition is identified on gradient echo weighted sequence. DWI: No evidence of an acute or early subacute infarction seen on diffusion imaging. BRAIN PARENCHYMA: Mild to moderate diffuse/confluent chronic periventricular white matter ischemic changes seen extending peripherally into the deep and subcortical white matter both cerebral hemispheres. Multiple more discrete smaller chronic infarct changes scattered about the deep and subcortical white matter, both basal nuclei and both cerebellar hemispheres. There is also a more discrete chronic appearing right basal ganglia infarct as well. Moderate generalized volume loss. VENTRICLES: No obstructive hydrocephalus. CRANIUM: No acute calvarial abnormalities are identified ORBITS: Changes of bilateral cataract surgery are noted PARANASAL SINUSES/MASTOIDS: The visualized paranasal sinuses well-developed and currently well-aerated. No fluid levels seen to suggest acute sinusitis. Mastoid air complexes appear unremarkable. VASCULAR SYSTEM: Visualized major vascular flow voids at skull base patent. . OTHER FINDINGS: None. IMPRESSION: No acute intracranial hemorrhage or infarction. Chronic white matter, basal nuclei and both bilateral cerebellar ischemic changes. . Moderate generalized volume loss.
[2017-07-06 16:34] VITALS: RESP 20
--- NOTE | 2017-07-06 17:09 | CP.PCM.PN ---
Subjective - Date & Time of Evaluation Date of Evaluation: 07/06/17 Time of Evaluation: 08:00 - Subjective Subjective: clinically same Objective - Vital Signs/Intake and Output Vital Signs (last 24 hours): Temp Pulse Resp BP Pulse Ox 99.1 F 81 20 136/69 97 07/06/17 16:00 07/06/17 16:00 07/06/17 16:00 07/06/17 16:00 07/06/17 16:00 Intake and Output: 07/06/17 07/06/17 06:59 18:59 Intake Total 250 720 Balance 250 720 - Medications Medications: Current Medications Enoxaparin Sodium (Lovenox) 40 mg SC DAILY [facility] Last Admin: 07/06/17 10:24 Dose: 40 mg Gabapentin (Neurontin) 200 mg PO TID [facility] Last Admin: 07/06/17 14:24 Dose: 200 mg Hydrochlorothiazide (Microzide) 12.5 mg PO DAILY [facility] Last Admin: 07/06/17 10:24 Dose: 12.5 mg Meropenem 500 mg/ Sodium (Chloride) 100 mls @ 100 mls/hr IVPB Q8H [facility] PRN Reason: Protocol Last Admin: 07/06/17 08:47 Dose: 100 mls/hr Insulin Aspart (Novolog) 0 unit SC ACHS [facility] PRN Reason: Protocol Last Admin: 07/06/17 12:22 Dose: Not Given Losartan Potassium (Cozaar) 100 mg PO DAILY [facility] Last Admin: 07/06/17 10:24 Dose: 100 mg Metformin HCl (Glucophage) 1,000 mg PO BID [facility] Last Admin: 07/06/17 10:24 Dose: 1,000 mg Mirtazapine (Remeron) 7.5 mg PO [facility] Last Admin: 07/05/17 22:09 Dose: 7.5 mg Quetiapine Fumarate (Seroquel) 300 mg PO HS [facility] Last Admin: 07/05/17 22:08 Dose: 300 mg Rosuvastatin Calcium (Crestor) 5 mg PO [facility] Last Admin: 07/05/17 22:11 Dose: 5 mg - Labs Labs: 07/05/17 11:15 07/05/17 11:15 PT 12.3 SECONDS (9.7-12.2) H 07/03/17 16:56 INR 1.1 07/03/17 16:56 APTT 30 SECONDS (21-34) 07/03/17 16:56 - Constitutional Appears: Well - Head Exam Head Exam: ATRAUMATIC, NORMAL INSPECTION, NORMOCEPHALIC - Eye Exam Eye Exam: EOMI, Normal appearance, PERRL Pupil Exam: NORMAL ACCOMODATION, PERRL - ENT Exam ENT Exam: Mucous Membranes Moist, Normal Exam - Neck Exam Neck Exam: Full ROM, Normal Inspection. absent: Lymphadenopathy - Respiratory Exam Respiratory Exam: Decreased Breath Sounds - Cardiovascular Exam Cardiovascular Exam: REGULAR RHYTHM, +S1, +S2 - GI/Abdominal Exam GI & Abdominal Exam: Soft, Diminished Bowel Sounds - Rectal Exam Rectal Exam: Deferred
--- NOTE | 2017-07-06 18:57 | CP.PCM.PN ---
Subjective - Date & Time of Evaluation Date of Evaluation: 07/06/17 Time of Evaluation: 09:00 - Subjective Subjective: c/o pain left foot suggest podiatry eval\cont wound care and IV antibotics Objective - Vital Signs/Intake and Output Vital Signs (last 24 hours): Temp Pulse Resp BP Pulse Ox 99.1 F 81 20 136/69 97 07/06/17 16:00 07/06/17 16:00 07/06/17 16:00 07/06/17 16:00 07/06/17 16:00 Intake and Output: 07/06/17 07/06/17 06:59 18:59 Intake Total 250 720 Balance 250 720 - Medications Medications: Current Medications Enoxaparin Sodium (Lovenox) 40 mg SC DAILY [facility] Last Admin: 07/06/17 10:24 Dose: 40 mg Gabapentin (Neurontin) 200 mg PO TID [facility] Last Admin: 07/06/17 17:26 Dose: 200 mg Hydrochlorothiazide (Microzide) 12.5 mg PO DAILY [facility] Last Admin: 07/06/17 10:24 Dose: 12.5 mg Meropenem 500 mg/ Sodium (Chloride) 100 mls @ 100 mls/hr IVPB Q8H [facility] PRN Reason: Protocol Last Admin: 07/06/17 16:00 Dose: 100 mls/hr Insulin Aspart (Novolog) 0 unit SC ACHS [facility] PRN Reason: Protocol Last Admin: 07/06/17 16:30 Dose: Not Given Losartan Potassium (Cozaar) 100 mg PO DAILY [facility] Last Admin: 07/06/17 10:24 Dose: 100 mg Metformin HCl (Glucophage) 1,000 mg PO BID [facility] Last Admin: 07/06/17 17:26 Dose: 1,000 mg Mirtazapine (Remeron) 7.5 mg PO HS [facility] Last Admin: 07/05/17 22:09 Dose: 7.5 mg Quetiapine Fumarate (Seroquel) 300 mg PO HS [facility] Last Admin: 07/05/17 22:08 Dose: 300 mg Rosuvastatin Calcium (Crestor) 5 mg PO HS [facility] Last Admin: 07/05/17 22:11 Dose: 5 mg - Labs Labs: 07/05/17 11:15 07/05/17 11:15 PT 12.3 SECONDS (9.7-12.2) H 07/03/17 16:56 INR 1.1 07/03/17 16:56 APTT 30 SECONDS (21-34) 07/03/17 16:56 - Constitutional Appears: Non-toxic, Chronically Ill - Head Exam Head Exam: NORMOCEPHALIC - Eye Exam Eye Exam: PERRL - ENT Exam ENT Exam: Mucous Membranes Dry - Neck Exam Neck Exam: absent: Lymphadenopathy - Respiratory Exam Respiratory Exam: Decreased Breath Sounds - Cardiovascular Exam Cardiovascular Exam: REGULAR RHYTHM - GI/Abdominal Exam GI & Abdominal Exam: Distended - Rectal Exam Rectal Exam: Deferred Assessment and Plan (1) Confusion Status: Acute (2) Non healing left heel wound Status: Acute (3) Dementia Status: Chronic (4) E. coli UTI (urinary tract infection) Status: Acute
--- NOTE | 2017-07-06 22:40 | CARD ---
APPROVED REPORT EKG Measurement Heart [id number] <Conclusion> Normal sinus rhythm Nonspecific ST and T wave abnormality Abnormal ECG
[2017-07-07 07:28] LABS: BASO # 0.1 K/uL (0.0-0.2); BASO % 0.9 % (0.0-2.0); EOS % 0.4 % (0.0-4.0); HEMOGLOBIN 10.6 g/dL (11.0-16.0); LYMPH # 2.4 K/uL (1.0-4.3); LYMPH % 28.5 % (20.0-40.0); MEAN CELL VOLUME 91.4 fL (81.0-99.0); MEAN CORPUSCULAR HEMOGLOBIN 30.6 pg (27.0-31.0); MEAN CORPUSCULAR HGB CONC 33.5 g/dL (33.0-37.0); MONO # 0.9 K/uL (0.0-0.8); MONO % 10.7 % (0.0-10.0); NEUT # 4.9 K/uL (1.8-7.0); NEUT % 59.5 % (50.0-75.0); RBC 3.45 Mil/uL (3.80-5.20); RED CELL DISTRIBUTION WIDTH 14.4 % (11.5-14.5); WHITE BLOOD COUNT 8.3 K/uL (4.8-10.8)
[2017-07-07 07:51] LABS: ALB/GLOB RATIO 0.9 (1.0-2.1); ALBUMIN 3.6 g/dL (3.5-5.0); ALT/SGPT 14 U/L (9-52); AST/SGOT 19 U/L (14-36); BLOOD UREA NITROGEN 19 mg/dL (7-17); CALCIUM 9.2 mg/dl (8.6-10.4); GFR AFRICAN-AMERICAN > 60; GFR NON-AFRICAN AMERICAN > 60
[2017-07-07] MEDS: (Novolog) Insulin Aspart, Recombinant 100 u/ml 10 ml vial SC SCH ×4 (08:03→22:55)
--- NOTE | 2017-07-07 08:39 | RAD ---
Left foot two views History: Osteomyelitis. Comparison: None available. Findings: Dorsal calcaneal spurring. Soft tissue swelling noted at the volar aspect of the forefoot. Clinical correlation. Mild hallux valgus deformity. Impression: Dorsal calcaneal spurring. Soft tissue swelling noted at the volar aspect of the forefoot. Clinical correlation. Mild hallux valgus deformity. If there is concern for acute osteomyelitis, consider further evaluation with MRI.
[2017-07-07] MEDS: Meropenem 500 MG in Sodium Chloride 0.9% 100 ML IVPB SCH (08:59)
[2017-07-07] MEDS: Enoxaparin 40 mg Syringe SC SCH (10:52)
--- NOTE | 2017-07-07 11:06 | CP.PCM.PN ---
Subjective - Date & Time of Evaluation Date of Evaluation: 07/07/17 Time of Evaluation: 11:04 - Subjective Subjective: CONDITION SAME. VS WNL. Objective - Vital Signs/Intake and Output Vital Signs (last 24 hours): Temp Pulse Resp BP Pulse Ox 99.2 F 94 H 20 156/65 H 95 07/07/17 07:24 07/07/17 07:24 07/07/17 07:24 07/07/17 07:24 07/07/17 07:24 Intake and Output: 07/07/17 07/07/17 06:59 18:59 Intake Total 600 Balance 600 - Medications Medications: Current Medications Enoxaparin Sodium (Lovenox) 40 mg SC DAILY [facility] Last Admin: 07/07/17 10:52 Dose: 40 mg Gabapentin (Neurontin) 200 mg PO TID [facility] Last Admin: 07/07/17 10:52 Dose: 200 mg Hydrochlorothiazide (Microzide) 12.5 mg PO DAILY [facility] Last Admin: 07/07/17 10:52 Dose: 12.5 mg Meropenem 500 mg/ Sodium (Chloride) 100 mls @ 100 mls/hr IVPB Q8H [facility] PRN Reason: Protocol Last Admin: 07/07/17 08:59 Dose: 100 mls/hr Insulin Aspart (Novolog) 0 unit SC ACHS [facility] PRN Reason: Protocol Last Admin: 07/07/17 08:03 Dose: Not Given Losartan Potassium (Cozaar) 100 mg PO DAILY [facility] Last Admin: 07/07/17 10:52 Dose: 100 mg Metformin HCl (Glucophage) 1,000 mg PO BID [facility] Last Admin: 07/07/17 10:52 Dose: 1,000 mg Mirtazapine (Remeron) 7.5 mg PO HS [facility] Last Admin: 07/06/17 21:40 Dose: 7.5 mg Quetiapine Fumarate (Seroquel) 300 mg PO HS [facility] Last Admin: 07/06/17 21:39 Dose: 300 mg Rosuvastatin Calcium (Crestor) 5 mg PO HS [facility] Last Admin: 07/06/17 21:41 Dose: 5 mg - Labs Labs: 07/07/17 07:17 07/07/17 07:17 PT 12.3 SECONDS (9.7-12.2) H 07/03/17 16:56 INR 1.1 07/03/17 16:56 APTT 30 SECONDS (21-34) 07/03/17 16:56 - Constitutional Appears: No Acute Distress, Chronically Ill - Eye Exam Eye Exam: EOMI, Normal appearance, PERRL Pupil Exam: NORMAL ACCOMODATION, PERRL - ENT Exam ENT Exam: Mucous Membranes Moist, Normal Exam - Neck Exam Neck Exam: Full ROM, Normal Inspection. absent: Lymphadenopathy - Respiratory Exam Respiratory Exam: Clear to Ausculation Bilateral, NORMAL BREATHING PATTERN - Cardiovascular Exam Cardiovascular Exam: REGULAR RHYTHM, +S1, +S2. absent: Murmur - GI/Abdominal Exam GI & Abdominal Exam: Soft, Normal Bowel Sounds. absent: Tenderness - Extremities Exam Extremities Exam: Full ROM, Normal Capillary Refill, Normal Inspection. absent : Joint Swelling, Pedal Edema - Neurological Exam Neurological Exam: Alert, Awake, CN II-XII Intact, Normal Gait, Oriented x3 Assessment and Plan - Assessment and Plan (Free Text) Assessment: CARDIAC STABLE. Plan: CT OTHER TREATMENT.
[2017-07-07] MEDS: Linezolid 600 mg in D5W 300 ml 600 MG/300 ML BAG IVPB SCH (13:40)
--- NOTE | 2017-07-07 14:29 | CP.PCM.CON ---
History of Present Illness - History of Present Illness History of Present Illness: 82 yr old woman who presented as code stroke, found to not be TPA candidate, due to complete resolution of symptoms that were a result of increased medication. Neuroimaging was done and ct head was normal. MIss Dunaway was admitted to [facility] for deconditioning and evaluation of hypertension, with recent admission for UTI. PMH: Alzheimer's Disease, Anxiety, Asthma, Bipolar Disorder, COPD, Depression, Diabetes (type 2), Gastritis, HTN, Hypercholesterolemia, Schizophrenia, Seizures Denies: Hepatitis, HIV, Chronic Kidney Disease, Sexually Transmitted Disease (Patient denied. None reported) Surgical History: Coronary Stent On exam: aaox2. Date is incorrect. no facial droop. CN 2-12 normal. Motor: strength normal, decreased strength legs bilaterally. Sensory: decresed ft, pin ower limbs bilaterally. +2 dtr ul and ll bl. Gait not tested. Past Patient History - Past Medical History & Family History Past Medical History?: Yes - Past Social History Smoking Status: Never Smoked - CARDIAC Hx Hypercholesterolemia: Yes Hx Hypertension: Yes - PULMONARY Hx Chronic Obstructive Pulmonary Disease (COPD): Yes - NEUROLOGICAL Hx Alzheimer's Disease: Yes Hx Seizures: Yes - HEENT Hx HEENT Problems: No - RENAL Hx Chronic Kidney Disease: No - ENDOCRINE/METABOLIC Hx Diabetes Mellitus Type 2: Yes - HEMATOLOGICAL/ONCOLOGICAL Hx Human Immunodeficiency Virus (HIV): No - INTEGUMENTARY Hx Dermatological Problems: No - MUSCULOSKELETAL/RHEUMATOLOGICAL Hx Falls: No - GASTROINTESTINAL Hx Gastritis: Yes - GENITOURINARY/GYNECOLOGICAL Hx Sexually Transmitted Disorders: No (Patient denied. None reported) - PSYCHIATRIC Hx Anxiety: Yes Hx Bipolar Disorder: Yes Hx Depression: Yes Hx Schizophrenia: Yes Hx Substance Use: No - SURGICAL HISTORY Hx Coronary Stent: Yes - ANESTHESIA Hx Anesthesia: Yes Hx Anesthesia Reactions: No Hx Malignant Hyperthermia: No Meds Allergies/Adverse Reactions: Allergies Allergy/AdvReac Type Severity Reaction Status Date / Time No Known Allergies Allergy Verified 07/03/17 15:41 - Medications Medications: Current Medications Enoxaparin Sodium (Lovenox) 40 mg SC DAILY [facility] Last Admin: 07/07/17 10:52 Dose: 40 mg Gabapentin (Neurontin) 200 mg PO TID [facility] Last Admin: 07/07/17 13:44 Dose: 200 mg Hydrochlorothiazide (Microzide) 12.5 mg PO DAILY [facility] Last Admin: 07/07/17 10:52 Dose: 12.5 mg Linezolid (Zyvox 600mg/300ml D5w) 600 mg in 300 mls @ 200 mls/hr IVPB Q12H [facility] PRN Reason: Protocol Last Admin: 07/07/17 13:40 Dose: 200 mls/hr Insulin Aspart (Novolog) 0 unit SC ACHS [facility] PRN Reason: Protocol Last Admin: 07/07/17 12:30 Dose: Not Given Losartan Potassium (Cozaar) 100 mg PO DAILY [facility] Last Admin: 07/07/17 10:52 Dose: 100 mg Metformin HCl (Glucophage) 1,000 mg PO BID [facility] Last Admin: 07/07/17 10:52 Dose: 1,000 mg Mirtazapine (Remeron) 7.5 mg PO HS [facility] Last Admin: 07/06/17 21:40 Dose: 7.5 mg Quetiapine Fumarate (Seroquel) 300 mg PO HS [facility] Last Admin: 07/06/17 21:39 Dose: 300 mg Rosuvastatin Calcium (Crestor) 5 mg PO HS [facility] Last Admin: 07/06/17 21:41 Dose: 5 mg Results - Vital Signs Recent Vital Signs: Last Vital Signs Temp 99.2 F 07/07/17 07:24 Pulse 94 H 07/07/17 07:24 Resp 20 07/07/17 07:24 BP 156/65 H 07/07/17 07:24 Pulse Ox 95 07/07/17 07:24 - Labs Result Diagrams: 07/07/17 07:17 07/07/17 07:17 Labs: Laboratory Results - last 24 hr 07/06/17 07/06/17 07/07/17 16:42 21:35 04:07 WBC RBC Hgb Hct MCV MCH MCHC RDW Plt Count MPV Neut % (Auto) Lymph % (Auto) [place] % (Auto) Eos % (Auto) Baso % (Auto) Neut # (Auto) Lymph # (Auto) [place] # (Auto) Eos # (Auto) Baso # (Auto) Sodium Potassium Chloride Carbon Dioxide Anion Gap BUN Creatinine Est GFR ( Amer) Est GFR (Non-Af Amer) POC Glucose (mg/dL) 133 H 144 H 176 H Random Glucose Calcium Total Bilirubin AST ALT Alkaline Phosphatase C-React Prot High Sens Total Protein Albumin Globulin Albumin/Globulin Ratio 07/07/17 07/07/17 07/07/17 07:10 07:17 07:17 WBC 8.3 RBC 3.45 L Hgb 10.6 L Hct 31.5 L MCV 91.4 MCH 30.6 MCHC 33.5 RDW 14.4 Plt Count 414 H MPV 9.0 Neut % (Auto) 59.5 Lymph % (Auto) 28.5 [place] % (Auto) 10.7 H Eos % (Auto) 0.4 Baso % (Auto) 0.9 Neut # (Auto) 4.9 Lymph # (Auto) 2.4 [place] # (Auto) 0.9 H Eos # (Auto) 0.0 Baso # (Auto) 0.1 Sodium 140 Potassium 4.5 Chloride 100 Carbon Dioxide 28 Anion Gap 17 BUN 19 H Creatinine 0.7 Est GFR ( Amer) > 60 Est GFR (Non-Af Amer) > 60 POC Glucose (mg/dL) 148 H Random Glucose 151 H Calcium 9.2 Total Bilirubin 0.5 AST 19 ALT 14 Alkaline Phosphatase 81 C-React Prot High Sens Total Protein 7.6 Albumin 3.6 Globulin 4.1 H Albumin/Globulin Ratio 0.9 L 07/07/17 07/07/17 07:17 11:10 WBC RBC Hgb Hct MCV MCH MCHC RDW Plt Count MPV Neut % (Auto) Lymph % (Auto) [place] % (Auto) Eos % (Auto) Baso % (Auto) Neut # (Auto) Lymph # (Auto) [place] # (Auto) Eos # (Auto) Baso # (Auto) Sodium Potassium Chloride Carbon Dioxide Anion Gap BUN Creatinine Est GFR ( Amer) Est GFR (Non-Af Amer) POC Glucose (mg/dL) 183 H Random Glucose Calcium Total Bilirubin AST ALT Alkaline Phosphatase C-React Prot High Sens 12.34 H Total Protein Albumin Globulin Albumin/Globulin Ratio - Imaging and Cardiology CT scan - head Status: Image reviewed by me, Report reviewed by me Assessment & Plan - Assessment and Plan (Free Text) Assessment: 82 yr old woman with dementia, who did not have an ischemic process on rapid response, and has baseline dementia. PLan: 1. Start aricept 2. B12 3. No further neuroimaging recommended. DR. issac MD
--- NOTE | 2017-07-07 18:01 | CP.PCM.PN ---
Subjective - Date & Time of Evaluation Date of Evaluation: 07/07/17 Time of Evaluation: 08:00 - Subjective Subjective: clinically same Objective - Vital Signs/Intake and Output Vital Signs (last 24 hours): Temp Pulse Resp BP Pulse Ox 98.5 F 82 20 175/89 H 97 07/07/17 16:00 07/07/17 16:00 07/07/17 16:00 07/07/17 16:00 07/07/17 16:00 Intake and Output: 07/07/17 07/07/17 06:59 18:59 Intake Total 600 750 Balance 600 750 - Medications Medications: Current Medications Enoxaparin Sodium (Lovenox) 40 mg SC DAILY [facility] Last Admin: 07/07/17 10:52 Dose: 40 mg Gabapentin (Neurontin) 200 mg PO TID [facility] Last Admin: 07/07/17 17:42 Dose: 200 mg Hydrochlorothiazide (Microzide) 12.5 mg PO DAILY [facility] Last Admin: 07/07/17 10:52 Dose: 12.5 mg Linezolid (Zyvox 600mg/300ml D5w) 600 mg in 300 mls @ 200 mls/hr IVPB Q12H [facility] PRN Reason: Protocol Last Admin: 07/07/17 13:40 Dose: 200 mls/hr Insulin Aspart (Novolog) 0 unit SC ACHS [facility] PRN Reason: Protocol Last Admin: 07/07/17 17:43 Dose: 1 unit Losartan Potassium (Cozaar) 100 mg PO DAILY [facility] Last Admin: 07/07/17 10:52 Dose: 100 mg Metformin HCl (Glucophage) 1,000 mg PO BID [facility] Last Admin: 07/07/17 17:42 Dose: 1,000 mg Mirtazapine (Remeron) 7.5 mg PO HS [facility] Last Admin: 07/06/17 21:40 Dose: 7.5 mg Quetiapine Fumarate (Seroquel) 300 mg PO HS [facility] Last Admin: 07/06/17 21:39 Dose: 300 mg Rosuvastatin Calcium (Crestor) 5 mg PO HS [facility] Last Admin: 07/06/17 21:41 Dose: 5 mg - Labs Labs: 07/07/17 07:17 07/07/17 07:17 PT 12.3 SECONDS (9.7-12.2) H 04/03/18 16:56 INR 1.1 07/03/17 16:56 APTT 30 SECONDS (21-34) 07/03/17 16:56 - Constitutional Appears: Well - Head Exam Head Exam: ATRAUMATIC, NORMAL INSPECTION, NORMOCEPHALIC - Eye Exam Eye Exam: EOMI, Normal appearance, PERRL Pupil Exam: NORMAL ACCOMODATION, PERRL - ENT Exam ENT Exam: Mucous Membranes Moist, Normal Exam - Respiratory Exam Respiratory Exam: Decreased Breath Sounds - Cardiovascular Exam Cardiovascular Exam: REGULAR RHYTHM, +S1, +S2 - GI/Abdominal Exam GI & Abdominal Exam: Soft, Diminished Bowel Sounds - Rectal Exam Rectal Exam: Deferred
[2017-07-08] MEDS: Linezolid 600 mg in D5W 300 ml 600 MG/300 ML BAG IVPB SCH ×2 (01:03→12:27)
[2017-07-08 07:53] LABS: BASO # 0.1 K/uL (0.0-0.2); BASO % 0.7 % (0.0-2.0); EOS # 0.1 K/uL (0.0-0.7); EOS % 0.6 % (0.0-4.0); HEMOGLOBIN 10.2 g/dL (11.0-16.0); LYMPH # 2.1 K/uL (1.0-4.3); LYMPH % 26.3 % (20.0-40.0); MEAN CELL VOLUME 90.5 fL (81.0-99.0); MEAN CORPUSCULAR HEMOGLOBIN 30.6 pg (27.0-31.0); MEAN CORPUSCULAR HGB CONC 33.8 g/dL (33.0-37.0); MEAN PLATELET VOLUME 9.7 fL (7.2-11.7); MONO # 0.9 K/uL (0.0-0.8); MONO % 11.7 % (0.0-10.0); NEUT # 4.8 K/uL (1.8-7.0); NEUT % 60.7 % (50.0-75.0); RBC 3.33 Mil/uL (3.80-5.20)
[2017-07-08] MEDS: (Novolog) Insulin Aspart, Recombinant 100 u/ml 10 ml vial SC SCH ×4 (08:18→22:20)
[2017-07-08 08:19] LABS: ALB/GLOB RATIO 0.9 (1.0-2.1); ALBUMIN 3.4 g/dL (3.5-5.0); ALT/SGPT 14 U/L (9-52); AST/SGOT 16 U/L (14-36); BLOOD UREA NITROGEN 22 mg/dL (7-17); GFR AFRICAN-AMERICAN > 60; GFR NON-AFRICAN AMERICAN > 60
[2017-07-08] MEDS: Enoxaparin 40 mg Syringe SC SCH (09:31)
--- NOTE | 2017-07-08 15:08 | CP.PCM.PN ---
Subjective - Date & Time of Evaluation Date of Evaluation: 07/08/17 Time of Evaluation: 08:00 - Subjective Subjective: clinically same Objective - Vital Signs/Intake and Output Vital Signs (last 24 hours): Temp Pulse Resp BP Pulse Ox 97.6 F 88 20 147/75 98 07/08/17 08:00 07/08/17 08:00 07/08/17 08:00 07/08/17 08:00 07/08/17 08:00 Intake and Output: 07/08/17 07/08/17 06:59 18:59 Intake Total 600 Balance 600 - Medications Medications: Current Medications Enoxaparin Sodium (Lovenox) 40 mg SC DAILY [facility] Last Admin: 07/08/17 09:31 Dose: 40 mg Gabapentin (Neurontin) 200 mg PO TID [facility] Last Admin: 07/08/17 14:53 Dose: 200 mg Hydrochlorothiazide (Microzide) 12.5 mg PO DAILY [facility] Last Admin: 07/08/17 09:29 Dose: 12.5 mg Linezolid (Zyvox 600mg/300ml D5w) 600 mg in 300 mls @ 200 mls/hr IVPB Q12H [facility] PRN Reason: Protocol Last Admin: 07/08/17 12:27 Dose: 200 mls/hr Insulin Aspart (Novolog) 0 unit SC ACHS [facility] PRN Reason: Protocol Last Admin: 07/08/17 12:25 Dose: 1 unit Losartan Potassium (Cozaar) 100 mg PO DAILY [facility] Last Admin: 07/08/17 09:29 Dose: 100 mg Metformin HCl (Glucophage) 1,000 mg PO BID [facility] Last Admin: 07/08/17 09:29 Dose: 1,000 mg Mirtazapine (Remeron) 7.5 mg PO HS [facility] Last Admin: 07/07/17 21:00 Dose: 7.5 mg Quetiapine Fumarate (Seroquel) 300 mg PO HS [facility] Last Admin: 07/07/17 21:00 Dose: 300 mg Rosuvastatin Calcium (Crestor) 5 mg PO HS [facility] Last Admin: 07/07/17 22:55 Dose: 5 mg Tramadol HCl (Ultram) 50 mg PO Q6 PRN PRN Reason: Pain, moderate (4-7) Last Admin: 07/08/17 01:20 Dose: 50 mg - Labs Labs: 07/08/17 07:40 07/08/17 07:40 PT 12.3 SECONDS (9.7-12.2) H 07/03/17 16:56 INR 1.1 07/03/17 16:56 APTT 30 SECONDS (21-34) 07/03/17 16:56 - Constitutional Appears: Well - Head Exam Head Exam: ATRAUMATIC, NORMAL INSPECTION, NORMOCEPHALIC - Eye Exam Eye Exam: EOMI, Normal appearance, PERRL Pupil Exam: NORMAL ACCOMODATION, PERRL - ENT Exam ENT Exam: Mucous Membranes Moist, Normal Exam - Neck Exam Neck Exam: Full ROM, Normal Inspection. absent: Lymphadenopathy - Respiratory Exam Respiratory Exam: Decreased Breath Sounds - Cardiovascular Exam Cardiovascular Exam: REGULAR RHYTHM, +S1, +S2 - GI/Abdominal Exam GI & Abdominal Exam: Soft, Diminished Bowel Sounds - Rectal Exam Rectal Exam: Deferred
--- NOTE | 2017-07-08 15:19 | CP.PCM.PN ---
Subjective - Date & Time of Evaluation Date of Evaluation: 07/08/17 Time of Evaluation: 08:00 - Subjective Subjective: +VRE urine Zyvox added recc: MRI foot to r/o OM and podiatry eval Objective - Vital Signs/Intake and Output Vital Signs (last 24 hours): Temp Pulse Resp BP Pulse Ox 97.6 F 88 20 147/75 98 07/08/17 08:00 07/08/17 08:00 07/08/17 08:00 07/08/17 08:00 07/08/17 08:00 Intake and Output: 07/08/17 07/08/17 06:59 18:59 Intake Total 600 Balance 600 - Medications Medications: Current Medications Enoxaparin Sodium (Lovenox) 40 mg SC DAILY [facility] Last Admin: 07/08/17 09:31 Dose: 40 mg Gabapentin (Neurontin) 200 mg PO TID [facility] Last Admin: 07/08/17 14:53 Dose: 200 mg Hydrochlorothiazide (Microzide) 12.5 mg PO DAILY [facility] Last Admin: 07/08/17 09:29 Dose: 12.5 mg Linezolid (Zyvox 600mg/300ml D5w) 600 mg in 300 mls @ 200 mls/hr IVPB Q12H [facility] PRN Reason: Protocol Last Admin: 07/08/17 12:27 Dose: 200 mls/hr Insulin Aspart (Novolog) 0 unit SC ACHS [facility] PRN Reason: Protocol Last Admin: 07/08/17 12:25 Dose: 1 unit Losartan Potassium (Cozaar) 100 mg PO DAILY [facility] Last Admin: 07/08/17 09:29 Dose: 100 mg Metformin HCl (Glucophage) 1,000 mg PO BID [facility] Last Admin: 07/08/17 09:29 Dose: 1,000 mg Mirtazapine (Remeron) 7.5 mg PO HS [facility] Last Admin: 07/07/17 21:00 Dose: 7.5 mg Quetiapine Fumarate (Seroquel) 300 mg PO HS [facility] Last Admin: 07/07/17 21:00 Dose: 300 mg Rosuvastatin Calcium (Crestor) 5 mg PO HS [facility] Last Admin: 07/07/17 22:55 Dose: 5 mg Tramadol HCl (Ultram) 50 mg PO Q6 PRN PRN Reason: Pain, moderate (4-7) Last Admin: 07/08/17 01:20 Dose: 50 mg - Labs Labs: 07/08/17 07:40 07/08/17 07:40 PT 12.3 SECONDS (9.7-12.2) H 07/03/17 16:56 INR 1.1 07/03/17 16:56 APTT 30 SECONDS (21-34) 07/03/17 16:56 - Constitutional Appears: Non-toxic, Chronically Ill - Head Exam Head Exam: NORMOCEPHALIC - Eye Exam Eye Exam: PERRL - ENT Exam ENT Exam: Mucous Membranes Dry - Neck Exam Neck Exam: absent: Lymphadenopathy - Respiratory Exam Respiratory Exam: Decreased Breath Sounds - Cardiovascular Exam Cardiovascular Exam: REGULAR RHYTHM - GI/Abdominal Exam GI & Abdominal Exam: Distended, Soft Assessment and Plan (1) Confusion Status: Acute (2) Non healing left heel wound Status: Acute (3) Dementia Status: Chronic (4) E. coli UTI (urinary tract infection) Status: Acute - Assessment and Plan (Free Text) Assessment: recc: MRI to r/o OM and podiatry eval kunal
--- NOTE | 2017-07-08 21:05 | CP.PCM.PN ---
Subjective - Date & Time of Evaluation Date of Evaluation: 07/08/17 Time of Evaluation: 11:00 - Subjective Subjective: CONDITION STABLE. Objective - Vital Signs/Intake and Output Vital Signs (last 24 hours): Temp Pulse Resp BP Pulse Ox 98.3 F 74 20 153/74 H 96 07/08/17 16:00 07/08/17 16:00 07/08/17 16:00 07/08/17 16:00 07/08/17 16:00 Intake and Output: 07/08/17 07/09/17 18:59 06:59 Intake Total 750 Balance 750 - Medications Medications: Current Medications Enoxaparin Sodium (Lovenox) 40 mg SC DAILY [facility] Last Admin: 07/08/17 09:31 Dose: 40 mg Gabapentin (Neurontin) 200 mg PO TID [facility] Last Admin: 07/08/17 17:49 Dose: 200 mg Hydrochlorothiazide (Microzide) 12.5 mg PO DAILY [facility] Last Admin: 07/08/17 09:29 Dose: 12.5 mg Linezolid (Zyvox 600mg/300ml D5w) 600 mg in 300 mls @ 200 mls/hr IVPB Q12H [facility] PRN Reason: Protocol Last Admin: 07/08/17 12:27 Dose: 200 mls/hr Insulin Aspart (Novolog) 0 unit SC ACHS [facility] PRN Reason: Protocol Last Admin: 07/08/17 12:25 Dose: 1 unit Losartan Potassium (Cozaar) 100 mg PO DAILY [facility] Last Admin: 07/08/17 09:29 Dose: 100 mg Metformin HCl (Glucophage) 1,000 mg PO BID [facility] Last Admin: 07/08/17 17:49 Dose: 1,000 mg Mirtazapine (Remeron) 7.5 mg PO HS [facility] Last Admin: 07/07/17 21:00 Dose: 7.5 mg Quetiapine Fumarate (Seroquel) 300 mg PO HS [facility] Last Admin: 07/07/17 21:00 Dose: 300 mg Rosuvastatin Calcium (Crestor) 5 mg PO HS [facility] Last Admin: 07/07/17 22:55 Dose: 5 mg Tramadol HCl (Ultram) 50 mg PO Q6 PRN PRN Reason: Pain, moderate (4-7) Last Admin: 07/08/17 17:57 Dose: 50 mg - Labs Labs: 07/08/17 07:40 07/08/17 07:40 PT 12.3 SECONDS (9.7-12.2) H 07/03/17 16:56 INR 1.1 07/03/17 16:56 APTT 30 SECONDS (21-34) 07/03/17 16:56 - Constitutional Appears: No Acute Distress, Chronically Ill - Eye Exam Eye Exam: EOMI, Normal appearance, PERRL Pupil Exam: NORMAL ACCOMODATION, PERRL - ENT Exam ENT Exam: Mucous Membranes Moist, Normal Exam - Respiratory Exam Respiratory Exam: Clear to Ausculation Bilateral, NORMAL BREATHING PATTERN - Cardiovascular Exam Cardiovascular Exam: REGULAR RHYTHM, +S1, +S2. absent: Murmur - GI/Abdominal Exam GI & Abdominal Exam: Soft, Normal Bowel Sounds. absent: Tenderness - Extremities Exam Extremities Exam: Full ROM, Normal Capillary Refill, Normal Inspection. absent : Joint Swelling, Pedal Edema - Back Exam Back Exam: NORMAL INSPECTION Assessment and Plan - Assessment and Plan (Free Text) Assessment: CARDIAC STABLE. Plan: CT PRESENT MANAGEMENT.
[2017-07-09] MEDS: Linezolid 600 mg in D5W 300 ml 600 MG/300 ML BAG IVPB SCH ×2 (01:05→14:28)
[2017-07-09 06:18] LABS: BASO # 0.1 K/uL (0.0-0.2); BASO % 0.7 % (0.0-2.0); EOS # 0.1 K/uL (0.0-0.7); EOS % 0.6 % (0.0-4.0); HEMOGLOBIN 10.5 g/dL (11.0-16.0); MEAN CORPUSCULAR HEMOGLOBIN 30.9 pg (27.0-31.0); MEAN CORPUSCULAR HGB CONC 34.3 g/dL (33.0-37.0); MEAN PLATELET VOLUME 8.7 fL (7.2-11.7); MONO # 0.8 K/uL (0.0-0.8); MONO % 9.5 % (0.0-10.0); NEUT # 5.5 K/uL (1.8-7.0); NEUT % 65.2 % (50.0-75.0); RBC 3.41 Mil/uL (3.80-5.20); RED CELL DISTRIBUTION WIDTH 14.2 % (11.5-14.5); WHITE BLOOD COUNT 8.4 K/uL (4.8-10.8)
[2017-07-09 06:43] LABS: ALBUMIN 3.6 g/dL (3.5-5.0); ALT/SGPT 16 U/L (9-52); AST/SGOT 13 U/L (14-36); BLOOD UREA NITROGEN 16 mg/dL (7-17); CALCIUM 8.4 mg/dl (8.6-10.4); GFR AFRICAN-AMERICAN > 60; GFR NON-AFRICAN AMERICAN > 60
[2017-07-09] MEDS: (Novolog) Insulin Aspart, Recombinant 100 u/ml 10 ml vial SC SCH ×4 (08:39→21:31)
[2017-07-09] MEDS: Enoxaparin 40 mg Syringe SC SCH (10:37)
--- NOTE | 2017-07-09 13:00 | CP.PCM.PN ---
Subjective - Date & Time of Evaluation Date of Evaluation: 07/09/17 Time of Evaluation: 12:58 - Subjective Subjective: condition same. no further syncope. vs wnl. Objective - Vital Signs/Intake and Output Vital Signs (last 24 hours): Temp Pulse Resp BP Pulse Ox 98.4 F 73 20 144/76 98 07/09/17 00:32 07/09/17 00:32 07/09/17 00:32 07/09/17 00:32 07/09/17 00:32 Intake and Output: 07/09/17 07/09/17 06:59 18:59 Intake Total 620 Output Total 400 Balance 220 - Medications Medications: Current Medications Enoxaparin Sodium (Lovenox) 40 mg SC DAILY [facility] Last Admin: 07/09/17 10:37 Dose: 40 mg Gabapentin (Neurontin) 200 mg PO TID [facility] Last Admin: 07/09/17 10:37 Dose: 200 mg Hydrochlorothiazide (Microzide) 12.5 mg PO DAILY [facility] Last Admin: 07/09/17 10:37 Dose: 12.5 mg Linezolid (Zyvox 600mg/300ml D5w) 600 mg in 300 mls @ 200 mls/hr IVPB Q12H [facility] PRN Reason: Protocol Last Admin: 07/09/17 01:05 Dose: 200 mls/hr Insulin Aspart (Novolog) 0 unit SC ACHS [facility] PRN Reason: Protocol Last Admin: 07/09/17 12:21 Dose: 2 unit Losartan Potassium (Cozaar) 100 mg PO DAILY [facility] Last Admin: 07/09/17 10:37 Dose: 100 mg Metformin HCl (Glucophage) 1,000 mg PO BID [facility] Last Admin: 07/09/17 10:38 Dose: 1,000 mg Mirtazapine (Remeron) 7.5 mg PO HS [facility] Last Admin: 07/08/17 22:20 Dose: Not Given Quetiapine Fumarate (Seroquel) 300 mg PO HS [facility] Last Admin: 07/08/17 22:21 Dose: Not Given Rosuvastatin Calcium (Crestor) 5 mg PO HS [facility] Last Admin: 07/08/17 22:19 Dose: Not Given Tramadol HCl (Ultram) 50 mg PO Q6 PRN PRN Reason: Pain, moderate (4-7) Last Admin: 07/09/17 10:38 Dose: 50 mg - Labs Labs: 07/09/17 06:09 07/09/17 06:09 PT 12.3 SECONDS (9.7-12.2) H 07/03/17 16:56 INR 1.1 07/03/17 16:56 APTT 30 SECONDS (21-34) 07/03/17 16:56 - Constitutional Appears: No Acute Distress, Chronically Ill - Eye Exam Eye Exam: EOMI, Normal appearance, PERRL Pupil Exam: NORMAL ACCOMODATION, PERRL - ENT Exam ENT Exam: Mucous Membranes Moist, Normal Exam - Neck Exam Neck Exam: Full ROM, Normal Inspection. absent: Lymphadenopathy - Respiratory Exam Respiratory Exam: Clear to Ausculation Bilateral, NORMAL BREATHING PATTERN - Cardiovascular Exam Cardiovascular Exam: REGULAR RHYTHM, +S1, +S2. absent: Murmur - GI/Abdominal Exam GI & Abdominal Exam: Soft, Normal Bowel Sounds. absent: Tenderness - Neurological Exam Neurological Exam: Alert, Awake, CN II-XII Intact, Normal Gait, Oriented x3 Assessment and Plan - Assessment and Plan (Free Text) Assessment: cardiac stable. Plan: ct present treatment.
--- NOTE | 2017-07-09 13:41 | CP.PCM.PN ---
Subjective - Date & Time of Evaluation Date of Evaluation: 07/09/17 Time of Evaluation: 07:40 - Subjective Subjective: clinically same Objective - Vital Signs/Intake and Output Vital Signs (last 24 hours): Temp Pulse Resp BP Pulse Ox 98.4 F 73 20 144/76 98 07/09/17 00:32 07/09/17 00:32 07/09/17 00:32 07/09/17 00:32 07/09/17 00:32 Intake and Output: 07/09/17 07/09/17 06:59 18:59 Intake Total 620 Output Total 400 Balance 220 - Medications Medications: Current Medications Enoxaparin Sodium (Lovenox) 40 mg SC DAILY [facility] Last Admin: 07/09/17 10:37 Dose: 40 mg Gabapentin (Neurontin) 200 mg PO TID [facility] Last Admin: 07/09/17 10:37 Dose: 200 mg Hydrochlorothiazide (Microzide) 12.5 mg PO DAILY [facility] Last Admin: 07/09/17 10:37 Dose: 12.5 mg Linezolid (Zyvox 600mg/300ml D5w) 600 mg in 300 mls @ 200 mls/hr IVPB Q12H [facility] PRN Reason: Protocol Last Admin: 07/09/17 01:05 Dose: 200 mls/hr Insulin Aspart (Novolog) 0 unit SC ACHS [facility] PRN Reason: Protocol Last Admin: 07/09/17 12:21 Dose: 2 unit Losartan Potassium (Cozaar) 100 mg PO DAILY [facility] Last Admin: 07/09/17 10:37 Dose: 100 mg Metformin HCl (Glucophage) 1,000 mg PO BID [facility] Last Admin: 07/09/17 10:38 Dose: 1,000 mg Mirtazapine (Remeron) 7.5 mg PO HS [facility] Last Admin: 07/08/17 22:20 Dose: Not Given Quetiapine Fumarate (Seroquel) 300 mg PO HS [facility] Last Admin: 07/08/17 22:21 Dose: Not Given Rosuvastatin Calcium (Crestor) 5 mg PO HS [facility] Last Admin: 07/08/17 22:19 Dose: Not Given Tramadol HCl (Ultram) 50 mg PO Q6 PRN PRN Reason: Pain, moderate (4-7) Last Admin: 07/09/17 10:38 Dose: 50 mg - Labs Labs: 07/09/17 06:09 07/09/17 06:09 PT 12.3 SECONDS (9.7-12.2) H 07/03/17 16:56 INR 1.1 07/03/17 16:56 APTT 30 SECONDS (21-34) 07/03/17 16:56 - Constitutional Appears: Well - Head Exam Head Exam: ATRAUMATIC, NORMAL INSPECTION, NORMOCEPHALIC - Eye Exam Eye Exam: EOMI, Normal appearance, PERRL Pupil Exam: NORMAL ACCOMODATION, PERRL - ENT Exam ENT Exam: Mucous Membranes Moist, Normal Exam - Neck Exam Neck Exam: Full ROM, Normal Inspection. absent: Lymphadenopathy - Respiratory Exam Respiratory Exam: Decreased Breath Sounds - Cardiovascular Exam Cardiovascular Exam: REGULAR RHYTHM, +S1, +S2 - GI/Abdominal Exam GI & Abdominal Exam: Soft, Diminished Bowel Sounds - Rectal Exam Rectal Exam: Deferred
--- NOTE | 2017-07-09 14:48 | MRI ---
MRI left ankle and hindfoot History: Nonhealing ulcer. Evaluate for osteomyelitis. Comparison: X-ray dated 07/07/2017 Technique: Multi-echo multiplanar sequences were performed through the left ankle and hindfoot without the use of intravenous contrast. Findings: Soft tissue ulceration seen at the medial posterior hindfoot at the level of the subcutaneous soft tissues. Adjacent signal abnormality extending into the medial plantar sided musculature best seen on series 4 images 8-13 as well as series 6 images 16 through 20 suggestive for a possible myositis which may be secondary to acute infectious and or inflammatory changes. The signal abnormality within the musculature approximates the posterior medial cortex of the calcaneus as demonstrated on series 4, image 8 without evidence of gross marrow signal abnormality in the calcaneus suggestive for some mild reactive. No evidence of gross acute osteomyelitis is noted at this juncture; however, continued interval followup may be helpful to exclude developing acute osteomyelitis. Anterior extensor tendons are preserved. Mild tenosynovitis of the posterior tibial tendon sheath. Remainder of the medial flexor tendons are preserved. Peroneal tendons are preserved. Anterior and posterior tibiofibular ligaments and anterior posterior talofibular ligaments are preserved. Minimal nonspecific reactive edema seen at the lateral aspect of the distal fibula. Clinical correlation. Mild increased signal seen within the Lisfranc ligament suggestive for a low grade sprain. Achilles tendon is preserved. Mild thickening of plantar fascia. 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 Minimal adjacent reactive edema seen within the mid calcaneus at the level of the sinus tarsi. Trace ankle joint effusion. Degenerative changes noted at the talonavicular joint space at its dorsal aspect. Deltoid ligament is preserved. Impression: 1. Soft tissue ulceration seen at the medial posterior hindfoot at the level of the subcutaneous soft tissues. Adjacent signal abnormality extending into the medial plantar sided musculature best seen on series 4 images 8-13 as well as series 6 images 16 through 20 suggestive for a possible myositis which may be secondary to acute infectious and or inflammatory changes. The signal abnormality within the musculature approximates the posterior medial cortex of the calcaneus as demonstrated on series 4, image 8 without evidence of gross marrow signal abnormality in the calcaneus suggestive for some mild reactive. No evidence of gross acute osteomyelitis is noted at this juncture; however, continued interval followup may be helpful to exclude developing acute osteomyelitis. 2. Mild tenosynovitis of the posterior tibial tendon sheath. 3. Minimal nonspecific reactive edema seen at the lateral aspect of the distal fibula. Clinical correlation. 4. Mild increased signal seen within the Lisfranc ligament suggestive for a low grade sprain. 5. Mild thickening of plantar fascia. 6. 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 Minimal adjacent reactive edema seen within the mid calcaneus at the level of the sinus tarsi. 7. Trace ankle joint effusion. 8. Degenerative changes noted at the talonavicular joint space at its dorsal aspect.
[2017-07-10] MEDS: Linezolid 600 mg in D5W 300 ml 600 MG/300 ML BAG IVPB SCH ×2 (00:02→14:25)
[2017-07-10] MEDS: (Novolog) Insulin Aspart, Recombinant 100 u/ml 10 ml vial SC SCH ×2 (08:03→14:29)
[2017-07-10] MEDS: Enoxaparin 40 mg Syringe SC SCH (10:05)
--- NOTE | 2017-07-10 11:10 | CP.PCM.PN ---
Subjective - Date & Time of Evaluation Date of Evaluation: 07/10/17 Time of Evaluation: 11:07 - Subjective Subjective: BP FLUCTUATING. ASYMPTOMATIC. Objective - Vital Signs/Intake and Output Vital Signs (last 24 hours): Temp Pulse Resp BP Pulse Ox 97.6 F 78 20 91/56 L 96 07/10/17 07:37 07/10/17 07:37 07/10/17 07:37 07/10/17 07:37 07/10/17 07:37 Intake and Output: 07/10/17 07/10/17 06:59 18:59 Intake Total 780 Balance 780 - Medications Medications: Current Medications Docusate Sodium (Colace) 100 mg PO DAILY [facility] Last Admin: 07/10/17 10:04 Dose: 100 mg Enoxaparin Sodium (Lovenox) 40 mg SC DAILY [facility] Last Admin: 07/10/17 10:05 Dose: 40 mg Gabapentin (Neurontin) 200 mg PO TID [facility] Last Admin: 07/10/17 10:05 Dose: 200 mg Hydrochlorothiazide (Microzide) 12.5 mg PO DAILY [facility] Last Admin: 07/10/17 10:05 Dose: Not Given Linezolid (Zyvox 600mg/300ml D5w) 600 mg in 300 mls @ 200 mls/hr IVPB Q12H [facility] PRN Reason: Protocol Last Admin: 07/10/17 00:02 Dose: 200 mls/hr Insulin Aspart (Novolog) 0 unit SC ACHS [facility] PRN Reason: Protocol Last Admin: 07/10/17 08:03 Dose: 1 unit Losartan Potassium (Cozaar) 100 mg PO DAILY [facility] Last Admin: 07/10/17 10:03 Dose: Not Given Metformin HCl (Glucophage) 1,000 mg PO BID [facility] Last Admin: 07/10/17 10:05 Dose: 1,000 mg Mirtazapine (Remeron) 7.5 mg PO HS [facility] Last Admin: 07/09/17 21:58 Dose: 7.5 mg Quetiapine Fumarate (Seroquel) 300 mg PO HS [facility] Last Admin: 07/09/17 21:58 Dose: 300 mg Rosuvastatin Calcium (Crestor) 5 mg PO HS [facility] Last Admin: 07/09/17 21:59 Dose: 5 mg Tramadol HCl (Ultram) 50 mg PO Q6 PRN PRN Reason: Pain, moderate (4-7) Last Admin: 07/10/17 10:11 Dose: 50 mg - Labs Labs: 07/09/17 06:09 07/09/17 06:09 PT 12.3 SECONDS (9.7-12.2) H 07/03/17 16:56 INR 1.1 07/03/17 16:56 APTT 30 SECONDS (21-34) 07/03/17 16:56 - Constitutional Appears: No Acute Distress, Chronically Ill - Eye Exam Eye Exam: EOMI, Normal appearance, PERRL Pupil Exam: NORMAL ACCOMODATION, PERRL - ENT Exam ENT Exam: Mucous Membranes Moist, Normal Exam - Neck Exam Neck Exam: Full ROM, Normal Inspection. absent: Lymphadenopathy - Respiratory Exam Respiratory Exam: Clear to Ausculation Bilateral, NORMAL BREATHING PATTERN - Cardiovascular Exam Cardiovascular Exam: REGULAR RHYTHM, +S1, +S2. absent: Murmur Assessment and Plan - Assessment and Plan (Free Text) Assessment: HTN ASHD. DM. Plan: OBSERVE BP. CT OTHER TREATMENT.
--- NOTE | 2017-07-10 11:29 | CP.PCM.PN ---
Subjective - Date & Time of Evaluation Date of Evaluation: 07/10/17 Time of Evaluation: 08:00 - Subjective Subjective: no fever on Zyvox mri neg repeat cultures pending needs fantasma family refuses Objective - Vital Signs/Intake and Output Vital Signs (last 24 hours): Temp Pulse Resp BP Pulse Ox 97.6 F 78 20 91/56 L 96 07/10/17 07:37 07/10/17 07:37 07/10/17 07:37 07/10/17 07:37 07/10/17 07:37 Intake and Output: 07/10/17 07/10/17 06:59 18:59 Intake Total 780 Balance 780 - Medications Medications: Current Medications Docusate Sodium (Colace) 100 mg PO DAILY [facility] Last Admin: 07/10/17 10:04 Dose: 100 mg Enoxaparin Sodium (Lovenox) 40 mg SC DAILY [facility] Last Admin: 07/10/17 10:05 Dose: 40 mg Gabapentin (Neurontin) 200 mg PO TID [facility] Last Admin: 07/10/17 10:05 Dose: 200 mg Hydrochlorothiazide (Microzide) 12.5 mg PO DAILY [facility] Last Admin: 07/10/17 10:05 Dose: Not Given Linezolid (Zyvox 600mg/300ml D5w) 600 mg in 300 mls @ 200 mls/hr IVPB Q12H [facility] PRN Reason: Protocol Last Admin: 07/10/17 00:02 Dose: 200 mls/hr Insulin Aspart (Novolog) 0 unit SC ACHS [facility] PRN Reason: Protocol Last Admin: 07/10/17 08:03 Dose: 1 unit Losartan Potassium (Cozaar) 100 mg PO DAILY [facility] Last Admin: 07/10/17 10:03 Dose: Not Given Metformin HCl (Glucophage) 1,000 mg PO BID [facility] Last Admin: 07/10/17 10:05 Dose: 1,000 mg Mirtazapine (Remeron) 7.5 mg PO HS [facility] Last Admin: 07/09/17 21:58 Dose: 7.5 mg Quetiapine Fumarate (Seroquel) 300 mg PO HS [facility] Last Admin: 07/09/17 21:58 Dose: 300 mg Rosuvastatin Calcium (Crestor) 5 mg PO HS [facility] Last Admin: 07/09/17 21:59 Dose: 5 mg Tramadol HCl (Ultram) 50 mg PO Q6 PRN PRN Reason: Pain, moderate (4-7) Last Admin: 07/10/17 10:11 Dose: 50 mg - Labs Labs: 07/09/17 06:09 07/09/17 06:09 PT 12.3 SECONDS (9.7-12.2) H 07/03/17 16:56 INR 1.1 07/03/17 16:56 APTT 30 SECONDS (21-34) 07/03/17 16:56 - Constitutional Appears: Non-toxic, Chronically Ill - Head Exam Head Exam: NORMOCEPHALIC - Eye Exam Eye Exam: PERRL - ENT Exam ENT Exam: Mucous Membranes Dry - Neck Exam Neck Exam: absent: Lymphadenopathy - Respiratory Exam Respiratory Exam: Decreased Breath Sounds - Cardiovascular Exam Cardiovascular Exam: REGULAR RHYTHM - GI/Abdominal Exam GI & Abdominal Exam: Distended - Rectal Exam Rectal Exam: Deferred Assessment and Plan (1) Confusion Status: Acute (2) Non healing left heel wound Status: Acute (3) Dementia Status: Chronic (4) E. coli UTI (urinary tract infection) Status: Acute
--- NOTE | 2017-07-10 15:13 | CP.PCM.PN ---
Subjective - Date & Time of Evaluation Date of Evaluation: 07/10/17 Time of Evaluation: 07:20 - Subjective Subjective: clinically same Objective - Vital Signs/Intake and Output Vital Signs (last 24 hours): Temp Pulse Resp BP Pulse Ox 97.6 F 78 20 100/62 96 07/10/17 07:37 07/10/17 14:30 07/10/17 07:37 07/10/17 14:30 07/10/17 14:30 Intake and Output: 07/10/17 07/10/17 06:59 18:59 Intake Total 780 Balance 780 - Medications Medications: Current Medications Docusate Sodium (Colace) 100 mg PO DAILY [facility] Last Admin: 07/10/17 10:04 Dose: 100 mg Enoxaparin Sodium (Lovenox) 40 mg SC DAILY [facility] Last Admin: 07/10/17 10:05 Dose: 40 mg Gabapentin (Neurontin) 200 mg PO TID [facility] Last Admin: 07/10/17 14:28 Dose: 200 mg Hydrochlorothiazide (Microzide) 12.5 mg PO DAILY [facility] Last Admin: 07/10/17 10:05 Dose: Not Given Linezolid (Zyvox 600mg/300ml D5w) 600 mg in 300 mls @ 200 mls/hr IVPB Q12H [facility] PRN Reason: Protocol Last Admin: 07/10/17 14:25 Dose: 200 mls/hr Insulin Aspart (Novolog) 0 unit SC ACHS [facility] PRN Reason: Protocol Last Admin: 07/10/17 14:29 Dose: Not Given Losartan Potassium (Cozaar) 100 mg PO DAILY [facility] Last Admin: 07/10/17 10:03 Dose: Not Given Metformin HCl (Glucophage) 1,000 mg PO BID [facility] Last Admin: 07/10/17 10:05 Dose: 1,000 mg Mirtazapine (Remeron) 7.5 mg PO HS [facility] Last Admin: 07/09/17 21:58 Dose: 7.5 mg Quetiapine Fumarate (Seroquel) 300 mg PO HS [facility] Last Admin: 07/09/17 21:58 Dose: 300 mg Rosuvastatin Calcium (Crestor) 5 mg PO HS [facility] Last Admin: 07/09/17 21:59 Dose: 5 mg Tramadol HCl (Ultram) 50 mg PO Q6 PRN PRN Reason: Pain, moderate (4-7) Last Admin: 07/10/17 10:11 Dose: 50 mg - Labs Labs: 07/09/17 06:09 07/09/17 06:09 PT 12.3 SECONDS (9.7-12.2) H 07/03/17 16:56 INR 1.1 07/03/17 16:56 APTT 30 SECONDS (21-34) 07/03/17 16:56 - Constitutional Appears: Well - Head Exam Head Exam: ATRAUMATIC, NORMAL INSPECTION, NORMOCEPHALIC - Eye Exam Eye Exam: EOMI, Normal appearance, PERRL Pupil Exam: NORMAL ACCOMODATION, PERRL - ENT Exam ENT Exam: Mucous Membranes Moist, Normal Exam - Neck Exam Neck Exam: Full ROM, Normal Inspection. absent: Lymphadenopathy - Respiratory Exam Respiratory Exam: Decreased Breath Sounds - Cardiovascular Exam Cardiovascular Exam: +S1, +S2 - GI/Abdominal Exam GI & Abdominal Exam: Soft, Diminished Bowel Sounds - Rectal Exam Rectal Exam: Deferred
[2017-07-10 17:16] VITALS: BP 142/73; PULSE 86; TEMP 98.9; O2SAT 97
--- NOTE | 2017-07-10 17:28 | CP.PCM.PN ---
Subjective - Date & Time of Evaluation Date of Evaluation: 07/10/17 Time of Evaluation: 11:00 - Subjective Subjective: Awake, alert , no acute distress. Objective - Vital Signs/Intake and Output Vital Signs (last 24 hours): Temp Pulse Resp BP Pulse Ox 98.9 F 86 20 142/73 97 07/10/17 16:00 07/10/17 16:00 07/10/17 16:00 07/10/17 16:00 07/10/17 16:00 Intake and Output: 07/10/17 07/10/17 06:59 18:59 Intake Total 780 Balance 780 - Labs Labs: 07/09/17 06:09 07/09/17 06:09 PT 12.3 SECONDS (9.7-12.2) H 07/03/17 16:56 INR 1.1 07/03/17 16:56 APTT 30 SECONDS (21-34) 07/03/17 16:56 Assessment and Plan - Assessment and Plan (Free Text) Assessment: 82 year old female admitted with generalized weakness, UTI, seen and examined. No sob or chest pains. Complaints of constipation, dulcolux suppository given. Discussed with DR Andrade and DR Bari Cerda, plan to discharge home on po zyvox for 1 more day to complete 5 days for UTI. Home care , home PT arranged by social work administrator. Advised to follow up with PMD in 1 week.
== END 2017-07-10 17:15 | disposition home or self-care (01) | DRG 690 ==
LOC: C.ER 15:32 → C.9E 18:14 → C.3T 20:17
PROVIDERS: ADMIT Internal Medicine Nephrology; ATTEND Internal Medicine Nephrology
DX: N39.0 Urinary tract infection, site not specified (principal); L97.429 Non-pressure chronic ulcer of left heel and midfoot with unspecified severity; E11.621 Type 2 diabetes mellitus with foot ulcer; G30.9 Alzheimer's disease, unspecified; F31.9 Bipolar disorder, unspecified; G40.909 Epilepsy, unspecified, not intractable, without status epilepticus; I10 Essential (primary) hypertension; F02.80 Dementia in other diseases classified elsewhere, unspecified severity, without behavioral disturbance, psychotic disturbance, mood disturbance, and anxiety; B96.20 Unspecified Escherichia coli [E. coli] as the cause of diseases classified elsewhere; E78.5 Hyperlipidemia, unspecified; J44.9 Chronic obstructive pulmonary disease, unspecified; I25.10 Atherosclerotic heart disease of native coronary artery without angina pectoris; K59.00 Constipation, unspecified; Z95.5 Presence of coronary angioplasty implant and graft; K21.9 Gastro-esophageal reflux disease without esophagitis

== ENCOUNTER 2018-05-02 11:54 | Emergency (ER) | payer MEDICARE, MEDICAID ==
[2018-05-02 11:54] VITALS: BMI 29.2
[2018-05-02 12:03] VITALS: TEMP 97.9
[2018-05-02 12:45] LABS: VENOUS BLOOD GAS BASE EXCESS -5.4 mmol/L (0.0-2.0); VENOUS BLOOD GAS PCO2 34 mmHg (40-60); VENOUS BLOOD GAS PO2 23 mm/Hg (30-55); VENOUS BLOOD PH 7.36 (7.32-7.43)
[2018-05-02 12:48] LABS: BASO % 0.5 % (0.0-2.0); EOS % 0.3 % (0.0-4.0); HEMOGLOBIN 11.9 g/dL (11.0-16.0); LYMPH # 2.2 K/uL (1.0-4.3); LYMPH % 29.5 % (20.0-40.0); MEAN CELL VOLUME 91.7 fL (81.0-99.0); MEAN CORPUSCULAR HEMOGLOBIN 30.3 pg (27.0-31.0); MEAN CORPUSCULAR HGB CONC 33.1 g/dL (33.0-37.0); MEAN PLATELET VOLUME 10.2 fL (7.2-11.7); MONO # 1.1 K/uL (0.0-0.8); MONO % 14.4 % (0.0-10.0); NEUT # 4.1 K/uL (1.8-7.0); NEUT % 55.3 % (50.0-75.0); RBC 3.93 Mil/uL (3.80-5.20); RED CELL DISTRIBUTION WIDTH 14.4 % (11.5-14.5); WHITE BLOOD COUNT 7.4 K/uL (4.8-10.8)
[2018-05-02] MEDS ORDERED: Sodium Chloride 0.9% 1,000 ML IV ONE (12:51)
[2018-05-02 13:08] LABS: ALB/GLOB RATIO 1.4 (1.0-2.1); ALBUMIN 4.5 g/dL (3.5-5.0); ALT/SGPT 11 U/L (9-52); AST/SGOT 31 U/L (14-36); BLOOD UREA NITROGEN 30 mg/dL (7-17); CALCIUM 9.4 mg/dl (8.6-10.4); GFR NON-AFRICAN AMERICAN 60
--- NOTE | 2018-05-02 13:29 | C.PDOC ---
History Of Present Illness 83yo female, with history of HTN, HCH, COPD, diabetes, alzheimers, seizures, comes to ER reporting generalized malaise and shortness of breath. Patient reports abdominal pain and chronic back pain as well. She denies any chest pain, fever, chills, nausea, vomiting or diarrhea. No additional complaints. Patient is a poor historian, answering questions but is AOx2. PMD: RalphSurajovanny Time Seen by Provider: 05/02/18 12:23 Chief Complaint (Nursing): High Blood Sugar History Per: Patient, Family History/Exam Limitations: clinical condition Past Medical History Reviewed: Historical Data, Nursing Documentation, Vital Signs Vital Signs: Last Vital Signs Temp 97.9 F 05/02/18 12:02 Pulse 95 H 05/02/18 12:02 Resp 22 05/02/18 12:02 BP 170/69 H 05/02/18 12:02 Pulse Ox 99 05/02/18 12:02 - Medical History PMH: Alzheimer's Disease, Anxiety, Arthritis (BACK), Asthma, Bipolar Disorder, COPD, Depression, Diabetes (type 2), Gastritis, HTN, Hypercholesterolemia, Schizophrenia, Seizures Denies: Hepatitis, HIV, Chronic Kidney Disease, Sexually Transmitted Disease (Patient denied. None reported) Surgical History: Coronary Stent - [facility] Procedures GROUP PSYCHOTHERAPY (12/15/16) INDIVIDUAL PSYCHOTHERAPY, BEHAVIORAL (12/15/16) INSERTION OF INFUSION DEV INTO SUP VENA CAVA, PERC APPROACH (06/22/17) INTRODUCE OTH ANTI-INFECT IN CENTRAL VEIN, PERC (06/22/17) Family History: States: No Known Family Hx - Social History Hx Tobacco Use: No Hx Alcohol Use: No Hx Substance Use: No - Immunization History Hx Tetanus Toxoid Vaccination: No Hx Influenza Vaccination: No Hx Pneumococcal Vaccination: Yes Review Of Systems Except As Marked, All Systems Reviewed And Found Negative. Constitutional: Negative for: Fever, Chills Cardiovascular: Negative for: Chest Pain Gastrointestinal: Positive for: Abdominal Pain. Negative for: Nausea, Vomiting Musculoskeletal: Positive for: Back Pain Physical Exam - Physical Exam Appears: Non-toxic, Chronically Ill Skin: Normal Color Head: Atraumatic, Normacephalic Eye(s): bilateral: Normal Inspection Oral Mucosa: Dry Chest: Symmetrical Cardiovascular: Rhythm Regular Respiratory: Decreased Breath Sounds, No Accessory Muscle Use, No Rales, No Rhonchi, No Wheezing Gastrointestinal/Abdominal: Normal Exam, Soft, No Tenderness Extremity: Normal ROM, No Pedal Edema Pulses: Left Radial: Normal, Right Radial: Normal, Left Dorsalis Pedis: Normal, Right Dorsalis Pedis: Normal Neurological/Psych: Normal Motor, Normal Sensation, Other (Alert and oriented x 2) ED Course And Treatment - Laboratory Results Result Diagrams: 05/02/18 12:33 05/02/18 12:33 Lab Results: pO2 23 mm/Hg (30-55) L 05/02/18 12:38 VBG pH 7.36 (7.32-7.43) 05/02/18 12:38 VBG pCO2 34 mmHg (40-60) L 05/02/18 12:38 VBG HCO3 19.1 mmol/L 05/02/18 12:38 VBG Total CO2 20.2 mmol/L (22-28) L 05/02/18 12:38 VBG O2 Sat (Calc) 51.2 % (40-65) 05/02/18 12:38 VBG Base Excess -5.4 mmol/L (0.0-2.0) L 05/02/18 12:38 VBG Potassium 4.8 mmol/L (3.6-5.2) 05/02/18 12:38 Sodium 140.0 mmol/l (132-148) 05/02/18 12:38 Chloride 104.0 mmol/L (98-107) 05/02/18 12:38 Lactate 3.7 mmol/L (0.7-2.1) H 05/02/18 12:38 APTT 25 SECONDS (21-34) 05/02/18 12:33 Total Bilirubin 0.5 mg/dL (0.2-1.3) 05/02/18 12:33 AST 31 U/L (14-36) 05/02/18 12:33 ALT 11 U/L (9-52) 05/02/18 12:33 Alkaline Phosphatase 76 U/L (38-126) 05/02/18 12:33 Total Protein 7.9 g/dL (6.3-8.3) 05/02/18 12:33 Albumin 4.5 g/dL (3.5-5.0) 05/02/18 12:33 Globulin 3.3 gm/dL (2.2-3.9) 05/02/18 12:33 Albumin/Globulin Ratio 1.4 (1.0-2.1) 05/02/18 12:33 O2 Sat by Pulse Oximetry: 99 (RA) Pulse Ox Interpretation: Normal Medical Decision Making Medical Decision Making: Chronically ill appearing female, with elevated blood sugar Complaints of generalized malaise Plan: -- Labs -- VBG -- IV Fluids Disposition - Disposition Referrals: Suraj Rosas MD [Staff Provider] - Disposition: HOME/ ROUTINE Disposition Time: 15:11 Condition: STABLE Additional Instructions: Follow up with the medical doctor within 1-2 days. Return if worsened. Instructions: Hyperglycemia, Adult (DC) Forms: [employer] ([place]) - Clinical Impression Clinical Impression: Hyperglycemia - Scribe Statement The provider has reviewed the documentation as recorded by the Caitlin Jones Provider Attestation: All medical record entries made by the Gonzalesibfeng were at my direction and personally dictated by me. I have reviewed the chart and agree that the record accurately reflects my personal performance of the history, physical exam, medical decision making, and the department course for this patient. I have also personally directed, reviewed, and agree with the discharge instructions and disposition.
[2018-05-02 15:26] VITALS: O2SAT 95
[2018-05-02 19:00] VITALS: BP 151/72; PULSE 79; RESP 16
== END 2018-05-02 19:00 | disposition home or self-care (01) ==
LOC: C.ER 11:54
DX: E11.65 Type 2 diabetes mellitus with hyperglycemia (principal); E78.00 Pure hypercholesterolemia, unspecified; F20.9 Schizophrenia, unspecified; I10 Essential (primary) hypertension; J44.9 Chronic obstructive pulmonary disease, unspecified; R56.9 Unspecified convulsions; G30.9 Alzheimer's disease, unspecified

== ENCOUNTER 2018-06-23 12:54 | Inpatient (IN) | payer MEDICARE, MEDICAID ==
--- NOTE | 2018-06-23 13:22 | C.PDOC ---
History Of Present Illness 83 y/o female with a PMHx of HTN, diabetes, Alzheimers, and schizophrenia, presents today for evaluation of AMS from baseline per . notes that since 9:30pm last night patient has been refusing all medications including her psychiatric meds. Patient states the is preventing patient from urinating. Reports she does not know why she is here. denies any fall, constipation, diarrhea, dark or bloody stool, fevers, nausea, vomiting, or other complaints. Patient complains of abdominal pain for years. Per , patient was recently started on antibiotics for a UTI, though he is unsure of which one. Otherwise patient denies any neck stiffness, unilateral weakness, or slurred speech. PMD- Dr. Rosas Time Seen by Provider: 06/23/18 13:02 Chief Complaint (Nursing): Altered Mental Status History Per: Patient History/Exam Limitations: Clinical Condition (dementia) Onset Of Symptoms: Other (since 9:30pm on 06/22) Current Symptoms Are (Timing): Still Present Speech Is: Pressured Additional History Per: Family ( at bedside) Associated Symptoms: Disoriented, Other (Refusing medications) Past Medical History Reviewed: Historical Data, Nursing Documentation, Vital Signs - Medical History PMH: Alzheimer's Disease, Anxiety, Arthritis (BACK), Asthma, Bipolar Disorder, COPD, Depression, Diabetes (type 2), Gastritis, HTN, Hypercholesterolemia, Schizophrenia, Seizures Denies: Hepatitis, HIV, Chronic Kidney Disease, Sexually Transmitted Disease (Patient denied. None reported) Surgical History: Coronary Stent - [facility] Procedures GROUP PSYCHOTHERAPY (12/15/16) INDIVIDUAL PSYCHOTHERAPY, BEHAVIORAL (12/15/16) INSERTION OF INFUSION DEV INTO SUP VENA CAVA, PERC APPROACH (06/22/17) INTRODUCE OTH ANTI-INFECT IN CENTRAL VEIN, PERC (06/22/17) Family History: States: Unknown Family Hx - Social History Hx Tobacco Use: No Hx Alcohol Use: No Hx Substance Use: No - Immunization History Hx Tetanus Toxoid Vaccination: No Hx Influenza Vaccination: No Hx Pneumococcal Vaccination: Yes Review Of Systems Review Of Systems: ROS cannot be obtained secondary to pt's inabilty to answer questions. (limited secondary to pt altered) Constitutional: Negative for: Fever Cardiovascular: Negative for: Chest Pain Respiratory: Negative for: Shortness of Breath Gastrointestinal: Negative for: Vomiting, Diarrhea Neurological: Positive for: Altered Mental Status. Negative for: Weakness, Numbness Physical Exam - Physical Exam Appears: Non-toxic, No Acute Distress Skin: Warm, Dry Head: Normacephalic Eye(s): bilateral: Normal Inspection, PERRL, EOMI Oral Mucosa: Moist Neck: Normal ROM, Supple, Other (no meningeal signs) Chest: Symmetrical Cardiovascular: Rhythm Regular Respiratory: No Rales, No Rhonchi, No Wheezing Gastrointestinal/Abdominal: Soft, Tenderness (diffuse tenderness), Distention (mild abdominal distension), Guarding (mild) Back: No CVA Tenderness, No Vertebral Tenderness Extremity: Normal ROM (moving extremities spontaneously), Capillary Refill (less than 2sec), No Deformity, No Swelling, Other (Ecchymosis noted to right buttocks - per patient fell 1 month ago) Pulses: Left Dorsalis Pedis: Normal, Right Dorsalis Pedis: Normal Neurological/Psych: Oriented x3, Normal Cranial Nerves, Normal Motor, Normal Sensation, Other (Pressured speech) ED Course And Treatment - Laboratory Results Result Diagrams: 06/23/18 14:06 06/23/18 14:06 O2 Sat by Pulse Oximetry: 98 (NC) Pulse Ox Interpretation: Normal Medical Decision Making Medical Decision Makin83 y/o female with a PMHx of HTN, diabetes, Alzheimers, and schizophrenia, presents today for evaluation of AMS from baseline per . notes that since 9:30pm last night patient has been refusing all medications including her psychiatric meds. Per , patient was recently started on antibiotics for a UTI, though he is unsure of which one. Of note, patient fell 1 month ago onto right buttocks, has known bruise, negative for fracture per . Impression: UTI vs metabolic derangement vs psychosis Initial Plan: - Blood work - Urinalysis - EKG - Chest x-ray - Head CT - Abd/Pelvis CT w/ IV contrast - Reassess EK, NSR, no stemi 1514 labs so far largely unremarkable ua unremarakble CXR unremarkable pending trop, CTH + abd, pt in NAD 1705 CTH, trop unremarkable 1725 CT w/ RLL PNA, will rx, no recent hospital stays within 3months, no elevated WBC CRISIS to follow inpt appreciate consult w/ Dr. Rosas (PMD): to admit to his service for AMS, PNA, hallucinations PT in NAD, family agreeable to plan Disposition - Disposition Disposition Time: 17:26 Condition: STABLE Forms: [employer] ([place]an) - Clinical Impression Clinical Impression: Pneumonia, Altered behavior - Scribe Statement The provider has reviewed the documentation as recorded by the Caitlin Herrera Provider Attestation: All medical record entries made by the Gonzalesibfeng were at my direction and personally dictated by me. I have reviewed the chart and agree that the record accurately reflects my personal performance of the history, physical exam, medical decision making, and the department course for this patient. I have also personally directed, reviewed, and agree with the discharge instructions and disposition.
[2018-06-23 13:25] VITALS: BMI 22.8
[2018-06-23 14:10] LABS: BASO # 0.1 K/uL (0.0-0.2); BASO % 0.7 % (0.0-2.0); EOS % 0.1 % (0.0-4.0); HEMOGLOBIN 12.6 g/dL (11.0-16.0); LYMPH % 20.4 % (20.0-40.0); MEAN CELL VOLUME 90.1 fL (81.0-99.0); MEAN CORPUSCULAR HEMOGLOBIN 30.5 pg (27.0-31.0); MEAN CORPUSCULAR HGB CONC 33.9 g/dL (33.0-37.0); MEAN PLATELET VOLUME 9.4 fL (7.2-11.7); MONO # 0.8 K/uL (0.0-0.8); MONO % 8.5 % (0.0-10.0); NEUT # 6.8 K/uL (1.8-7.0); NEUT % 70.3 % (50.0-75.0); NRBC % 0.1 % (0.0-2.0); RBC 4.12 Mil/uL (3.80-5.20); RED CELL DISTRIBUTION WIDTH 13.4 % (11.5-14.5); WHITE BLOOD COUNT 9.6 K/uL (4.8-10.8)
[2018-06-23 14:24] LABS: ACETAMINOPHEN < 10.0 ug/mL (10.0-30.0); ALB/GLOB RATIO 1.3 (1.0-2.1); ALBUMIN 4.7 g/dL (3.5-5.0); BLOOD UREA NITROGEN 29 mg/dL (7-17); CALCIUM 9.7 mg/dl (8.6-10.4); GFR NON-AFRICAN AMERICAN 53; SALICYLATE < 1.0 mg/dL 1
[2018-06-23 14:29] LABS: ALT/SGPT 11 U/L (9-52); AST/SGOT 30 U/L (14-36)
[2018-06-23 14:33] LABS: URINE BILIRUBIN NEGATIVE (NEGATIVE); URINE BLOOD NEGATIVE (NEGATIVE); URINE CLARITY Clear (Clear); URINE COLOR Yellow (YELLOW); URINE GLUCOSE (UA) NORMAL (Normal); URINE LEUKOCYTE ESTERASE NEG Leu/uL (Negative); URINE PROTEIN NEGATIVE (NEGATIVE); URINE UROBILINOGEN NORMAL mg/dL (0.2-1.0)
[2018-06-23 14:48] LABS: BARBITURATES, UR NEGATIVE (NEGATIVE); BENZODIAZEPINES, UR NEGATIVE (NEGATIVE); OPIATES, UR NEGATIVE (NEGATIVE); PHENCYCLIDINE, UR NEGATIVE (NEGATIVE)
--- NOTE | 2018-06-23 15:05 | RAD ---
Date of service: 06/23/2018 HISTORY: ams COMPARISON: 07/03/2017 TECHNIQUE: 1 view obtained. FINDINGS: LUNGS: Limited evaluation due to steeply oblique positioning. PLEURA: No significant pleural effusion identified, no pneumothorax apparent. CARDIOVASCULAR: No aortic atherosclerotic calcification present. Normal cardiac size. No pulmonary vascular congestion. OSSEOUS STRUCTURES: No significant abnormalities. VISUALIZED UPPER ABDOMEN: Normal. OTHER FINDINGS: None. IMPRESSION: No active disease. Limited examination.
[2018-06-23 15:42] LABS: LIPASE 45 U/L (23-300)
--- NOTE | 2018-06-23 17:03 | CT ---
Date of service: 06/23/2018 PROCEDURE: CT HEAD WITHOUT CONTRAST. HISTORY: ams COMPARISON: 07/05/2017 TECHNIQUE: Axial computed tomography images were obtained through the head/brain without intravenous contrast. Radiation dose: Total exam DLP = 1405.84 mGy-cm. This CT exam was performed using one or more of the following dose reduction techniques: Automated exposure control, adjustment of the mA and/or kV according to patient size, and/or use of iterative reconstruction technique. FINDINGS: HEMORRHAGE: No intracranial hemorrhage. BRAIN: No mass effect or edema. Mild to moderate diffuse age-appropriate atrophy. Moderate patchy and confluent periventricular and deep/subcortical white matter lucency consistent with microvascular white matter ischemic change. 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 Remote white matter infarct left occipital lobe. No evidence of acute infarct. VENTRICLES: Mild ex vacuo dilatation of the frontal aspect right lateral ventricle secondary to remote infarct. No sumanth hydrocephalus. CALVARIUM: Unremarkable. PARANASAL SINUSES: Unremarkable as visualized. No significant inflammatory changes. MASTOID AIR CELLS: Unremarkable as visualized. No inflammatory changes. OTHER FINDINGS: None. IMPRESSION: No intracranial mass, hemorrhage or evidence of acute infarct. Remote lacunar infarcts as above. Moderate chronic white matter ischemic change.
--- NOTE | 2018-06-23 17:13 | CT ---
Date of service: 06/23/2018 PROCEDURE: CT Abdomen and Pelvis with contrast HISTORY: abd pain COMPARISON: 01/23/2014 TECHNIQUE: Contrast dose: 100 mL Visipaque 320 Radiation dose: Total exam DLP = 890.11 mGy-cm. This CT exam was performed using one or more of the following dose reduction techniques: Automated exposure control, adjustment of the mA and/or kV according to patient size, and/or use of iterative reconstruction technique. FINDINGS: LOWER THORAX: Right lower lobe infiltrate versus subsegmental atelectasis.. LIVER: Unremarkable. No gross lesion or ductal dilatation. GALLBLADDER AND BILE DUCTS: Unremarkable. PANCREAS: Unremarkable. No gross lesion or ductal dilatation. SPLEEN: Unremarkable. ADRENALS: Unremarkable. No mass. KIDNEYS AND URETERS: Unremarkable. No hydronephrosis. No solid mass. VASCULATURE: Unremarkable. No aortic aneurysm. There is atherosclerotic calcification of the abdominal aorta. BOWEL: Unremarkable. No obstruction. No gross mural thickening. APPENDIX: Not identified. No secondary findings to suggest acute appendicitis. PERITONEUM: Unremarkable. No free fluid. No free air. LYMPH NODES: Unremarkable. No enlarged lymph nodes. BLADDER: Nondistended REPRODUCTIVE: Status post hysterectomy BONES: No acute fracture. OTHER FINDINGS: None. IMPRESSION: Right lower lobe infiltrate versus atelectasis. No other significant abnormality.
[2018-06-23] MEDS ORDERED: Moxifloxacin IV 400mg/250ml NS 400 MG/250 ML BAG IVPB ONE ×2 (17:20→17:38)
[2018-06-23] MEDS ORDERED: (Lantus) Insulin Glargine, Recombinant SC SCH (22:00)
[2018-06-23] MEDS ORDERED: (Lantus) Insulin Glargine, Recombinant SC ONE (22:00)
[2018-06-23] MEDS ORDERED: Glucagon Recombinant 1 mg Inj IM PRN (22:12)
[2018-06-23] MEDS ORDERED: Dextrose 50% SYRINGE Inj (50 ml) IV PRN (22:12)
--- NOTE | 2018-06-24 00:17 | PCM.RRT ---
MARINE CH[employer]OM[employer]ER ASSEMBLER Nurses Assessment - Situation Date: 06/24/18 [employer]INE CH[employer]OMETER ASSEMBLER Location:: [facility]/Surg [employer]SEM[employer]ER Reason for Call: Hypotension - IV IV Inserted during MARINE CHRONOMETER ASSEMBLER?: No IV Fluids Initiated During MARINE CHRONOMETER ASSEMBLER?: NS bolus - Thomson Coma Scale Coma Scale Eye Opening: Spontaneous Coma Scale Motor: Obeys Commands Movement Coma Scale Verbal: Confused/able to answer Coma Scale Total: 14 - Head Head Exam: ATRAUMATIC, NORMOCEPHALIC - Eyes Eye Exam: EOMI - Respiratory Exam Respiratory Exam: Clear to Ausculation Bilateral. absent: Rales, Rhonchi, Wheezes - Cardiovascular Exam Cardiovascular Exam: REGULAR RHYTHM, +S1, +S2 - GI/Abdominal Exam GI & Abdominal Exam: Soft. absent: Tenderness - Neurological Exam Neurological Exam: Alert, Awake - Extremities Exam Extremities Exam: Normal Inspection Additional comments: Moving all extremities Plan - Assessment of Findings&Treatment Plan MARINE CHRONOMETER ASSEMBLER called for hypotension 88/48. As per nurse, patient received her home meds of ativan 1mg and seroquel 200mg at 11:41pm, after which she was noted to be hypotensive. On arrival, patient was placed in trandelenburg. Patient was awake and arousable. She complained of feeling weak. One bolus of NS initiated. Losartan, HCTZ, Ativan, Seroquel, and metformin were held. Repeat BP after bolus. Final vitals: 91/48, 98F, HR 86, 98% O2 on 2L NC.
[2018-06-24] MEDS ORDERED: Sodium Chloride 0.9% 1,000 ML IV ONE (00:20)
[2018-06-24] MEDS: Dextrose 5%/0.45% NS 1,000 ML IV SCH ×2 (01:08→22:55)
[2018-06-24 02:59] LABS: BASO % 0.6 % (0.0-2.0); EOS % 0.5 % (0.0-4.0); HEMOGLOBIN 11.6 g/dL (11.0-16.0); LYMPH # 2.5 K/uL (1.0-4.3); LYMPH % 36.9 % (20.0-40.0); MEAN CORPUSCULAR HEMOGLOBIN 30.2 pg (27.0-31.0); MEAN CORPUSCULAR HGB CONC 33.6 g/dL (33.0-37.0); MEAN PLATELET VOLUME 9.3 fL (7.2-11.7); MONO # 0.9 K/uL (0.0-0.8); MONO % 13.6 % (0.0-10.0); NEUT # 3.3 K/uL (1.8-7.0); NEUT % 48.4 % (50.0-75.0); RBC 3.85 Mil/uL (3.80-5.20); RED CELL DISTRIBUTION WIDTH 13.5 % (11.5-14.5); WHITE BLOOD COUNT 6.7 K/uL (4.8-10.8)
[2018-06-24 03:10] LABS: ALB/GLOB RATIO 1.3 (1.0-2.1); ALBUMIN 3.9 g/dL (3.5-5.0); ALT/SGPT 11 U/L (9-52); AST/SGOT 18 U/L (14-36); BLOOD UREA NITROGEN 26 mg/dL (7-17); CALCIUM 8.7 mg/dl (8.6-10.4); GFR NON-AFRICAN AMERICAN 39
[2018-06-24 03:18] LABS: CK-MB 3.21 ng/mL (0.0-3.38)
[2018-06-24] MEDS: (Novolin R) Insulin Human Regular 100 units/ml vial SC SCH ×4 (07:56→22:24)
--- NOTE | 2018-06-24 09:24 | CARD ---
APPROVED REPORT Date of service: 06/23/2018 EKG Measurement Heart [id number] <Conclusion> Normal sinus rhythm Normal ECG
[2018-06-24] MEDS ORDERED: LINACLOTIDE 72 MCG PO SCH (10:00)
--- NOTE | 2018-06-24 11:29 | CP.PCM.HP ---
History of Present Illness - History of Present Illness History of Present Illness: 83 years old female with PMH significant for HTN, Type II DM and Schyzophrenia admitted for Hypoglycemia and Pneumonia management. Patient complained of tremors, dizziness and expectoration. Initial evaluation significant for Hypoglycemia that was treated with Dextrose IV bolus and Glucagon. Also, patient started on Avelox IV. Patient denies headache, chest pain, shortness of breath, cough, nausea, vomiting, abdominal pain and urinary symptoms. Present on Admission - Present on Admission Any Indicators Present on Admission: Yes History of Uncontrolled Diabetes: Yes Past Patient History - Past Medical History & Family History Past Medical History?: Yes - Past Social History Smoking Status: Never Smoked - CARDIAC Hx Hypertension: Yes - PULMONARY Hx Chronic Obstructive Pulmonary Disease (COPD): Yes - NEUROLOGICAL Hx Neurological Disorder: Yes Hx Alzheimer's Disease: Yes HX Cerebrovascular Accident: No Hx Dementia: Yes Hx Seizures: Yes - HEENT Hx HEENT Problems: No - RENAL Hx Chronic Kidney Disease: No - ENDOCRINE/METABOLIC Hx Diabetes Mellitus Type 2: Yes - HEMATOLOGICAL/ONCOLOGICAL Hx Cancer: No Hx Human Immunodeficiency Virus (HIV): No - INTEGUMENTARY Hx Dermatological Problems: No - MUSCULOSKELETAL/RHEUMATOLOGICAL Hx Arthritis: Yes (BACK) Hx Falls: Yes - GASTROINTESTINAL Hx Gastritis: Yes - GENITOURINARY/GYNECOLOGICAL Hx Incontinence: Yes Hx Sexually Transmitted Disorders: No Hx Urinary Tract Infection: Yes - PSYCHIATRIC Hx Anxiety: Yes Hx Bipolar Disorder: Yes Hx Depression: Yes Hx Hallucinations: Yes Hx Schizophrenia: Yes Hx Substance Use: No - SURGICAL HISTORY Hx Coronary Stent: Yes - ANESTHESIA Hx Anesthesia: Yes Hx Anesthesia Reactions: No Hx Malignant Hyperthermia: No Meds Allergies/Adverse Reactions: Allergies Allergy/AdvReac Type Severity Reaction Status Date / Time No Known Allergies Allergy Verified 06/23/18 13:24 Physical Exam - Constitutional Appears: Non-toxic, No Acute Distress - Head Exam Head Exam: ATRAUMATIC, NORMAL INSPECTION, NORMOCEPHALIC - Eye Exam Eye Exam: EOMI, Normal appearance, PERRL - ENT Exam ENT Exam: Mucous Membranes Moist, Normal Exam - Neck Exam Neck exam: Positive for: Full Rom, Normal Inspection - Respiratory Exam Respiratory Exam: Clear to Auscultation Bilateral, NORMAL BREATHING PATTERN - Cardiovascular Exam Cardiovascular Exam: REGULAR RHYTHM, +S1, +S2 - GI/Abdominal Exam GI & Abdominal Exam: Normal Bowel Sounds, Soft - Extremities Exam Extremities exam: Positive for: full ROM, normal inspection - Back Exam Back exam: FULL ROM, NORMAL INSPECTION - Neurological Exam Neurological exam: Alert, CN II-XII Intact, Normal Gait, Oriented x3, Reflexes Normal - Psychiatric Exam Psychiatric exam: Flat Affect - Skin Skin Exam: Intact, Normal Color Results - Vital Signs Recent Vital Signs: Last Vital Signs Temp 98.2 F 06/24/18 04:50 Pulse 84 06/24/18 04:50 Resp 20 06/24/18 04:50 BP 107/55 L 06/24/18 04:50 Pulse Ox 97 06/24/18 10:26 - Labs Result Diagrams: 06/24/18 02:53 06/24/18 02:53 Labs: Laboratory Results - last 24 hr 06/23/18 06/23/18 06/23/18 14:06 14:06 14:06 WBC 9.6 RBC 4.12 Hgb 12.6 Hct 37.1 MCV 90.1 MCH 30.5 MCHC 33.9 RDW 13.4 Plt Count 316 MPV 9.4 Neut % (Auto) 70.3 Lymph % (Auto) 20.4 Shannon % (Auto) 8.5 Eos % (Auto) 0.1 Baso % (Auto) 0.7 Neut # (Auto) 6.8 Lymph # (Auto) 2.0 Shannon # (Auto) 0.8 Eos # (Auto) 0.0 Baso # (Auto) 0.1 Sodium 135 Potassium 4.4 Chloride 98 Carbon Dioxide 27 Anion Gap 15 BUN 29 H Creatinine 1.0 Est GFR ( Amer) > 60 Est GFR (Non-Af Amer) 53 POC Glucose (mg/dL) Random Glucose 218 H D Calcium 9.7 Phosphorus 3.2 Magnesium 1.7 Total Bilirubin 0.6 AST 30 ALT 11 Alkaline Phosphatase 84 Total Creatine Kinase CK-MB (Mass) Troponin I Total Protein 8.3 Albumin 4.7 Globulin 3.6 Albumin/Globulin Ratio 1.3 Lipase Urine Color Urine Clarity Urine pH Ur Specific [place] Urine Protein Urine Glucose (UA) Urine Ketones Urine Blood Urine Nitrate Urine Bilirubin Urine Urobilinogen Ur Leukocyte Esterase Urine WBC (Auto) Hyaline Casts Salicylates < 1.0 Urine Opiates Screen Urine Methadone Screen Acetaminophen < 10.0 L Ur Barbiturates Screen Ur Phencyclidine Scrn Ur Amphetamines Screen U Benzodiazepines Scrn U Oth Cocaine Metabols U Cannabinoids Screen Alcohol, Quantitative < 10 06/23/18 06/23/18 06/23/18 14:16 14:16 15:28 WBC RBC Hgb Hct MCV MCH MCHC RDW Plt Count MPV Neut % (Auto) Lymph % (Auto) Shannon % (Auto) Eos % (Auto) Baso % (Auto) Neut # (Auto) Lymph # (Auto) Shannon # (Auto) Eos # (Auto) Baso # (Auto) Sodium Potassium Chloride Carbon Dioxide Anion Gap BUN Creatinine Est GFR ( Amer) Est GFR (Non-Af Amer) POC Glucose (mg/dL) Random Glucose Calcium Phosphorus Magnesium Total Bilirubin AST ALT Alkaline Phosphatase Total Creatine Kinase CK-MB (Mass) Troponin I < 0.0120 Total Protein Albumin Globulin Albumin/Globulin Ratio Lipase 45 Urine Color Yellow Urine Clarity Clear Urine pH 5.0 Ur Specific [place] 1.012 Urine Protein Negative Urine Glucose (UA) Normal Urine Ketones Negative Urine Blood Negative Urine Nitrate Negative Urine Bilirubin Negative Urine Urobilinogen Normal Ur Leukocyte Esterase Neg Urine WBC (Auto) 1 Hyaline Casts 3-5 H Salicylates Urine Opiates Screen Negative Urine Methadone Screen Negative Acetaminophen Ur Barbiturates Screen Negative Ur Phencyclidine Scrn Negative Ur Amphetamines Screen Negative U Benzodiazepines Scrn Negative U Oth Cocaine Metabols Negative U Cannabinoids Screen Negative Alcohol, Quantitative 06/23/18 06/23/18 06/24/18 21:19 23:57 02:53 WBC 6.7 RBC 3.85 Hgb 11.6 Hct 34.7 MCV 90.0 MCH 30.2 MCHC 33.6 RDW 13.5 Plt Count 275 MPV 9.3 Neut % (Auto) 48.4 L Lymph % (Auto) 36.9 Shannon % (Auto) 13.6 H Eos % (Auto) 0.5 Baso % (Auto) 0.6 Neut # (Auto) 3.3 Lymph # (Auto) 2.5 Shannon # (Auto) 0.9 H Eos # (Auto) 0.0 Baso # (Auto) 0.0 Sodium Potassium Chloride Carbon Dioxide Anion Gap BUN Creatinine Est GFR ( Amer) Est GFR (Non-Af Amer) POC Glucose (mg/dL) 127 H 209 H Random Glucose Calcium Phosphorus Magnesium Total Bilirubin AST ALT Alkaline Phosphatase Total Creatine Kinase CK-MB (Mass) Troponin I Total Protein Albumin Globulin Albumin/Globulin Ratio Lipase Urine Color Urine Clarity Urine pH Ur Specific [place] Urine Protein Urine Glucose (UA) Urine Ketones Urine Blood Urine Nitrate Urine Bilirubin Urine Urobilinogen Ur Leukocyte Esterase Urine WBC (Auto) Hyaline Casts Salicylates Urine Opiates Screen Urine Methadone Screen Acetaminophen Ur Barbiturates Screen Ur Phencyclidine Scrn Ur Amphetamines Screen U Benzodiazepines Scrn U Oth Cocaine Metabols U Cannabinoids Screen Alcohol, Quantitative 06/24/18 06/24/18 02:53 06:22 WBC RBC Hgb Hct MCV MCH MCHC RDW Plt Count MPV Neut % (Auto) Lymph % (Auto) Shannon % (Auto) Eos % (Auto) Baso % (Auto) Neut # (Auto) Lymph # (Auto) Shannon # (Auto) Eos # (Auto) Baso # (Auto) Sodium 135 Potassium 3.9 Chloride 104 Carbon Dioxide 26 Anion Gap 9 L BUN 26 H Creatinine 1.3 H Est GFR ( Amer) 47 Est GFR (Non-Af Amer) 39 POC Glucose (mg/dL) 120 H Random Glucose 134 H D Calcium 8.7 Phosphorus 3.7 Magnesium 1.8 Total Bilirubin 0.5 AST 18 ALT 11 Alkaline Phosphatase 66 Total Creatine Kinase 328 H CK-MB (Mass) 3.21 Troponin I < 0.0120 Total Protein 7.0 Albumin 3.9 Globulin 3.1 Albumin/Globulin Ratio 1.3 Lipase Urine Color Urine Clarity Urine pH Ur Specific [place] Urine Protein Urine Glucose (UA) Urine Ketones Urine Blood Urine Nitrate Urine Bilirubin Urine Urobilinogen Ur Leukocyte Esterase Urine WBC (Auto) Hyaline Casts Salicylates Urine Opiates Screen Urine Methadone Screen Acetaminophen Ur Barbiturates Screen Ur Phencyclidine Scrn Ur Amphetamines Screen U Benzodiazepines Scrn U Oth Cocaine Metabols U Cannabinoids Screen Alcohol, Quantitative Assessment & Plan (1) Pneumonia Assessment and Plan: IV Fluids. IV Avelox. Blood culture. Repeat CXR. Status: Acute (2) Hypoglycemia Assessment and Plan: Accucheck ACHS. Decrease Lantus to 10 units under the skin once daily. Endocrinology evaluation. Status: Acute (3) Hypotension Assessment and Plan: Cardiac Enzymes x 3. ECG. IV Fluids. monitor and storage bin tender. Hold anti-HTN meds, re-start when BP stable. Status: Acute (4) Renal insufficiency Assessment and Plan: Monitor electrolytes. Renal Insufficiency. Status: Acute (5) Diabetes mellitus Assessment and Plan: Lantus 10 units Subq QD. Accucheck with Low dose Regular Insulin coverage ACHS. Status: Chronic Priority: Medium (6) HTN (hypertension) Assessment and Plan: Continue same treatment. Status: Chronic Priority: Medium
--- NOTE | 2018-06-24 11:50 | RAD ---
Date of service: 06/24/2018 HISTORY: Pneumonia COMPARISON: Made with prior chest radiograph 06/23/2018 TECHNIQUE: Chest PA and lateral views FINDINGS: Note the examination is somewhat limited due to patient rotation the right side. LUNGS: Mild bibasilar atelectasis and or scarring right greater than left. PLEURA: No significant pleural effusion identified. No pneumothorax apparent. There also appears to be minimal biapical pleural thickening. CARDIOVASCULAR: No aortic atherosclerotic calcification present. Normal cardiac size. No pulmonary vascular congestion. OSSEOUS STRUCTURES: No significant abnormalities. VISUALIZED UPPER ABDOMEN: Normal. OTHER FINDINGS: None. IMPRESSION: Slightly limited study demonstrating bibasilar atelectasis and or scarring right greater than left.
[2018-06-24 12:14] LABS: CK-MB 2.86 ng/mL (0.0-3.38); TROPONIN I 0.015 ng/mL (0.00-0.120)
--- NOTE | 2018-06-24 13:06 | PCM.PSYCH ---
Initial Psychiatric Evaluation - Initial Psychiatric Evaluation History of Present Illness and Precipitating Events: PGY-1 Psych consult note for Dr Washington Patient is 83 year old female with pyschiatric history of schizophrenia and Alzheimer's disease, admitted to the hospital on 06/24 for altered mental status as per , being evaluated and treated for PNA. As per chart review, Patient takes Ativan 1mg PO BID and seroquel 200 mg PO HS. Rapid respose called for patient last evening for hypotension, BP recorded 88/48, patient was awake and responsive as per chart review, had previously taken both ativan and seroquel. Patient medication were held at that time of rapid. Psych consult called for psych medication evaluation. Patient admits to have taken her medications for 25 years. Patient admits to having anxiety at times, admits to depression. Patient denies any alcohol, tobacco or drug use. Denies HI or SI. is at bedside, patient recognizes when asked. Past psych hx: Schizophrenia and Alzheimer Medical hx: HTN, type II DM Family psych hx: unknown Current Medications: Active Medications Generic Name Dose Route Start Last Admin Trade Name Freq PRN Reason Stop Dose Admin Dextrose 0 ml 06/23/18 22:12 Dextrose 50% Inj IV STAT PRN Hypoglycemia Protocol Protocol Dextrose 0 gm 06/23/18 22:12 Glutose 15 PO ONCE PRN Hypoglycemia Protocol Protocol Docusate Sodium 100 mg 06/24/18 18:00 Colace PO BID SANTO Glucagon 0 mg 06/23/18 22:12 Glucagen Diagnostic Kit IM STAT PRN Hypoglycemia Protocol Protocol Heparin Sodium (Porcine) 5,000 units 06/24/18 10:00 06/24/18 10:55 Heparin SC 5,000 units Q12 [facility] Administration Home Med 72 mcg 06/24/18 10:00 Linaclotide [Linzess] PO DAILY SANTO Moxifloxacin HCl 400 mg in 250 mls @ 167 mls/hr 06/24/18 14:00 Avelox Iv 400mg/250ml Ns IVPB Q24H SANTO Protocol Dextrose 1,000 mls @ 0 mls/hr 06/23/18 22:12 Dextrose 5% In Water 1000 Ml IV .Q0M PRN Hypoglycemia Protocol Protocol Per Protocol Dextrose/Sodium Chloride 1,000 mls @ 50 mls/hr 06/24/18 00:30 06/24/18 01:08 Dextrose 5%/0.45% Ns 1000 Ml IV 50 mls/hr .Q20H SANTO Administration Insulin Glargine 10 unit 06/24/18 22:00 Lantus SC HS SANTO Insulin Human Regular 0 unit 06/24/18 07:30 06/24/18 12:21 Novolin R SC 1 unit ACHS SANTO Administration Protocol Quetiapine Fumarate 50 mg 06/24/18 22:00 Seroquel PO HS SANTO Past Psychiatric History - Past Psychiatric History Pertinent Medical Hx (Current Medical&Sleep Prob, Allergies): Allergies Allergy/AdvReac Type Severity Reaction Status Date / Time No Known Allergies Allergy Verified 06/23/18 13:24 Insulin Glargine, Recombina [Lantus] 30 unit SC DAILY 07/03/17 MetFORMIN [glucoPHAGE] 1,000 mg PO BID 07/03/17 Valsartan/Hydrochlorothiazide [Valsartan-Hctz 160-12.5 mg Tab] 1 tab PO DAILY 07/03/17 LORazepam [Ativan] 1 mg PO BID 05/02/18 Linaclotide [Linzess] 72 mcg PO DAILY 05/02/18 QUEtiapine [SEROquel] 200 mg PO HS 05/02/18 Review of Systems - Psychiatric Psychiatric: Anxiety, Depression. absent: Confusion, Homicidal Ideation, Suicidal Ideation Mental Status Examination - Personal Presentation Personal Presentation: Looks stated age - Motor Activity Motor Activity: Calm - Reliability in Providing Information Reliability in Providing Information: Fair - Speech Speech: Organized - Mood Mood: Depressed - Formal Thought Process Formal Thought Process: No Impairment - Cognitive Functions Orientation: Person, Place, Situation, Time Sensorium: Alert Attention/Concentration: Attentive Abstract Thinking: [place] DSM 5 DX - DSM 5 DSM 5 Diagnosis: Dementia of Alzheimer's type Schizophrenia - Recommended/Plan of Treatment Treatment Recommendations and Plan of Treatment: D/c Ativan decrease seroquel dose, from 300mg PO HS to 50mg PO HS Plan d/w Dr Washington 33 min
[2018-06-24] MEDS: Moxifloxacin IV 400mg/250ml NS 400 MG/250 ML BAG IVPB SCH (13:41)
[2018-06-24 20:31] LABS: CK-MB 2.57 ng/mL (0.0-3.38)
[2018-06-24] MEDS ORDERED: (Lantus) Insulin Glargine, Recombinant SC SCH (22:00)
--- NOTE | 2018-06-25 03:15 | CON ---
DATE: 06/24/2018 ENDOCRINOLOGY CONSULTATION LOCATION: Room 558. HISTORY OF PRESENT ILLNESS: This is an 83-year-old female with a known history of type 2 insulin-requiring diabetes, presenting here with sudden onset of altered mental status and apparent hypoglycemic episodes, the exact number is not known at this time, and was given D50 bolus injections and Glucagon by the paramedics as noted. The patient is currently on a combination of Lantus taken as 30 units at bedtime with metformin at 1 g b.i.d. PAST MEDICAL HISTORY: History of hypertension and dyslipidemia, history of senile dementia of the Alzheimer's type, history of bipolar disorder with schizophrenia and currently on psychotropic medications, history of seizure disorder with no recent seizure events as per the family, history of COPD and chronic bronchial asthma as noted, history of diffuse osteoarthritis in the lower back area as noted, history of coronary artery disease with previous coronary stent placement and underlying peripheral arterial disease and vasculopathy. FAMILY HISTORY: Positive for diabetes and hypertension. SOCIAL HISTORY: The patient has a very supportive and family. No known substance use. The patient's actually gives the insulin to the patient. No recent glucose monitoring available at this time. REVIEW OF SYSTEMS: As mentioned above. As per the family, has had generalized body weakness with easy fatigability and hypersomnolence, worse in the last few days prior to admission. Also admits to visual blurring and occasional bifrontal headaches with episodic dizziness and lightheadedness as noted. No chest pains or palpitations, but admits to upper respiratory infection with early bronchorrhea and productive cough as noted. Her oral intake has been variable and fluctuating with nausea, dyspepsia and vague upper abdominal pain. No recent alterations of bowel and urinary patterns. PHYSICAL EXAMINATION: GENERAL: This is an average-built female in no apparent distress. VITAL SIGNS: Blood pressure of 140/80, pulse of 70 beats per minute and regular, temperature 98, respirations 20. Height is 5 feet 2 inches, weight is 125 pounds. HEENT: Head: Normocephalic. Eyes: Anicteric with pink conjunctivae. Funduscopy not possible at this time. Ears, nose and throat: Otherwise normal. NECK: Supple. Thyroid gland is in normal size. No carotid bruits or cervical adenopathy. CARDIOPULMONARY: Some adynamic precordium. S1 and S2, rapid and regular. LUNGS: Clear to auscultation. ABDOMEN: Flat and soft with positive bowel sounds. EXTREMITIES: No peripheral edema. Pulses are +2 bilaterally. LABORATORY DATA: Her chemistry showed a BUN of 26, sodium 135, potassium 3.9, chloride 104, CO2 of 26, glucose 134 and creatinine 1.3. Her glucose levels have ranged from 120 to 209 mg/dL. ASSESSMENT: This is an 83-year-old female with uncontrolled and decompensated type 2 insulin-requiring diabetes, presenting here with symptomatic hypoglycemia, related to the variability of her oral intake and continued usage of her high-dose insulin therapy as given. She also has diabetic microvascular complications of retinopathy, polyneuropathy and nephropathy, and has diabetic macrovascular consultations of coronary artery disease and peripheral arterial disease and vasculopathy. Of significance is the fact that the patient also has senile dementia of the Alzheimer's type with recent behavioral disturbances as noted. PLAN OF MANAGEMENT: We will definitely modify her basal insulin to a much lower dosing and concur with the orders of Lantus given as 10 units subcu at bedtime daily as given to start tonight. We will modify the coverage scale to obviate hypoglycemia and detailed orders have been given. If hyperglycemic levels persist with her postprandial glucose values, then we may decide to give her low-dose oral hypoglycemic therapy during the day as indicated. We will obtain a hemoglobin A1c to confirm her prior glycemic control, and baseline thyroid function studies will be ordered. We will obtain serial chemistries and supplement accordingly as needed. We will follow. Stephanie Mondragon MD
[2018-06-25] MEDS: (Novolin R) Insulin Human Regular 100 units/ml vial SC SCH ×4 (07:26→21:59)
[2018-06-25 07:46] LABS: ALB/GLOB RATIO 1.2 (1.0-2.1); ALBUMIN 3.8 g/dL (3.5-5.0); ALT/SGPT 11 U/L (9-52); AMYLASE 31 U/L (30-110); AST/SGOT 24 U/L (14-36); BLOOD UREA NITROGEN 17 mg/dL (7-17); CALCIUM 8.8 mg/dl (8.6-10.4); GFR NON-AFRICAN AMERICAN 53; LIPASE 52 U/L (23-300)
[2018-06-25 07:57] LABS: BASO % 0.5 % (0.0-2.0); EOS % 0.4 % (0.0-4.0); HEMOGLOBIN 11.7 g/dL (11.0-16.0); LYMPH # 3.6 K/uL (1.0-4.3); MEAN CELL VOLUME 90.5 fL (81.0-99.0); MEAN CORPUSCULAR HEMOGLOBIN 31.4 pg (27.0-31.0); MEAN CORPUSCULAR HGB CONC 34.7 g/dL (33.0-37.0); MEAN PLATELET VOLUME 9.9 fL (7.2-11.7); MONO # 0.9 K/uL (0.0-0.8); MONO % 13.8 % (0.0-10.0); NEUT # 2.1 K/uL (1.8-7.0); NEUT % 31.3 % (50.0-75.0); RBC 3.73 Mil/uL (3.80-5.20); RED CELL DISTRIBUTION WIDTH 13.2 % (11.5-14.5); WHITE BLOOD COUNT 6.7 K/uL (4.8-10.8)
[2018-06-25] MEDS ORDERED: Influenza Vaccine 60 mcg/0.5 mL SYR (4YR UP) IM ONE (10:00)
[2018-06-25] MEDS: Moxifloxacin IV 400mg/250ml NS 400 MG/250 ML BAG IVPB SCH (13:47)
[2018-06-25] MEDS: Dextrose 5%/0.45% NS 1,000 ML IV SCH (16:30)
--- NOTE | 2018-06-25 17:10 | CP.PCM.PN ---
Subjective - Date & Time of Evaluation Date of Evaluation: 06/25/18 Time of Evaluation: 17:08 - Subjective Subjective: Patient complaints of difficulty falling sleep. Objective - Vital Signs/Intake and Output Vital Signs (last 24 hours): Temp Pulse Resp BP Pulse Ox 97.8 F 68 20 145/74 95 06/25/18 16:46 06/25/18 16:46 06/25/18 16:46 06/25/18 16:46 06/25/18 16:46 Intake and Output: 06/25/18 06/25/18 06:59 18:59 Intake Total 1000 Balance 1000 - Medications Medications: Current Medications Dextrose (Dextrose 50% Inj) 0 ml IV STAT PRN; Protocol PRN Reason: Hypoglycemia Protocol Dextrose (Glutose 15) 0 gm PO ONCE PRN; Protocol PRN Reason: Hypoglycemia Protocol Docusate Sodium (Colace) 100 mg PO BID [facility] Last Admin: 06/25/18 09:10 Dose: 100 mg Glipizide (Glucotrol) 2.5 mg PO BID [facility] Glucagon (Glucagen Diagnostic Kit) 0 mg IM STAT PRN; Protocol PRN Reason: Hypoglycemia Protocol Heparin Sodium (Porcine) (Heparin) 5,000 units SC Q12 [facility] Last Admin: 06/25/18 09:10 Dose: 5,000 units Home Med (Linaclotide [Linzess]) 72 mcg PO DAILY [facility] Moxifloxacin HCl (Avelox Iv 400mg/250ml Ns) 400 mg in 250 mls @ 167 mls/hr IVPB Q24H [facility]; Protocol Last Admin: 06/25/18 13:47 Dose: 167 mls/hr Dextrose (Dextrose 5% In Water 1000 Ml) 1,000 mls @ 0 mls/hr IV .Q0M PRN; Pro tocol PRN Reason: Hypoglycemia Protocol Dextrose/Sodium Chloride (Dextrose 5%/0.45% Ns 1000 Ml) 1,000 mls @ 50 mls/hr IV .Q20H [facility] Last Admin: 06/24/18 22:55 Dose: 50 mls/hr Insulin Human Regular (Novolin R) 0 unit SC ACHS [facility]; Protocol Last Admin: 06/25/18 11:42 Dose: Not Given Quetiapine Fumarate (Seroquel) 50 mg PO HS [facility] Last Admin: 06/24/18 22:20 Dose: 50 mg - Labs Labs: 06/25/18 07:22 06/25/18 07:22 - Constitutional Appears: Well, Non-toxic - Head Exam Head Exam: ATRAUMATIC, NORMAL INSPECTION, NORMOCEPHALIC - Neck Exam Neck Exam: Full ROM, Normal Inspection - Respiratory Exam Respiratory Exam: Clear to Ausculation Bilateral, NORMAL BREATHING PATTERN - Cardiovascular Exam Cardiovascular Exam: REGULAR RHYTHM, +S1, +S2 - GI/Abdominal Exam GI & Abdominal Exam: Soft, Normal Bowel Sounds - Extremities Exam Extremities Exam: Full ROM, Normal Capillary Refill, Normal Inspection - Neurological Exam Neurological Exam: Alert, Awake - Psychiatric Exam Psychiatric exam: Flat Affect Assessment and Plan (1) Pneumonia Assessment & Plan: Continue same treatment. Pulmonary evaluation. Status: Acute (2) Renal insufficiency Status: Acute (3) Diabetes mellitus Status: Chronic (4) HTN (hypertension) Status: Chronic (5) Insomnia Assessment & Plan: Clonazepam 1 mg PO QHS. Status: Acute (6) Hypotension Status: Resolved (7) Hypoglycemia Status: Acute
[2018-06-25] MEDS ORDERED: GlipiZIDE 2.5 mg Tab PO SCH (18:00)
--- NOTE | 2018-06-25 18:55 | CP.PCM.CON ---
History of Present Illness - History of Present Illness History of Present Illness: I was asked by Dr Rosas to evaluate jaciel. Jaciel seen 06/25/181852 Patient is a 83 year old female with HTN. psychaitric history presents with altered mental status. [employer] [facility] called due to an episode of hypotnesion. She is currently comfortable in bed. Echocardiogram from hospitalzation in May revealed EF 55-60% Review of Systems - Constitutional Constitutional: absent: As Per HPI, Anorexia, Chills, Daytime Sleepiness, Excessive Sweating, Fatigue, Fever, Frequent Falls, Headache, Increased Appetite, Lethargy, Malaise, Night Sweats, Snoring, Sleep Apnea, Weight Gain, Weight Loss, Weakness, Other - EENT Eyes: absent: As Per HPI, Blind Spots, Blurred Vision, Change in Vision, Decreased Night Vision, Diplopia, Discharge, Dry Eye, Exophthalmos, Floaters, Irritation, Itchy Eyes, Loss of Peripheral Vision, Pain, Photophobia, Requires Corrective Lenses, Sees Flashes, Spots in Vision, Tunnel Vision, Other Visual Disturbances, Loss of Vision, Other Ears: absent: As Per HPI, Decreased Hearing, Ear Discharge, Ear Pain, Tinnitus, Abnormal Hearing, Disequilibrium, Dizziness, Other Nose/Mouth/Throat: absent: As Per HPI, Epistaxis, Nasal Congestion, Nasal Discharge, Nasal Obstruction, Nasal Trauma, Nose Pain, Post Nasal Drip, Sinus Pain, Sinus Pressure, Bleeding Gums, Change in Voice, Dental Pain, Dry Mouth, Dysphagia, Halitosis, Hoarsness, Lip Swelling, Mouth Lesions, Mouth Pain, Odynophagia, Sore Throat, Throat Swelling, Tongue Swelling, Facial Pain, Neck Pain, Neck Mass, Other - Cardiovascular Cardiovascular: absent: As Per HPI, Acrocyanosis, Chest Pain, Chest Pain at Rest, Chest Pain with Activity, Claudication, Diaphoresis, Dyspnea, Dyspnea on Exertion, Edema, Irregular Heart Rhythm, Pain Radiating to Arm/Neck/Jaw, Leg Edema, Leg Ulcers, Lightheadedness, Orthopnea, Palpitations, Paroxysmal Nocturnal Dyspnea, Pedal Edema, Radiating Pain, Rapid Heart Rate, Slow Heart Rate, Syncope, Other - Respiratory Respiratory: absent: As Per HPI, Cough, Dyspnea, Hemoptysis, Dyspnea on Exertion, Wheezing, Snoring, Stridor, Pain on Inspiration, Chest Congestion, Excessive Mucous Production, Change in Mucous Color, Pain with Coughing, Other - Gastrointestinal Gastrointestinal: absent: As Per HPI, Abdominal Pain, Belching, Bloating, Change in Bowel Habits, Change in Stool Character, Coffee Ground Emesis, Constipation, Cramping, Diarrhea, Dyspepsia, Dysphagia, Early Satiety, Excessive Flatus, Fecal Incontinence, Heartburn, Hematemesis, Hematochezia, Loose Stools, Melena, Nausea, Odynophagia, Temesmus, Vomiting, Other - Genitourinary Genitourinary: absent: As Per HPI, Change in Urinary Stream, Difficulty Urinating, Dysuria, Flank Pain, Hematuria, Pyuria, Nocturia, Urinary Incontinence, Urinary Frequency, Urinary Hesitance, Urinary Urgency, Voiding Freq/Small Amts, Freq UTI, Hx Renal/Bladder Calculi, Hx /Renal Surgery, Bladder Distension, Other - Musculoskeletal Musculoskeletal: absent: As Per HPI, Abnormal Gait, Arthralgias, Atrophy, Back Pain, Deformity, Joint Swelling, Limited Range of Motion, Loss of Height, Muscle Cramps, Muscle Weakness, Myalgias, Neck Pain, Numbness, Radiating Pain into Limb, Stiffness, Tingling, Other - Integumentary Integumentary: absent: As Per HPI, Acne, Alopecia, Bleeding Lesions, Change in Hair, Change in Nails, Change in Pigmentation, Changing Lesions, Dry Skin, Erythema, Furuncle, Hirsutism, Lesions, New Lesions, Non-Healing Lesions, Photosensitivity, Pruritus, Rash, Skin Pain, Skin Ulcer, Sores, Striae, Swelling, Unusual Bruising, Wounds, Jaundice, Other - Neurological Neurological: absent: As Per HPI, Abnormal Gait, Abnormal Hearing, Abnormal Movements, Abnormal Speech, Behavioral Changes, Burning Sensations, Confusion, Convulsions, Disequilibrium, Dizziness, Numbness, Focal Weakness, Frequent Falls, Headaches, Lack of Coordination, Loss of Vision, Memory Loss, Paresthesias, Radicular Pain, Restless Legs, Sensory Deficit, Syncope, Tingling, Tremor, Vertigo, Weakness, Other Visual Disturbances, Other - Psychiatric Psychiatric: absent: As Per HPI, Abnormal Sleep Pattern, Anhedonia, Anxiety, Auditory Hallucinations, Behavioral Changes, Change in Appetite, Change in Libido, Confusion, Depression, Difficulty Concentrating, Hallucinations, Homicidal Ideation, Hopelessness, Irritability, Memory Loss, Mood Swings, Panic Attacks, Paranoia, Suicidal Ideation, Visual Hallucinations, Tactile Hallucinations, Other - Endocrine Endocrine: absent: As Per HPI, Change in Body Appearance, Change in Libido, Cold Intolorance, Deepening of Voice, Excessive Sweating, Fatigue, Flushing, Heat Intolorance, Increase in Ring/Shoe/Hat Size, Palpitations, Polydipsia, Polyphagia, Polyuria, Other - Hematologic/Lymphatic Hematologic: absent: As Per HPI, Easy Bleeding, Easy Bruising, Lymphadenopathy, Other Past Patient History - Past Medical History & Family History Past Medical History?: Yes - Past Social History Smoking Status: Never Smoked - CARDIAC Hx Hypertension: Yes - PULMONARY Hx Chronic Obstructive Pulmonary Disease (COPD): Yes - NEUROLOGICAL Hx Neurological Disorder: Yes Hx Alzheimer's Disease: Yes HX Cerebrovascular Accident: No Hx Dementia: Yes Hx Seizures: Yes - HEENT Hx HEENT Problems: No - RENAL Hx Chronic Kidney Disease: No - ENDOCRINE/METABOLIC Hx Diabetes Mellitus Type 2: Yes - HEMATOLOGICAL/ONCOLOGICAL Hx Cancer: No Hx Human Immunodeficiency Virus (HIV): No - INTEGUMENTARY Hx Dermatological Problems: No - MUSCULOSKELETAL/RHEUMATOLOGICAL Hx Arthritis: Yes (BACK) Hx Falls: Yes - GASTROINTESTINAL Hx Gastritis: Yes - GENITOURINARY/GYNECOLOGICAL Hx Incontinence: Yes Hx Sexually Transmitted Disorders: No Hx Urinary Tract Infection: Yes - PSYCHIATRIC Hx Anxiety: Yes Hx Bipolar Disorder: Yes Hx Depression: Yes Hx Hallucinations: Yes Hx Schizophrenia: Yes Hx Substance Use: No - SURGICAL HISTORY Hx Coronary Stent: Yes - ANESTHESIA Hx Anesthesia: Yes Hx Anesthesia Reactions: No Hx Malignant Hyperthermia: No Meds Allergies/Adverse Reactions: Allergies Allergy/AdvReac Type Severity Reaction Status Date / Time No Known Allergies Allergy Verified 06/23/18 13:24 - Medications Medications: Current Medications Clonazepam (Klonopin) 1 mg PO HS [facility] Dextrose (Dextrose 50% Inj) 0 ml IV STAT PRN; Protocol PRN Reason: Hypoglycemia Protocol Dextrose (Glutose 15) 0 gm PO ONCE PRN; Protocol PRN Reason: Hypoglycemia Protocol Docusate Sodium (Colace) 100 mg PO BID [facility] Last Admin: 06/25/18 17:13 Dose: 100 mg Glipizide (Glucotrol) 2.5 mg PO BID [facility] Last Admin: 06/25/18 17:13 Dose: 2.5 mg Glucagon (Glucagen Diagnostic Kit) 0 mg IM STAT PRN; Protocol PRN Reason: Hypoglycemia Protocol Heparin Sodium (Porcine) (Heparin) 5,000 units SC Q12 [facility] Last Admin: 06/25/18 09:10 Dose: 5,000 units Home Med (Linaclotide [Linzess]) 72 mcg PO DAILY [facility] Moxifloxacin HCl (Avelox Iv 400mg/250ml Ns) 400 mg in 250 mls @ 167 mls/hr IVPB Q24H [facility]; Protocol Last Admin: 06/25/18 13:47 Dose: 167 mls/hr Dextrose (Dextrose 5% In Water 1000 Ml) 1,000 mls @ 0 mls/hr IV .Q0M PRN; Pr otocol PRN Reason: Hypoglycemia Protocol Dextrose/Sodium Chloride (Dextrose 5%/0.45% Ns 1000 Ml) 1,000 mls @ 50 mls/hr IV .Q20H [facility] Last Admin: 06/24/18 22:55 Dose: 50 mls/hr Insulin Human Regular (Novolin R) 0 unit SC ACHS [facility]; Protocol Last Admin: 06/25/18 17:13 Dose: 1 unit Quetiapine Fumarate (Seroquel) 50 mg PO HS [facility] Last Admin: 06/24/18 22:20 Dose: 50 mg Physical Exam - Constitutional Appears: Non-toxic - Head Exam Head Exam: NORMAL INSPECTION - Eye Exam Eye Exam: Normal appearance - ENT Exam ENT Exam: Mucous Membranes Moist - Neck Exam Neck exam: Positive for: Full Rom - Respiratory Exam Respiratory Exam: NORMAL BREATHING PATTERN - Cardiovascular Exam Cardiovascular Exam: REGULAR RHYTHM - GI/Abdominal Exam GI & Abdominal Exam: Normal Bowel Sounds - Rectal Exam Rectal Exam: Deferred - Extremities Exam Extremities exam: Negative for: pedal edema - Back Exam Back exam: NORMAL INSPECTION - Neurological Exam Neurological exam: Alert - Psychiatric Exam Psychiatric exam: Normal Affect - Skin Skin Exam: Normal Color Results - Vital Signs Recent Vital Signs: Last Vital Signs Temp 97.8 F 06/25/18 16:46 Pulse 68 06/25/18 16:46 Resp 20 06/25/18 16:46 BP 145/74 06/25/18 16:46 Pulse Ox 95 06/25/18 16:46 - Labs Result Diagrams: 06/25/18 07:22 06/25/18 07:22 Labs: Laboratory Results - last 24 hr 06/24/18 06/24/18 06/25/18 19:40 21:37 06:30 WBC RBC Hgb Hct MCV MCH MCHC RDW Plt Count MPV Neut % (Auto) Lymph % (Auto) [place] % (Auto) Eos % (Auto) Baso % (Auto) Neut # (Auto) Lymph # (Auto) [place] # (Auto) Eos # (Auto) Baso # (Auto) Sodium Potassium Chloride Carbon Dioxide Anion Gap BUN Creatinine Est GFR ( Amer) Est GFR (Non-Af Amer) POC Glucose (mg/dL) 158 H 122 H Random Glucose Hemoglobin A1c Calcium Magnesium Total Bilirubin AST ALT Alkaline Phosphatase Total Creatine Kinase 357 H CK-MB (Mass) 2.57 Troponin I < 0.0120 Total Protein Albumin Globulin Albumin/Globulin Ratio Amylase Lipase TSH 3rd Generation 06/25/18 06/25/18 06/25/18 07:22 07:22 07:22 WBC 6.7 RBC 3.73 L Hgb 11.7 Hct 33.8 L MCV 90.5 MCH 31.4 H MCHC 34.7 RDW 13.2 Plt Count 271 MPV 9.9 Neut % (Auto) 31.3 L Lymph % (Auto) 54.0 H [place] % (Auto) 13.8 H Eos % (Auto) 0.4 Baso % (Auto) 0.5 Neut # (Auto) 2.1 Lymph # (Auto) 3.6 [place] # (Auto) 0.9 H Eos # (Auto) 0.0 Baso # (Auto) 0.0 Sodium 139 Potassium 3.8 Chloride 106 Carbon Dioxide 26 Anion Gap 11 BUN 17 Creatinine 1.0 Est GFR ( Amer) > 60 Est GFR (Non-Af Amer) 53 POC Glucose (mg/dL) Random Glucose 129 H Hemoglobin A1c 7.8 H Calcium 8.8 Magnesium 1.7 Total Bilirubin 0.5 AST 24 ALT 11 Alkaline Phosphatase 75 Total Creatine Kinase CK-MB (Mass) Troponin I Total Protein 6.9 Albumin 3.8 Globulin 3.2 Albumin/Globulin Ratio 1.2 Amylase 31 Lipase 52 TSH 3rd Generation 5.65 H 06/25/18 06/25/18 11:20 16:55 WBC RBC Hgb Hct MCV MCH MCHC RDW Plt Count MPV Neut % (Auto) Lymph % (Auto) [place] % (Auto) Eos % (Auto) Baso % (Auto) Neut # (Auto) Lymph # (Auto) [place] # (Auto) Eos # (Auto) Baso # (Auto) Sodium Potassium Chloride Carbon Dioxide Anion Gap BUN Creatinine Est GFR ( Amer) Est GFR (Non-Af Amer) POC Glucose (mg/dL) 220 H 155 H Random Glucose Hemoglobin A1c Calcium Magnesium Total Bilirubin AST ALT Alkaline Phosphatase Total Creatine Kinase CK-MB (Mass) Troponin I Total Protein Albumin Globulin Albumin/Globulin Ratio Amylase Lipase TSH 3rd Generation - EKG Data EKG Interpreted by: Myself EKG shows normal: Sinus rhythm Assessment & Plan (1) Hypotension Assessment and Plan: unclear etiology. possibly medication related. no hypotension currently. conitnue medical therapy. normla LV function by echocardiogram. Stable cardiac status. No further inpatient cardiac workup is necessary Status: Resolved
--- NOTE | 2018-06-25 21:20 | PN ---
DATE: 06/25/2018 LOCATION: Room 558. SUBJECTIVE: This is an 83-year-old female with recent uncontrolled type 2 insulin-requiring diabetes, presenting here with symptomatic hypoglycemia and associated altered mental status and is now being followed closely for metabolic management. Insulin dose adjustments have been undertaken also because of the variability of her oral intake as noted. Her glucose levels have ranged from 122 to 158 and 220 mg/dL. Her A1c is 7.8% which is really fairly acceptable for her age and metabolic goals thereof. LABORATORY DATA: Her chemistry showed a BUN of 17, sodium 139, potassium 3.8, chloride 106, CO2 of 26, glucose 129, and creatinine 1. 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 ASSESSMENT: This is an 83-year-old female with uncontrolled and decompensated type 2 insulin-requiring diabetes with extremes of glycemic fluctuations presenting here with symptomatic hypoglycemia and altered mental status with associated neuroglycopenic and hyperadrenergic manifestations reversed by D50 bolus injections and Glucagon injections as given. Because of the variability of her oral intake with varied meal and meal portions as noted, the patient does not really require a very hefty insulin dose regimen at this time as she was previously being given Lantus at 30 units once daily as given. PLAN OF MANAGEMENT: As the patient has only received Lantus 10 units subcutaneous at bedtime over the last two nights with near optimal fasting glucose values in the morning, we will actually discontinue her Lantus therapy to a very minuscule dose because of poor patient's safety, especially at the outpatient home management. We will switch over to low-dose oral hypoglycemic therapy of glipizide given as 2.5 mg b.i.d. with meals as ordered. We will titrate incrementally as indicated to optimize metabolic control. We will repeat the thyroid studies and hold off any kind of thyroid pharmacotherapy for now. We will follow. Stephanie Mondragon MD
--- NOTE | 2018-06-25 22:27 | CP.PCM.CON ---
History of Present Illness - History of Present Illness History of Present Illness: Chief complaint: Consultation was called for shortness of breath. HPI: 83-year-old Romanian-speaking female with a history of hypertension diabetes schizophrenia admitted with suspected hypoglycemia and a possible pneumonia. Patient initially admitted with altered mental status and she was given dextrose and glucagon in the patient got better. But pulmonary evaluation was called in for shortness of breath and cough. She now having symptoms of very mild cough, exertional dyspnea noted. Patient has no fever at this time. She denies any nausea and vomiting at this time Past medical history: Patient has a history of hypertension and a history of chronic lung disease in the past She also has a history of Alzheimer's dementia and a history of seizure disorder. Patient denies any history of pneumonia in the past or tuberculosis in the past Surgical history history of coronary stenting Allergies no known drug allergy Personal history: Remote history of smoking noted No alcoholism Review of system: Patient is currently having no headache. Mild exertional dyspnea noted, minimal cough noted, abdominal pain negative, no leg swelling On examination: Vital signs are stable otherwise. Chest bilateral minimal expiratory wheezing noted no thyromegaly, no tonsillar enlargement noted Heart sounds are regular Abdomen soft nontender no pedal edema Chest x-ray reviewed Decreased lung volumes on the right lung noted I recommended CT scan of the chest which I reviewed. 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 Likely mild aspiration possible. Patient has hyperinflated lungs, may be contributing the COPD or obstructive lung disease. I recommended bronchodilators. Nebulizer. No need for oxygen at this time. Vital signs otherwise stable will f/u Past Patient History - Past Medical History & Family History Past Medical History?: Yes - Past Social History Smoking Status: Never Smoked - CARDIAC Hx Hypertension: Yes - PULMONARY Hx Chronic Obstructive Pulmonary Disease (COPD): Yes - NEUROLOGICAL Hx Neurological Disorder: Yes Hx Alzheimer's Disease: Yes HX Cerebrovascular Accident: No Hx Dementia: Yes Hx Seizures: Yes - HEENT Hx HEENT Problems: No - RENAL Hx Chronic Kidney Disease: No - ENDOCRINE/METABOLIC Hx Diabetes Mellitus Type 2: Yes - HEMATOLOGICAL/ONCOLOGICAL Hx Cancer: No Hx Human Immunodeficiency Virus (HIV): No - INTEGUMENTARY Hx Dermatological Problems: No - MUSCULOSKELETAL/RHEUMATOLOGICAL Hx Arthritis: Yes (BACK) Hx Falls: Yes - GASTROINTESTINAL Hx Gastritis: Yes - GENITOURINARY/GYNECOLOGICAL Hx Incontinence: Yes Hx Sexually Transmitted Disorders: No Hx Urinary Tract Infection: Yes - PSYCHIATRIC Hx Anxiety: Yes Hx Bipolar Disorder: Yes Hx Depression: Yes Hx Hallucinations: Yes Hx Schizophrenia: Yes Hx Substance Use: No - SURGICAL HISTORY Hx Coronary Stent: Yes - ANESTHESIA Hx Anesthesia: Yes Hx Anesthesia Reactions: No Hx Malignant Hyperthermia: No Meds Allergies/Adverse Reactions: Allergies Allergy/AdvReac Type Severity Reaction Status Date / Time No Known Allergies Allergy Verified 06/23/18 13:24 - Medications Medications: Current Medications Clonazepam (Klonopin) 1 mg PO HS [facility] Last Admin: 06/25/18 21:18 Dose: 1 mg Dextrose (Dextrose 50% Inj) 0 ml IV STAT PRN; Protocol PRN Reason: Hypoglycemia Protocol Dextrose (Glutose 15) 0 gm PO ONCE PRN; Protocol PRN Reason: Hypoglycemia Protocol Docusate Sodium (Colace) 100 mg PO BID [facility] Last Admin: 06/25/18 17:13 Dose: 100 mg Glipizide (Glucotrol) 2.5 mg PO BID [facility] Last Admin: 06/25/18 17:13 Dose: 2.5 mg Glucagon (Glucagen Diagnostic Kit) 0 mg IM STAT PRN; Protocol PRN Reason: Hypoglycemia Protocol Heparin Sodium (Porcine) (Heparin) 5,000 units SC Q12 [facility] Last Admin: 06/25/18 21:18 Dose: 5,000 units Home Med (Linaclotide [Linzess]) 72 mcg PO DAILY [facility] Moxifloxacin HCl (Avelox Iv 400mg/250ml Ns) 400 mg in 250 mls @ 167 mls/hr IVPB Q24H [facility]; Protocol Last Admin: 06/25/18 13:47 Dose: 167 mls/hr Dextrose (Dextrose 5% In Water 1000 Ml) 1,000 mls @ 0 mls/hr IV .Q0M PRN; Protocol PRN Reason: Hypoglycemia Protocol Dextrose/Sodium Chloride (Dextrose 5%/0.45% Ns 1000 Ml) 1,000 mls @ 50 mls/hr IV .Q20H [facility] Last Admin: 06/25/18 16:30 Dose: Not Given Insulin Human Regular (Novolin R) 0 unit SC ACHS [facility]; Protocol Last Admin: 06/25/18 21:59 Dose: Not Given Quetiapine Fumarate (Seroquel) 50 mg PO HS [facility] Last Admin: 06/25/18 21:19 Dose: 50 mg Results - Vital Signs Recent Vital Signs: Last Vital Signs Temp 97.8 F 06/25/18 16:46 Pulse 68 06/25/18 16:46 Resp 20 06/25/18 16:46 BP 145/74 06/25/18 16:46 Pulse Ox 95 06/25/18 16:46 - Labs Result Diagrams: 06/26/18 07:45 06/26/18 07:45 Labs: Laboratory Results - last 24 hr 06/25/18 06/25/18 06/25/18 06:30 07:22 07:22 WBC 6.7 RBC 3.73 L Hgb 11.7 Hct 33.8 L MCV 90.5 MCH 31.4 H MCHC 34.7 RDW 13.2 Plt Count 271 MPV 9.9 Neut % (Auto) 31.3 L Lymph % (Auto) 54.0 H [place]y % (Auto) 13.8 H Eos % (Auto) 0.4 Baso % (Auto) 0.5 Neut # (Auto) 2.1 Lymph # (Auto) 3.6 [place]y # (Auto) 0.9 H Eos # (Auto) 0.0 Baso # (Auto) 0.0 Sodium 139 Potassium 3.8 Chloride 106 Carbon Dioxide 26 Anion Gap 11 BUN 17 Creatinine 1.0 Est GFR ( Amer) > 60 Est GFR (Non-Af Amer) 53 POC Glucose (mg/dL) 122 H Random Glucose 129 H Hemoglobin A1c Calcium 8.8 Magnesium 1.7 Total Bilirubin 0.5 AST 24 ALT 11 Alkaline Phosphatase 75 Total Protein 6.9 Albumin 3.8 Globulin 3.2 Albumin/Globulin Ratio 1.2 Amylase 31 Lipase 52 TSH 3rd Generation 5.65 H 06/25/18 06/25/18 06/25/18 07:22 11:20 16:55 WBC RBC Hgb Hct MCV MCH MCHC RDW Plt Count MPV Neut % (Auto) Lymph % (Auto) [place] % (Auto) Eos % (Auto) Baso % (Auto) Neut # (Auto) Lymph # (Auto) [place] # (Auto) Eos # (Auto) Baso # (Auto) Sodium Potassium Chloride Carbon Dioxide Anion Gap BUN Creatinine Est GFR ( Amer) Est GFR (Non-Af Amer) POC Glucose (mg/dL) 220 H 155 H Random Glucose Hemoglobin A1c 7.8 H Calcium Magnesium Total Bilirubin AST ALT Alkaline Phosphatase Total Protein Albumin Globulin Albumin/Globulin Ratio Amylase Lipase TSH 3rd Generation 06/25/18 21:38 WBC RBC Hgb Hct MCV MCH MCHC RDW Plt Count MPV Neut % (Auto) Lymph % (Auto) [place] % (Auto) Eos % (Auto) Baso % (Auto) Neut # (Auto) Lymph # (Auto) [place] # (Auto) Eos # (Auto) Baso # (Auto) Sodium Potassium Chloride Carbon Dioxide Anion Gap BUN Creatinine Est GFR ( Amer) Est GFR (Non-Af Amer) POC Glucose (mg/dL) 218 H Random Glucose Hemoglobin A1c Calcium Magnesium Total Bilirubin AST ALT Alkaline Phosphatase Total Protein Albumin Globulin Albumin/Globulin Ratio Amylase Lipase TSH 3rd Generation
--- NOTE | 2018-06-26 06:48 | CP.PCM.PN ---
Subjective - Date & Time of Evaluation Date of Evaluation: 06/25/18 Time of Evaluation: 15:00 Objective - Vital Signs/Intake and Output Vital Signs (last 24 hours): Temp Pulse Resp BP Pulse Ox 97.8 F 82 20 130/79 98 06/25/18 23:43 06/25/18 23:43 06/25/18 23:43 06/25/18 23:43 06/25/18 23:43 Intake and Output: 06/25/18 06/26/18 18:59 06:59 Intake Total 1000 Balance 1000 - Medications Medications: Current Medications Clonazepam (Klonopin) 1 mg PO HS [facility] Last Admin: 06/25/18 21:18 Dose: 1 mg Dextrose (Dextrose 50% Inj) 0 ml IV STAT PRN; Protocol PRN Reason: Hypoglycemia Protocol Dextrose (Glutose 15) 0 gm PO ONCE PRN; Protocol PRN Reason: Hypoglycemia Protocol Docusate Sodium (Colace) 100 mg PO BID [facility] Last Admin: 06/25/18 17:13 Dose: 100 mg Glipizide (Glucotrol) 5 mg PO BID [facility] Glucagon (Glucagen Diagnostic Kit) 0 mg IM STAT PRN; Protocol PRN Reason: Hypoglycemia Protocol Heparin Sodium (Porcine) (Heparin) 5,000 units SC Q12 [facility] Last Admin: 06/25/18 21:18 Dose: 5,000 units Home Med (Linaclotide [Linzess]) 72 mcg PO DAILY [facility] Moxifloxacin HCl (Avelox Iv 400mg/250ml Ns) 400 mg in 250 mls @ 167 mls/hr IVPB Q24H [facility]; Protocol Last Admin: 06/25/18 13:47 Dose: 167 mls/hr Dextrose (Dextrose 5% In Water 1000 Ml) 1,000 mls @ 0 mls/hr IV .Q0M PRN; Protocol PRN Reason: Hypoglycemia Protocol Dextrose/Sodium Chloride (Dextrose 5%/0.45% Ns 1000 Ml) 1,000 mls @ 50 mls/hr IV .Q20H [facility] Last Admin: 06/25/18 16:30 Dose: Not Given Insulin Human Regular (Novolin R) 0 unit SC ACHS [facility]; Protocol Last Admin: 06/25/18 21:59 Dose: Not Given Quetiapine Fumarate (Seroquel) 50 mg PO [facility] Last Admin: 03/26/19 21:19 Dose: 50 mg - Labs Labs: 06/25/18 07:22 06/25/18 07:22
--- NOTE | 2018-06-26 06:58 | CP.PCM.PN ---
Subjective - Date & Time of Evaluation Date of Evaluation: 06/26/18 Time of Evaluation: 07:48 - Subjective Subjective: Pgy3 Internal Medicine Resident Endocrinology Progress note for Dr. Mondragon Patient seen and examined at bedside. No acute events overnight as per nursing. Patient is ao x 3 but has tangential speech and became religiously preoccupied during interview. She denied any complaints of fever, headache, chest pain, sob, abd pain, pain in her legs b/l. Complete ROS was not possible 2/2 tangential speech. Patient was aware that we are changing her diabetes medication regimen. Objective - Vital Signs/Intake and Output Vital Signs (last 24 hours): Temp Pulse Resp BP Pulse Ox 97.8 F 82 20 130/79 98 06/25/18 23:43 06/25/18 23:43 06/25/18 23:43 06/25/18 23:43 06/25/18 23:43 Intake and Output: 06/25/18 06/26/18 18:59 06:59 Intake Total 1000 Balance 1000 - Medications Medications: Current Medications Clonazepam (Klonopin) 1 mg PO HS [facility] Last Admin: 06/25/18 21:18 Dose: 1 mg Dextrose (Dextrose 50% Inj) 0 ml IV STAT PRN; Protocol PRN Reason: Hypoglycemia Protocol Dextrose (Glutose 15) 0 gm PO ONCE PRN; Protocol PRN Reason: Hypoglycemia Protocol Docusate Sodium (Colace) 100 mg PO BID [facility] Last Admin: 06/25/18 17:13 Dose: 100 mg Glipizide (Glucotrol) 5 mg PO BID [facility] Glucagon (Glucagen Diagnostic Kit) 0 mg IM STAT PRN; Protocol PRN Reason: Hypoglycemia Protocol Heparin Sodium (Porcine) (Heparin) 5,000 units SC Q12 [facility] Last Admin: 06/25/18 21:18 Dose: 5,000 units Home Med (Linaclotide [Linzess]) 72 mcg PO DAILY [facility] Moxifloxacin HCl (Avelox Iv 400mg/250ml Ns) 400 mg in 250 mls @ 167 mls/hr IVPB Q24H [facility]; Protocol Last Admin: 06/25/18 13:47 Dose: 167 mls/hr Dextrose (Dextrose 5% In Water 1000 Ml) 1,000 mls @ 0 mls/hr IV .Q0M PRN; Protocol PRN Reason: Hypoglycemia Protocol Dextrose/Sodium Chloride (Dextrose 5%/0.45% Ns 1000 Ml) 1,000 mls @ 50 mls/hr IV .Q20H [facility] Last Admin: 06/25/18 16:30 Dose: Not Given Insulin Human Regular (Novolin R) 0 unit SC ACHS [facility]; Protocol Last Admin: 06/25/18 21:59 Dose: Not Given Quetiapine Fumarate (Seroquel) 50 mg PO HS [facility] Last Admin: 06/25/18 21:19 Dose: 50 mg - Labs Labs: 06/25/18 07:22 06/25/18 07:22 - Constitutional Appears: Non-toxic, No Acute Distress, Unkempt - Head Exam Head Exam: ATRAUMATIC, NORMAL INSPECTION, NORMOCEPHALIC - Eye Exam Eye Exam: Normal appearance. absent: Conjunctival injection, Scleral icterus - Neck Exam Neck Exam: Full ROM, Normal Inspection - Respiratory Exam Respiratory Exam: Wheezes (minimal expiratory b/l), NORMAL BREATHING PATTERN. absent: Accessory Muscle Use, Rales, Rhonchi, Respiratory Distress - Cardiovascular Exam Cardiovascular Exam: RRR, +S1, +S2 - GI/Abdominal Exam GI & Abdominal Exam: Soft, Normal Bowel Sounds. absent: Firm, Guarding - Extremities Exam Extremities Exam: Normal Inspection. absent: Pedal Edema - Neurological Exam Neurological Exam: Alert, Awake, Oriented x3 - Psychiatric Exam Psychiatric exam: Normal Affect, Normal Mood - Skin Skin Exam: Dry, Intact, Normal Color Assessment and Plan - Assessment and Plan (Free Text) Assessment: 83yo female PMHx DM, HTN, CAD s/p stent, dementia admitted for SOB and hyperglycemia. Endocrinology consulted for DM management Plan: Blood work and accuchecks noted. Patient's Glipizide titrated up from 2.5mg to 5mg po bid. RISS and Accucheck in place as needed. Hypoglycemic protocol in place as needed. HgbA1c 7.8. Continue consistent carb diet. Will adjust patient's medications in accordance with blood work. Will continue to monitor closely. Patient will require close outpatient followup. Discussed with Dr. Giancarlo Boswell PGY3
[2018-06-26 07:56] LABS: BASO # 0.1 K/uL (0.0-0.2); BASO % 1.1 % (0.0-2.0); EOS % 0.7 % (0.0-4.0); HEMOGLOBIN 11.4 g/dL (11.0-16.0); LYMPH # 2.9 K/uL (1.0-4.3); MEAN CELL VOLUME 91.4 fL (81.0-99.0); MEAN CORPUSCULAR HEMOGLOBIN 30.8 pg (27.0-31.0); MEAN CORPUSCULAR HGB CONC 33.7 g/dL (33.0-37.0); MEAN PLATELET VOLUME 9.5 fL (7.2-11.7); MONO # 0.9 K/uL (0.0-0.8); MONO % 15.3 % (0.0-10.0); NEUT % 33.9 % (50.0-75.0); NRBC % 0.1 % (0.0-2.0); RBC 3.72 Mil/uL (3.80-5.20); RED CELL DISTRIBUTION WIDTH 13.4 % (11.5-14.5); WHITE BLOOD COUNT 5.8 K/uL (4.8-10.8)
[2018-06-26 08:14] LABS: ALB/GLOB RATIO 1.3 (1.0-2.1); ALBUMIN 3.6 g/dL (3.5-5.0); ALT/SGPT 19 U/L (9-52); AST/SGOT 21 U/L (14-36); BLOOD UREA NITROGEN 12 mg/dL (7-17); CALCIUM 8.8 mg/dl (8.6-10.4); GFR NON-AFRICAN AMERICAN 60
--- NOTE | 2018-06-26 08:17 | CP.PCM.PN ---
Subjective - Date & Time of Evaluation Date of Evaluation: 06/26/18 Time of Evaluation: 08:16 - Subjective Subjective: Chief complaint: Consultation was called for shortness of breath. HPI: 83-year-old Russian-speaking female with a history of hypertension diabetes schizophrenia admitted with suspected hypoglycemia and a possible pneumonia. Patient initially admitted with altered mental status and she was given dextrose and glucagon in the patient got better. But pulmonary evaluation was called in for shortness of breath and cough. She now having symptoms of very mild cough, exertional dyspnea noted. Patient has no fever at this time. She denies any nausea and vomiting at this time Past medical history: Patient has a history of hypertension and a history of chronic lung disease in the past She also has a history of Alzheimer's dementia and a history of seizure disorder. Patient denies any history of pneumonia in the past or tuberculosis in the past Surgical history history of coronary stenting Allergies no known drug allergy Personal history: Remote history of smoking noted No alcoholism Review of system: Patient is currently having no headache. Mild exertional dyspnea noted, minimal cough noted, abdominal pain negative, no leg swelling On examination: Vital signs are stable otherwise. Chest bilateral minimal expiratory wheezing noted no thyromegaly, no tonsillar enlargement noted Heart sounds are regular Abdomen soft nontender no pedal edema Chest x-ray reviewed Decreased lung volumes on the right lung noted I recommended CT scan of the chest which I reviewed. 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 Likely mild aspiration possible. Patient has hyperinflated lungs, may be contributing the COPD or obstructive lung disease. I recommended bronchodilators. Nebulizer. No need for oxygen at this time. Vital signs otherwise. Objective - Vital Signs/Intake and Output Vital Signs (last 24 hours): Temp Pulse Resp BP Pulse Ox 98.1 F 73 18 170/73 H 98 06/26/18 07:00 06/26/18 07:00 06/26/18 07:00 06/26/18 07:00 06/26/18 07:00 - Medications Medications: Current Medications Clonazepam (Klonopin) 1 mg PO HS [facility] Last Admin: 06/25/18 21:18 Dose: 1 mg Dextrose (Dextrose 50% Inj) 0 ml IV STAT PRN; Protocol PRN Reason: Hypoglycemia Protocol Dextrose (Glutose 15) 0 gm PO ONCE PRN; Protocol PRN Reason: Hypoglycemia Protocol Docusate Sodium (Colace) 100 mg PO BID [facility] Last Admin: 06/25/18 17:13 Dose: 100 mg Glipizide (Glucotrol) 5 mg PO BIDAC [facility] Glucagon (Glucagen Diagnostic Kit) 0 mg IM STAT PRN; Protocol PRN Reason: Hypoglycemia Protocol Heparin Sodium (Porcine) (Heparin) 5,000 units SC Q12 [facility] Last Admin: 06/25/18 21:18 Dose: 5,000 units Home Med (Linaclotide [Linzess]) 72 mcg PO DAILY [facility] Moxifloxacin HCl (Avelox Iv 400mg/250ml Ns) 400 mg in 250 mls @ 167 mls/hr IVPB Q24H [facility]; Protocol Last Admin: 06/25/18 13:47 Dose: 167 mls/hr Dextrose (Dextrose 5% In Water 1000 Ml) 1,000 mls @ 0 mls/hr IV .Q0M PRN; Protocol PRN Reason: Hypoglycemia Protocol Dextrose/Sodium Chloride (Dextrose 5%/0.45% Ns 1000 Ml) 1,000 mls @ 50 mls/hr I V .Q20H [facility] Last Admin: 06/25/18 16:30 Dose: Not Given Insulin Human Regular (Novolin R) 0 unit SC ACHS [facility]; Protocol Last Admin: 06/25/18 21:59 Dose: Not Given Quetiapine Fumarate (Seroquel) 50 mg PO HS [facility] Last Admin: 06/25/18 21:19 Dose: 50 mg - Labs Labs: 06/26/18 07:45 06/26/18 07:45
[2018-06-26] MEDS: (Novolin R) Insulin Human Regular 100 units/ml vial SC SCH ×3 (08:20→17:31)
--- NOTE | 2018-06-26 09:42 | CT ---
Date of service: 06/25/2018 PROCEDURE: CT Chest without contrast HISTORY: lung fibrosis COMPARISON: Comparison is made with the previous CT of abdomen and pelvis dated 01/23/[address] abdomen and pelvis dated 06/23/2018. No prior CT of the chest available for comparison. TECHNIQUE: Contiguous axial images were obtained through the chest without intravenous contrast enhancement. Sagittal and coronal reconstructions were performed. Radiation dose: Total exam DLP = 466.52 mGy-cm. This CT exam was performed using one or more of the following dose reduction techniques: Automated exposure control, adjustment of the mA and/or kV according to patient size, and/or use of iterative reconstruction technique. FINDINGS: LUNGS: Again noted are linear opacities at the right lower lobe associated with focal bronchiectasis likely represent a sequela of prior infection or inflammatory process. No definite CT evidence of lung fibrosis or UIP. Mild central bronchiectasis is also noted bilaterally. No evidence of pneumonia or suspicious mass in the lungs. MEDIASTINUM: Unremarkable thoracic aorta. No aneurysm. Normal sized heart. Main pulmonary artery unremarkable. No vascular congestion. No lymphadenopathy. Foci of atherosclerotic calcification noted in the coronary arteries and in the thoracic aorta. PLEURA: No pleural fluid. No pneumothorax. BONES: Age indeterminate moderate compression deformity of T8 vertebral body noted. There is also mild compression deformity at the superior endplate of L2 vertebral body noted. UPPER ABDOMEN: There high density layering in the gallbladder likely represents sludge or and small stones. No evidence of acute cholecystitis. OTHER FINDINGS: Asymmetry in the size of the breast tissue with the right appears slightly larger than the left. IMPRESSION: No CT evidence of lung fibrosis. Reticular opacities and focal bronchiectasis again noted at the right lower lobe likely represent a sequela of prior infection or inflammatory process. No CT evidence of acute pathology in the lungs. Preliminary report contains concordant findings was submitted by [facility] Radiology. Additional findings as discussed above.
[2018-06-26] MEDS: Moxifloxacin IV 400mg/250ml NS 400 MG/250 ML BAG IVPB SCH (13:32)
[2018-06-26] MEDS: Dextrose 5%/0.45% NS 1,000 ML IV SCH (13:34)
[2018-06-26] MEDS ORDERED: Albuterol-Ipratrop 3 mg / 0.5 (3 ml) UD INH SCH (14:00)
--- NOTE | 2018-06-26 15:39 | CP.PCM.PN ---
Subjective - Date & Time of Evaluation Date of Evaluation: 06/26/18 Time of Evaluation: 15:39 - Subjective Subjective: PATIENT SEEN AND EXAMINED AT THE BEDSIDE Objective - Vital Signs/Intake and Output Vital Signs (last 24 hours): Temp Pulse Resp BP Pulse Ox 98.1 F 73 18 170/73 H 98 06/26/18 07:00 06/26/18 07:00 06/26/18 07:00 06/26/18 07:00 06/26/18 07:00 Intake and Output: 06/26/18 06/26/18 06:59 18:59 Intake Total 1200 Balance 1200 - Medications Medications: Current Medications Albuterol/Ipratropium (Duoneb 3 Mg/0.5 Mg (3 Ml) Ud) 3 ml INH RQ6 [facility] Clonazepam (Klonopin) 1 mg PO HS [facility] Last Admin: 06/25/18 21:18 Dose: 1 mg Dextrose (Dextrose 50% Inj) 0 ml IV STAT PRN; Protocol PRN Reason: Hypoglycemia Protocol Dextrose (Glutose 15) 0 gm PO ONCE PRN; Protocol PRN Reason: Hypoglycemia Protocol Docusate Sodium (Colace) 100 mg PO BID [facility] Last Admin: 06/26/18 09:36 Dose: 100 mg Glipizide (Glucotrol) 5 mg PO BIDAC [facility] Last Admin: 06/26/18 08:20 Dose: 5 mg Glucagon (Glucagen Diagnostic Kit) 0 mg IM STAT PRN; Protocol PRN Reason: Hypoglycemia Protocol Heparin Sodium (Porcine) (Heparin) 5,000 units SC Q12 [facility] Last Admin: 06/26/18 09:37 Dose: 5,000 units Home Med (Linaclotide [Linzess]) 72 mcg PO DAILY [facility] Hydrochlorothiazide (Microzide) 12.5 mg PO DAILY [facility] Last Admin: 06/26/18 09:36 Dose: 12.5 mg Moxifloxacin HCl (Avelox Iv 400mg/250ml Ns) 400 mg in 250 mls @ 167 mls/hr IVPB Q24H [facility]; Protocol Last Admin: 06/26/18 13:32 Dose: 167 mls/hr Dextrose (Dextrose 5% In Water 1000 Ml) 1,000 mls @ 0 mls/hr IV .Q0M PRN; Protocol PRN Reason: Hypoglycemia Protocol Dextrose/Sodium Chloride (Dextrose 5%/0.45% Ns 1000 Ml) 1,000 mls @ 50 mls/hr I V .Q20H [facility] Last Admin: 06/26/18 13:34 Dose: Not Given Insulin Human Regular (Novolin R) 0 unit SC ACHS [facility]; Protocol Last Admin: 06/26/18 11:14 Dose: Not Given Losartan Potassium (Cozaar) 100 mg PO DAILY [facility] Last Admin: 06/26/18 09:36 Dose: 100 mg Quetiapine Fumarate (Seroquel) 50 mg PO HS [facility] Last Admin: 06/25/18 21:19 Dose: 50 mg - Labs Labs: 06/26/18 07:45 06/26/18 07:45 Assessment and Plan - Assessment and Plan (Free Text) Assessment: FOLLOW UP SITH DR PETE IN HIS OFFICE -----CALL FOR APPOINTMENT FOLLOW UP WITH DR FLORES IN HIS OFFICE ------CALL FOR APPOINTMENT CONTINUE HOME MEDICATION NEW PRESCRIPTION GIVEN GLIPIZIDE 10 MG PO BIDAC SEROQUEL 50 MG PO AT HS KLONOPIN 1 MG PO AT HS DC METFORMIN AND LANTUS PER DR AVILA ACTIVITY TOLERATED CALL DR PETE OR GO TO THE EMERGENCY ROOM IF SYMPTOM RETURN OR WORSENING DISCUSS WITH THE AT THE BEDSIDE WHO VERBALIZED UNDERSTANDING
[2018-06-26] MEDS ORDERED: Influenza Vaccine 60 mcg/0.5 mL SYR (4YR UP) IM ONE (16:30)
[2018-06-26 16:59] VITALS: BP 157/79; PULSE 87; RESP 20; TEMP 97.1; O2SAT 95
--- NOTE | 2018-06-26 20:33 | PN ---
DATE: 06/26/2018 LOCATION: Room 558. SUBJECTIVE: This is an 83-year-old female with recent symptomatic hypoglycemia and associated altered mental status with supervening neuroglycopenic and hyperadrenergic manifestations reversed by D50 bolus ingestions and glucagon ingestions as given and is now being followed closely for metabolic management. She also has significant history of Alzheimer's dementia as noted. PLAN OF MANAGEMENT: We will modify her current oral hypoglycemic therapy and increase the glipizide to 5 mg b.i.d. with meals and will consider incremental titration to 10 mg if hyperglycemic accelerations persist today as noted. We will obtain serial chemistries and supplement accordingly as needed. We will follow with you. Stephanie Mondragon MD
--- NOTE | 2018-06-26 21:43 | CARD ---
APPROVED REPORT Date of service: 06/24/2018 EKG Measurement Heart [id number] [id number] [id number] <Conclusion> Normal sinus rhythm Nonspecific ST and T wave abnormality Prolonged QT Abnormal ECG
--- NOTE | 2018-06-27 09:33 | CP.PCM.DIS ---
Provider - Provider Date of Admission: 06/23/18 17:24 Attending physician: Suraj Pete MD Consults: 06/24/18 00:23 Endocrinology Consult Routine Comment: Consulting Provider: Stephanie Avila Consulting Physician: Stephanie Avila Reason for Consult: Hypoglycemia 06/24/18 01:36 Psychiatry Consult Routine Comment: Seroquel D/C due to hypotension Consulting Provider: Pedro Luis Washington Consulting Physician: Pedro Luis Washington Reason for Consult: Eval of Psych meds 06/24/18 11:10 Nephrology Consult Routine Comment: Consulting Provider: Jazzy Vann Consulting Physician: Jazzy Vann Reason for Consult: Renal Insufficiency 06/25/18 17:12 Pulmonology Consult Routine Comment: Consulting Provider: Cyndee Flores Consulting Physician: Cyndee Flores Reason for Consult: Atelectasis. Lung scarring. 06/25/18 17:19 Cardiology Consult Routine Comment: Consulting Provider: Stephie Abdullahi Consulting Physician: Stephie Abdullahi Reason for Consult: Abnormal ECG Time Spent in preparation of Discharge (in minutes): 30 Diagnosis - Discharge Diagnosis (1) Renal insufficiency Status: Acute (2) Diabetes mellitus Status: Chronic Priority: Medium (3) HTN (hypertension) Status: Chronic Priority: Medium (4) Insomnia Status: Acute (5) Hypotension Status: Resolved (6) Hypoglycemia Status: Acute (7) Pneumonia Status: Acute Hospital Course - Lab Results Lab Results: Micro Results 06/24/18 05:15 Blood Blood Culture - Preliminary NO GROWTH AFTER 3 DAYS 06/24/18 05:14 Blood Blood Culture - Preliminary NO GROWTH AFTER 3 DAYS Most Recent Lab Values WBC 5.8 K/uL (4.8-10.8) 06/26/18 07:45 RBC 3.72 Mil/uL (3.80-5.20) L 06/26/18 07:45 Hgb 11.4 g/dL (11.0-16.0) 06/26/18 07:45 Hct 34.0 % (34.0-47.0) 06/26/18 07:45 MCV 91.4 fL (81.0-99.0) 06/26/18 07:45 MCH 30.8 pg (27.0-31.0) 06/26/18 07:45 MCHC 33.7 g/dL (33.0-37.0) 06/26/18 07:45 RDW 13.4 % (11.5-14.5) 06/26/18 07:45 Plt Count 286 K/uL (130-400) 06/26/18 07:45 MPV 9.5 fL (7.2-11.7) 06/26/18 07:45 Neut % (Auto) 33.9 % (50.0-75.0) L 06/26/18 07:45 Lymph % (Auto) 49.0 % (20.0-40.0) H 06/26/18 07:45 [place] % (Auto) 15.3 % (0.0-10.0) H 06/26/18 07:45 Eos % (Auto) 0.7 % (0.0-4.0) 06/26/18 07:45 Baso % (Auto) 1.1 % (0.0-2.0) 06/26/18 07:45 Neut # (Auto) 2.0 K/uL (1.8-7.0) 06/26/18 07:45 Lymph # (Auto) 2.9 K/uL (1.0-4.3) 06/26/18 07:45 [place] # (Auto) 0.9 K/uL (0.0-0.8) H 06/26/18 07:45 Eos # (Auto) 0.0 K/uL (0.0-0.7) 06/26/18 07:45 Baso # (Auto) 0.1 K/uL (0.0-0.2) 06/26/18 07:45 Sodium 137 mmol/L (132-148) 06/26/18 07:45 Potassium 4.1 mmol/L (3.6-5.2) 06/26/18 07:45 Chloride 105 mmol/L (98-107) 06/26/18 07:45 Carbon Dioxide 26 mmol/L (22-30) 06/26/18 07:45 Anion Gap 10 (10-20) 06/26/18 07:45 BUN 12 mg/dL (7-17) 06/26/18 07:45 Creatinine 0.9 mg/dL (0.7-1.2) 06/26/18 07:45 Est GFR ( Amer) > 60 06/26/18 07:45 Est GFR (Non-Af Amer) 60 06/26/18 07:45 POC Glucose (mg/dL) 187 mg/dL (65-110) H 06/26/18 16:20 Random Glucose 248 mg/dL (65-105) H D 06/26/18 07:45 Hemoglobin A1c 7.8 % (4.2-6.5) H 06/25/18 07:22 Lactic Acid 1.7 mmol/L (0.7-2.1) 06/24/18 14:12 Calcium 8.8 mg/dl (8.6-10.4) 06/26/18 07:45 Phosphorus 3.7 mg/dL (2.5-4.5) 06/24/18 02:53 Magnesium 1.7 mg/dL (1.6-2.3) 06/25/18 07:22 Total Bilirubin 0.3 mg/dL (0.2-1.3) 06/26/18 07:45 AST 21 U/L (14-36) 06/26/18 07:45 ALT 19 U/L (9-52) 06/26/18 07:45 Alkaline Phosphatase 68 U/L (38-126) 06/26/18 07:45 Total Creatine Kinase 357 U/L (30-135) H 06/24/18 19:40 CK-MB (Mass) 2.57 ng/mL (0.0-3.38) 06/24/18 19:40 Troponin I < 0.0120 ng/mL (0.00-0.120) 06/24/18 19:40 Total Protein 6.5 g/dL (6.3-8.3) 06/26/18 07:45 Albumin 3.6 g/dL (3.5-5.0) 06/26/18 07:45 Globulin 2.9 gm/dL (2.2-3.9) 06/26/18 07:45 Albumin/Globulin Ratio 1.3 (1.0-2.1) 06/26/18 07:45 Amylase 31 U/L (30-110) 06/25/18 07:22 Lipase 52 U/L (23-300) 06/25/18 07:22 Free T4 0.82 ng/dL (0.78-2.19) 06/26/18 07:45 TSH 3rd Generation 3.32 mIU/L (0.46-4.68) 06/26/18 07:45 Urine Color Yellow (YELLOW) 06/23/18 14:16 Urine Clarity Clear (Clear) 06/23/18 14:16 Urine pH 5.0 (5.0-8.0) 06/23/18 14:16 Ur Specific [place] 1.012 (1.003-1.030) 06/23/18 14:16 Urine Protein Negative mg/dL (NEGATIVE) 06/23/18 14:16 Urine Glucose (UA) Normal mg/dL (Normal) 06/23/18 14:16 Urine Ketones Negative mg/dL (NEGATIVE) 06/23/18 14:16 Urine Blood Negative (NEGATIVE) 06/23/18 14:16 Urine Nitrate Negative (NEGATIVE) 06/23/18 14:16 Urine Bilirubin Negative (NEGATIVE) 06/23/18 14:16 Urine Urobilinogen Normal mg/dL (0.2-1.0) 06/23/18 14:16 Ur Leukocyte Esterase Neg Berny/uL (Negative) 06/23/18 14:16 Urine WBC (Auto) 1 /hpf (0-5) 06/23/18 14:16 Hyaline Casts 3-5 /lpf (0-2) H 06/23/18 14:16 Salicylates < 1.0 mg/dL 1 06/23/18 14:06 Urine Opiates Screen Negative (NEGATIVE) 06/23/18 14:16 Urine Methadone Screen Negative (NEGATIVE) 06/23/18 14:16 Acetaminophen < 10.0 ug/mL (10.0-30.0) L 06/23/18 14:06 Ur Barbiturates Screen Negative (NEGATIVE) 06/23/18 14:16 Ur Phencyclidine Scrn Negative (NEGATIVE) 06/23/18 14:16 Ur Amphetamines Screen Negative (NEGATIVE) 06/23/18 14:16 U Benzodiazepines Scrn Negative (NEGATIVE) 06/23/18 14:16 U Oth Cocaine Metabols Negative (NEGATIVE) 06/23/18 14:16 U Cannabinoids Screen Negative (NEGATIVE) 06/23/18 14:16 Alcohol, Quantitative < 10 mg/dl (0-10) 06/23/18 14:06 - Hospital Course Hospital Course: 83 years old male with PMH significant for HTN and type II DM who was admitted for Hypoglycemia and Pneumonia management. Patient received IV Dextrose bolus and Glucagon. Avelox started in ED. Endocrinology evaluation ordered. Initial evaluation showed Renal Insufficiency and Nephrology evaluation was requested. Cardiology was called for evaluation of Abnormal ECG and Hypotension. CXR showed Atelectasis that required Pulmonary evaluation. Patient's medical condition improved and discharged home in stable condition. Discharge Exam - Head Exam Head Exam: ATRAUMATIC, NORMAL INSPECTION, NORMOCEPHALIC - Eye Exam Eye Exam: EOMI, Normal appearance, PERRL - Neck Exam Neck exam: Full Rom, Normal Inspection - Respiratory Exam Respiratory Exam: Clear to PA & Lateral, NORMAL BREATHING PATTERN - Cardiovascular Exam Cardiovascular Exam: REGULAR RHYTHM, +S1, +S2 - GI/Abdominal Exam GI & Abdominal Exam: Normal Bowel Sounds, Unremarkable - Extremities Exam Extremities exam: full ROM, normal inspection - Back Exam Back exam: NORMAL INSPECTION - Neurological Exam Neurological exam: Alert, CN II-XII Intact, Oriented x3 - Skin Skin Exam: Intact Discharge Plan - Discharge Medications Prescriptions: GlipiZIDE [Glucotrol] 10 mg PO BIDAC 30 Days tab clonazePAM [Klonopin] 1 mg PO HS #30 tab QUEtiapine [SEROquel] 50 mg PO HS 30 Days tab - Follow Up Plan Condition: STABLE Disposition: HOME/ ROUTINE Instructions: Pneumonia, Adult (DC), Clonazepam, Glipizide, Quetiapine Additional Instructions: FOLLOW UP WITH DR PETE IN HIS OFFICE -----CALL FOR APPOINTMENT FOLLOW UP WITH DR FLORES IN HIS OFFICE ------CALL FOR APPOINTMENT CONTINUE HOME MEDICATION NEW PRESCRIPTION GIVEN GLIPIZIDE 10 MG PO BIDAC SEROQUEL 50 MG PO AT HS KLONOPIN 1 MG PO AT HS DC METFORMIN AND LANTUS PER DR AVILA ACTIVITY TOLERATED CALL DR PETE OR GO TO THE EMERGENCY ROOM IF SYMPTOM RETURN OR WORSENING SEGUIR CON LOS YANCI DEL EN SCHRADER OFICINA ----- LLAME PARA SOLICITAR ALENA DAO SEGUIRSE CON EL DR FLORES EN SCHRADER OFICINA ------ LLAME PARA SOLICITAR ALENA DAO CONTINUAR MEDICAMENTO EN CASA NUEVA RECETA CARLOS GLIPIZIDE 10 MG PO BIDAC SEROQUEL 50 MG PO EN HS KLONOPIN 1 MG PO EN HS DC METFORMIN Y LANTUS POR DR AVILA LA ACTIVIDAD DEVIN TOLERADA LLAME AL DR. PETE O CORINNE A LA PACO DE EMERGENCIA SI EL SNTOMA DEVUELVE O CONSIDERA Referrals: Suraj Pete MD [Staff Provider] - Pedro Luis Washington MD [Staff Provider] - Jazzy Vann MD [Staff Provider] - Cyndee lFores MD [Staff Provider] -
== END 2018-06-26 19:11 | disposition home or self-care (01) | DRG 637 ==
LOC: C.ER 12:54 → C.9E 17:24 → C.5S 18:26
PROVIDERS: ADMIT Internal Medicine; ATTEND Internal Medicine
DX: E11.649 Type 2 diabetes mellitus with hypoglycemia without coma (principal); J18.9 Pneumonia, unspecified organism; J44.0 Chronic obstructive pulmonary disease with (acute) lower respiratory infection; F02.81 Dementia in other diseases classified elsewhere, unspecified severity, with behavioral disturbance; E11.319 Type 2 diabetes mellitus with unspecified diabetic retinopathy without macular edema; E11.51 Type 2 diabetes mellitus with diabetic peripheral angiopathy without gangrene; E78.00 Pure hypercholesterolemia, unspecified; F20.9 Schizophrenia, unspecified; F31.9 Bipolar disorder, unspecified; F41.9 Anxiety disorder, unspecified; G30.1 Alzheimer's disease with late onset; Z95.5 Presence of coronary angioplasty implant and graft; G47.00 Insomnia, unspecified; Z79.4 Long term (current) use of insulin

== ENCOUNTER 2018-07-28 09:43 | Inpatient (IN) | payer MEDICARE, MEDICAID ==
[2018-07-28 09:51] VITALS: BMI 27.3
--- NOTE | 2018-07-28 10:53 | C.PDOC ---
Time Seen by Provider: 07/28/18 10:24 Chief Complaint (Nursing): Shortness Of Breath Past Medical History Vital Signs: Last Vital Signs Temp 97.6 F 07/28/18 10:37 Pulse 65 07/28/18 10:37 Resp 20 07/28/18 10:37 BP 106/72 07/28/18 10:37 Pulse Ox 99 07/28/18 10:37 - Medical History PMH: Alzheimer's Disease, Anxiety, Arthritis (BACK), Asthma, Bipolar Disorder, COPD, Dementia, Depression, Gastritis, HTN, Hypercholesterolemia, Pneumonia, Schizophrenia, Seizures Denies: Diabetes, Hepatitis, HIV, Chronic Kidney Disease, Sexually Transmitted Disease Surgical History: Coronary Stent - [facility] Procedures GROUP PSYCHOTHERAPY (12/15/16) INDIVIDUAL PSYCHOTHERAPY, BEHAVIORAL (12/15/16) INSERTION OF INFUSION DEV INTO SUP VENA CAVA, PERC APPROACH (06/22/17) INTRODUCE OTH ANTI-INFECT IN CENTRAL VEIN, PERC (06/22/17) Family History: States: Unknown Family Hx - Social History Hx Tobacco Use: No Hx Alcohol Use: No Hx Substance Use: No - Immunization History Hx Tetanus Toxoid Vaccination: No Hx Influenza Vaccination: No Hx Pneumococcal Vaccination: No ED Course And Treatment O2 Sat by Pulse Oximetry: 99 Disposition - Disposition
--- NOTE | 2018-07-28 10:54 | C.PDOC ---
History Of Present Illness 83 years old female with PMHx of Alzheimer's disease, Dementia, and HTN states she was brought to ED for complaints of "my daughter found my blood pressure low." Patient currently denies any complaints. HPI and ROS are limited due to patient being a poor historian. Patient is confused and not answering questions. Time Seen by Provider: 07/28/18 10:24 Chief Complaint (Nursing): Shortness Of Breath History Per: Patient History/Exam Limitations: no limitations Onset/Duration Of Symptoms: Hrs Current Symptoms Are (Timing): Still Present Recent travel outside of the [place]: No Past Medical History Reviewed: Historical Data, Nursing Documentation, Vital Signs Vital Signs: Last Vital Signs Temp 97.6 F 07/28/18 10:37 Pulse 65 07/28/18 10:37 Resp 20 07/28/18 10:37 BP 106/72 07/28/18 10:37 Pulse Ox 99 07/28/18 10:37 - Medical History PMH: Alzheimer's Disease, Anxiety, Arthritis (BACK), Asthma, Bipolar Disorder, COPD, Dementia, Depression, Gastritis, HTN, Hypercholesterolemia, Pneumonia, Schizophrenia, Seizures Denies: Diabetes, Hepatitis, HIV, Chronic Kidney Disease, Sexually Leon smitted Disease Surgical History: Coronary Stent - [facility] Procedures GROUP PSYCHOTHERAPY (12/15/16) INDIVIDUAL PSYCHOTHERAPY, BEHAVIORAL (12/15/16) INSERTION OF INFUSION DEV INTO SUP VENA CAVA, PERC APPROACH (06/22/17) INTRODUCE OTH ANTI-INFECT IN CENTRAL VEIN, PERC (06/22/17) Family History: States: Unknown Family Hx - Social History Hx Tobacco Use: No Hx Alcohol Use: No Hx Substance Use: No - Immunization History Hx Tetanus Toxoid Vaccination: No Hx Influenza Vaccination: No Hx Pneumococcal Vaccination: No Review Of Systems Review Of Systems: ROS cannot be obtained secondary to pt's inabilty to answer questions. (ROS limited due to patient's dementia and inability to answer questions) Physical Exam - Physical Exam Appears: Non-toxic, No Acute Distress, Confused Skin: Warm, Dry, No Rash, Other (Increased turgidity) Head: Atraumatic, Normacephalic Eye(s): bilateral: Normal Inspection, PERRL, EOMI Ear(s): Bilateral: Normal Oral Mucosa: Moist Tongue: Other (White coated ) Teeth: Other (Poor dentition ) Throat: Normal, No Erythema, No Exudate, No Drooling Neck: Normal ROM, Supple Chest: Symmetrical, No Tenderness Cardiovascular: Rhythm Regular, No Murmur Respiratory: No Rales, No Rhonchi, No Wheezing, Other (Limited lung exam) Gastrointestinal/Abdominal: Bowel Sounds (Active ), Soft, No Tenderness Extremity: Normal ROM, No Pedal Edema Extremity: Bilateral: Atraumatic, Normal Color And Temperature, Normal ROM Pulses: Left Radial: Normal, Right Radial: Normal Neurological/Psych: Normal Speech, Normal Motor, Normal Sensation, Other (No focal deficits. Patient not answering questions accordingly. ) ED Course And Treatment - Laboratory Results Result Diagrams: 07/28/18 10:50 07/28/18 11:30 O2 Sat by Pulse Oximetry: 99 (RA) Pulse Ox Interpretation: Normal - Other Rad Chest X-Ray X-Ray: Viewed By Me, Read By Radiologist Interpretation: IMPRESSION: Possible small bilateral pleural effusion. No infiltrate. Abdomen X-Ray X-Ray: Viewed By Me, Read By Radiologist Interpretation: IMPRESSION: Nonspecific bowel gas pattern with several dilated bowel loops in left upper quadrant of abdomen. Cannot rule out early mechanical obstruction. Medical Decision Making Medical Decision Making: Plan: * Blood work * EKG * CXR * Urine Culture * Abdomen X-Ray * Urinalysis EKG * Normal sinus rhythm at 89 bpm. * Non specific ST abnormalities. * Abnormal ECG discussed with patient's grid operator; he sts pt said she was sob. history is unclear. pt in no respiratory distress. Dr Rosas paged [phone], [phone] Rosas; given ? pleural effusion, some ekg changes, unclear hx, will admit to telemetry to his service. axr [phone] pt's daughter now at bedside and adds to history that pt had urinary retention, dribbling urine all over floor at home and has had frequent falls. denies any head injury. pt denies any abdominal pain., no vomiting. no ct scan ordered at this time for finding on axr. abdomen soft. non tender non distended on exam. Disposition Discussed With : Suraj Rosas Doctor Will See Patient In The: Hospital - Disposition Disposition: HOSPITALIZED Disposition Time: 14:47 Condition: GOOD Forms: [facility] (Scottish) - Clinical Impression Clinical Impression: Dementia, Abnormal EKG, Urinary retention, Frequent falls - PA / BOTTOM FILLER / Resident Statement MD/DO has reviewed & agrees with the documentation as recorded. - Scribe Statement The provider has reviewed the documentation as recorded by the Caitlin Art All medical record entries made by the Caitlin were at my direction and personally dictated by me. I have reviewed the chart and agree that the record accurately reflects my personal performance of the history, physical exam, medical decision making, and the department course for this patient. I have also personally directed, reviewed, and agree with the discharge instructions and disposition.
[2018-07-28 11:00] LABS: BASO # 0.1 K/uL (0.0-0.2); BASO % 0.9 % (0.0-2.0); EOS % 0.4 % (0.0-4.0); HEMOGLOBIN 12.6 g/dL (11.0-16.0); LYMPH # 1.9 K/uL (1.0-4.3); LYMPH % 25.9 % (20.0-40.0); MEAN CELL VOLUME 91.3 fL (81.0-99.0); MEAN CORPUSCULAR HGB CONC 33.9 g/dL (33.0-37.0); MEAN PLATELET VOLUME 10.4 fL (7.2-11.7); MONO # 0.8 K/uL (0.0-0.8); MONO % 11.6 % (0.0-10.0); NEUT # 4.4 K/uL (1.8-7.0); NEUT % 61.2 % (50.0-75.0); RBC 4.06 Mil/uL (3.80-5.20); RED CELL DISTRIBUTION WIDTH 13.5 % (11.5-14.5); WHITE BLOOD COUNT 7.1 K/uL (4.8-10.8)
[2018-07-28 12:05] LABS: URINE BACTERIA RARE (<OCC); URINE BILIRUBIN NEGATIVE (NEGATIVE); URINE BLOOD NEGATIVE (NEGATIVE); URINE CLARITY Clear (Clear); URINE COLOR Yellow (YELLOW); URINE GLUCOSE (UA) 1+ mg/dL (Normal); URINE LEUKOCYTE ESTERASE NEG Leu/uL (Negative); URINE PROTEIN NEGATIVE (NEGATIVE); URINE UROBILINOGEN NORMAL mg/dL (0.2-1.0)
[2018-07-28 12:29] LABS: ALB/GLOB RATIO 1.2 (1.0-2.1); BLOOD UREA NITROGEN 15 mg/dL (7-17); CALCIUM 9.5 mg/dl (8.6-10.4); GFR NON-AFRICAN AMERICAN > 60
[2018-07-28 12:30] LABS: ALT/SGPT 13 U/L (9-52); AST/SGOT 33 U/L (14-36)
[2018-07-28 12:41] LABS: B-TYPE NATRIURETIC PEPTIDE 222 pg/mL (0-900)
--- NOTE | 2018-07-28 12:51 | RAD ---
Date of service: 07/28/2018 HISTORY: abd pain COMPARISON: None available. TECHNIQUE: Two view obtained. FINDINGS: BOWEL: Mildly dilated bowel loops in left upper quadrant of abdomen. It is not clear whether this represents small or large bowel. There is no generalized bowel distention. Cannot rule out early mechanical bowel obstruction. BONES: Normal. OTHER FINDINGS: None. IMPRESSION: Nonspecific bowel gas pattern with several dilated bowel loops in left upper quadrant of abdomen. Cannot rule out early mechanical obstruction.
--- NOTE | 2018-07-28 12:52 | RAD ---
Date of service: 07/28/2018 PROCEDURE: CHEST RADIOGRAPH, 1 VIEW HISTORY: abd pain COMPARISON: 06/24/2018 FINDINGS: LUNGS: Clear. PLEURA: Blunting of both costophrenic angles may reflect small pleural effusions. Mild nonspecific elevation of the right hemidiaphragm is noted. There is no pneumothorax. CARDIOVASCULAR: No aortic atherosclerotic calcification present. Normal. OSSEOUS STRUCTURES: No significant abnormalities. VISUALIZED UPPER ABDOMEN: Normal. OTHER FINDINGS: None. IMPRESSION: Possible small bilateral pleural effusion. No infiltrate.
[2018-07-28] MEDS: (Novolin R) Insulin Human Regular 100 units/ml vial SC SCH (21:29)
[2018-07-29 07:32] LABS: BASO % 0.6 % (0.0-2.0); EOS % 0.5 % (0.0-4.0); HEMOGLOBIN 12.2 g/dL (11.0-16.0); LYMPH % 48.7 % (20.0-40.0); MEAN CELL VOLUME 90.2 fL (81.0-99.0); MEAN CORPUSCULAR HEMOGLOBIN 31.1 pg (27.0-31.0); MEAN CORPUSCULAR HGB CONC 34.4 g/dL (33.0-37.0); MEAN PLATELET VOLUME 9.5 fL (7.2-11.7); MONO # 0.9 K/uL (0.0-0.8); MONO % 14.5 % (0.0-10.0); NEUT # 2.2 K/uL (1.8-7.0); NEUT % 35.7 % (50.0-75.0); RBC 3.92 Mil/uL (3.80-5.20); RED CELL DISTRIBUTION WIDTH 13.3 % (11.5-14.5); WHITE BLOOD COUNT 6.2 K/uL (4.8-10.8)
[2018-07-29 07:42] LABS: ALB/GLOB RATIO 1.3 (1.0-2.1); ALBUMIN 4.1 g/dL (3.5-5.0); ALT/SGPT 20 U/L (9-52); AST/SGOT 28 U/L (14-36); BLOOD UREA NITROGEN 17 mg/dL (7-17); CALCIUM 9.4 mg/dl (8.6-10.4); GFR NON-AFRICAN AMERICAN 53
[2018-07-29] MEDS: (Novolin R) Insulin Human Regular 100 units/ml vial SC SCH ×4 (08:05→21:36)
[2018-07-29] MEDS: Enoxaparin 40 mg Syringe SC SCH (09:17)
--- NOTE | 2018-07-29 10:56 | CT ---
PROCEDURE: CT Abdomen and Pelvis without Oral or IV contrast. HISTORY: R/O Intestinal Obstruction COMPARISON: CT of the abdomen pelvis with IV contrast performed 06/23/18 TECHNIQUE: Contiguous axial images of the abdomen and pelvis. No oral or IV contrast administered. Coronal and Sagittal reformats generated and reviewed. Radiation dose: Total exam DLP = 1097.73 mGy-cm. This CT exam was performed using one or more of the following dose reduction techniques: Automated exposure control, adjustment of the mA and/or kV according to patient size, and/or use of iterative reconstruction technique. FINDINGS: There is limited evaluation of the solid organs without the administration of IV contrast. LOWER THORAX: Right basilar atelectasis/infiltrate. No visible pleural effusion or pneumothorax. Trace pericardial effusion. Dense coronary artery calcifications. Small hiatal hernia/distal esophageal wall thickening. LIVER: Unremarkable unenhanced appearance. GALLBLADDER AND BILE DUCTS: Unremarkable unenhanced appearance. PANCREAS: Fatty atrophy of the pancreas. SPLEEN: Unremarkable unenhanced appearance. ADRENALS: Unremarkable unenhanced appearance. KIDNEYS AND URETERS: No hydronephrosis or obstructing renal calculus. BLADDER: The urinary bladder appears unremarkable. REPRODUCTIVE: Uterus is present. APPENDIX: The appendix is not identified. No secondary signs of acute appendicitis. BOWEL: The stomach is nondistended. Lack of oral contrast limits evaluation for bowel pathology. Large bowel containing right abdominal wall hernia. The bowel loops appear within normal limits of caliber without evidence of intestinal obstruction. PERITONEUM: No significant free fluid. No definite free air. LYMPH NODES: No bulky lymphadenopathy identified. VASCULATURE: Atherosclerotic calcifications of the aorta. No aortic aneurysm. BONES: Osseous demineralization. Degenerative changes. Mild chronic L2 compression fracture deformity. OTHER FINDINGS: None. IMPRESSION: Trace pericardial effusion. Persistent right basilar atelectasis or infiltrate. Large bowel containing right abdominal wall hernia without evidence of obstruction. Preliminary impression was provided by [employer].
--- NOTE | 2018-07-29 12:16 | CARD ---
APPROVED REPORT Date of service: 07/28/2018 EKG Measurement Heart [id number] <Conclusion> Normal sinus rhythm Nonspecific ST abnormality Abnormal ECG
--- NOTE | 2018-07-29 16:19 | CP.PCM.HP ---
History of Present Illness - History of Present Illness History of Present Illness: 83 years old female admitted for evaluation of possible Intestinal Obstruction. Patient denies headache, dizziness, chest pain, shortness of breath, abdominal pain, nausea, vomiting, diarrhea or urinary symptoms. Present on Admission - Present on Admission Any Indicators Present on Admission: Yes History of Uncontrolled Diabetes: Yes Review of Systems - Review of Systems Systems not reviewed;Unavailable: Altered Mental Status, Uncooperative - Constitutional Constitutional: As Per HPI - Cardiovascular Cardiovascular: As Per HPI - Respiratory Respiratory: As Per HPI - Musculoskeletal Musculoskeletal: As Per HPI - Psychiatric Psychiatric: Paranoia Past Patient History - Past Medical History & Family History Past Medical History?: Yes - Past Social History Smoking Status: Never Smoked - CARDIAC Hx Hypercholesterolemia: Yes Hx Hypertension: Yes - PULMONARY Hx Chronic Obstructive Pulmonary Disease (COPD): Yes - NEUROLOGICAL Hx Alzheimer's Disease: Yes Hx Dementia: Yes Hx Seizures: Yes - HEENT Hx HEENT Problems: No - RENAL Hx Chronic Kidney Disease: No - ENDOCRINE/METABOLIC Hx Endocrine Disorders: Yes Hx Diabetes Mellitus Type 2: Yes - HEMATOLOGICAL/ONCOLOGICAL Hx Human Immunodeficiency Virus (HIV): No - INTEGUMENTARY Hx Dermatological Problems: No - MUSCULOSKELETAL/RHEUMATOLOGICAL Hx Arthritis: Yes (BACK) - GASTROINTESTINAL Hx Gastritis: Yes - GENITOURINARY/GYNECOLOGICAL Hx Sexually Transmitted Disorders: No - PSYCHIATRIC Hx Anxiety: Yes Hx Bipolar Disorder: Yes Hx Depression: Yes Hx Schizophrenia: Yes Hx Substance Use: No - SURGICAL HISTORY Hx Coronary Stent: Yes - ANESTHESIA Hx Anesthesia: Yes Hx Anesthesia Reactions: No Hx Malignant Hyperthermia: No Meds Allergies/Adverse Reactions: Allergies Allergy/AdvReac Type Severity Reaction Status Date / Time No Known Allergies Allergy Verified 07/28/18 09:51 Physical Exam - Constitutional Appears: Well, Non-toxic, No Acute Distress - Head Exam Head Exam: ATRAUMATIC, NORMAL INSPECTION, NORMOCEPHALIC - Eye Exam Eye Exam: EOMI, Normal appearance, PERRL - ENT Exam ENT Exam: Mucous Membranes Moist, Normal Exam - Neck Exam Neck exam: Positive for: Full Rom, Normal Inspection - Respiratory Exam Respiratory Exam: Clear to Auscultation Bilateral, NORMAL BREATHING PATTERN - Cardiovascular Exam Cardiovascular Exam: REGULAR RHYTHM, +S1, +S2 - GI/Abdominal Exam GI & Abdominal Exam: Normal Bowel Sounds, Soft - Extremities Exam Extremities exam: Positive for: full ROM, normal inspection - Back Exam Back exam: FULL ROM, NORMAL INSPECTION - Neurological Exam Neurological exam: Alert, CN II-XII Intact - Psychiatric Exam Psychiatric exam: Flat Affect - Skin Skin Exam: Intact Results - Vital Signs Recent Vital Signs: Last Vital Signs Temp 98.2 F 07/29/18 07:00 Pulse 93 H 07/29/18 08:55 Resp 20 07/29/18 07:00 BP 170/76 H 07/29/18 07:00 Pulse Ox 97 07/29/18 07:00 - Labs Result Diagrams: 07/29/18 07:01 07/29/18 07:01 Labs: Laboratory Results - last 24 hr 07/28/18 07/28/18 07/29/18 17:11 20:53 06:21 WBC RBC Hgb Hct MCV MCH MCHC RDW Plt Count MPV Neut % (Auto) Lymph % (Auto) Bates % (Auto) Eos % (Auto) Baso % (Auto) Neut # (Auto) Lymph # (Auto) Bates # (Auto) Eos # (Auto) Baso # (Auto) Sodium Potassium Chloride Carbon Dioxide Anion Gap BUN Creatinine Est GFR ( Amer) Est GFR (Non-Af Amer) POC Glucose (mg/dL) 163 H 171 H 169 H Random Glucose Calcium Total Bilirubin AST ALT Alkaline Phosphatase Total Protein Albumin Globulin Albumin/Globulin Ratio 07/29/18 07/29/18 07:01 07:01 WBC 6.2 RBC 3.92 Hgb 12.2 Hct 35.4 MCV 90.2 MCH 31.1 H MCHC 34.4 RDW 13.3 Plt Count 322 MPV 9.5 Neut % (Auto) 35.7 L Lymph % (Auto) 48.7 H Bates % (Auto) 14.5 H Eos % (Auto) 0.5 Baso % (Auto) 0.6 Neut # (Auto) 2.2 Lymph # (Auto) 3.0 Bates # (Auto) 0.9 H Eos # (Auto) 0.0 Baso # (Auto) 0.0 Sodium 138 Potassium 3.7 Chloride 99 Carbon Dioxide 29 Anion Gap 14 BUN 17 Creatinine 1.0 Est GFR ( Amer) > 60 Est GFR (Non-Af Amer) 53 POC Glucose (mg/dL) Random Glucose 156 H D Calcium 9.4 Total Bilirubin 0.4 AST 28 ALT 20 Alkaline Phosphatase 73 Total Protein 7.1 Albumin 4.1 Globulin 3.0 Albumin/Globulin Ratio 1.3 Assessment & Plan (1) Pneumonia Assessment and Plan: Ceftriaxone. Azithromycin. Pulmonology evaluation. Status: Acute (2) Pleural effusion Assessment and Plan: As above. Status: Acute (3) Diabetes mellitus Assessment and Plan: Accuchek with Rapid Insulin coverage. Continue home medication. Status: Chronic Priority: Medium (4) HTN (hypertension) Assessment and Plan: Continue home medication. Status: Chronic Priority: Medium (5) Schizophrenia Assessment and Plan: Psychiatry evaluation. Status: Acute
[2018-07-29] MEDS ORDERED: Azithromycin 500 MG in Sodium Chloride 0.9% 250 ML IVPB SCH (16:45)
[2018-07-29] MEDS: cefTRIAXone IV 1 gm in Dextros 50 ML IVPB SCH (16:55)
--- NOTE | 2018-07-29 17:10 | CP.PCM.CON ---
History of Present Illness - History of Present Illness History of Present Illness: CC: Possible SBO HPI: Pt admitted for hypotension, found to have dilated bowel loops on plain film and we are asked to consult for possible SBO. History is not obtainable from the patient due to altered mental status. Has known Psychiatric illness. Olivares catheter was placed a few minutes ago to decompress distended bladder. Abdominal CT, non contrast reveals normal bowel structures with large right sided hernia, but without signs of bowel obstruction. Contrast CT from June 23, 2018 was essentially normal. Review of Systems - Review of Systems Systems not reviewed;Unavailable: Altered Mental Status Past Patient History - Past Medical History & Family History Past Medical History?: Yes - Past Social History Smoking Status: Never Smoked - CARDIAC Hx Hypercholesterolemia: Yes Hx Hypertension: Yes - PULMONARY Hx Chronic Obstructive Pulmonary Disease (COPD): Yes - NEUROLOGICAL Hx Alzheimer's Disease: Yes Hx Dementia: Yes Hx Seizures: Yes - HEENT Hx HEENT Problems: No - RENAL Hx Chronic Kidney Disease: No - ENDOCRINE/METABOLIC Hx Endocrine Disorders: Yes Hx Diabetes Mellitus Type 2: Yes - HEMATOLOGICAL/ONCOLOGICAL Hx Human Immunodeficiency Virus (HIV): No - INTEGUMENTARY Hx Dermatological Problems: No - MUSCULOSKELETAL/RHEUMATOLOGICAL Hx Arthritis: Yes (BACK) - GASTROINTESTINAL Hx Gastritis: Yes - GENITOURINARY/GYNECOLOGICAL Hx Sexually Transmitted Disorders: No - PSYCHIATRIC Hx Anxiety: Yes Hx Bipolar Disorder: Yes Hx Depression: Yes Hx Schizophrenia: Yes Hx Substance Use: No - SURGICAL HISTORY Hx Coronary Stent: Yes - ANESTHESIA Hx Anesthesia: Yes Hx Anesthesia Reactions: No Hx Malignant Hyperthermia: No Meds Allergies/Adverse Reactions: Allergies Allergy/AdvReac Type Severity Reaction Status Date / Time No Known Allergies Allergy Verified 07/28/18 09:51 - Medications Medications: Current Medications Docusate Sodium (Colace) 100 mg PO DAILY [facility] Last Admin: 07/29/18 09:17 Dose: 100 mg Enoxaparin Sodium (Lovenox) 40 mg SC DAILY [facility] Last Admin: 07/29/18 09:17 Dose: 40 mg Glipizide (Glucotrol) 10 mg PO ACBD [facility] Last Admin: 07/29/18 08:05 Dose: 10 mg Hydrochlorothiazide (Microzide) 12.5 mg PO DAILY [facility] Last Admin: 07/29/18 09:17 Dose: 12.5 mg Ceftriaxone Sodium (Rocephin Iv 1 Gm Duplex) 50 mls @ 100 mls/hr IVPB Q24H [facility]; Protocol Last Admin: 07/29/18 16:55 Dose: 100 mls/hr Azithromycin 500 mg/ Sodium (Chloride) 250 mls @ 250 mls/hr IVPB Q24H [facility]; Protocol Insulin Human Regular (Novolin R) 0 unit SC ACHS [facility]; Protocol Last Admin: 07/29/18 13:08 Dose: 2 unit Losartan Potassium (Cozaar) 100 mg PO DAILY [facility] Last Admin: 07/29/18 09:17 Dose: 100 mg Quetiapine Fumarate (Seroquel Xr) 50 mg PO HS [facility] Physical Exam - Constitutional Appears: No Acute Distress - Head Exam Head Exam: NORMOCEPHALIC - Eye Exam Eye Exam: absent: Scleral icterus - Neck Exam Neck exam: Negative for: Thyromegaly - Respiratory Exam Respiratory Exam: Clear to Auscultation Bilateral - Cardiovascular Exam Cardiovascular Exam: REGULAR RHYTHM - GI/Abdominal Exam GI & Abdominal Exam: Soft. absent: Distended, Organomegaly, Tenderness - Neurological Exam Neurological exam: Alert, Altered - Psychiatric Exam Psychiatric exam: Anxious Results - Vital Signs Recent Vital Signs: Last Vital Signs Temp 98.2 F 07/29/18 07:00 Pulse 93 H 07/29/18 08:55 Resp 20 07/29/18 07:00 BP 170/76 H 07/29/18 07:00 Pulse Ox 97 07/29/18 07:00 - Labs Result Diagrams: 07/29/18 07:01 07/29/18 07:01 Labs: Laboratory Results - last 24 hr 07/28/18 07/28/18 07/29/18 17:11 20:53 06:21 WBC RBC Hgb Hct MCV MCH MCHC RDW Plt Count MPV Neut % (Auto) Lymph % (Auto) Price % (Auto) Eos % (Auto) Baso % (Auto) Neut # (Auto) Lymph # (Auto) Price # (Auto) Eos # (Auto) Baso # (Auto) Sodium Potassium Chloride Carbon Dioxide Anion Gap BUN Creatinine Est GFR ( Amer) Est GFR (Non-Af Amer) POC Glucose (mg/dL) 163 H 171 H 169 H Random Glucose Calcium Total Bilirubin AST ALT Alkaline Phosphatase Total Protein Albumin Globulin Albumin/Globulin Ratio 07/29/18 07/29/18 07:01 07:01 WBC 6.2 RBC 3.92 Hgb 12.2 Hct 35.4 MCV 90.2 MCH 31.1 H MCHC 34.4 RDW 13.3 Plt Count 322 MPV 9.5 Neut % (Auto) 35.7 L Lymph % (Auto) 48.7 H Price % (Auto) 14.5 H Eos % (Auto) 0.5 Baso % (Auto) 0.6 Neut # (Auto) 2.2 Lymph # (Auto) 3.0 Price # (Auto) 0.9 H Eos # (Auto) 0.0 Baso # (Auto) 0.0 Sodium 138 Potassium 3.7 Chloride 99 Carbon Dioxide 29 Anion Gap 14 BUN 17 Creatinine 1.0 Est GFR ( Amer) > 60 Est GFR (Non-Af Amer) 53 POC Glucose (mg/dL) Random Glucose 156 H D Calcium 9.4 Total Bilirubin 0.4 AST 28 ALT 20 Alkaline Phosphatase 73 Total Protein 7.1 Albumin 4.1 Globulin 3.0 Albumin/Globulin Ratio 1.3 Assessment & Plan (1) Abdominal pain Assessment and Plan: Total bosy pain including abdomen. CT scan and labs unremarkable. Will monitor. No need for endoscopic procedures st present. May advance diet as tolerated. Status: Acute
[2018-07-29] MEDS: Azithromycin 500 MG in Sodium Chloride 0.9% 250 ML IVPB SCH (17:46)
--- NOTE | 2018-07-29 18:50 | CP.PCM.CON ---
History of Present Illness - History of Present Illness History of Present Illness: Chief complaint: Consultation was called for possible effusion and sob. HPI: 83-year-old Divehi-speaking female with a history of hypertension diabetes schizophrenia admitted with possible pneumonia, abdominal pain and body pain Patient initially admitted with altered mental status and she was given dextrose and glucagon in the patient got better. But pulmonary evaluation was called in for shortness of breath and cough. She now having symptoms of very mild cough, exertional dyspnea noted. Patient has no fever at this time. She denies any nausea and vomiting at this time Past medical history: Patient has a history of hypertension and a history of chronic lung disease in the past She also has a history of Alzheimer's dementia and a history of seizure disorder. Patient denies any history of pneumonia in the past or tuberculosis in the past Surgical history history of coronary stenting Allergies no known drug allergy Personal history: Remote history of smoking noted No alcoholism Review of system: Patient is currently having no headache. Mild exertional dyspnea noted, minimal cough noted, abdominal pain negative, no leg swelling On examination: Vital signs are stable otherwise. Chest bilateral minimal expiratory wheezing noted no thyromegaly, no tonsillar enlargement noted Heart sounds are regular Abdomen soft nontender no pedal edema Chest x-ray reviewed Decreased lung volumes on the right lung noted CT abd showin Assessment and recommendation: 83-year-old female with a history of diabetes hypertension CAD stent dementia admitted with the shortness of breath and hypoglycemia. Likely mild aspiration possible. Patient has hyperinflated lungs, may be contributing the COPD or obstructive lung disease. I recommended bronchodilators. Nebulizer. No need for oxygen at this time. Vital signs otherwise stable will f/u Past Patient History - Past Medical History & Family History Past Medical History?: Yes - Past Social History Smoking Status: Never Smoked - CARDIAC Hx Hypercholesterolemia: Yes Hx Hypertension: Yes - PULMONARY Hx Chronic Obstructive Pulmonary Disease (COPD): Yes - NEUROLOGICAL Hx Alzheimer's Disease: Yes Hx Dementia: Yes Hx Seizures: Yes - HEENT Hx HEENT Problems: No - RENAL Hx Chronic Kidney Disease: No - ENDOCRINE/METABOLIC Hx Endocrine Disorders: Yes Hx Diabetes Mellitus Type 2: Yes - HEMATOLOGICAL/ONCOLOGICAL Hx Human Immunodeficiency Virus (HIV): No - INTEGUMENTARY Hx Dermatological Problems: No - MUSCULOSKELETAL/RHEUMATOLOGICAL Hx Arthritis: Yes (BACK) - GASTROINTESTINAL Hx Gastritis: Yes - GENITOURINARY/GYNECOLOGICAL Hx Sexually Transmitted Disorders: No - PSYCHIATRIC Hx Anxiety: Yes Hx Bipolar Disorder: Yes Hx Depression: Yes Hx Schizophrenia: Yes Hx Substance Use: No - SURGICAL HISTORY Hx Coronary Stent: Yes - ANESTHESIA Hx Anesthesia: Yes Hx Anesthesia Reactions: No Hx Malignant Hyperthermia: No Meds Allergies/Adverse Reactions: Allergies Allergy/AdvReac Type Severity Reaction Status Date / Time No Known Allergies Allergy Verified 07/28/18 09:51 - Medications Medications: Current Medications Docusate Sodium (Colace) 100 mg PO DAILY [facility] Last Admin: 07/29/18 09:17 Dose: 100 mg Enoxaparin Sodium (Lovenox) 40 mg SC DAILY [facility] Last Admin: 07/29/18 09:17 Dose: 40 mg Glipizide (Glucotrol) 10 mg PO ACBD [facility] Last Admin: 07/29/18 17:43 Dose: 10 mg Hydrochlorothiazide (Microzide) 12.5 mg PO DAILY [facility] Last Admin: 07/29/18 09:17 Dose: 12.5 mg Ceftriaxone Sodium (Rocephin Iv 1 Gm Duplex) 50 mls @ 100 mls/hr IVPB Q24H [facility]; Protocol Last Admin: 07/29/18 16:55 Dose: 100 mls/hr Azithromycin 500 mg/ Sodium (Chloride) 250 mls @ 250 mls/hr IVPB Q24H [facility]; Pr otocol Last Admin: 07/29/18 17:46 Dose: 250 mls/hr Insulin Human Regular (Novolin R) 0 unit SC ACHS [facility]; Protocol Last Admin: 07/29/18 17:43 Dose: 1 unit Losartan Potassium (Cozaar) 100 mg PO DAILY [facility] Last Admin: 07/29/18 09:17 Dose: 100 mg Quetiapine Fumarate (Seroquel Xr) 50 mg PO HS [facility] Results - Vital Signs Recent Vital Signs: Last Vital Signs Temp 98.5 F 07/29/18 15:00 Pulse 92 H 07/29/18 15:00 Resp 20 07/29/18 15:00 BP 177/82 H 07/29/18 15:00 Pulse Ox 97 07/29/18 15:00 - Labs Result Diagrams: 07/29/18 07:01 07/29/18 07:01 Labs: Laboratory Results - last 24 hr 07/28/18 07/28/18 07/29/18 17:11 20:53 06:21 WBC RBC Hgb Hct MCV MCH MCHC RDW Plt Count MPV Neut % (Auto) Lymph % (Auto) [place] % (Auto) Eos % (Auto) Baso % (Auto) Neut # (Auto) Lymph # (Auto) [place] # (Auto) Eos # (Auto) Baso # (Auto) Sodium Potassium Chloride Carbon Dioxide Anion Gap BUN Creatinine Est GFR ( Amer) Est GFR (Non-Af Amer) POC Glucose (mg/dL) 163 H 171 H 169 H Random Glucose Calcium Total Bilirubin AST ALT Alkaline Phosphatase Total Protein Albumin Globulin Albumin/Globulin Ratio 07/29/18 07/29/18 07/29/18 07:01 07:01 17:01 WBC 6.2 RBC 3.92 Hgb 12.2 Hct 35.4 MCV 90.2 MCH 31.1 H MCHC 34.4 RDW 13.3 Plt Count 322 MPV 9.5 Neut % (Auto) 35.7 L Lymph % (Auto) 48.7 H [place] % (Auto) 14.5 H Eos % (Auto) 0.5 Baso % (Auto) 0.6 Neut # (Auto) 2.2 Lymph # (Auto) 3.0 [place] # (Auto) 0.9 H Eos # (Auto) 0.0 Baso # (Auto) 0.0 Sodium 138 Potassium 3.7 Chloride 99 Carbon Dioxide 29 Anion Gap 14 BUN 17 Creatinine 1.0 Est GFR ( Amer) > 60 Est GFR (Non-Af Amer) 53 POC Glucose (mg/dL) 167 H Random Glucose 156 H D Calcium 9.4 Total Bilirubin 0.4 AST 28 ALT 20 Alkaline Phosphatase 73 Total Protein 7.1 Albumin 4.1 Globulin 3.0 Albumin/Globulin Ratio 1.3
[2018-07-29] MEDS: QUEtiapine 50 mg XR Tab PO SCH (22:35)
[2018-07-29 23:12] LABS: SQUAMOUS EPITHIAL 1 /hpf (0-5); URINE BACTERIA MOD (<OCC); URINE BILIRUBIN NEGATIVE (NEGATIVE); URINE BLOOD NEGATIVE (NEGATIVE); URINE CLARITY Hazy (Clear); URINE COLOR Yellow (YELLOW); URINE GLUCOSE (UA) NORMAL (Normal); URINE LEUKOCYTE ESTERASE 3+ Leu/uL (Negative); URINE PROTEIN NEGATIVE (NEGATIVE); URINE UROBILINOGEN NORMAL mg/dL (0.2-1.0)
[2018-07-30 07:25] LABS: MEAN CELL VOLUME 90.8 fL (81.0-99.0); MEAN CORPUSCULAR HEMOGLOBIN 31.7 pg (27.0-31.0); MEAN PLATELET VOLUME 9.6 fL (7.2-11.7); RBC 4.1 Mil/uL (3.80-5.20); RED CELL DISTRIBUTION WIDTH 13.3 % (11.5-14.5); WHITE BLOOD COUNT 6.3 K/uL (4.8-10.8)
[2018-07-30 08:09] LABS: ALB/GLOB RATIO 1.2 (1.0-2.1); ALBUMIN 4.1 g/dL (3.5-5.0); ALT/SGPT 16 U/L (9-52); AST/SGOT 27 U/L (14-36); BLOOD UREA NITROGEN 16 mg/dL (7-17); CALCIUM 9.2 mg/dl (8.6-10.4); GFR NON-AFRICAN AMERICAN 60
[2018-07-30] MEDS: (Novolin R) Insulin Human Regular 100 units/ml vial SC SCH ×4 (08:19→22:34)
[2018-07-30] MEDS ORDERED: Albuterol-Ipratrop 3 mg / 0.5 (3 ml) UD INH PRN (09:57)
[2018-07-30] MEDS ORDERED: Potassium Chloride 20 mEq ER Tab PO ONE (10:00)
[2018-07-30] MEDS: Enoxaparin 40 mg Syringe SC SCH (10:05)
--- NOTE | 2018-07-30 13:42 | CP.PCM.PN ---
Subjective - Date & Time of Evaluation Date of Evaluation: 07/30/18 Time of Evaluation: 13:40 - Subjective Subjective: f/u abd obstr Fqamily is present Feels better. Denies abd pain, RB, melena, fever, chills, SZ, HORNE CP Objective - Vital Signs/Intake and Output Vital Signs (last 24 hours): Temp Pulse Resp BP Pulse Ox 98.9 F 84 20 166/80 H 95 07/30/18 07:44 07/30/18 07:44 07/30/18 07:44 07/30/18 07:44 07/30/18 07:44 Intake and Output: 07/30/18 07/30/18 06:59 18:59 Intake Total 100 Output Total 250 Balance -150 - Medications Medications: Current Medications Acetaminophen (Tylenol 325mg Tab) 650 mg PO Q6 PRN PRN Reason: fever and pain Last Admin: 07/29/18 21:37 Dose: 650 mg Albuterol/Ipratropium (Duoneb 3 Mg/0.5 Mg (3 Ml) Ud) 3 ml INH RQ6 PRN PRN Reason: Shortness of Breath Docusate Sodium (Colace) 100 mg PO DAILY [facility] Last Admin: 07/30/18 10:05 Dose: 100 mg Enoxaparin Sodium (Lovenox) 40 mg SC DAILY [facility] Last Admin: 07/30/18 10:05 Dose: 40 mg Glipizide (Glucotrol) 10 mg PO ACBD [facility] Last Admin: 07/30/18 08:19 Dose: 10 mg Hydrochlorothiazide (Microzide) 12.5 mg PO DAILY [facility] Last Admin: 07/30/18 10:05 Dose: 12.5 mg Ceftriaxone Sodium (Rocephin Iv 1 Gm Duplex) 50 mls @ 100 mls/hr IVPB Q24H [facility]; Protocol Last Admin: 07/29/18 16:55 Dose: 100 mls/hr Azithromycin 500 mg/ Sodium (Chloride) 250 mls @ 250 mls/hr IVPB Q24H [facility]; Protocol Last Admin: 07/29/18 17:46 Dose: 250 mls/hr Insulin Human Regular (Novolin R) 0 unit SC ACHS [facility]; Protocol Last Admin: 07/30/18 12:21 Dose: 1 unit Losartan Potassium (Cozaar) 100 mg PO DAILY [facility] Last Admin: 07/30/18 10:05 Dose: 100 mg Quetiapine Fumarate (Seroquel Xr) 50 mg PO HS [facility] Last Admin: 07/29/18 22:35 Dose: 50 mg - Labs Labs: 07/30/18 07:15 07/30/18 07:15 - Constitutional Appears: Well - Respiratory Exam Respiratory Exam: Clear to Ausculation Bilateral - Cardiovascular Exam Cardiovascular Exam: RRR - GI/Abdominal Exam GI & Abdominal Exam: Soft, Normal Bowel Sounds. absent: Guarding, Tenderness, Mass, Rebound - Extremities Exam Extremities Exam: absent: Calf Tenderness - Neurological Exam Neurological Exam: Alert, Awake Assessment and Plan (1) Frequent falls Status: Acute (2) Urinary retention Status: Acute (3) Diabetes mellitus Status: Chronic (4) Abdominal pain Assessment & Plan: no obstrudtion. Avoid constipation. Had BM sunday Status: Acute (5) Constipation Status: Acute
[2018-07-30] MEDS: cefTRIAXone IV 1 gm in Dextros 50 ML IVPB SCH (16:41)
[2018-07-30] MEDS: Azithromycin 500 MG in Sodium Chloride 0.9% 250 ML IVPB SCH (17:17)
--- NOTE | 2018-07-30 17:32 | CP.PCM.PN ---
Subjective - Date & Time of Evaluation Date of Evaluation: 07/30/18 Time of Evaluation: 17:29 - Subjective Subjective: S/P Urinary retention. Objective - Vital Signs/Intake and Output Vital Signs (last 24 hours): Temp Pulse Resp BP Pulse Ox 98.5 F 79 20 153/79 H 95 07/30/18 15:41 07/30/18 15:41 07/30/18 15:41 07/30/18 15:41 07/30/18 15:41 Intake and Output: 07/30/18 07/30/18 06:59 18:59 Intake Total 100 Output Total 250 500 Balance -150 -500 - Medications Medications: Current Medications Acetaminophen (Tylenol 325mg Tab) 650 mg PO Q6 PRN PRN Reason: fever and pain Last Admin: 07/29/18 21:37 Dose: 650 mg Albuterol/Ipratropium (Duoneb 3 Mg/0.5 Mg (3 Ml) Ud) 3 ml INH RQ6 PRN PRN Reason: Shortness of Breath Docusate Sodium (Colace) 100 mg PO DAILY [facility] Last Admin: 07/30/18 10:05 Dose: 100 mg Enoxaparin Sodium (Lovenox) 40 mg SC DAILY [facility] Last Admin: 07/30/18 10:05 Dose: 40 mg Glipizide (Glucotrol) 10 mg PO ACBD [facility] Last Admin: 07/30/18 08:19 Dose: 10 mg Hydrochlorothiazide (Microzide) 12.5 mg PO DAILY [facility] Last Admin: 07/30/18 10:05 Dose: 12.5 mg Ceftriaxone Sodium (Rocephin Iv 1 Gm Duplex) 50 mls @ 100 mls/hr IVPB Q24H [facility]; Protocol Last Admin: 07/30/18 16:41 Dose: 100 mls/hr Azithromycin 500 mg/ Sodium (Chloride) 250 mls @ 250 mls/hr IVPB Q24H [facility]; Protocol Last Admin: 07/30/18 17:17 Dose: 250 mls/hr Insulin Human Regular (Novolin R) 0 unit SC ACHS [facility]; Protocol Last Admin: 07/30/18 12:21 Dose: 1 unit Losartan Potassium (Cozaar) 100 mg PO DAILY [facility] Last Admin: 07/30/18 10:05 Dose: 100 mg Potassium Chloride (K-Dur 20 Meq Er Tab) 20 meq PO DAILY [facility] Quetiapine Fumarate (Seroquel Xr) 50 mg PO HS [facility] Last Admin: 07/29/18 22:35 Dose: 50 mg - Labs Labs: 07/30/18 07:15 07/30/18 07:15 - Constitutional Appears: Well, Non-toxic - Head Exam Head Exam: ATRAUMATIC, NORMAL INSPECTION, NORMOCEPHALIC - Eye Exam Eye Exam: EOMI, Normal appearance, PERRL - ENT Exam ENT Exam: Mucous Membranes Moist, Normal Exam - Neck Exam Neck Exam: Full ROM, Normal Inspection - Respiratory Exam Respiratory Exam: Clear to Ausculation Bilateral, NORMAL BREATHING PATTERN - Cardiovascular Exam Cardiovascular Exam: REGULAR RHYTHM, +S1, +S2 - GI/Abdominal Exam GI & Abdominal Exam: Soft, Normal Bowel Sounds - Extremities Exam Extremities Exam: Full ROM, Normal Capillary Refill, Normal Inspection - Back Exam Back Exam: NORMAL INSPECTION - Neurological Exam Neurological Exam: Alert, Awake, CN II-XII Intact - Psychiatric Exam Psychiatric exam: Normal Affect, Normal Mood Assessment and Plan (1) Pneumonia Assessment & Plan: Continue same treatment. Status: Acute (2) Urinary retention Assessment & Plan: Recurrent Urinary Retention. Plan: Urology evaluation and treatment. Status: Acute (3) Hypokalemia Assessment & Plan: K-Dur 20 meq PO QD BMP in AM. Status: Acute (4) Pleural effusion Status: Acute (5) Diabetes mellitus Status: Chronic (6) HTN (hypertension) Status: Chronic (7) Schizophrenia Status: Acute (8) Dementia Status: Chronic
[2018-07-30] MEDS: Potassium Chloride 20 mEq ER Tab PO SCH (18:26)
[2018-07-30] MEDS: QUEtiapine 50 mg XR Tab PO SCH (22:34)
--- NOTE | 2018-07-31 07:39 | CP.PCM.PN ---
Subjective - Date & Time of Evaluation Date of Evaluation: 07/31/18 Time of Evaluation: 07:39 - Subjective Subjective: Patient is morning feeling well. She is not in any distress at this time. Complaining of feeling hungry. She is also feeling somewhat lying on the bed, she wanted to walk. She has no chest pain. patient complaining of weakness and tiredness. But she is concerned about aspiration. Vital signs are stable. Chest good air entry bilaterally regular heart sounds nontender no Assessment and recognition: 83-year-old female with history of hypertension diabetes high cholesterol and possible COPD. Vision is clinically improving. We will continue current treatment and will follow the patient Objective - Vital Signs/Intake and Output Vital Signs (last 24 hours): Temp Pulse Resp BP Pulse Ox 98.2 F 86 20 189/68 H 95 07/30/18 23:15 07/30/18 23:15 07/30/18 23:15 07/30/18 23:15 07/30/18 23:15 Intake and Output: 07/31/18 07/31/18 06:59 18:59 Output Total 450 Balance -450 - Medications Medications: Current Medications Acetaminophen (Tylenol 325mg Tab) 650 mg PO Q6 PRN PRN Reason: fever and pain Last Admin: 07/29/18 21:37 Dose: 650 mg Albuterol/Ipratropium (Duoneb 3 Mg/0.5 Mg (3 Ml) Ud) 3 ml INH RQ6 PRN PRN Reason: Shortness of Breath Docusate Sodium (Colace) 100 mg PO DAILY [facility] Last Admin: 07/30/18 10:05 Dose: 100 mg Enoxaparin Sodium (Lovenox) 40 mg SC DAILY [facility] Last Admin: 07/30/18 10:05 Dose: 40 mg Glipizide (Glucotrol) 10 mg PO ACBD [facility] Last Admin: 07/30/18 17:30 Dose: 10 mg Hydrochlorothiazide (Microzide) 12.5 mg PO DAILY [facility] Last Admin: 07/30/18 10:05 Dose: 12.5 mg Ceftriaxone Sodium (Rocephin Iv 1 Gm Duplex) 50 mls @ 100 mls/hr IVPB Q24H [facility]; Protocol Last Admin: 07/30/18 16:41 Dose: 100 mls/hr Azithromycin 500 mg/ Sodium (Chloride) 250 mls @ 250 mls/hr IVPB Q24H [facility]; Protocol Last Admin: 07/30/18 17:17 Dose: 250 mls/hr Insulin Human Regular (Novolin R) 0 unit SC ACHS [facility]; Protocol Last Admin: 07/30/18 22:34 Dose: Not Given Losartan Potassium (Cozaar) 100 mg PO DAILY [facility] Last Admin: 07/30/18 10:05 Dose: 100 mg Potassium Chloride (K-Dur 20 Meq Er Tab) 20 meq PO DAILY [facility] Last Admin: 07/30/18 18:26 Dose: 20 meq Quetiapine Fumarate (Seroquel Xr) 50 mg PO HS [facility] Last Admin: 07/30/18 22:34 Dose: 50 mg - Labs Labs: 07/30/18 07:15 07/30/18 07:15
--- NOTE | 2018-07-31 07:39 | CP.PCM.PN ---
Subjective - Date & Time of Evaluation Date of Evaluation: 07/30/18 Time of Evaluation: 07:39 - Subjective Subjective: Patient is comfortable, no wheezing or rales noted being when she is also feeling better. Today denies any chest pain Chest bilateral good air entry no wheezing or rales noted in the hospital nontender abdominal preliminary Patient is a 73-year-old female with history of diabetes and hypertension. Any history of COPD. There is no evidence of pleural effusion in the lungs at this time. Currently on antibiotic continue the current treatment and will follow the patient Objective - Vital Signs/Intake and Output Vital Signs (last 24 hours): Temp Pulse Resp BP Pulse Ox 98.2 F 86 20 189/68 H 95 07/30/18 23:15 07/30/18 23:15 07/30/18 23:15 07/30/18 23:15 07/30/18 23:15 Intake and Output: 07/31/18 07/31/18 06:59 18:59 Output Total 450 Balance -450 - Medications Medications: Current Medications Acetaminophen (Tylenol 325mg Tab) 650 mg PO Q6 PRN PRN Reason: fever and pain Last Admin: 07/29/18 21:37 Dose: 650 mg Albuterol/Ipratropium (Duoneb 3 Mg/0.5 Mg (3 Ml) Ud) 3 ml INH RQ6 PRN PRN Reason: Shortness of Breath Docusate Sodium (Colace) 100 mg PO DAILY [facility] Last Admin: 07/30/18 10:05 Dose: 100 mg Enoxaparin Sodium (Lovenox) 40 mg SC DAILY [facility] Last Admin: 07/30/18 10:05 Dose: 40 mg Glipizide (Glucotrol) 10 mg PO ACBD [facility] Last Admin: 07/30/18 17:30 Dose: 10 mg Hydrochlorothiazide (Microzide) 12.5 mg PO DAILY [facility] Last Admin: 07/30/18 10:05 Dose: 12.5 mg Ceftriaxone Sodium (Rocephin Iv 1 Gm Duplex) 50 mls @ 100 mls/hr IVPB Q24H [facility]; Protocol Last Admin: 07/30/18 16:41 Dose: 100 mls/hr Azithromycin 500 mg/ Sodium (Chloride) 250 mls @ 250 mls/hr IVPB Q24H [facility]; Protocol Last Admin: 07/30/18 17:17 Dose: 250 mls/hr Insulin Human Regular (Novolin R) 0 unit SC ACHS [facility]; Protocol Last Admin: 07/30/18 22:34 Dose: Not Given Losartan Potassium (Cozaar) 100 mg PO DAILY [facility] Last Admin: 07/30/18 10:05 Dose: 100 mg Potassium Chloride (K-Dur 20 Meq Er Tab) 20 meq PO DAILY [facility] Last Admin: 07/30/18 18:26 Dose: 20 meq Quetiapine Fumarate (Seroquel Xr) 50 mg PO HS [facility] Last Admin: 07/30/18 22:34 Dose: 50 mg - Labs Labs: 07/30/18 07:15 07/30/18 07:15
[2018-07-31] MEDS: (Novolin R) Insulin Human Regular 100 units/ml vial SC SCH ×4 (08:16→22:06)
[2018-07-31 08:24] LABS: BLOOD UREA NITROGEN 13 mg/dL (7-17); CALCIUM 9.5 mg/dl (8.6-10.4); GFR NON-AFRICAN AMERICAN > 60
[2018-07-31] MEDS: Enoxaparin 40 mg Syringe SC SCH (10:18)
[2018-07-31] MEDS: Potassium Chloride 20 mEq ER Tab PO SCH (10:19)
[2018-07-31] MEDS: cefTRIAXone IV 1 gm in Dextros 50 ML IVPB SCH (17:30)
[2018-07-31] MEDS: Azithromycin 500 MG in Sodium Chloride 0.9% 250 ML IVPB SCH (18:20)
--- NOTE | 2018-07-31 19:38 | CP.PCM.PN ---
Subjective - Date & Time of Evaluation Date of Evaluation: 07/31/18 Time of Evaluation: 19:35 - Subjective Subjective: Patient denies chest pain, cough or shortness of breath. Objective - Vital Signs/Intake and Output Vital Signs (last 24 hours): Temp Pulse Resp BP Pulse Ox 97.2 F L 94 H 18 107/67 96 07/31/18 15:37 07/31/18 15:37 07/31/18 15:37 07/31/18 15:37 07/31/18 15:37 Intake and Output: 07/31/18 08/01/18 18:59 06:59 Intake Total 480 Output Total 350 Balance 130 - Medications Medications: Current Medications Acetaminophen (Tylenol 325mg Tab) 650 mg PO Q6 PRN PRN Reason: fever and pain Last Admin: 07/29/18 21:37 Dose: 650 mg Albuterol/Ipratropium (Duoneb 3 Mg/0.5 Mg (3 Ml) Ud) 3 ml INH RQ6 PRN PRN Reason: Shortness of Breath Docusate Sodium (Colace) 100 mg PO DAILY [facility] Last Admin: 07/31/18 10:20 Dose: 100 mg Enoxaparin Sodium (Lovenox) 40 mg SC DAILY [facility] Last Admin: 07/31/18 10:18 Dose: 40 mg Glipizide (Glucotrol) 10 mg PO ACBD [facility] Last Admin: 07/31/18 17:30 Dose: 10 mg Hydrochlorothiazide (Microzide) 12.5 mg PO DAILY [facility] Last Admin: 07/31/18 10:19 Dose: 12.5 mg Ceftriaxone Sodium (Rocephin Iv 1 Gm Duplex) 50 mls @ 100 mls/hr IVPB Q24H [facility]; Protocol Last Admin: 07/31/18 17:30 Dose: 100 mls/hr Azithromycin 500 mg/ Sodium (Chloride) 250 mls @ 250 mls/hr IVPB Q24H [facility]; Protocol Last Admin: 07/31/18 18:20 Dose: 250 mls/hr Insulin Human Regular (Novolin R) 0 unit SC ACHS [facility]; Protocol Last Admin: 07/31/18 17:30 Dose: 2 unit Losartan Potassium (Cozaar) 100 mg PO DAILY [facility] Last Admin: 07/31/18 10:20 Dose: 100 mg Potassium Chloride (K-Dur 20 Meq Er Tab) 20 meq PO DAILY [facility] Last Admin: 07/31/18 10:19 Dose: 20 meq Quetiapine Fumarate (Seroquel Xr) 50 mg PO HS [facility] Last Admin: 07/30/18 22:34 Dose: 50 mg Tamsulosin HCl (Flomax) 0.4 mg PO DAILY [facility] Last Admin: 07/31/18 13:02 Dose: 0.4 mg - Labs Labs: 07/30/18 07:15 07/31/18 07:17 - Constitutional Appears: Well, Non-toxic, No Acute Distress - Head Exam Head Exam: ATRAUMATIC, NORMAL INSPECTION, NORMOCEPHALIC - Eye Exam Eye Exam: EOMI, Normal appearance, PERRL - ENT Exam ENT Exam: Mucous Membranes Moist, Normal Exam - Neck Exam Neck Exam: Full ROM, Normal Inspection - Respiratory Exam Respiratory Exam: Clear to Ausculation Bilateral, NORMAL BREATHING PATTERN - Cardiovascular Exam Cardiovascular Exam: REGULAR RHYTHM, +S1, +S2 - GI/Abdominal Exam GI & Abdominal Exam: Soft, Normal Bowel Sounds - Extremities Exam Extremities Exam: Full ROM, Normal Capillary Refill, Normal Inspection - Back Exam Back Exam: Full ROM, NORMAL INSPECTION - Neurological Exam Neurological Exam: Alert, Awake Assessment and Plan (1) Pneumonia Assessment & Plan: CT scan (07/28/2018): Right Basilar Infiltrate. Community Acquired Pneumonia. Continue same treatment. Status: Acute (2) Urinary retention Assessment & Plan: Urology evaluation. Status: Acute (3) UTI (urinary tract infection) Assessment & Plan: Continue same treatment. Status: Acute (4) COPD (chronic obstructive pulmonary disease) Assessment & Plan: Continue DuoNeb. Pulmonology input appreciated. Status: Acute (5) Hypokalemia Status: Acute (6) Pleural effusion Status: Acute (7) Diabetes mellitus Status: Chronic (8) HTN (hypertension) Status: Chronic (9) Schizophrenia Status: Acute (10) Dementia Status: Chronic
[2018-07-31] MEDS: QUEtiapine 50 mg XR Tab PO SCH (22:06)
--- NOTE | 2018-07-31 22:30 | CON ---
DATE: 07/31/2018 COMPREHENSIVE UROLOGIC CONSULTATION TIME OF CONSULTATION: Roughly 12:08 p.m. BRIEF HISTORY: The patient is an 83-year-old female from [place], who was brought to [facility] ER for evaluation of possible intestinal obstruction with complaint of low back pain and lower left extremity pain. She denies history of any headache, dizziness, chest pain, shortness of breath, nausea, vomiting, diarrhea, or urinary symptoms, but she does give a history of wearing Pampers at home indicating possible urinary incontinence. The patient during her hospital stay was found to be in urinary retention, initially requiring straight catheters and now she has a more permanent indwelling Olivares catheter draining marissa urine well. A urine C and S was positive for gram-negative rods on 07/29/2018. The patient is currently on IV Rocephin. She is 1, para 1 with a normal vaginal delivery. No history of any alcohol or tobacco use. She stopped this many years ago. She has a history of COPD and hypertension. She also has a history of Alzheimer's disease and dementia and she also has a history of seizure disorder. No history of any kidney disease or kidney stones. She does have diabetes mellitus type 2. She does have history of arthritis and a history of gastritis. No STDs or treatment for STDs. She has a history of positive anxiety and depression and schizophrenia. She also has a history of coronary stent indicating coronary artery disease. ALLERGIES: SHE HAS NO KNOWN ALLERGIES TO MEDICATIONS. PHYSICAL EXAMINATION: Today, VITAL SIGNS: Temperature is 98.2. Pulse rate is 86. Blood pressure is 189/68. Respiratory rate is 20. O2 saturation on room air, but she currently has a nasal cannula, is 95%. GENERAL: She is a well-developed, well-nourished, slightly obese female. She is alert. She is oriented. HEENT: Grossly within normal limits. NECK: Supple. Thyroid nonpalpable. ABDOMEN: Soft, nondistended, and nontender. No CVA tenderness. No suprapubic tenderness at this hour and a Olivares catheter is draining marissa urine well. EXTREMITIES: She has range of motion of both upper and lower extremities. LABORATORY DATA: On 07/30/2018, CBC shows a WBC count of 6.3, hemoglobin of 13, hematocrit of 37.2, and platelet count was 316,000. Her chem profile today, 07/31/2018, shows a sodium of 138, potassium 4.1, chloride 102, CO2 of 21, BUN and creatinine 13 and 0.8 respectively with a GFR of greater than 60. Random glucose is 180 and calcium was 9.5. Her urinalysis on 07/29/2018 showed the color was yellow, clarity was hazy, pH 7, specific gravity 1.011, protein negative, glucose normal, ketones and blood both negative, nitrite positive, bilirubin negative, urobilinogen normal, leukocyte esterase 3+, wbc's 183, rbc's 2, and moderate bacteria. DIAGNOSTIC IMPRESSION: For this patient is, 1. Urinary retention. 2. Urinary tract infection. PLAN: Plan for this patient will be to treat the patient for urinary tract infection and then once the urine clears, the patient can be given a voiding trial. We will also start the patient on Flomax 0.4 mg daily to help with her voiding pattern. A pelvic examination was also done on this patient eventually and she does not have any evidence of a cystocele or vaginal prolapse on physical examination. Rad Jama MD
[2018-08-01 08:05] LABS: BASO % 0.5 % (0.0-2.0); EOS % 0.6 % (0.0-4.0); HEMOGLOBIN 13.3 g/dL (11.0-16.0); LYMPH # 2.2 K/uL (1.0-4.3); LYMPH % 29.9 % (20.0-40.0); MEAN CELL VOLUME 90.8 fL (81.0-99.0); MEAN CORPUSCULAR HEMOGLOBIN 30.8 pg (27.0-31.0); MEAN CORPUSCULAR HGB CONC 33.9 g/dL (33.0-37.0); MEAN PLATELET VOLUME 9.6 fL (7.2-11.7); MONO # 0.9 K/uL (0.0-0.8); MONO % 12.8 % (0.0-10.0); NEUT # 4.2 K/uL (1.8-7.0); NEUT % 56.2 % (50.0-75.0); RBC 4.33 Mil/uL (3.80-5.20); RED CELL DISTRIBUTION WIDTH 13.3 % (11.5-14.5); WHITE BLOOD COUNT 7.4 K/uL (4.8-10.8)
[2018-08-01] MEDS: (Novolin R) Insulin Human Regular 100 units/ml vial SC SCH ×4 (08:08→22:25)
[2018-08-01 08:48] LABS: BLOOD UREA NITROGEN 19 mg/dL (7-17); CALCIUM 9.5 mg/dl (8.6-10.4); GFR NON-AFRICAN AMERICAN 60
[2018-08-01] MEDS: Potassium Chloride 20 mEq ER Tab PO SCH (10:45)
[2018-08-01] MEDS: Enoxaparin 40 mg Syringe SC SCH (10:45)
[2018-08-01] MEDS: Azithromycin 500 MG in Sodium Chloride 0.9% 250 ML IVPB SCH (18:06)
--- NOTE | 2018-08-01 18:09 | CP.PCM.CON ---
History of Present Illness - History of Present Illness History of Present Illness: 83 yo female adm with fever and abd pain found to have UTI and urinary obstruction as well as possible infiltrate Treated with zmax and rocephin Urine growing ESBL + E Coli Merrem added Rocephin d/c'd urine c/s repeated Review of Systems - Review of Systems All systems: reviewed and no additional remarkable complaints except - Constitutional Constitutional: As Per HPI - EENT Eyes: absent: As Per HPI, Blind Spots, Blurred Vision, Change in Vision, Decreased Night Vision, Diplopia, Discharge, Dry Eye, Exophthalmos, Floaters, Irritation, Itchy Eyes, Loss of Peripheral Vision, Pain, Photophobia, Requires Corrective Lenses, Sees Flashes, Spots in Vision, Tunnel Vision, Other Visual Disturbances, Loss of Vision, Other Ears: absent: As Per HPI, Decreased Hearing, Ear Discharge, Ear Pain, Tinnitus, Abnormal Hearing, Disequilibrium, Dizziness, Other Nose/Mouth/Throat: absent: As Per HPI, Epistaxis, Nasal Congestion, Nasal Discha rge, Nasal Obstruction, Nasal Trauma, Nose Pain, Post Nasal Drip, Sinus Pain, Sinus Pressure, Bleeding Gums, Change in Voice, Dental Pain, Dry Mouth, Dysphagia, Halitosis, Hoarsness, Lip Swelling, Mouth Lesions, Mouth Pain, Odynophagia, Sore Throat, Throat Swelling, Tongue Swelling, Facial Pain, Neck Pain, Neck Mass, Other - Breasts Breasts: absent: As Per HPI, Change in Shape, Mass, Pain, Nipple Discharge, Nipple Inversion, Skin Changes, Swelling, Other - Cardiovascular Cardiovascular: absent: As Per HPI, Acrocyanosis, Chest Pain, Chest Pain at Rest, Chest Pain with Activity, Claudication, Diaphoresis, Dyspnea, Dyspnea on Exertion, Edema, Irregular Heart Rhythm, Pain Radiating to Arm/Neck/Jaw, Leg Edema, Leg Ulcers, Lightheadedness, Orthopnea, Palpitations, Paroxysmal Nocturnal Dyspnea, Pedal Edema, Radiating Pain, Rapid Heart Rate, Slow Heart Rate, Syncope, Other - Respiratory Respiratory: absent: As Per HPI, Cough, Dyspnea, Hemoptysis, Dyspnea on Exertion, Wheezing, Snoring, Stridor, Pain on Inspiration, Chest Congestion, Excessive Mucous Production, Change in Mucous Color, Pain with Coughing, Other - Gastrointestinal Gastrointestinal: As Per HPI - Genitourinary Genitourinary: As Per HPI - Reproductive: Female Reproductive:Female: absent: As Per HPI, Amenorrhea, Amenorrhea/ Control, Currently Menstual, Cycle <21 Days, Cycle >35 Days, Cycle Variable, Menses 1-7 Days, Menses >/= 8 Days, Menses Variable, Cycle > 4 Weeks Between, No Menses for 6 Months, Heavy Menses, Light Menses, Normal Menses, Spotting Between Cycles, S/P Hysterectomy, Menopausal, Post Menopausal, Premenarche, Abnormal Vaginal Bleeding, Dysmenorrhea, Dyspareunia, Genital Lesions, Genital Pruritis, Pelvic Pain, Prolapse Symptoms, Sexual Dysfunction, Vaginal Discharge, Vaginal Dryness, Vaginal Odor, Vaginal Pruritis, Other - Menstruation Menstruation: absent: As Per HPI, Amenorrhea, Amenorrhea/ Control, Currently Menstual, Cycle <21 Days, Cycle >35 Days, Cycle Variable, Menses 1-7 Days, Menses >/= 8 Days, Menses Variable, Cycle > 4 Weeks Between, No Menses for 6 Months, Heavy Menses, Light Menses, Normal Menses, Spotting Between Cycles, S/P Hysterectomy, Menopausal, Post Menopausal, Premenarche, Abnormal Vaginal Bleeding, Dysmenorrhea, Other - Musculoskeletal Musculoskeletal: absent: As Per HPI, Abnormal Gait, Arthralgias, Atrophy, Back Pain, Deformity, Joint Swelling, Limited Range of Motion, Loss of Height, Muscle Cramps, Muscle Weakness, Myalgias, Neck Pain, Numbness, Radiating Pain into Limb, Stiffness, Tingling, Other - Integumentary Integumentary: absent: As Per HPI, Acne, Alopecia, Bleeding Lesions, Change in Hair, Change in Nails, Change in Pigmentation, Changing Lesions, Dry Skin, Erythema, Furuncle, Hirsutism, Lesions, New Lesions, Non-Healing Lesions, Photosensitivity, Pruritus, Rash, Skin Pain, Skin Ulcer, Sores, Striae, Swelling, Unusual Bruising, Wounds, Jaundice, Other - Neurological Neurological: absent: As Per HPI, Abnormal Gait, Abnormal Hearing, Abnormal Movements, Abnormal Speech, Behavioral Changes, Burning Sensations, Confusion, Convulsions, Disequilibrium, Dizziness, Numbness, Focal Weakness, Frequent Falls, Headaches, Lack of Coordination, Loss of Vision, Memory Loss, Paresthesias, Radicular Pain, Restless Legs, Sensory Deficit, Syncope, Tingling, Tremor, Vertigo, Weakness, Other Visual Disturbances, Other - Psychiatric Psychiatric: absent: As Per HPI, Abnormal Sleep Pattern, Anhedonia, Anxiety, Auditory Hallucinations, Behavioral Changes, Change in Appetite, Change in Libido, Confusion, Depression, Difficulty Concentrating, Hallucinations, Homicidal Ideation, Hopelessness, Irritability, Memory Loss, Mood Swings, Panic Attacks, Paranoia, Suicidal Ideation, Visual Hallucinations, Tactile Hallucinations, Other - Endocrine Endocrine: absent: As Per HPI, Change in Body Appearance, Change in Libido, Cold Intolorance, Deepening of Voice, Excessive Sweating, Fatigue, Flushing, Heat Intolorance, Increase in Ring/Shoe/Hat Size, Palpitations, Polydipsia, Polyphagia, Polyuria, Other - Hematologic/Lymphatic Hematologic: absent: As Per HPI, Easy Bleeding, Easy Bruising, Lymphadenopathy, Other Past Patient History - Past Medical History & Family History Past Medical History?: Yes - Past Social History Smoking Status: Never Smoked - CARDIAC Hx Hypercholesterolemia: Yes Hx Hypertension: Yes - PULMONARY Hx Chronic Obstructive Pulmonary Disease (COPD): Yes - NEUROLOGICAL Hx Alzheimer's Disease: Yes Hx Dementia: Yes Hx Seizures: Yes - HEENT Hx HEENT Problems: No - RENAL Hx Chronic Kidney Disease: No - ENDOCRINE/METABOLIC Hx Diabetes Mellitus Type 2: Yes - HEMATOLOGICAL/ONCOLOGICAL Hx Human Immunodeficiency Virus (HIV): No - INTEGUMENTARY Hx Dermatological Problems: No - MUSCULOSKELETAL/RHEUMATOLOGICAL Hx Arthritis: Yes (BACK) - GASTROINTESTINAL Hx Gastritis: Yes - GENITOURINARY/GYNECOLOGICAL Hx Sexually Transmitted Disorders: No - PSYCHIATRIC Hx Anxiety: Yes Hx Bipolar Disorder: Yes Hx Depression: Yes Hx Schizophrenia: Yes Hx Substance Use: No - SURGICAL HISTORY Hx Coronary Stent: Yes - ANESTHESIA Hx Anesthesia: Yes Hx Anesthesia Reactions: No Hx Malignant Hyperthermia: No Meds Allergies/Adverse Reactions: Allergies Allergy/AdvReac Type Severity Reaction Status Date / Time No Known Allergies Allergy Verified 07/28/18 09:51 - Medications Medications: Current Medications Acetaminophen (Tylenol 325mg Tab) 650 mg PO Q6 PRN PRN Reason: fever and pain Last Admin: 07/29/18 21:37 Dose: 650 mg Albuterol/Ipratropium (Duoneb 3 Mg/0.5 Mg (3 Ml) Ud) 3 ml INH RQ6 PRN PRN Reason: Shortness of Breath Docusate Sodium (Colace) 100 mg PO DAILY [facility] Last Admin: 08/01/18 10:45 Dose: 100 mg Enoxaparin Sodium (Lovenox) 40 mg SC DAILY [facility] Last Admin: 08/01/18 10:45 Dose: 40 mg Glipizide (Glucotrol) 10 mg PO ACBD [facility] Last Admin: 08/01/18 17:30 Dose: 10 mg Hydrochlorothiazide (Microzide) 12.5 mg PO DAILY [facility] Last Admin: 08/01/18 10:45 Dose: 12.5 mg Meropenem 500 mg/ Sodium (Chloride) 100 mls @ 100 mls/hr IVPB Q8H [facility]; Protocol Insulin Human Regular (Novolin R) 0 unit SC ACHS [facility]; Protocol Last Admin: 08/01/18 17:30 Dose: 2 unit Losartan Potassium (Cozaar) 100 mg PO DAILY [facility] Last Admin: 08/01/18 10:44 Dose: 100 mg Potassium Chloride (K-Dur 20 Meq Er Tab) 20 meq PO DAILY [facility] Last Admin: 08/01/18 10:45 Dose: 20 meq Quetiapine Fumarate (Seroquel Xr) 50 mg PO HS [facility] Last Admin: 07/31/18 22:06 Dose: 50 mg Tamsulosin HCl (Flomax) 0.4 mg PO DAILY [facility] Last Admin: 08/01/18 10:45 Dose: 0.4 mg Physical Exam - Constitutional Appears: Non-toxic, No Acute Distress, Chronically Ill - Head Exam Head Exam: ATRAUMATIC, NORMAL INSPECTION, NORMOCEPHALIC - Eye Exam Eye Exam: EOMI, Normal appearance, PERRL Pupil Exam: NORMAL ACCOMODATION, PERRL - ENT Exam ENT Exam: Mucous Membranes Moist, Normal Exam - Neck Exam Neck exam: Positive for: Normal Inspection - Respiratory Exam Respiratory Exam: Clear to Auscultation Bilateral, NORMAL BREATHING PATTERN - Cardiovascular Exam Cardiovascular Exam: REGULAR RHYTHM - GI/Abdominal Exam GI & Abdominal Exam: Normal Bowel Sounds, Soft. absent: Tenderness - Rectal Exam Rectal Exam: Deferred - Exam Exam: NORMAL INSPECTION - Extremities Exam Extremities exam: Positive for: normal inspection, pedal pulses present. Negative for: calf tenderness, pedal edema, tenderness - Back Exam Back exam: NORMAL INSPECTION - Neurological Exam Neurological exam: Alert, CN II-XII Intact, Normal Gait, Oriented x3, Reflexes Normal - Psychiatric Exam Psychiatric exam: Normal Affect, Normal Mood - Skin Skin Exam: Dry, Intact, Normal Color, Warm Results - Vital Signs Recent Vital Signs: Last Vital Signs Temp 98.5 F 08/01/18 15:31 Pulse 89 08/01/18 15:31 Resp 20 08/01/18 15:31 BP 121/77 08/01/18 15:31 Pulse Ox 95 08/01/18 15:31 - Labs Result Diagrams: 08/01/18 07:55 08/01/18 07:55 Labs: Laboratory Results - last 24 hr 07/31/18 08/01/18 08/01/18 20:44 07:55 07:55 WBC 7.4 RBC 4.33 Hgb 13.3 Hct 39.3 MCV 90.8 MCH 30.8 MCHC 33.9 RDW 13.3 Plt Count 311 MPV 9.6 Neut % (Auto) 56.2 Lymph % (Auto) 29.9 [place] % (Auto) 12.8 H Eos % (Auto) 0.6 Baso % (Auto) 0.5 Neut # (Auto) 4.2 Lymph # (Auto) 2.2 [place] # (Auto) 0.9 H Eos # (Auto) 0.0 Baso # (Auto) 0.0 Sodium 138 Potassium 3.9 Chloride 102 Carbon Dioxide 21 L Anion Gap 20 BUN 19 H Creatinine 0.9 Est GFR ( Amer) > 60 Est GFR (Non-Af Amer) 60 POC Glucose (mg/dL) 232 H Random Glucose 207 H Calcium 9.5 08/01/18 08/01/18 12:31 17:05 WBC RBC Hgb Hct MCV MCH MCHC RDW Plt Count MPV Neut % (Auto) Lymph % (Auto) [place] % (Auto) Eos % (Auto) Baso % (Auto) Neut # (Auto) Lymph # (Auto) [place] # (Auto) Eos # (Auto) Baso # (Auto) Sodium Potassium Chloride Carbon Dioxide Anion Gap BUN Creatinine Est GFR ( Amer) Est GFR (Non-Af Amer) POC Glucose (mg/dL) 269 H 249 H Random Glucose Calcium Assessment & Plan (1) ESBL (extended spectrum beta-lactamase) producing bacteria infection Status: Acute (2) ESBL (extended spectrum beta-lactamase) producing bacteria infection Status: Acute (3) UTI (urinary tract infection) Status: Acute (4) COPD (chronic obstructive pulmonary disease) Status: Acute (5) Dementia Status: Chronic Priority: Medium (6) Diabetes mellitus Status: Chronic Priority: Medium - Assessment and Plan (Free Text) Assessment: iv rx in progress cont merrem gu follow up
[2018-08-01 18:25] LABS: URINE BILIRUBIN NEGATIVE (NEGATIVE); URINE BLOOD NEGATIVE (NEGATIVE); URINE CLARITY Clear (Clear); URINE COLOR Yellow (YELLOW); URINE GLUCOSE (UA) 3+ mg/dL (Normal); URINE LEUKOCYTE ESTERASE TRACE Leu/uL (Negative); URINE PROTEIN NEGATIVE (NEGATIVE); URINE UROBILINOGEN NORMAL mg/dL (0.2-1.0)
--- NOTE | 2018-08-01 18:29 | CP.PCM.PN ---
Subjective - Date & Time of Evaluation Date of Evaluation: 08/01/18 Time of Evaluation: 18:27 - Subjective Subjective: Afebrile, in no apparent distress. Incoherent speech. Objective - Vital Signs/Intake and Output Vital Signs (last 24 hours): Temp Pulse Resp BP Pulse Ox 98.5 F 89 20 121/77 95 08/01/18 15:31 08/01/18 15:31 08/01/18 15:31 08/01/18 15:31 08/01/18 15:31 Intake and Output: 08/01/18 08/01/18 06:59 18:59 Output Total 400 Balance -400 - Medications Medications: Current Medications Acetaminophen (Tylenol 325mg Tab) 650 mg PO Q6 PRN PRN Reason: fever and pain Last Admin: 07/29/18 21:37 Dose: 650 mg Albuterol/Ipratropium (Duoneb 3 Mg/0.5 Mg (3 Ml) Ud) 3 ml INH RQ6 PRN PRN Reason: Shortness of Breath Docusate Sodium (Colace) 100 mg PO DAILY [facility] Last Admin: 08/01/18 10:45 Dose: 100 mg Enoxaparin Sodium (Lovenox) 40 mg SC DAILY [facility] Last Admin: 08/01/18 10:45 Dose: 40 mg Glipizide (Glucotrol) 10 mg PO ACBD [facility] Last Admin: 08/01/18 17:30 Dose: 10 mg Hydrochlorothiazide (Microzide) 12.5 mg PO DAILY [facility] Last Admin: 08/01/18 10:45 Dose: 12.5 mg Meropenem 500 mg/ Sodium (Chloride) 100 mls @ 100 mls/hr IVPB Q8H [facility]; Protocol Insulin Human Regular (Novolin R) 0 unit SC ACHS [facility]; Protocol Last Admin: 08/01/18 17:30 Dose: 2 unit Losartan Potassium (Cozaar) 100 mg PO DAILY [facility] Last Admin: 08/01/18 10:44 Dose: 100 mg Potassium Chloride (K-Dur 20 Meq Er Tab) 20 meq PO DAILY [facility] Last Admin: 08/01/18 10:45 Dose: 20 meq Quetiapine Fumarate (Seroquel Xr) 50 mg PO HS [facility] Last Admin: 07/31/18 22:06 Dose: 50 mg Tamsulosin HCl (Flomax) 0.4 mg PO DAILY [facility] Last Admin: 08/01/18 10:45 Dose: 0.4 mg - Labs Labs: 08/01/18 07:55 08/01/18 07:55 - Constitutional Appears: Well, Non-toxic, No Acute Distress - Head Exam Head Exam: ATRAUMATIC, NORMAL INSPECTION, NORMOCEPHALIC - Eye Exam Eye Exam: EOMI, PERRL - Neck Exam Neck Exam: Full ROM, Normal Inspection - Respiratory Exam Respiratory Exam: Clear to Ausculation Bilateral, NORMAL BREATHING PATTERN - Cardiovascular Exam Cardiovascular Exam: REGULAR RHYTHM, +S1, +S2 - GI/Abdominal Exam GI & Abdominal Exam: Soft, Normal Bowel Sounds - Extremities Exam Extremities Exam: Full ROM, Normal Capillary Refill, Normal Inspection - Back Exam Back Exam: Full ROM, NORMAL INSPECTION - Neurological Exam Neurological Exam: Alert, Altered, Awake - Psychiatric Exam Psychiatric exam: Depressed Assessment and Plan (1) E. coli UTI (urinary tract infection) Assessment & Plan: ID evaluation. Meropenem. Status: Acute (2) UTI (urinary tract infection) Status: Acute (3) Urinary retention Status: Acute (4) COPD (chronic obstructive pulmonary disease) Status: Acute (5) Schizophrenia Assessment & Plan: Psychiatry evaluation. Status: Acute (6) Pleural effusion Status: Acute (7) Diabetes mellitus Status: Chronic (8) Dementia Assessment & Plan: Neurology evaluation. Status: Chronic (9) HTN (hypertension) Status: Chronic (10) Hypokalemia Status: Acute (11) Pneumonia Status: Acute
[2018-08-01 19:00] LABS: SQUAMOUS EPITHIAL 1 /hpf (0-5); URINE BILIRUBIN NEGATIVE (NEGATIVE); URINE BLOOD NEGATIVE (NEGATIVE); URINE CLARITY Hazy (Clear); URINE COLOR Yellow (YELLOW); URINE GLUCOSE (UA) 2+ mg/dL (Normal); URINE LEUKOCYTE ESTERASE 3+ Leu/uL (Negative); URINE PROTEIN 1+ mg/dL (NEGATIVE); URINE UROBILINOGEN NORMAL mg/dL (0.2-1.0)
[2018-08-01] MEDS: Meropenem 500 MG in Sodium Chloride 0.9% 100 ML IVPB SCH (19:19)
[2018-08-01] MEDS: QUEtiapine 50 mg XR Tab PO SCH (22:24)
[2018-08-02] MEDS: Meropenem 500 MG in Sodium Chloride 0.9% 100 ML IVPB SCH ×3 (03:55→19:00)
--- NOTE | 2018-08-02 07:04 | CP.PCM.CON ---
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 METABOLIC /TOXIC ENCEPHALOPATHY DEMENTIA WORK UP PER ORDER MEDS FOR DEMENTIA CAN BE TITRATED AN OP STROKE PROPHYLAXIS APPROPRIATE AB FOR UTI HYDRATION WILL BE AWAY UNTIL 08/08 THANKS Past Patient History - Past Medical History & Family History Past Medical History?: Yes - Past Social History Smoking Status: Never Smoked - CARDIAC Hx Hypercholesterolemia: Yes Hx Hypertension: Yes - PULMONARY Hx Chronic Obstructive Pulmonary Disease (COPD): Yes - NEUROLOGICAL Hx Alzheimer's Disease: Yes Hx Dementia: Yes Hx Seizures: Yes - HEENT Hx HEENT Problems: No - RENAL Hx Chronic Kidney Disease: No - ENDOCRINE/METABOLIC Hx Diabetes Mellitus Type 2: Yes - HEMATOLOGICAL/ONCOLOGICAL Hx Human Immunodeficiency Virus (HIV): No - INTEGUMENTARY Hx Dermatological Problems: No - MUSCULOSKELETAL/RHEUMATOLOGICAL Hx Arthritis: Yes (BACK) - GASTROINTESTINAL Hx Gastritis: Yes - GENITOURINARY/GYNECOLOGICAL Hx Sexually Transmitted Disorders: No - PSYCHIATRIC Hx Anxiety: Yes Hx Bipolar Disorder: Yes Hx Depression: Yes Hx Schizophrenia: Yes Hx Substance Use: No - SURGICAL HISTORY Hx Coronary Stent: Yes - ANESTHESIA Hx Anesthesia: Yes Hx Anesthesia Reactions: No Hx Malignant Hyperthermia: No Meds Allergies/Adverse Reactions: Allergies Allergy/AdvReac Type Severity Reaction Status Date / Time No Known Allergies Allergy Verified 07/28/18 09:51 - Medications Medications: Current Medications Acetaminophen (Tylenol 325mg Tab) 650 mg PO Q6 PRN PRN Reason: fever and pain Last Admin: 07/29/18 21:37 Dose: 650 mg Albuterol/Ipratropium (Duoneb 3 Mg/0.5 Mg (3 Ml) Ud) 3 ml INH RQ6 PRN PRN Reason: Shortness of Breath Last Admin: 08/01/18 19:50 Dose: 3 ml Docusate Sodium (Colace) 100 mg PO DAILY [facility] Last Admin: 08/01/18 10:45 Dose: 100 mg Enoxaparin Sodium (Lovenox) 40 mg SC DAILY [facility] Last Admin: 08/01/18 10:45 Dose: 40 mg Glipizide (Glucotrol) 10 mg PO ACBD [facility] Last Admin: 08/01/18 17:30 Dose: 10 mg Hydrochlorothiazide (Microzide) 12.5 mg PO DAILY [facility] Last Admin: 08/01/18 10:45 Dose: 12.5 mg Meropenem 500 mg/ Sodium (Chloride) 100 mls @ 100 mls/hr IVPB Q8H [facility]; Protocol Last Admin: 08/02/18 03:55 Dose: 100 mls/hr Insulin Human Regular (Novolin R) 0 unit SC ACHS [facility]; Protocol Last Admin: 08/01/18 22:25 Dose: Not Given Losartan Potassium (Cozaar) 100 mg PO DAILY [facility] Last Admin: 08/01/18 10:44 Dose: 100 mg Potassium Chloride (K-Dur 20 Meq Er Tab) 20 meq PO DAILY [facility] Last Admin: 08/01/18 10:45 Dose: 20 meq Quetiapine Fumarate (Seroquel Xr) 50 mg PO HS [facility] Last Admin: 08/01/18 22:24 Dose: 50 mg Tamsulosin HCl (Flomax) 0.4 mg PO DAILY [facility] Last Admin: 08/01/18 10:45 Dose: 0.4 mg Results - Vital Signs Recent Vital Signs: Last Vital Signs Temp 97.9 F 08/01/18 23:20 Pulse 93 H 08/01/18 23:20 Resp 20 08/01/18 23:20 BP 170/83 H 08/01/18 23:20 Pulse Ox 96 08/01/18 23:20 - Labs Result Diagrams: 08/01/18 07:55 08/01/18 07:55 Labs: Laboratory Results - last 24 hr 08/01/18 08/01/18 08/01/18 07:55 07:55 12:31 WBC 7.4 RBC 4.33 Hgb 13.3 Hct 39.3 MCV 90.8 MCH 30.8 MCHC 33.9 RDW 13.3 Plt Count 311 MPV 9.6 Neut % (Auto) 56.2 Lymph % (Auto) 29.9 [place] % (Auto) 12.8 H Eos % (Auto) 0.6 Baso % (Auto) 0.5 Neut # (Auto) 4.2 Lymph # (Auto) 2.2 [place] # (Auto) 0.9 H Eos # (Auto) 0.0 Baso # (Auto) 0.0 Sodium 138 Potassium 3.9 Chloride 102 Carbon Dioxide 21 L Anion Gap 20 BUN 19 H Creatinine 0.9 Est GFR ( Amer) > 60 Est GFR (Non-Af Amer) 60 POC Glucose (mg/dL) 269 H Random Glucose 207 H Calcium 9.5 Urine Color Urine Clarity Urine pH Ur Specific [place] Urine Protein Urine Glucose (UA) Urine Ketones Urine Blood Urine Nitrate Urine Bilirubin Urine Urobilinogen Ur Leukocyte Esterase Urine WBC (Auto) Urine RBC (Auto) Ur Squamous Epith Cells Hyaline Casts 08/01/18 08/01/18 08/01/18 17:05 18:06 18:47 WBC RBC Hgb Hct MCV MCH MCHC RDW Plt Count MPV Neut % (Auto) Lymph % (Auto) [place] % (Auto) Eos % (Auto) Baso % (Auto) Neut # (Auto) Lymph # (Auto) [place] # (Auto) Eos # (Auto) Baso # (Auto) Sodium Potassium Chloride Carbon Dioxide Anion Gap BUN Creatinine Est GFR ( Amer) Est GFR (Non-Af Amer) POC Glucose (mg/dL) 249 H Random Glucose Calcium Urine Color Yellow Yellow Urine Clarity Clear Hazy Urine pH 5.0 5.0 Ur Specific [place] 1.024 1.025 Urine Protein Negative 1+ H Urine Glucose (UA) 3+ H 2+ H Urine Ketones 1+ H 1+ H Urine Blood Negative Negative Urine Nitrate Negative Negative Urine Bilirubin Negative Negative Urine Urobilinogen Normal Normal Ur Leukocyte Esterase Trace 3+ H Urine WBC (Auto) 31 H 430 H Urine RBC (Auto) 5 H 16 H Ur Squamous Epith Cells 1 Hyaline Casts 3-5 H 08/01/18 08/02/18 21:32 06:26 WBC RBC Hgb Hct MCV MCH MCHC RDW Plt Count MPV Neut % (Auto) Lymph % (Auto) [place] % (Auto) Eos % (Auto) Baso % (Auto) Neut # (Auto) Lymph # (Auto) [place] # (Auto) Eos # (Auto) Baso # (Auto) Sodium Potassium Chloride Carbon Dioxide Anion Gap BUN Creatinine Est GFR ( Amer) Est GFR (Non-Af Amer) POC Glucose (mg/dL) 293 H 302 H Random Glucose Calcium Urine Color Urine Clarity Urine pH Ur Specific [place] Urine Protein Urine Glucose (UA) Urine Ketones Urine Blood Urine Nitrate Urine Bilirubin Urine Urobilinogen Ur Leukocyte Esterase Urine WBC (Auto) Urine RBC (Auto) Ur Squamous Epith Cells Hyaline Casts
[2018-08-02 08:26] LABS: FREE T4 1.21 ng/dL (0.78-2.19)
[2018-08-02] MEDS: (Novolin R) Insulin Human Regular 100 units/ml vial SC SCH ×4 (08:30→22:24)
[2018-08-02 09:11] LABS: FOLATE > 20.0 ng/mL
--- NOTE | 2018-08-02 09:14 | CON ---
DATE: 08/02/2018 ATTENDING PHYSICIAN: Suraj Rosas MD The patient is in room #654. REASON FOR CONSULTATION: Change in mental status. CHIEF COMPLAINT: The patient was brought into [facility] with a history of abdominal discomfort for possible small bowel obstruction and the patient also found to be confused as per the family members. The patient known to have a dementia. From neurological point of view, I was called in to evaluate her for further management. HISTORY OF PRESENTING ILLNESS: Ms. Afshan Dunaway is an 83-year-old right-handed [place]vian-speaking female, presenting with change in mental status as per the family members. No history of fall. No history of trauma. No history of involuntary movements. The patient seems to be bedridden. PAST MEDICAL HISTORY: Alzheimer's disease, anxiety, arthritis, asthma, bipolar disorder, COPD, dementia, depression, gastritis, hypertension, dyslipidemia, schizophrenia, seizures, diabetes, hepatitis, HIV, chronic kidney disease, sexually-transmitted disease. PERSONAL HISTORY: Denies smoking or alcohol use. ALLERGIES: NO KNOWN ALLERGIES. REVIEW OF SYSTEMS: A 12-point system being reviewed. From neuro, change in mental status. MEDICATIONS: Colace, Cozaar, Flomax, Glucotrol, Lovenox, meropenem, Microzide, quetiapine, Tylenol. PHYSICAL EXAMINATION: VITAL SIGNS: Blood pressure 170/83, mean artery pressure of 112, respiratory rate 18, temperature 97.9 with a pulse rate 93. NECK: Supple. No carotid bruits. HEART: Sounds regular. CHEST: Fair air entry. EXTREMITIES: Significant distal as well as proximal muscle groups atrophy in both lower extremities. NEUROLOGIC: Mental Status Exam: She is awake, alert and orient to person and place. She knows the year. She knows the name of the president. She follows one-to-two step command. She could able to do simple calculation and addition. No sign of hallucination. No sign of suicidal ideation. Cranial nerve examination: Respond to visual threat. Pupils reactive. Extraocular movement normal. No nystagmus. No facial sensory deficit. Significant facial asymmetry, flattening of the right nasolabial fold. Hearing seems to be intact. Motor Examination: Restricted movement due to the pain in the proximal muscle groups in the upper extremities. Lower extremities, she could able to wiggle on the left foot only. Tone is increased in all four extremities, more in lower extremities to compare with the upper extremities. No involuntary movements. No asterixis. Deep tendon reflexes absent. Plantars are mute on both sides. 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 No cortical sensory loss. Coordination and Gait: Deferred at this time. CONCLUSION: On reviewing her medical history from the documentation as well as from her history, the patient does have bilateral cerebral dysfunction, which is stable, which may be superimposed with her underlying toxic versus metabolic insult. Her right hemiparesis and paraparesis which are old and preexisting condition. LABORATORY WORKUP: WBC 7.4, hemoglobin 13.3, hematocrit 39.3, platelet 311. Sodium 138, potassium 3.9, chloride 102, bicarbonate 21, BUN 19, creatinine 0.9, GFR more than 60, glucose 302. Urinalysis shows proteinuria, 1+ ketone and glucose with wbc of 430 and rbc were 16. RECOMMENDATIONS: 1. Proper hydration with appropriate antibiotic for her urinary tract infection. 2. MRI of the brain because of the risk factors to rule out any intracranial pathology. 3. Electroencephalogram to rule out any nonconvulsive paroxysmal activities. 4. Blood workup as per the order. 5. Her medication for her dementia can be titrated as outpatient. I do not want to complicate on increasing her medication when medically not stable. 6. DVT prophylaxis. I will be away until August 08. From neurological point of view, the above workup should be done and to be followed. Kash Dunn MD
[2018-08-02] MEDS: Potassium Chloride 20 mEq ER Tab PO SCH (10:20)
[2018-08-02] MEDS: Enoxaparin 40 mg Syringe SC SCH (10:25)
[2018-08-02 10:48] LABS: PROLACTIN 13.6 ng/mL (3.0-18.9)
--- NOTE | 2018-08-02 15:48 | MRI ---
Date of service: 08/02/2018 PROCEDURE: MRI BRAIN WITHOUT CONTRAST HISTORY: structural cause for change in mental status COMPARISON: CT head without contrast from 06/23/2018. TECHNIQUE: Multiplanar, multisequence MR images of the brain were obtained without intravenous contrast enhancement. FINDINGS: HEMORRHAGE: None DWI: No evidence of an acute or early subacute infarction. BRAIN PARENCHYMA: There is a large chronic lacunar infarction in the right basal ganglia and caudate head with volume loss and ex vacuo dilatation of the right frontal horn and lateral ventricle. There are small lacunar infarctions in the cerebellar hemispheres. There are moderate chronic microangiopathic changes. There is no mass, mass effect or abnormal extra-axial fluid collection. VENTRICLES: There is moderate age-related global parenchymal volume loss and proportionate enlargement of the ventricles and cortical sulci. CRANIUM: There is normal bone marrow signal pattern. ORBITS: Grossly unremarkable. PARANASAL SINUSES/MASTOIDS: Predominantly clear. VASCULAR SYSTEM: There are normal signal voids in the larger intracranial arteries. OTHER FINDINGS: None. IMPRESSION: 1. No acute intracranial abnormality. 2. 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 3. Moderate chronic microangiopathic changes and moderate age-related global parenchymal volume loss.
--- NOTE | 2018-08-02 15:51 | CP.PCM.PN ---
Subjective - Date & Time of Evaluation Date of Evaluation: 08/02/18 Time of Evaluation: 15:49 - Subjective Subjective: Afebrile, in no apparent distress. Objective - Vital Signs/Intake and Output Vital Signs (last 24 hours): Temp Pulse Resp BP Pulse Ox 98.2 F 107 H 20 160/80 H 95 08/02/18 08:56 08/02/18 08:56 08/02/18 08:56 08/02/18 08:56 08/02/18 08:56 Intake and Output: 08/02/18 08/02/18 06:59 18:59 Intake Total 460 300 Output Total 450 250 Balance 10 50 - Medications Medications: Current Medications Acetaminophen (Tylenol 325mg Tab) 650 mg PO Q6 PRN PRN Reason: fever and pain Last Admin: 07/29/18 21:37 Dose: 650 mg Albuterol/Ipratropium (Duoneb 3 Mg/0.5 Mg (3 Ml) Ud) 3 ml INH RQ6 PRN PRN Reason: Shortness of Breath Last Admin: 08/01/18 19:50 Dose: 3 ml Clonazepam (Klonopin) 1 mg PO HS [facility] Docusate Sodium (Colace) 100 mg PO DAILY [facility] Last Admin: 08/02/18 10:20 Dose: 100 mg Enoxaparin Sodium (Lovenox) 40 mg SC DAILY [facility] Last Admin: 08/02/18 10:25 Dose: 40 mg Glipizide (Glucotrol) 10 mg PO ACBD [facility] Last Admin: 08/02/18 08:30 Dose: 10 mg Hydrochlorothiazide (Microzide) 12.5 mg PO DAILY [facility] Last Admin: 08/02/18 10:20 Dose: 12.5 mg Meropenem 500 mg/ Sodium (Chloride) 100 mls @ 100 mls/hr IVPB Q8H [facility]; Protocol Last Admin: 08/02/18 10:29 Dose: 100 mls/hr Insulin Human Regular (Novolin R) 0 unit SC ACHS [facility]; Protocol Last Admin: 08/02/18 12:43 Dose: 4 unit Losartan Potassium (Cozaar) 100 mg PO DAILY [facility] Last Admin: 08/02/18 10:20 Dose: 100 mg Potassium Chloride (K-Dur 20 Meq Er Tab) 20 meq PO DAILY [facility] Last Admin: 08/02/18 10:20 Dose: 20 meq Quetiapine Fumarate (Seroquel Xr) 50 mg PO [facility] Last Admin: 08/01/18 22:24 Dose: 50 mg Tamsulosin HCl (Flomax) 0.4 mg PO DAILY [facility] Last Admin: 08/02/18 10:26 Dose: 0.4 mg - Labs Labs: 08/01/18 07:55 08/01/18 07:55 - Constitutional Appears: Well, Non-toxic, No Acute Distress - Head Exam Head Exam: ATRAUMATIC, NORMAL INSPECTION, NORMOCEPHALIC - Eye Exam Eye Exam: EOMI, Normal appearance, PERRL - Neck Exam Neck Exam: Full ROM, Normal Inspection - Respiratory Exam Respiratory Exam: Clear to Ausculation Bilateral, NORMAL BREATHING PATTERN - Cardiovascular Exam Cardiovascular Exam: REGULAR RHYTHM, +S1, +S2 - GI/Abdominal Exam GI & Abdominal Exam: Soft, Normal Bowel Sounds - Extremities Exam Extremities Exam: Full ROM, Normal Capillary Refill, Normal Inspection - Back Exam Back Exam: NORMAL INSPECTION - Neurological Exam Neurological Exam: Alert, Awake - Psychiatric Exam Psychiatric exam: Normal Affect, Normal Mood Assessment and Plan (1) E. coli UTI (urinary tract infection) Assessment & Plan: Continue same treatment. BMP in AM. Status: Acute (2) Urinary retention Status: Acute (3) COPD (chronic obstructive pulmonary disease) Status: Acute (4) Schizophrenia Status: Acute (5) Pleural effusion Status: Acute (6) Diabetes mellitus Status: Chronic (7) Dementia Status: Chronic (8) HTN (hypertension) Status: Chronic (9) Hypokalemia Status: Acute (10) Pneumonia Status: Acute (11) UTI (urinary tract infection) Status: Acute
--- NOTE | 2018-08-02 18:34 | CP.PCM.PN ---
Subjective - Date & Time of Evaluation Date of Evaluation: 08/02/18 Time of Evaluation: 06:00 - Subjective Subjective: 83 yo female adm with fever and abd pain found to have UTI and urinary obstruction as well as possible infiltrate Treated with zmax and rocephin Urine growing ESBL + E Coli Merrem added Rocephin d/c'd urine c/s repeated Objective - Vital Signs/Intake and Output Vital Signs (last 24 hours): Temp Pulse Resp BP Pulse Ox 98.8 F 90 18 123/60 93 L 08/02/18 15:36 08/02/18 15:36 08/02/18 15:36 08/02/18 15:36 08/02/18 15:36 Intake and Output: 08/02/18 08/02/18 06:59 18:59 Intake Total 460 300 Output Total 450 250 Balance 10 50 - Medications Medications: Current Medications Acetaminophen (Tylenol 325mg Tab) 650 mg PO Q6 PRN PRN Reason: fever and pain Last Admin: 07/29/18 21:37 Dose: 650 mg Albuterol/Ipratropium (Duoneb 3 Mg/0.5 Mg (3 Ml) Ud) 3 ml INH RQ6 PRN PRN Reason: Shortness of Breath Last Admin: 08/01/18 19:50 Dose: 3 ml Clonazepam (Klonopin) 1 mg PO HS [facility] Docusate Sodium (Colace) 100 mg PO DAILY [facility] Last Admin: 08/02/18 10:20 Dose: 100 mg Enoxaparin Sodium (Lovenox) 40 mg SC DAILY [facility] Last Admin: 08/02/18 10:25 Dose: 40 mg Glipizide (Glucotrol) 10 mg PO ACBD [facility] Last Admin: 08/02/18 17:20 Dose: 10 mg Hydrochlorothiazide (Microzide) 12.5 mg PO DAILY [facility] Last Admin: 08/02/18 10:20 Dose: 12.5 mg Meropenem 500 mg/ Sodium (Chloride) 100 mls @ 100 mls/hr IVPB Q8H [facility]; Protocol Last Admin: 08/02/18 10:29 Dose: 100 mls/hr Insulin Human Regular (Novolin R) 0 unit SC ACHS [facility]; Protocol Last Admin: 08/02/18 17:20 Dose: 4 unit Losartan Potassium (Cozaar) 100 mg PO DAILY [facility] Last Admin: 08/02/18 10:20 Dose: 100 mg Potassium Chloride (K-Dur 20 Meq Er Tab) 20 meq PO DAILY [facility] Last Admin: 08/02/18 10:20 Dose: 20 meq Quetiapine Fumarate (Seroquel Xr) 50 mg PO HS [facility] Last Admin: 08/01/18 22:24 Dose: 50 mg Tamsulosin HCl (Flomax) 0.4 mg PO DAILY [facility] Last Admin: 08/02/18 10:26 Dose: 0.4 mg - Labs Labs: 08/01/18 07:55 08/01/18 07:55 - Constitutional Appears: Non-toxic, No Acute Distress, Confused, Cachectic, Chronically Ill - Head Exam Head Exam: ATRAUMATIC, NORMAL INSPECTION, NORMOCEPHALIC - Eye Exam Eye Exam: EOMI, Normal appearance, PERRL Pupil Exam: NORMAL ACCOMODATION, PERRL - ENT Exam ENT Exam: Mucous Membranes Moist, Normal Exam - Neck Exam Neck Exam: Full ROM, Normal Inspection. absent: Lymphadenopathy - Respiratory Exam Respiratory Exam: Clear to Ausculation Bilateral, NORMAL BREATHING PATTERN - Cardiovascular Exam Cardiovascular Exam: REGULAR RHYTHM, +S1, +S2. absent: Murmur - GI/Abdominal Exam GI & Abdominal Exam: Soft, Normal Bowel Sounds. absent: Tenderness - Rectal Exam Rectal Exam: Deferred - Extremities Exam Extremities Exam: Full ROM, Normal Capillary Refill, Normal Inspection. absent: Joint Swelling, Pedal Edema - Back Exam Back Exam: NORMAL INSPECTION - Neurological Exam Neurological Exam: Alert, Altered, Awake, CN II-XII Intact. absent: Normal Gait, Oriented x3 - Psychiatric Exam Psychiatric exam: Depressed - Skin Skin Exam: Dry, Intact, Normal Color, Warm Assessment and Plan (1) ESBL (extended spectrum beta-lactamase) producing bacteria infection Status: Acute (2) ESBL (extended spectrum beta-lactamase) producing bacteria infection Status: Acute (3) UTI (urinary tract infection) Status: Acute (4) COPD (chronic obstructive pulmonary disease) Status: Acute (5) Dementia Status: Chronic (6) Diabetes mellitus Status: Chronic - Assessment and Plan (Free Text) Assessment: nguyen out repeat c/s sent IV rx in progress
[2018-08-02] MEDS: QUEtiapine 50 mg XR Tab PO SCH (22:22)
[2018-08-03 00:57] VITALS: RESP 20
[2018-08-03] MEDS: Meropenem 500 MG in Sodium Chloride 0.9% 100 ML IVPB SCH ×3 (02:45→19:35)
--- NOTE | 2018-08-03 06:56 | CP.PCM.PN ---
Subjective - Date & Time of Evaluation Date of Evaluation: 08/03/18 Time of Evaluation: 06:56 Objective - Vital Signs/Intake and Output Vital Signs (last 24 hours): Temp Pulse Resp BP Pulse Ox 98.8 F 85 20 109/58 L 95 08/03/18 00:00 08/03/18 00:00 08/03/18 00:00 08/03/18 00:00 08/03/18 00:00 Intake and Output: 08/02/18 08/03/18 18:59 06:59 Intake Total 300 Output Total 250 Balance 50 - Medications Medications: Current Medications Acetaminophen (Tylenol 325mg Tab) 650 mg PO Q6 PRN PRN Reason: fever and pain Last Admin: 07/29/18 21:37 Dose: 650 mg Albuterol/Ipratropium (Duoneb 3 Mg/0.5 Mg (3 Ml) Ud) 3 ml INH RQ6 PRN PRN Reason: Shortness of Breath Last Admin: 08/01/18 19:50 Dose: 3 ml Clonazepam (Klonopin) 1 mg PO HS [facility] Last Admin: 08/02/18 22:22 Dose: 1 mg Docusate Sodium (Colace) 100 mg PO DAILY [facility] Last Admin: 08/02/18 10:20 Dose: 100 mg Enoxaparin Sodium (Lovenox) 40 mg SC DAILY [facility] Last Admin: 08/02/18 10:25 Dose: 40 mg Glipizide (Glucotrol) 10 mg PO ACBD [facility] Last Admin: 08/02/18 17:20 Dose: 10 mg Hydrochlorothiazide (Microzide) 12.5 mg PO DAILY [facility] Last Admin: 08/02/18 10:20 Dose: 12.5 mg Meropenem 500 mg/ Sodium (Chloride) 100 mls @ 100 mls/hr IVPB Q8H [facility]; Protocol Last Admin: 08/03/18 02:45 Dose: 100 mls/hr Insulin Human Regular (Novolin R) 0 unit SC ACHS [facility]; Protocol Last Admin: 08/02/18 22:24 Dose: Not Given Losartan Potassium (Cozaar) 100 mg PO DAILY [facility] Last Admin: 08/02/18 10:20 Dose: 100 mg Potassium Chloride (K-Dur 20 Meq Er Tab) 20 meq PO DAILY [facility] Last Admin: 08/02/18 10:20 Dose: 20 meq Quetiapine Fumarate (Seroquel Xr) 50 mg PO [facility] Last Admin: 08/02/18 22:22 Dose: 50 mg Tamsulosin HCl (Flomax) 0.4 mg PO DAILY [facility] Last Admin: 08/02/18 10:26 Dose: 0.4 mg - Labs Labs: 08/01/18 07:55 08/01/18 07:55
--- NOTE | 2018-08-03 06:56 | CP.PCM.PN ---
Subjective - Date & Time of Evaluation Date of Evaluation: 08/02/18 Time of Evaluation: 21:00 Objective - Vital Signs/Intake and Output Vital Signs (last 24 hours): Temp Pulse Resp BP Pulse Ox 98.8 F 85 20 109/58 L 95 08/03/18 00:00 08/03/18 00:00 08/03/18 00:00 08/03/18 00:00 08/03/18 00:00 Intake and Output: 08/02/18 08/03/18 18:59 06:59 Intake Total 300 Output Total 250 Balance 50 - Medications Medications: Current Medications Acetaminophen (Tylenol 325mg Tab) 650 mg PO Q6 PRN PRN Reason: fever and pain Last Admin: 07/29/18 21:37 Dose: 650 mg Albuterol/Ipratropium (Duoneb 3 Mg/0.5 Mg (3 Ml) Ud) 3 ml INH RQ6 PRN PRN Reason: Shortness of Breath Last Admin: 08/01/18 19:50 Dose: 3 ml Clonazepam (Klonopin) 1 mg PO HS [facility] Last Admin: 08/02/18 22:22 Dose: 1 mg Docusate Sodium (Colace) 100 mg PO DAILY [facility] Last Admin: 08/02/18 10:20 Dose: 100 mg Enoxaparin Sodium (Lovenox) 40 mg SC DAILY [facility] Last Admin: 08/02/18 10:25 Dose: 40 mg Glipizide (Glucotrol) 10 mg PO ACBD [facility] Last Admin: 08/02/18 17:20 Dose: 10 mg Hydrochlorothiazide (Microzide) 12.5 mg PO DAILY [facility] Last Admin: 08/02/18 10:20 Dose: 12.5 mg Meropenem 500 mg/ Sodium (Chloride) 100 mls @ 100 mls/hr IVPB Q8H [facility]; Protocol Last Admin: 08/03/18 02:45 Dose: 100 mls/hr Insulin Human Regular (Novolin R) 0 unit SC ACHS [facility]; Protocol Last Admin: 08/02/18 22:24 Dose: Not Given Losartan Potassium (Cozaar) 100 mg PO DAILY [facility] Last Admin: 08/02/18 10:20 Dose: 100 mg Potassium Chloride (K-Dur 20 Meq Er Tab) 20 meq PO DAILY [facility] Last Admin: 08/02/18 10:20 Dose: 20 meq Quetiapine Fumarate (Seroquel Xr) 50 mg PO [facility] Last Admin: 08/02/18 22:22 Dose: 50 mg Tamsulosin HCl (Flomax) 0.4 mg PO DAILY [facility] Last Admin: 08/02/18 10:26 Dose: 0.4 mg - Labs Labs: 08/01/18 07:55 08/01/18 07:55
[2018-08-03 07:43] LABS: CALCIUM 10.1 mg/dl (8.6-10.4)
[2018-08-03] MEDS: (Novolin R) Insulin Human Regular 100 units/ml vial SC SCH ×4 (08:30→21:44)
[2018-08-03] MEDS: Enoxaparin 40 mg Syringe SC SCH (10:51)
[2018-08-03] MEDS: Potassium Chloride 20 mEq ER Tab PO SCH (10:52)
--- NOTE | 2018-08-03 13:18 | CON ---
DATE: 08/02/2018 PSYCHIATRIC CONSULTATION CHIEF COMPLAINT AND REASON FOR CONSULTATION: The patient referred by Dr. Rosas for evaluation of dementia and schizophrenia. The patient is on multiple psych meds. HISTORY OF PRESENT ILLNESS: This is a case of an 83-year-old female, who lives with her family. The patient was admitted here initially, complaining of not feeling good, also has some issues with her blood pressure, having some abdominal problems. The patient was referred for comanagement as the patient has history of dementia and schizophrenia. She was seeing a psychiatrist from outside, who prescribed her Seroquel and Klonopin. According to the family, she was taking Seroquel 200 mg at bedtime and Klonopin. The patient has history of chronic constipation and has been taking Lantus as well has problems with urinating. On admission, the patient had UA and showed evidence of urinary tract infection and also on antibiotics. The patient was referred for readjustment of her medication. The patient is a poor historian, collateral information taken from the chart, but the patient states that she needs her Klonopin for anxiety and has complaint of trouble sleeping and she reports she hears voices at times calling her. PAST PSYCHIATRIC HISTORY: As stated, history of dementia, probably Alzheimer's type, and history of schizophrenia. PAST MEDICAL HISTORY: History of asthma, COPD, gastritis, hypertension, hypercholesterolemia, and pneumonia. DRUG AND ALCOHOL HISTORY: Denies any. ALLERGIES: NO KNOWN ALLERGIES. PSYCHOSOCIAL HISTORY: The patient lives with her family. MEDICATIONS: List of current medications includes Colace, Cozaar, DuoNeb, Flomax, and Glucotrol. The patient is on meropenem, Microzide, Seroquel XR 50 mg at bedtime, and Tylenol. PHYSICAL EXAMINATION: VITAL SIGNS: Temperature is 98.2, pulse 107, blood pressure 160/80, respirations 20, and oxygen saturations 95%. LABORATORY DATA: Review of her labs: The patient's blood sugar is 300. UA shows evidence of urinary tract infection. The patient's B12 is 250, within the low side; folate is greater than 20; prolactin is 13.6, and also free T4 is 1.21. Other reports, the patient had CT of the abdomen and pelvis that showed the following findings: Large bowel containing right wall hernia without evidence of obstruction, persistent right basilar atelectasis or infiltrate. Abdominal x-ray showed the following findings, non-specific bowel gas pattern with several dilated bowel loops in the left upper quadrant of the abdomen, cannot rule out early mechanical obstruction. REVIEW OF SYSTEMS: CONSTITUTIONAL: The patient is alert, but forgetful. She is in her room with her privacy officer, oriented x2. She states she needs her Klonopin. SKIN: No diaphoresis. HEENT: No headache. No dizziness. NECK: Supple. RESPIRATORY: No dyspnea. CARDIOVASCULAR: No chest pain. GASTROINTESTINAL: The patient is complaining of abdominal pain. GENITOURINARY: No dysuria. EXTREMITIES: Moving extremities. NEUROLOGIC: Alert but forgetful, oriented x2. GENITOURINARY: No dysuria. MENTAL STATUS EXAMINATION: An elderly female who is 83 years old, about 5 feet and 140 pounds. Mood is dysphoric. Affect is reactive. Speech is spontaneous. Thought process, forgetful. Thought content, the patient reports having hallucinations at night. No paranoia. No suicidal or homicidal ideation. Attention and memory seem to be limited. Insight and judgment are limited. Impulse control is fair at this time. IMPRESSION: History of chronic schizophrenia as well as dementia with mood changes with possible delirium and metabolic encephalopathy secondary to urinary tract infection. PLAN AND RECOMMENDATION: The patient was seen, meds reviewed. Continue present management. The patient is currently taking antibiotic. I do agree to lower the dose of the Seroquel from 200, which was mentioned by the family to 50 at bedtime for psychosis, especially as the patient is having UTI. Seroquel is anticholinergic, which can cause urinary retention and it can also cause constipation as a side effect. The side effects of Seroquel can worsen her UTI as well as can cause some chronic constipation. The patient noted that she was taking Linzess. I agreed to lower the dose to minimize the side effects. The patient may continue her Klonopin 1 mg at bedtime for anxiety. Continue antibiotics as ordered. We will monitor her behavior. We will monitor also her blood pressure and then also we will refer her back to her outpatient psychiatrist. According to the family, Dr. Jackie Oneal, her psychiatrist, is managing her for her dementia and schizophrenia as an outpatient. But for now, we will lower her dose because of the patient's superimposed urinary tract infection, which can cause delirium and exacerbate her psychiatric symptoms. Thank you for the consult. Bladimir Kate MD MTDD
[2018-08-03 14:38] LABS: SQUAMOUS EPITHIAL < 1 /hpf (0-5); URINE BILIRUBIN NEGATIVE (NEGATIVE); URINE BLOOD NEGATIVE (NEGATIVE); URINE CLARITY Hazy (Clear); URINE COLOR Yellow (YELLOW); URINE GLUCOSE (UA) 3+ mg/dL (Normal); URINE PROTEIN NEGATIVE (NEGATIVE); URINE UROBILINOGEN NORMAL mg/dL (0.2-1.0)
[2018-08-03 14:43] LABS: URINE LEUKOCYTE ESTERASE 2+ Leu/uL (Negative)
--- NOTE | 2018-08-03 16:51 | CP.PCM.PN ---
Subjective - Date & Time of Evaluation Date of Evaluation: 08/03/18 Time of Evaluation: 16:48 - Subjective Subjective: Patient denies chest pain, shortness of breath, cough or abdominal pain. Objective - Vital Signs/Intake and Output Vital Signs (last 24 hours): Temp Pulse Resp BP Pulse Ox 98.8 F 76 20 111/64 95 08/03/18 16:00 08/03/18 16:00 08/03/18 16:00 08/03/18 16:00 08/03/18 16:00 Intake and Output: 08/03/18 08/03/18 06:59 18:59 Intake Total 830 Output Total 450 Balance 380 - Medications Medications: Current Medications Acetaminophen (Tylenol 325mg Tab) 650 mg PO Q6 PRN PRN Reason: fever and pain Last Admin: 07/29/18 21:37 Dose: 650 mg Albuterol/Ipratropium (Duoneb 3 Mg/0.5 Mg (3 Ml) Ud) 3 ml INH RQ6 PRN PRN Reason: Shortness of Breath Last Admin: 08/01/18 19:50 Dose: 3 ml Clonazepam (Klonopin) 1 mg PO HS [facility] Last Admin: 08/02/18 22:22 Dose: 1 mg Docusate Sodium (Colace) 100 mg PO DAILY [facility] Last Admin: 08/03/18 10:52 Dose: 100 mg Enoxaparin Sodium (Lovenox) 40 mg SC DAILY [facility] Last Admin: 08/03/18 10:51 Dose: 40 mg Glipizide (Glucotrol) 10 mg PO ACBD [facility] Last Admin: 08/03/18 08:30 Dose: 10 mg Hydrochlorothiazide (Microzide) 12.5 mg PO DAILY [facility] Last Admin: 08/03/18 10:52 Dose: 12.5 mg Meropenem 500 mg/ Sodium (Chloride) 100 mls @ 100 mls/hr IVPB Q8H [facility]; Protocol Last Admin: 08/03/18 10:53 Dose: 100 mls/hr Insulin Human Regular (Novolin R) 0 unit SC ACHS [facility]; Protocol Last Admin: 08/03/18 12:30 Dose: 5 unit Losartan Potassium (Cozaar) 100 mg PO DAILY [facility] Last Admin: 08/03/18 10:52 Dose: 100 mg Potassium Chloride (K-Dur 20 Meq Er Tab) 20 meq PO DAILY [facility] Last Admin: 08/03/18 10:52 Dose: 20 meq Quetiapine Fumarate (Seroquel Xr) 50 mg PO HS [facility] Last Admin: 08/02/18 22:22 Dose: 50 mg Tamsulosin HCl (Flomax) 0.4 mg PO DAILY [facility] Last Admin: 08/03/18 10:52 Dose: 0.4 mg - Labs Labs: 08/01/18 07:55 08/03/18 07:09 - Constitutional Appears: Well, Non-toxic, No Acute Distress - Head Exam Head Exam: ATRAUMATIC, NORMAL INSPECTION, NORMOCEPHALIC - Neck Exam Neck Exam: Full ROM, Normal Inspection - Respiratory Exam Respiratory Exam: Clear to Ausculation Bilateral, NORMAL BREATHING PATTERN - Cardiovascular Exam Cardiovascular Exam: REGULAR RHYTHM, +S1, +S2 - GI/Abdominal Exam GI & Abdominal Exam: Soft, Normal Bowel Sounds - Extremities Exam Extremities Exam: Full ROM, Normal Capillary Refill, Normal Inspection - Neurological Exam Neurological Exam: Alert, Awake Assessment and Plan (1) E. coli UTI (urinary tract infection) Assessment & Plan: Continue same treatment. Status: Acute (2) Urinary retention Assessment & Plan: Urology on board. Status: Acute (3) Diabetes mellitus Assessment & Plan: Type II DM, uncontrolled. Endocrinology evaluation. BMP in AM. Continue same treatment. Status: Chronic (4) Schizophrenia Status: Acute (5) COPD (chronic obstructive pulmonary disease) Status: Acute (6) Pleural effusion Status: Acute (7) Dementia Status: Chronic (8) HTN (hypertension) Status: Chronic (9) Hypokalemia Status: Acute (10) Pneumonia Status: Acute (11) UTI (urinary tract infection) Status: Acute
[2018-08-03] MEDS: QUEtiapine 50 mg XR Tab PO SCH (21:59)
[2018-08-03] MEDS ORDERED: (Lantus) Insulin Glargine, Recombinant SC SCH (22:00)
--- NOTE | 2018-08-03 23:14 | PN ---
DATE: 08/03/2018 SUBJECTIVE: The patient is seen. The patient is now having a Olivares catheter. The patient is currently taking antibiotics for UTI. Psych danielson, the patient is currently on Klonopin 1 mg at bedtime and also Seroquel 50 mg at bedtime. She still complains she has trouble urinating, but no overt psychosis. No suicidal or homicidal ideation. She states that she sleeps a little better, has been compliant with medications. PHYSICAL EXAMINATION: VITAL SIGNS: Temperature 98.8, pulse 76, blood pressure 111/64, respirations 20, and oxygen saturation 95%. REVIEW OF SYSTEMS: CONSTITUTIONAL: The patient is alert and oriented x3. She is still forgetful, seen in her room. The patient is in a 4-bedded room for closer monitoring. SKIN: No diaphoresis. HEENT: No headache. No dizziness. NECK: Supple. RESPIRATORY: No dyspnea. CARDIOVASCULAR: No chest pain. GASTROINTESTINAL: She is eating fairly well. EXTREMITIES: Moving extremities, MUSCULOSKELETAL: Feels weak. GENITOURINARY: The patient is still complaining of difficulty urinating, but has a Olivares catheter. NEUROLOGICAL: Alert and oriented x2 but still forgetful. No major behavioral problems noted. MENTAL STATUS EXAMINATION: An elderly female who looks her staged age. Oriented x2. Mood is dysphoric. Affect is reactive. Speech is daze. Thought process, forgetful. Thought content, no overt psychosis. No suicidal or homicidal ideation. Attention and memory seem to be limited. Insight and judgment limited. Impulse control is guarded at this time. IMPRESSION: Senile-onset dementia with mood changes as well as superimposed delirium, metabolic encephalopathy secondary to urinary tract infection. PLAN AND RECOMMENDATIONS: The patient is seen, meds reviewed. Continue present psych meds as ordered as well as continue antibiotics as ordered. For now, we will keep the patient on Klonopin 1 mg at bedtime and Seroquel 50 mg at bedtime for now. Bladimir Kate MD
[2018-08-04] MEDS: Meropenem 500 MG in Sodium Chloride 0.9% 100 ML IVPB SCH ×3 (02:44→19:38)
--- NOTE | 2018-08-04 05:59 | CON ---
DATE: 08/03/2018 ENDOCRINOLOGY CONSULTATION LOCATION: Room 360, [address]. HISTORY OF PRESENT ILLNESS: This is an 83-year-old female with known history of type 2 diabetes and hypertension, presenting here with abdominal pain and fever with subsequent evaluation for urinary tract infection and bacteremia, currently on IV antibiotics and is now being referred for diabetic evaluation because of persistent hyperglycemic accelerations as noted thereof. PAST MEDICAL HISTORY: As mentioned above, history of type 2 diabetes, on glipizide given as 10 mg b.i.d.; history of hypertension and dyslipidemia; history of coronary artery disease with previous coronary stent placement; history of cerebrovascular disease with residual right hemiparesis; history of chronic obstructive lung disease; history of chronic schizoaffective disorder and diagnosed of schizophrenia, on psychotropic medications; history of recent Alzheimer's dementia; also history of previous seizure disorder. FAMILY HISTORY: Positive for hypertension and diabetes. SOCIAL HISTORY: The patient has a supportive family. No known substance use. REVIEW OF SYSTEMS: Not possible at this time, but the chart has been reviewed in detail of the progress note and management has also been reviewed in detail. PHYSICAL EXAMINATION: GENERAL: An average-built female in no apparent distress. VITAL SIGNS: With a blood pressure of 140/80, pulse of 100 beats per minute and regular, temperature 99, respirations 20. Height is 5 feet. Weight is 140 pounds. HEENT: Head: Normocephalic. Eyes: Anicteric with pink conjunctivae. Funduscopy not possible at this time. Ears, nose, and throat otherwise normal. NECK: Supple. Thyroid gland is normal in size. No carotid bruits. No cervical adenopathy. CARDIOPULMONARY: Some adynamic precordium. S1 and S2 are rapid and regular. LUNGS: Clear to auscultation. ABDOMEN: Flat, soft, with positive bowel sounds. EXTREMITIES: No peripheral edema. Pulses are +2 bilaterally. LABORATORY DATA: Chemistry showed a BUN of 40, sodium 140, potassium 4, chloride 105, CO2 of 24, glucose 210, creatinine 1.3. Her hemoglobin A1c is 8.4%. TSH is 3.24. Her glucose levels have ranged from 258 to 350 mg/dL. ASSESSMENT: This is an 83-year-old female with uncontrolled and decompensated type 2 insulin-requiring diabetes with marked hyperglycemic accelerations most likely related to intercurrent infection associated with increased insulin resistance thereof. However, she also has possibly may be insulin requiring at this time from longstanding type 2 diabetes and expected secondary pancreatic failure. 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 She also is significantly in the presence of Alzheimer's dementia possibly even vascular dementia with underlying chronic schizoaffective disorder. PLAN OF MANAGEMENT: Because of the patient's current mental status and underlying dementia and inability to self-administer her own insulin regimen and even do glucose monitoring at this time, so we will be giving the insulin therapy only for inpatient diabetic management. We will add lactose given as 12 units subcu at bedtime daily again only for inpatient diabetic management to at least lower the glucose levels and glucotoxicity thereof. We will continue the low-dose correction scale with regular insulin as ordered. We will continue also the glipizide given as 10 mg b.i.d. and add Januvia 50 mg once daily as ordered. We will obtain serial chemistries and supplement accordingly as needed. We will follow. Stephanie Mondragon MD
[2018-08-04 08:11] LABS: CALCIUM 10.1 mg/dl (8.6-10.4)
[2018-08-04] MEDS: (Novolin R) Insulin Human Regular 100 units/ml vial SC SCH ×4 (08:43→21:48)
[2018-08-04] MEDS: Enoxaparin 40 mg Syringe SC SCH (10:22)
[2018-08-04] MEDS: Potassium Chloride 20 mEq ER Tab PO SCH (10:22)
--- NOTE | 2018-08-04 11:48 | PN ---
DATE: 08/04/2018 ENDOCRINOLOGY FOLLOWUP NOTE LOCATION: Room 360. SUBJECTIVE: This is an 83-year-old female with recent uncontrolled type 2 insulin-requiring diabetes with marked hyperglycemic accelerations and is now being followed closely for metabolic management. She has also ongoing IV antibiotic treatment for urinary tract infection and bacteremia as noted thereof. Her glycemic levels are fluctuating, but improved, and the glucose levels overnight have ranged from 197-232 mg per dL. Her chemistry showed a BUN of 41, sodium 140, potassium 4.3, chloride 106, CO2 of 24, glucose 231, and creatinine 1.1. ASSESSMENT: This is an 83-year-old female with uncontrolled and decompensated type 2 insulin-requiring diabetes with marked hyperglycemic accelerations, most likely related to the intercurrent urinary tract infection and bacteremia and possibly also with secondary pancreatic failure from a longstanding type 2 diabetes historically. PLAN OF MANAGEMENT: We will continue the basal insulin therapy only for inpatient diabetic management to lower the glucose toxicity thereof. We will increase and titrate her Lantus to 14 units subcutaneous at bedtime daily to start tonight. We will continue the dual oral hypoglycemic drug therapy as modified with Januvia at 50 mg daily to start today and glipizide to be continued at 10 mg twice daily before meals as ordered. We will obtain serial chemistries and supplement accordingly as needed. We will also continue the low dose correction scale using regular insulin as given. We will obtain serial chemistries accordingly. We will follow. Stephanie Mondragon MD
--- NOTE | 2018-08-04 14:31 | CP.PCM.PN ---
Subjective - Date & Time of Evaluation Date of Evaluation: 08/04/18 Time of Evaluation: 14:28 - Subjective Subjective: Afebrile, in no apparent distress. Objective - Vital Signs/Intake and Output Vital Signs (last 24 hours): Temp Pulse Resp BP Pulse Ox 97.5 F L 78 20 122/69 99 08/04/18 12:50 08/04/18 08:30 08/04/18 08:30 08/04/18 08:30 08/04/18 08:30 Intake and Output: 08/04/18 08/04/18 06:59 18:59 Intake Total 620 Output Total 600 Balance 20 - Medications Medications: Current Medications Acetaminophen (Tylenol 325mg Tab) 650 mg PO Q6 PRN PRN Reason: fever and pain Last Admin: 08/04/18 12:50 Dose: 650 mg Clonazepam (Klonopin) 1 mg PO [facility] Last Admin: 08/03/18 21:42 Dose: 1 mg Docusate Sodium (Colace) 100 mg PO DAILY [facility] Last Admin: 08/04/18 10:22 Dose: 100 mg Enoxaparin Sodium (Lovenox) 40 mg SC DAILY [facility] Last Admin: 08/04/18 10:22 Dose: 40 mg Glipizide (Glucotrol) 10 mg PO ACBD [facility] Last Admin: 08/04/18 08:43 Dose: Not Given Hydrochlorothiazide (Microzide) 12.5 mg PO DAILY [facility] Last Admin: 08/04/18 10:22 Dose: 12.5 mg Meropenem 500 mg/ Sodium (Chloride) 100 mls @ 100 mls/hr IVPB Q8H [facility]; Protocol Last Admin: 08/04/18 12:41 Dose: 100 mls/hr Insulin Glargine (Lantus) 14 unit SC [facility] Insulin Human Regular (Novolin R) 0 unit SC [facility]; Protocol Last Admin: 08/04/18 12:42 Dose: 2 unit Losartan Potassium (Cozaar) 100 mg PO DAILY [facility] Last Admin: 08/04/18 10:22 Dose: 100 mg Potassium Chloride (K-Dur 20 Meq Er Tab) 20 meq PO DAILY [facility] Last Admin: 08/04/18 10:22 Dose: 20 meq Quetiapine Fumarate (Seroquel Xr) 50 mg PO [facility] Last Admin: 08/03/18 21:59 Dose: 50 mg Sitagliptin Phosphate (Januvia) 50 mg PO DAILY [facility] Last Admin: 08/04/18 10:23 Dose: Not Given Tamsulosin HCl (Flomax) 0.4 mg PO DAILY [facility] Last Admin: 08/04/18 10:22 Dose: 0.4 mg - Labs Labs: 08/01/18 07:55 08/04/18 07:41 - Constitutional Appears: Well, Non-toxic, No Acute Distress - Head Exam Head Exam: ATRAUMATIC, NORMAL INSPECTION, NORMOCEPHALIC - Eye Exam Eye Exam: EOMI, PERRL - ENT Exam ENT Exam: Mucous Membranes Moist, Normal Exam - Neck Exam Neck Exam: Full ROM, Normal Inspection - Respiratory Exam Respiratory Exam: Clear to Ausculation Bilateral, NORMAL BREATHING PATTERN - Cardiovascular Exam Cardiovascular Exam: REGULAR RHYTHM, +S1, +S2 - GI/Abdominal Exam GI & Abdominal Exam: Soft, Normal Bowel Sounds - Extremities Exam Extremities Exam: Full ROM, Normal Capillary Refill, Normal Inspection Assessment and Plan (1) E. coli UTI (urinary tract infection) Assessment & Plan: Continue same treatment. Status: Acute (2) Urinary retention Status: Acute (3) Diabetes mellitus Assessment & Plan: Endocrine input appreciated. Status: Chronic (4) Hypoglycemia due to insulin Status: Acute (5) Schizophrenia Status: Acute (6) COPD (chronic obstructive pulmonary disease) Status: Acute (7) Pleural effusion Status: Acute (8) Dementia Status: Chronic (9) HTN (hypertension) Status: Chronic (10) Hypokalemia Status: Acute (11) Pneumonia Status: Acute (12) UTI (urinary tract infection) Status: Acute (13) ESBL (extended spectrum beta-lactamase) producing bacteria infection Status: Acute (14) History of stroke in adulthood Assessment & Plan: Add ASA 81 mg. Status: Acute
--- NOTE | 2018-08-04 18:42 | CP.PCM.PN ---
Subjective - Date & Time of Evaluation Date of Evaluation: 08/04/18 Time of Evaluation: 09:00 - Subjective Subjective: seen on rounds improving repeat urine no growth Objective - Vital Signs/Intake and Output Vital Signs (last 24 hours): Temp Pulse Resp BP Pulse Ox 97.6 F 71 20 115/65 100 08/04/18 16:49 08/04/18 16:49 08/04/18 16:49 08/04/18 16:49 08/04/18 16:49 Intake and Output: 08/04/18 08/04/18 06:59 18:59 Intake Total 620 340 Output Total 600 300 Balance 20 40 - Medications Medications: Current Medications Acetaminophen (Tylenol 325mg Tab) 650 mg PO Q6 PRN PRN Reason: fever and pain Last Admin: 08/04/18 12:50 Dose: 650 mg Aspirin (Ecotrin) 81 mg PO DAILY [facility] Clonazepam (Klonopin) 1 mg PO HS [facility] Last Admin: 08/03/18 21:42 Dose: 1 mg Docusate Sodium (Colace) 100 mg PO DAILY [facility] Last Admin: 08/04/18 10:22 Dose: 100 mg Enoxaparin Sodium (Lovenox) 40 mg SC DAILY [facility] Last Admin: 08/04/18 10:22 Dose: 40 mg Glipizide (Glucotrol) 10 mg PO ACBD [facility] Last Admin: 08/04/18 16:56 Dose: Not Given Hydrochlorothiazide (Microzide) 12.5 mg PO DAILY [facility] Last Admin: 08/04/18 10:22 Dose: 12.5 mg Meropenem 500 mg/ Sodium (Chloride) 100 mls @ 100 mls/hr IVPB Q8H [facility]; Protocol Last Admin: 08/04/18 12:41 Dose: 100 mls/hr Insulin Glargine (Lantus) 14 unit SC HS [facility] Insulin Human Regular (Novolin R) 0 unit SC [facility]; Protocol Last Admin: 08/04/18 16:51 Dose: Not Given Losartan Potassium (Cozaar) 100 mg PO DAILY [facility] Last Admin: 08/04/18 10:22 Dose: 100 mg Potassium Chloride (K-Dur 20 Meq Er Tab) 20 meq PO DAILY [facility] Last Admin: 08/04/18 10:22 Dose: 20 meq Quetiapine Fumarate (Seroquel Xr) 50 mg PO [facility] Last Admin: 08/03/18 21:59 Dose: 50 mg Sitagliptin Phosphate (Januvia) 50 mg PO DAILY [facility] Last Admin: 08/04/18 10:23 Dose: Not Given Tamsulosin HCl (Flomax) 0.4 mg PO DAILY [facility] Last Admin: 08/04/18 10:22 Dose: 0.4 mg - Labs Labs: 08/01/18 07:55 08/04/18 07:41 - Constitutional Appears: Non-toxic, Chronically Ill - Head Exam Head Exam: NORMOCEPHALIC - Eye Exam Eye Exam: EOMI, Normal appearance, PERRL Pupil Exam: NORMAL ACCOMODATION, PERRL - ENT Exam ENT Exam: Mucous Membranes Moist, Normal Exam - Neck Exam Neck Exam: Full ROM, Normal Inspection. absent: Lymphadenopathy - Respiratory Exam Respiratory Exam: Decreased Breath Sounds, Clear to Ausculation Bilateral, Prolonged Expiratory Phase - Cardiovascular Exam Cardiovascular Exam: REGULAR RHYTHM, +S1, +S2. absent: Murmur - GI/Abdominal Exam GI & Abdominal Exam: Soft, Normal Bowel Sounds. absent: Tenderness - Rectal Exam Rectal Exam: Deferred - Exam Exam: NORMAL INSPECTION - Extremities Exam Extremities Exam: Full ROM, Normal Capillary Refill, Normal Inspection. absent: Joint Swelling, Pedal Edema - Back Exam Back Exam: NORMAL INSPECTION - Neurological Exam Neurological Exam: Alert, Awake, CN II-XII Intact. absent: Normal Gait, Oriented x3 - Psychiatric Exam Psychiatric exam: Normal Affect, Normal Mood - Skin Skin Exam: Dry, Intact, Normal Color, Warm Assessment and Plan (1) ESBL (extended spectrum beta-lactamase) producing bacteria infection Status: Acute (2) ESBL (extended spectrum beta-lactamase) producing bacteria infection Status: Acute (3) UTI (urinary tract infection) Status: Acute (4) COPD (chronic obstructive pulmonary disease) Status: Acute (5) Dementia Status: Chronic (6) Diabetes mellitus Status: Chronic - Assessment and Plan (Free Text) Assessment: cont rx for UTI ESBL + IV rx renewed
[2018-08-04] MEDS ORDERED: (Lantus) Insulin Glargine, Recombinant SC SCH (22:00)
[2018-08-04] MEDS: QUEtiapine 50 mg XR Tab PO SCH (22:05)
[2018-08-05] MEDS: Meropenem 500 MG in Sodium Chloride 0.9% 100 ML IVPB SCH ×3 (03:27→19:24)
[2018-08-05] MEDS: (Novolin R) Insulin Human Regular 100 units/ml vial SC SCH ×4 (07:48→22:54)
[2018-08-05] MEDS: Enoxaparin 40 mg Syringe SC SCH (10:13)
[2018-08-05] MEDS: Potassium Chloride 20 mEq ER Tab PO SCH (10:14)
--- NOTE | 2018-08-05 13:21 | PN ---
DATE: 08/05/2018 SUBJECTIVE: The patient is seen. The patient currently in the third floor. The patient is complaining of poor appetite and also pain in her legs. She said she does not like the food here. The patient is hoping her daughter will bring her some homemade food. Also, the patient forgot to bring her upper set of dentures and has problems eating her food. Other than that, she wanted to go home. The patient is still not medically cleared at this time. PHYSICAL EXAMINATION: VITAL SIGNS: Temperature 98.3, pulse 86, blood pressure 164/72, respirations 20, and oxygen saturation 97%. REVIEW OF SYSTEMS: CONSTITUTIONAL: The patient is alert, oriented x3, seen in her room, complaining of poor appetite and weakness. SKIN: No diaphoresis. HEENT: No headache. No dizziness. NECK: Supple. RESPIRATORY: No dyspnea. CARDIOVASCULAR: No chest pain. GASTROINTESTINAL: Appetite is variable. No nausea. No vomiting. EXTREMITIES: Complaining of pain. GENITOURINARY: No dysuria. NEUROLOGICAL: Alert and oriented x2, forgetful. MUSCULOSKELETAL: Denies weakness or debility. MENTAL STATUS EXAMINATION: An elderly female who looks staged age, oriented x2. Mood is anxious. Affect is reactive. Speech is spontaneous. Thought process, forgetful. Thought content, the patient wants homemade food and she wants also if her daughter can bring her upper set of dentures so she can eat better. The patient also wants to go home. No psychosis. No suicidal or homicidal ideation. Attention and memory seems to be limited. Insight and judgment is limited. Impulse control is fair at this time. IMPRESSION: History of dementia and schizophrenia, and possible delirium secondary to urinary tract infection and metabolic encephalopathy. PLAN AND RECOMMENDATIONS: The patient was seen and meds reviewed. Continue antibiotics as ordered. The patient is followed by Dr. Andrade. Continue current psych meds as ordered. We will hold off any change of psych meds for now. Once the patient is medically stable, the patient may go home. Continue treatment plan as outlined. Bladimir Kate MD
--- NOTE | 2018-08-05 19:09 | CP.PCM.PN ---
Subjective - Date & Time of Evaluation Date of Evaluation: 08/05/18 Time of Evaluation: 19:06 - Subjective Subjective: Patient has no new complaints. Objective - Vital Signs/Intake and Output Vital Signs (last 24 hours): Temp Pulse Resp BP Pulse Ox 98.1 F 75 20 115/68 97 08/05/18 16:00 08/05/18 16:00 08/05/18 16:00 08/05/18 16:00 08/05/18 16:00 Intake and Output: 08/05/18 08/06/18 18:59 06:59 Intake Total 820 Output Total 750 Balance 70 - Medications Medications: Current Medications Acetaminophen (Tylenol 325mg Tab) 650 mg PO Q6 PRN PRN Reason: fever and pain Last Admin: 08/05/18 15:01 Dose: 650 mg Aspirin (Ecotrin) 81 mg PO DAILY [facility] Last Admin: 08/05/18 10:14 Dose: 81 mg Clonazepam (Klonopin) 1 mg PO HS [facility] Last Admin: 08/04/18 22:05 Dose: 1 mg Docusate Sodium (Colace) 100 mg PO DAILY [facility] Last Admin: 08/05/18 10:14 Dose: 100 mg Enoxaparin Sodium (Lovenox) 30 mg SC DAILY [facility] Glipizide (Glucotrol) 10 mg PO ACBD [facility] Last Admin: 08/05/18 16:52 Dose: 10 mg Hydrochlorothiazide (Microzide) 12.5 mg PO DAILY [facility] Last Admin: 08/05/18 10:13 Dose: 12.5 mg Meropenem 500 mg/ Sodium (Chloride) 100 mls @ 100 mls/hr IVPB Q8H [facility]; Protocol Last Admin: 08/05/18 10:15 Dose: 100 mls/hr Insulin Glargine (Lantus) 18 unit SC [facility] Insulin Human Regular (Novolin R) 0 unit SC [facility]; Protocol Last Admin: 08/05/18 16:51 Dose: 1 unit Losartan Potassium (Cozaar) 100 mg PO DAILY [facility] Last Admin: 08/05/18 10:14 Dose: 100 mg Potassium Chloride (K-Dur 20 Meq Er Tab) 20 meq PO DAILY [facility] Last Admin: 08/05/18 10:14 Dose: 20 meq Quetiapine Fumarate (Seroquel Xr) 50 mg PO [facility] Last Admin: 08/04/18 22:05 Dose: 50 mg Sitagliptin Phosphate (Januvia) 50 mg PO DAILY [facility] Last Admin: 08/05/18 10:14 Dose: 50 mg Tamsulosin HCl (Flomax) 0.4 mg PO DAILY [facility] Last Admin: 08/05/18 10:14 Dose: 0.4 mg - Labs Labs: 08/01/18 07:55 08/04/18 07:41 - Constitutional Appears: Well, Non-toxic, No Acute Distress - Head Exam Head Exam: ATRAUMATIC, NORMAL INSPECTION, NORMOCEPHALIC - Eye Exam Eye Exam: EOMI, Normal appearance Pupil Exam: PERRL - Neck Exam Neck Exam: Full ROM, Normal Inspection - Respiratory Exam Respiratory Exam: Clear to Ausculation Bilateral, NORMAL BREATHING PATTERN - Cardiovascular Exam Cardiovascular Exam: REGULAR RHYTHM, +S1, +S2 - GI/Abdominal Exam GI & Abdominal Exam: Soft, Normal Bowel Sounds - Extremities Exam Extremities Exam: Full ROM, Normal Capillary Refill, Normal Inspection - Back Exam Back Exam: NORMAL INSPECTION - Psychiatric Exam Psychiatric exam: Normal Affect, Normal Mood Assessment and Plan (1) ESBL (extended spectrum beta-lactamase) producing bacteria infection Assessment & Plan: Continue same treatment. Status: Acute (2) E. coli UTI (urinary tract infection) Status: Acute (3) Urinary retention Status: Acute (4) Diabetes mellitus Status: Chronic (5) HTN (hypertension) Assessment & Plan: Continue same treatment. Status: Chronic (6) Hypoglycemia due to insulin Status: Acute (7) Schizophrenia Status: Acute (8) COPD (chronic obstructive pulmonary disease) Status: Acute (9) Pleural effusion Status: Acute (10) Dementia Status: Chronic (11) Hypokalemia Status: Acute (12) Pneumonia Status: Acute (13) History of stroke in adulthood Status: Acute (14) UTI (urinary tract infection) Status: Acute
[2018-08-05] MEDS: (Lantus) Insulin Glargine, Recombinant SC SCH (22:53)
[2018-08-05] MEDS: QUEtiapine 50 mg XR Tab PO SCH (22:54)
[2018-08-06] MEDS: Meropenem 500 MG in Sodium Chloride 0.9% 100 ML IVPB SCH ×3 (02:15→20:14)
--- NOTE | 2018-08-06 06:20 | PN ---
DATE: 08/05/2018 ENDO FOLLOWUP NOTE LOCATION: Room 350. SUBJECTIVE: This is an 83-year-old female with insulin-requiring diabetes, presenting with reportedly to have marked hyperglycemic acceleration and is now being followed closely for metabolic management. LABORATORY DATA: As outlined showed within normal range from 196 to 206 and 297 mg/dL. The chemistry showed a BUN of 41, sodium 140, potassium 4.3, chloride 106, , glucose 231, and creatinine 1.1. ASSESSMENT: This is an 83-year-old female with Alzheimer's dementia and underlying chronic schizoaffective disorder, presented here with marked hyperglycemic acceleration and dehydration with and still as above mentioned and is now being followed closely for metabolic management. With the patient's current mental state, it would be not possible at this time to allow the patient to administer her own insulin regimen and eventually nobody at home keep the insulin regimen to the patient. PLAN: So, we are giving the insulin management only for inpatient diabetic management as ordered. We will increase her Lantus to 18 units subcu at bedtime daily to start tonight. We will also continue the Januvia given as 50 mg once daily as ordered with glipizide given as 10 mg b.i.d. before . We will obtain serial chemistry and supplement accordingly as needed. We will follow and advise accordingly. Stephanie Mondragon MD
[2018-08-06] MEDS: (Novolin R) Insulin Human Regular 100 units/ml vial SC SCH ×4 (08:16→21:44)
[2018-08-06] MEDS: Enoxaparin 30 mg Syringe SC SCH (10:43)
[2018-08-06] MEDS: Potassium Chloride 20 mEq ER Tab PO SCH (10:45)
--- NOTE | 2018-08-06 15:18 | PN ---
DATE: 08/06/2018 SUBJECTIVE: The patient is seen. The patient seems to be doing better with current dose of psych meds without exacerbation of psychosis, although she is complaining of poor appetite. The patient states she is missing her upper set of dentures, and asking for homemade food. Other than that, she is compliant with treatment. The patient is taking antibiotics for her ESBL, VRE infection in the urine. PHYSICAL EXAMINATION: VITAL SIGNS: Temperature 97.7, pulse 70, blood pressure 135/75, respirations 20, and oxygen saturation 100%. REVIEW OF SYSTEMS: CONSTITUTIONAL: The patient is alert, verbal, seen in her room, resting. The patient has no appetite because she could not eat the food because of her lack of dentures. SKIN: No diaphoresis. HEENT: No headache. No dizziness. NECK: Supple. RESPIRATORY: No dyspnea. CARDIOVASCULAR: No chest pain. GASTROINTESTINAL: Reports poor appetite. Difficulty eating. EXTREMITIES: Moving extremities. MUSCULOSKELETAL: No weakness. GENITOURINARY: Not complaining of dysuria. NEUROLOGICAL: Alert, but forgetful, oriented x2. MENTAL STATUS EXAMINATION: An elderly female, who looks staged age, oriented x2. Speech is spontaneous. Affect is reactive. Mood is dysphoric. Thought process, forgetful. Thought content, the patient is complaining about her difficulty eating. The patient advised to tell her daughter to bring her dentures from home, and also to bring homemade food. No psychosis. No suicidal or homicidal ideation. Attention and memory seem to be limited. Insight and judgment are limited. Impulse control is fair at this time. IMPRESSION: History of dementia, mood changes as well as delirium, metabolic encephalopathy, urinary tract infection, and also a history of schizophrenia. PLAN AND RECOMMENDATIONS: The patient was seen and meds reviewed. Continue present management. We will keep her with current dose of meds for now. The patient is still getting antibiotics. Continue treatment plan as outlined. Bladimir Kate MD MTDArun
--- NOTE | 2018-08-06 20:27 | PN ---
DATE: 08/06/2018 LOCATION: Room 350. SUBJECTIVE: This is an 83-year-old female with recent uncontrolled type 2 insulin-requiring diabetes, presenting here with altered mental status and generalized body weakness and is now being followed closely for metabolic management. Her glycemic levels are fluctuating as noted today and have ranged from 161 to 171 and 189 mg/dL. It was 221 at bedtime last night. Her chemistry showed a BUN of 41, sodium 140, potassium 4.3, chloride 106, CO2 of 24, glucose 231, and creatinine 1.1. ASSESSMENT: This is an 83-year-old female with uncontrolled and decompensated type 2 insulin-requiring diabetes with extremes of hyperglycemic fluctuations and is now being followed closely for metabolic management. PLAN OF MANAGEMENT: We will continue the insulin therapy at least for inpatient diabetic management and continue the modified basal insulin with Lantus given as 18 units subcu at bedtime daily as given. We will continue the dual oral hypoglycemic drug therapy with Januvia given at 50 mg daily and glipizide 10 mg twice daily as ordered. We will obtain serial chemistries and supplement accordingly as needed. We will continue also the low-dose correction scale using Humalog insulin as ordered. We will follow and advise accordingly. Stephanie Mondragon MD
[2018-08-06] MEDS: (Lantus) Insulin Glargine, Recombinant SC SCH (21:39)
[2018-08-06] MEDS: QUEtiapine 50 mg XR Tab PO SCH (21:39)
--- NOTE | 2018-08-06 22:13 | CP.PCM.PN ---
Subjective - Date & Time of Evaluation Date of Evaluation: 08/06/18 Time of Evaluation: 22:10 - Subjective Subjective: Afebrile, in no apparent distress. Objective - Vital Signs/Intake and Output Vital Signs (last 24 hours): Temp Pulse Resp BP Pulse Ox 97.8 F 83 20 148/80 96 08/06/18 15:05 08/06/18 15:05 08/06/18 15:05 08/06/18 15:05 08/06/18 15:05 Intake and Output: 08/06/18 08/07/18 18:59 06:59 Intake Total 460 Output Total 100 Balance 360 - Medications Medications: Current Medications Acetaminophen (Tylenol 325mg Tab) 650 mg PO Q6 PRN PRN Reason: fever and pain Last Admin: 08/06/18 12:21 Dose: 650 mg Aspirin (Ecotrin) 81 mg PO DAILY [facility] Last Admin: 08/06/18 10:45 Dose: 81 mg Clonazepam (Klonopin) 1 mg PO [facility] Last Admin: 08/06/18 21:39 Dose: 1 mg Docusate Sodium (Colace) 100 mg PO DAILY [facility] Last Admin: 08/06/18 10:44 Dose: 100 mg Enoxaparin Sodium (Lovenox) 30 mg SC DAILY [facility] Last Admin: 08/06/18 10:43 Dose: 30 mg Glipizide (Glucotrol) 10 mg PO ACBD [facility] Last Admin: 08/06/18 17:08 Dose: Not Given Hydrochlorothiazide (Microzide) 12.5 mg PO DAILY [facility] Last Admin: 08/06/18 10:45 Dose: 12.5 mg Meropenem 500 mg/ Sodium (Chloride) 100 mls @ 100 mls/hr IVPB Q8H [facility]; Protocol Last Admin: 08/06/18 20:14 Dose: 100 mls/hr Insulin Glargine (Lantus) 18 unit SC [facility] Last Admin: 08/06/18 21:39 Dose: 18 units Insulin Human Regular (Novolin R) 0 unit SC [facility]; Protocol Last Admin: 08/06/18 21:44 Dose: Not Given Losartan Potassium (Cozaar) 100 mg PO DAILY [facility] Last Admin: 08/06/18 10:45 Dose: 100 mg Potassium Chloride (K-Dur 20 Meq Er Tab) 20 meq PO DAILY [facility] Last Admin: 08/06/18 10:45 Dose: 20 meq Quetiapine Fumarate (Seroquel Xr) 50 mg PO HS [facility] Last Admin: 08/06/18 21:39 Dose: 50 mg Sitagliptin Phosphate (Januvia) 50 mg PO DAILY [facility] Last Admin: 08/06/18 10:49 Dose: Not Given Tamsulosin HCl (Flomax) 0.4 mg PO DAILY [facility] Last Admin: 08/06/18 10:45 Dose: 0.4 mg Tramadol HCl (Ultram) 50 mg PO TID PRN PRN Reason: Pain, severe (8-10) - Labs Labs: 08/01/18 07:55 08/04/18 07:41 - Constitutional Appears: Well, Non-toxic, No Acute Distress - Head Exam Head Exam: ATRAUMATIC, NORMAL INSPECTION, NORMOCEPHALIC - Neck Exam Neck Exam: Full ROM, Normal Inspection - Respiratory Exam Respiratory Exam: Clear to Ausculation Bilateral, NORMAL BREATHING PATTERN - Cardiovascular Exam Cardiovascular Exam: REGULAR RHYTHM, +S1, +S2 - GI/Abdominal Exam GI & Abdominal Exam: Soft, Normal Bowel Sounds - Extremities Exam Extremities Exam: Full ROM, Normal Capillary Refill, Normal Inspection Assessment and Plan (1) ESBL (extended spectrum beta-lactamase) producing bacteria infection Assessment & Plan: Continue IV Meropenem. Status: Acute (2) E. coli UTI (urinary tract infection) Status: Acute (3) Urinary retention Status: Acute (4) Diabetes mellitus Assessment & Plan: Endocrinology input appreciated. Status: Chronic (5) HTN (hypertension) Assessment & Plan: Continue same treatment. Status: Chronic (6) Hypoglycemia due to insulin Status: Acute (7) Schizophrenia Status: Acute (8) COPD (chronic obstructive pulmonary disease) Status: Acute (9) Pleural effusion Status: Acute (10) Dementia Status: Chronic (11) Hypokalemia Status: Acute (12) Pneumonia Status: Acute (13) History of stroke in adulthood Status: Acute (14) UTI (urinary tract infection) Status: Acute
[2018-08-07] MEDS: Meropenem 500 MG in Sodium Chloride 0.9% 100 ML IVPB SCH ×3 (02:15→19:37)
[2018-08-07 07:44] LABS: BASO % 0.6 % (0.0-2.0); EOS % 0.7 % (0.0-4.0); HEMOGLOBIN 11.5 g/dL (11.0-16.0); LYMPH # 2.3 K/uL (1.0-4.3); LYMPH % 42.5 % (20.0-40.0); MEAN CELL VOLUME 89.8 fL (81.0-99.0); MEAN CORPUSCULAR HEMOGLOBIN 31.4 pg (27.0-31.0); MEAN PLATELET VOLUME 10.1 fL (7.2-11.7); MONO # 0.7 K/uL (0.0-0.8); MONO % 13.6 % (0.0-10.0); NEUT # 2.3 K/uL (1.8-7.0); NEUT % 42.6 % (50.0-75.0); NRBC % 0.1 % (0.0-2.0); RBC 3.66 Mil/uL (3.80-5.20); RED CELL DISTRIBUTION WIDTH 13.5 % (11.5-14.5); WHITE BLOOD COUNT 5.5 K/uL (4.8-10.8)
[2018-08-07 07:47] LABS: BLOOD UREA NITROGEN 21 mg/dL (7-17); CALCIUM 9.4 mg/dl (8.6-10.4); GFR NON-AFRICAN AMERICAN > 60
[2018-08-07] MEDS: (Novolin R) Insulin Human Regular 100 units/ml vial SC SCH ×4 (08:31→22:21)
[2018-08-07] MEDS: Enoxaparin 30 mg Syringe SC SCH (10:03)
[2018-08-07] MEDS: Potassium Chloride 20 mEq ER Tab PO SCH (10:03)
--- NOTE | 2018-08-07 14:51 | CP.PCM.PN ---
Subjective - Date & Time of Evaluation Date of Evaluation: 08/07/18 Time of Evaluation: 14:49 - Subjective Subjective: Patient denies any headache, chest pain, shortness of breath or abdominal pain. Objective - Vital Signs/Intake and Output Vital Signs (last 24 hours): Temp Pulse Resp BP Pulse Ox 98.7 F 70 20 144/74 96 08/07/18 08:29 08/07/18 08:29 08/07/18 08:29 08/07/18 08:29 08/07/18 08:29 Intake and Output: 08/07/18 08/07/18 06:59 18:59 Intake Total 400 900 Output Total 550 550 Balance -150 350 - Medications Medications: Current Medications Acetaminophen (Tylenol 325mg Tab) 650 mg PO Q6 PRN PRN Reason: fever and pain Last Admin: 08/06/18 12:21 Dose: 650 mg Aspirin (Ecotrin) 81 mg PO [facility] Last Admin: 08/07/18 10:04 Dose: 81 mg Clonazepam (Klonopin) 1 mg PO [facility] Last Admin: 08/06/18 21:39 Dose: 1 mg Docusate Sodium (Colace) 100 mg PO DAILY [facility] Last Admin: 08/07/18 10:03 Dose: 100 mg Enoxaparin Sodium (Lovenox) 30 mg SC DAILY [facility] Last Admin: 08/07/18 10:03 Dose: 30 mg Glipizide (Glucotrol) 10 mg PO ACBD [facility] Last Admin: 08/07/18 08:31 Dose: 10 mg Hydrochlorothiazide (Microzide) 12.5 mg PO DAILY [facility] Last Admin: 08/07/18 10:04 Dose: 12.5 mg Meropenem 500 mg/ Sodium (Chloride) 100 mls @ 100 mls/hr IVPB Q8H [facility]; Protocol Last Admin: 08/07/18 10:59 Dose: 100 mls/hr Insulin Glargine (Lantus) 18 unit SC [facility] Last Admin: 08/06/18 21:39 Dose: 18 units Insulin Human Regular (Novolin R) 0 unit SC [facility]; Protocol Last Admin: 08/07/18 12:32 Dose: 2 unit Losartan Potassium (Cozaar) 100 mg PO DAILY [facility] Last Admin: 08/07/18 10:03 Dose: 100 mg Potassium Chloride (K-Dur 20 Meq Er Tab) 20 meq PO DAILY [facility] Last Admin: 08/07/18 10:03 Dose: 20 meq Quetiapine Fumarate (Seroquel Xr) 50 mg PO HS [facility] Last Admin: 08/06/18 21:39 Dose: 50 mg Sitagliptin Phosphate (Januvia) 50 mg PO DAILY [facility] Last Admin: 08/07/18 10:04 Dose: 50 mg Tamsulosin HCl (Flomax) 0.4 mg PO DAILY [facility] Last Admin: 08/07/18 10:04 Dose: 0.4 mg Tramadol HCl (Ultram) 50 mg PO TID PRN PRN Reason: Pain, severe (8-10) Last Admin: 08/07/18 13:40 Dose: 50 mg - Labs Labs: 08/07/18 07:25 08/07/18 07:25 - Constitutional Appears: Well, Non-toxic, No Acute Distress - Head Exam Head Exam: ATRAUMATIC, NORMAL INSPECTION, NORMOCEPHALIC - Eye Exam Eye Exam: EOMI, Normal appearance, PERRL - Neck Exam Neck Exam: Full ROM, Normal Inspection - Respiratory Exam Respiratory Exam: Clear to Ausculation Bilateral, NORMAL BREATHING PATTERN - Cardiovascular Exam Cardiovascular Exam: REGULAR RHYTHM, +S1, +S2 - GI/Abdominal Exam GI & Abdominal Exam: Soft, Normal Bowel Sounds - Extremities Exam Extremities Exam: Full ROM, Normal Capillary Refill, Normal Inspection - Back Exam Back Exam: NORMAL INSPECTION - Neurological Exam Neurological Exam: Alert, Awake Assessment and Plan (1) ESBL (extended spectrum beta-lactamase) producing bacteria infection Assessment & Plan: Meropenem Day 8/9. Planning discharge home in AM. Status: Acute (2) E. coli UTI (urinary tract infection) Status: Acute (3) Urinary retention Assessment & Plan: Discussed with Dr Palumbo. Continue Flomax. Status: Acute (4) Diabetes mellitus Status: Chronic (5) HTN (hypertension) Assessment & Plan: Continue same treatment. Status: Chronic (6) Hypoglycemia due to insulin Status: Acute (7) Schizophrenia Status: Acute (8) COPD (chronic obstructive pulmonary disease) Status: Acute (9) Pleural effusion Status: Acute (10) Dementia Status: Chronic (11) Hypokalemia Status: Acute (12) Pneumonia Status: Acute (13) History of stroke in adulthood Status: Acute (14) UTI (urinary tract infection) Status: Acute
--- NOTE | 2018-08-07 15:26 | PN ---
DATE: 08/07/2018 SUBJECTIVE: The patient wants to go home. She is still complaining of poor appetite secondary to her missing dentures, also complaining of difficulty walking because her feet and her legs hurt. Other than that, no behavioral problems noted. She is feeling depressed being in the hospital, she wants to go home but the patient is made aware she needs to complete the antibiotic treatment for her infection. She is also refusing to go for subacute rehab. PHYSICAL EXAMINATION: VITAL SIGNS: Temperature is 98.7, pulse 70, blood pressure 144/74, respirations 20, O2 saturation is 96%. REVIEW OF SYSTEMS: GENERAL: The patient seen in her room, alert, verbal, forgetful. SKIN: No diaphoresis. HEENT: No headache. No dizziness. NECK: Supple. RESPIRATORY: No dyspnea. CARDIOVASCULAR: No chest pain. GASTROINTESTINAL: Poor appetite secondary to her difficulty eating without her upper set of dentures. EXTREMITIES: Complaining of pain and difficulty walking. MUSCULOSKELETAL: Feels weak. NEUROLOGIC: Alert, forgetful, oriented x2. MENTAL STATUS EXAMINATION: Elderly female, looks stated age, oriented x2. Mood is anxious. Affect is reactive. Speech is spontaneous. Thought process is forgetful. Thought content, the patient wants to go home. She also states she has poor appetite because she could not eat well because of her missing dentures. As stated, no psychosis. No suicidal or homicidal ideation. Attention and memory seem to be limited. Insight and judgment are limited. Impulse control seems to be fair at this time. IMPRESSION: History of dementia, delirium, metabolic encephalopathy, sepsis, history of schizophrenia. PLAN AND RECOMMENDATIONS: The patient was seen. Meds reviewed. We will keep the patient on current dose of psych meds, continue antibiotic. The patient does not want to go for subacute rehab. Psych-danielson, the patient may go home once she is medically cleared. I did tell the nurse to call the daughter while the patient is in the hospital if the daughter can bring her upper set of dentures, so the patient can eat better. Bladimir Kate MD
--- NOTE | 2018-08-07 21:21 | PN ---
DATE: 08/07/2018 ENDOCRINOLOGY FOLLOWUP NOTE LOCATION: Room 350. SUBJECTIVE: This is an 83-year-old female with recent uncontrolled type 2 insulin-requiring diabetes, now being followed closely for metabolic management. Her oral intake remains variable but improved at this time, and the glucose values are fluctuating but also improved as noted overnight. Her glucose levels have ranged from 118 to 167 and 204 mg/dL. It is 186 at bedtime last night. LABORATORY DATA: Her chemistries showed a BUN of 21, sodium 141, potassium 4.1, chloride 106, CO2 of 28, glucose 142, and creatinine 0.7. ASSESSMENT: This is an 83-year-old female with uncontrolled and decompensated type 2 insulin-requiring diabetes, now being followed closely for metabolic management. PLAN OF MANAGEMENT: We will continue to modify basal insulin as given with Lantus given as 18 units subcu at bedtime daily as ordered. We will continue the low dose correction scale using NovoLog insulin as given. We will also continue the dual oral hypoglycemic drug therapy given as Januvia at 50 mg daily and glipizide at 10 mg b.i.d. as ordered. We will obtain serial chemistries and supplement accordingly as needed. We will follow. Stephanie Mondragon MD
[2018-08-07] MEDS: (Lantus) Insulin Glargine, Recombinant SC SCH (22:20)
[2018-08-07] MEDS: QUEtiapine 50 mg XR Tab PO SCH (22:21)
[2018-08-08] MEDS: Meropenem 500 MG in Sodium Chloride 0.9% 100 ML IVPB SCH (03:00)
--- NOTE | 2018-08-08 07:34 | PQF ---
PROVIDER RESPONSE TEXT: Provider was unable to determine a response for this query. REVIEWER QUERY TEXT: Pneumonia Specificity Physician?s Documentation Request This Form is Not a Permanent Document in the Medical Record Pt Name: ELIESER FUNEZ MR #: [id number] Payor: MEDICARE PART A Unit/Bed: [id number] Adm Date: 07/30/2018 5:00:00 PM Reviewer: Suzie Pennington Ext. Query Date: 07/31/2018 6:42:40 PM Pneumonia Specificity [id number] By submitting this query, we are merely seeking further clarification of documentation to accurately reflect all conditions that you are monitoring, evaluating, treating or that extend the hospitalizati on or utilize additional resources of care. Please utilize your independent clinical judgment when ad dressing the question(s) below. Dear Doctor Suraj Rosas, The patient?s Clinical Indicators include: 83 F, low BP, confused and not answering questions, Dx: Pneumonia, Pleural Effusion Clinical Indicators: CT: b/l pleural effusions, persistent Rt basilar atelectasis or infiltrate Risk Factors: : Alzheimer's disease, Dementia Meds: Ceftriaxone, Azithromycin, albuterol Pneumonia is documented in the Medical Record. Please specify the type of pneumonia and the causative organism (includes probable or suspected) Such as: Type: -- Aspiration pneumonia (please also specify the aspirate) - Firth (please specify cause) - Please indicate if the aspiration is postprocedure -- Bacterial (please document suspected or probable organism) -- Bronchopneumonia (please document suspected or probable organism) -- Interstitial pneumonia -- Organizing pneumonia / BOOP -- Pneumonia with influenza, nae flu, or H1N1 flu -- RSV -- Tuberculosis, pulmonary -- Viral -- Other, please specify PLEASE DOCUMENT ANY ADDITIONAL DIAGNOSES AND/OR SPECIFICITY IN THE PROGRESS NOTES AND/OR DISCHARGE [facility]. Clinically unable to determine/unknown Disagree with the above request Need to discuss Query created by: Suzie Pennington on 07/31/2018 6:42 PM Electronically signed by: Suraj Rosas MD 08/08/2018 7:31 AM
[2018-08-08 07:54] VITALS: BP 132/71; PULSE 73; TEMP 98.1; O2SAT 96
[2018-08-08] MEDS: (Novolin R) Insulin Human Regular 100 units/ml vial SC SCH ×2 (07:55→11:44)
[2018-08-08] MEDS: Enoxaparin 30 mg Syringe SC SCH (09:15)
[2018-08-08] MEDS: Potassium Chloride 20 mEq ER Tab PO SCH (09:15)
--- NOTE | 2018-08-08 10:20 | CP.PCM.DIS ---
Provider - Provider Date of Admission: 07/30/18 17:00 Attending physician: Suraj Rosas MD Consults: 07/28/18 19:15 Gastroenterology Consult Routine Comment: Consulting Provider: Sj Berg Consulting Physician: Sj Berg Reason for Consult: Intestinal Obstruction 07/29/18 16:15 Pulmonology Consult Routine Comment: Consulting Provider: Cyndee Mitchell Consulting Physician: Cyndee Mitchell Reason for Consult: Pleural effusion 07/30/18 17:18 Urology Consult Routine Comment: Consulting Provider: Rad Jama Consulting Physician: Rad Jama Reason for Consult: urinary retention 07/30/18 20:48 Nursing Referral for Palliative Care Routine Comment: routine Physician Instructions: referral Reason For Exam: score 5 07/30/18 21:05 Case Management Referral Routine Comment: routine Physician Instructions: referral Reason For Exam: d/c planning Reason for Referral: Discharge Planning 08/01/18 11:54 Physician Consult Routine Comment: Consulting Provider: José Luis Andrade Consulting Physician: José Luis Andrade Reason for Consult: ESBL urine 08/01/18 18:33 Psychiatry Consult Routine Comment: Consulting Provider: Bladimir Tolentino Consulting Physician: Bladimir Tolentino Reason for Consult: Schyzophrenia 08/01/18 18:36 Neurology Consult Routine Comment: Consulting Provider: Kash Dunn Consulting Physician: Kash Dunn Reason for Consult: Dementia 08/03/18 16:46 Endocrinology Consult Routine Comment: Consulting Provider: Stephanie Mondragon Consulting Physician: Stephanie Mondragon Reason for Consult: Uncontrolled DM Time Spent in preparation of Discharge (in minutes): 30 Diagnosis - Discharge Diagnosis (1) ESBL (extended spectrum beta-lactamase) producing bacteria infection Status: Resolved (2) E. coli UTI (urinary tract infection) Status: Resolved Priority: High (3) Urinary retention Status: Chronic (4) Diabetes mellitus Status: Chronic Priority: Medium (5) HTN (hypertension) Status: Chronic Priority: Medium (6) Hypoglycemia due to insulin Status: Resolved (7) Schizophrenia Status: Acute (8) COPD (chronic obstructive pulmonary disease) Status: Acute (9) Pleural effusion Status: Chronic (10) Dementia Status: Chronic Priority: Medium (11) Hypokalemia Status: Resolved (12) Pneumonia Status: Resolved (13) History of stroke in adulthood Status: Resolved (14) UTI (urinary tract infection) Status: Acute Priority: High Hospital Course - Lab Results Lab Results: Micro Results 08/03/18 14:25 Urine,Catheterized Urine Culture - Final No Growth (<1,000 CFU/ML) 07/29/18 21:00 Blood Blood Culture - Final NO GROWTH AFTER 5 DAYS 07/29/18 21:00 Blood Gram Stain - Final TEST NOT PERFORMED 07/29/18 21:30 Blood Blood Culture - Final NO GROWTH AFTER 5 DAYS 07/29/18 21:30 Blood Gram Stain - Final TEST NOT PERFORMED 08/01/18 18:06 Urine,Olivares Urine Culture - Final Enterococcus Faecalis 07/29/18 23:50 Urine,Catheterized Urine Culture - Final Escherichia Coli 07/28/18 11:54 Urine Random Urine Culture - Final No Growth (<1,000 CFU/ML) Most Recent Lab Values WBC 5.5 K/uL (4.8-10.8) 08/07/18 07:25 RBC 3.66 Mil/uL (3.80-5.20) L 08/07/18 07:25 Hgb 11.5 g/dL (11.0-16.0) 08/07/18 07:25 Hct 32.9 % (34.0-47.0) L 08/07/18 07:25 MCV 89.8 fL (81.0-99.0) 08/07/18 07:25 MCH 31.4 pg (27.0-31.0) H 08/07/18 07:25 MCHC 35.0 g/dL (33.0-37.0) 08/07/18 07:25 RDW 13.5 % (11.5-14.5) 08/07/18 07:25 Plt Count 242 K/uL (130-400) 08/07/18 07:25 MPV 10.1 fL (7.2-11.7) 08/07/18 07:25 Neut % (Auto) 42.6 % (50.0-75.0) L 08/07/18 07:25 Lymph % (Auto) 42.5 % (20.0-40.0) H 08/07/18 07:25 Ector % (Auto) 13.6 % (0.0-10.0) H 08/07/18 07:25 Eos % (Auto) 0.7 % (0.0-4.0) 08/07/18 07:25 Baso % (Auto) 0.6 % (0.0-2.0) 08/07/18 07:25 Neut # (Auto) 2.3 K/uL (1.8-7.0) 08/07/18 07:25 Lymph # (Auto) 2.3 K/uL (1.0-4.3) 08/07/18 07:25 Ector # (Auto) 0.7 K/uL (0.0-0.8) 08/07/18 07:25 Eos # (Auto) 0.0 K/uL (0.0-0.7) 08/07/18 07:25 Baso # (Auto) 0.0 K/uL (0.0-0.2) 08/07/18 07:25 ESR 40 mm/hr (0-20) H 08/02/18 07:26 Sodium 141 mmol/L (132-148) 08/07/18 07:25 Potassium 4.1 mmol/L (3.6-5.2) 08/07/18 07:25 Chloride 106 mmol/L (98-107) 08/07/18 07:25 Carbon Dioxide 28 mmol/L (22-30) 08/07/18 07:25 Anion Gap 11 (10-20) 08/07/18 07:25 BUN 21 mg/dL (7-17) H 08/07/18 07:25 Creatinine 0.7 mg/dL (0.7-1.2) 08/07/18 07:25 Est GFR ( Amer) > 60 08/07/18 07:25 Est GFR (Non-Af Amer) > 60 08/07/18 07:25 POC Glucose (mg/dL) 159 mg/dL (65-110) H 08/08/18 07:32 Random Glucose 142 mg/dL (65-105) H D 08/07/18 07:25 Hemoglobin A1c 8.4 % (4.2-6.5) H 08/02/18 07:26 Lactic Acid 0.9 mmol/L (0.7-2.1) 07/31/18 14:08 Calcium 9.4 mg/dl (8.6-10.4) 08/07/18 07:25 Total Bilirubin 0.4 mg/dL (0.2-1.3) 07/30/18 07:15 AST 27 U/L (14-36) 07/30/18 07:15 ALT 16 U/L (9-52) 07/30/18 07:15 Alkaline Phosphatase 77 U/L (38-126) 07/30/18 07:15 Ammonia 10 umol/L (9-33) 08/02/18 07:26 Troponin I < 0.0120 ng/mL (0.00-0.120) 07/28/18 11:30 C-React Prot High Sens 7.40 mg/L (1.00-3.00) H 08/02/18 07:26 NT-Pro-B Natriuret Pep 222 pg/mL (0-900) 07/28/18 11:30 Total Protein 7.3 g/dL (6.3-8.3) 07/30/18 07:15 Albumin 4.1 g/dL (3.5-5.0) 07/30/18 07:15 Globulin 3.3 gm/dL (2.2-3.9) 07/30/18 07:15 Albumin/Globulin Ratio 1.2 (1.0-2.1) 07/30/18 07:15 Vitamin B12 250 pg/mL (239-931) 08/02/18 07:26 Folate > 20.0 ng/mL 08/02/18 07:26 Free T4 1.21 ng/dL (0.78-2.19) 08/02/18 07:26 TSH 3rd Generation 3.24 mIU/L (0.46-4.68) 08/02/18 07:26 Prolactin 13.6 ng/mL (3.0-18.9) 08/02/18 07:26 Urine Color Yellow (YELLOW) 08/03/18 14:25 Urine Clarity Hazy (Clear) 08/03/18 14:25 Urine pH 5.0 (5.0-8.0) 08/03/18 14:25 Ur Specific [place] 1.022 (1.003-1.030) 08/03/18 14:25 Urine Protein Negative mg/dL (NEGATIVE) 08/03/18 14:25 Urine Glucose (UA) 3+ mg/dL (Normal) H 08/03/18 14:25 Urine Ketones Trace mg/dL (NEGATIVE) 08/03/18 14:25 Urine Blood Negative (NEGATIVE) 08/03/18 14:25 Urine Nitrate Negative (NEGATIVE) 08/03/18 14:25 Urine Bilirubin Negative (NEGATIVE) 08/03/18 14:25 Urine Urobilinogen Normal mg/dL (0.2-1.0) 08/03/18 14:25 Ur Leukocyte Esterase 2+ Berny/uL (Negative) H 08/03/18 14:25 Urine WBC (Auto) 22 /hpf (0-5) H 08/03/18 14:25 Urine RBC (Auto) 4 /hpf (0-3) H 08/03/18 14:25 Ur Squamous Epith Cells < 1 /hpf (0-5) 08/03/18 14:25 Urine Bacteria Mod (<OCC) H 07/29/18 23:02 Hyaline Casts 3-5 /lpf (0-2) H 08/01/18 18:47 - Hospital Course Hospital Course: 83 years old female admitted for management of Pneumonia, Hypoglycemia, Possible Intestinal obstruction and Urinary Retention. During hospitalization Urine Culture showed ESBL-E. coli. Patient received Meropenem IV for 9 days. Repeat urine culture negative. Patient's medical condition improved and was discharged home with instructions to follow up in one week with Urologist Dr. Jama for Olivares catheter removal. Discharge Exam - Head Exam Head Exam: ATRAUMATIC, NORMAL INSPECTION, NORMOCEPHALIC - Eye Exam Eye Exam: EOMI, Normal appearance, PERRL - Neck Exam Neck exam: Full Rom - Respiratory Exam Respiratory Exam: Clear to PA & Lateral, NORMAL BREATHING PATTERN - Cardiovascular Exam Cardiovascular Exam: REGULAR RHYTHM, +S1, +S2 - GI/Abdominal Exam GI & Abdominal Exam: Normal Bowel Sounds - Extremities Exam Extremities exam: full ROM - Neurological Exam Neurological exam: Alert, CN II-XII Intact Discharge Plan - Follow Up Plan Condition: GOOD Disposition: HOME/ ROUTINE
--- NOTE | 2018-08-08 15:54 | EEG ---
DATE: 08/02/2018 This is a 16-channel electroencephalogram of an awake and drowsy adult. During the study, photic stimulation was performed. Hyperventilation was not performed. The resting electroencephalogram consists of 20 to 30 microvolt diffuse 7 to 8 Hz, high theta activity is noted in the parietal and occipital leads. Anterior fast activities are superimposed with 2 to 3 Hz delta activity seen at frontal and central leads. The theta activities are continuously noted from the beginning with intermittent slowing consistent with early drowsiness. Some movement artifacts contaminated at the background rhythm. The photic stimulation did not evoke driving response noted at 2 to 20 Hz. IMPRESSION: This is a mildly abnormal electroencephalogram because of persistent slowing throughout the record suggestive of bilateral cerebral dysfunction. This probably is secondary to metabolic vascular or degenerative process. Please correlate the findings with the neurological and the radiological studies. Kash Dunn MD
--- NOTE | 2018-08-08 19:58 | PN ---
DATE: 08/08/2018 LOCATION: Room 350. SUBJECTIVE: This is an 83-year-old female with recent uncontrolled type 2 insulin-requiring diabetes, presenting here with marked hyperglycemic accelerations and dehydration and is now being followed closely for metabolic management. Her glycemic levels are fluctuating with glucose values ranging from 159 to 163 and 208 mg/dL. Her latest chemistry showed a BUN of 21, sodium 141, potassium 4.1, chloride 106, CO2 of 28, glucose 142, and creatinine 0.7. ASSESSMENT: This is an 83-year-old female with uncontrolled and decompensated type 2 diabetes mellitus with marked hyperglycemic accelerations and is now being followed closely for metabolic management. PLAN OF MANAGEMENT: We will continue the basal insulin given as Lantus at 18 units subcutaneous at bedtime daily as given. This has actually normalized her fasting glucose values which were extremely elevated on admission. We will also continue with dual oral hypoglycemic drug therapy given as glipizide at 10 mg t.i.d. and Januvia given as 50 mg once daily as ordered. We will order serial chemistries and supplement accordingly as needed. We will follow. Stephanie Mondragon MD
[2018-08-09] MEDS ORDERED: LINACLOTIDE 72 MCG PO SCH (10:00)
[2018-08-09] MEDS ORDERED: Home Med 1 UNIT (Valsartan/Hydrochlorothiazide [Valsartan-Hctz 160-12.5 Mg Tab] 1 TAB) PO SCH (10:00)
== END 2018-08-08 14:49 | disposition home or self-care (01) | DRG 193 ==
LOC: C.ER 09:43 → C.9E 15:00 → C.6T 15:44 → OBSVTOIN 07-30 17:00 → C.6T 08-01 21:56 → C.3T 08-02 21:02
PROVIDERS: ADMIT Internal Medicine; ATTEND Internal Medicine
DX: J18.9 Pneumonia, unspecified organism (principal); G92 Toxic encephalopathy; N39.0 Urinary tract infection, site not specified; J90 Pleural effusion, not elsewhere classified; F05 Delirium due to known physiological condition; I69.351 Hemiplegia and hemiparesis following cerebral infarction affecting right dominant side; K56.609 Unspecified intestinal obstruction, unspecified as to partial versus complete obstruction; E11.649 Type 2 diabetes mellitus with hypoglycemia without coma; F20.9 Schizophrenia, unspecified; G30.9 Alzheimer's disease, unspecified; F41.9 Anxiety disorder, unspecified; J44.9 Chronic obstructive pulmonary disease, unspecified; F02.80 Dementia in other diseases classified elsewhere, unspecified severity, without behavioral disturbance, psychotic disturbance, mood disturbance, and anxiety; E78.00 Pure hypercholesterolemia, unspecified; M46.96 Unspecified inflammatory spondylopathy, lumbar region; B96.20 Unspecified Escherichia coli [E. coli] as the cause of diseases classified elsewhere; T38.3X5A Adverse effect of insulin and oral hypoglycemic [antidiabetic] drugs, initial encounter; E87.6 Hypokalemia; Z95.5 Presence of coronary angioplasty implant and graft; G40.909 Epilepsy, unspecified, not intractable, without status epilepticus; I25.10 Atherosclerotic heart disease of native coronary artery without angina pectoris; E11.42 Type 2 diabetes mellitus with diabetic polyneuropathy; R33.0 Drug induced retention of urine; T43.595A Adverse effect of other antipsychotics and neuroleptics, initial encounter; E11.65 Type 2 diabetes mellitus with hyperglycemia; R29.6 Repeated falls; E86.0 Dehydration; Z51.5 Encounter for palliative care; Z86.19 Personal history of other infectious and parasitic diseases

== ENCOUNTER 2018-08-22 10:58 | Emergency (ER) | payer MEDICARE, MEDICAID ==
[2018-08-22 10:59] VITALS: BMI 27.3
[2018-08-22] MEDS ORDERED: (Novolin R) Insulin Human Regular 100 units/ml vial SC ONE (12:04)
--- NOTE | 2018-08-22 12:23 | C.PDOC ---
History Of Present Illness Patient is a 83 year old female, with a PMHx of who diabetes, dementia, COPD, HTN, CVA, and anxiety presents to the ED with her daughter and for hyperglycemia that has been present since starting insulin tablets instead of he r usual Lantus medication. Daughter reports that patient was admitted to the hospital 2 weeks ago and had a catheter placed and removed 3 days later and antibiotics prescribed. As per daughter, patient was advised by Dr. Melgar to switch from Lantus to insulin tablets while in the hospital and since then patient has had high blood sugar. Patient was unable to follow up with her doctor due to an inability to walk. Daughter reports positive night sweats and difficulty breathing. She denies any vomiting, fever, chills, or cough. PMD Time Seen by Provider: 08/22/18 11:21 Chief Complaint (Nursing): High Blood Sugar History Per: Patient History/Exam Limitations: no limitations Current Symptoms Are (Timing): Still Present Associated Infectious Symptoms: denies: Cough, Vomiting Recent travel outside of the [place]: No Additional History Per: Patient Past Medical History Reviewed: Historical Data, Nursing Documentation, Vital Signs Vital Signs: Last Vital Signs Temp 97.6 F 08/22/18 11:05 Pulse 78 08/22/18 11:05 Resp 15 08/22/18 11:05 BP 156/77 H 08/22/18 11:05 Pulse Ox 99 08/22/18 11:05 Primary Care Provider: Suraj Rosas - Medical History PMH: Alzheimer's Disease, Anxiety, Arthritis (BACK), Asthma, Bipolar Disorder, COPD, Dementia, Depression, Gastritis, HTN, Hypercholesterolemia, Pneumonia, Schizophrenia, Seizures Denies: Diabetes, Hepatitis, HIV, Chronic Kidney Disease, Sexually Transmitted Disease Surgical History: Coronary Stent - [facility] Procedures GROUP PSYCHOTHERAPY (12/15/16) INDIVIDUAL PSYCHOTHERAPY, BEHAVIORAL (12/15/16) INSERTION OF INFUSION DEV INTO SUP VENA CAVA, PERC APPROACH (06/22/17) INTRODUCE OTH ANTI-INFECT IN CENTRAL VEIN, PERC (06/22/17) Family History: States: Unknown Family Hx - Social History Hx Tobacco Use: No Hx Alcohol Use: No Hx Substance Use: No - Immunization History Hx Tetanus Toxoid Vaccination: No Hx Influenza Vaccination: No Hx Pneumococcal Vaccination: Yes Review Of Systems Except As Marked, All Systems Reviewed And Found Negative. Constitutional: Positive for: Sweats, Weakness, Other (inability to walk). Negative for: Fever, Chills Cardiovascular: Negative for: Chest Pain Respiratory: Negative for: Cough Gastrointestinal: Negative for: Vomiting Physical Exam - Physical Exam Appears: Non-toxic, No Acute Distress Skin: Normal Color, Warm, Dry Head: Atraumatic, Normacephalic Eye(s): bilateral: Normal Inspection Oral Mucosa: Dry, Other (pink) Neck: Normal ROM, Supple Chest: Symmetrical, No Deformity Cardiovascular: Rhythm Regular, No Murmur Respiratory: Decreased Breath Sounds, No Rales, No Rhonchi, No Wheezing Gastrointestinal/Abdominal: Soft, Tenderness (mild tenderness to palpation in suprapubic region), Other (obese) Back: No CVA Tenderness Extremity: No Pedal Edema, Other (stage one skin breakdown left heel of foot) Neurological/Psych: Other (awake and alert) ED Course And Treatment - Laboratory Results Result Diagrams: 08/22/18 13:40 08/22/18 13:40 O2 Sat by Pulse Oximetry: 99 (on RA) Pulse Ox Interpretation: Normal Interpretation Of Abnormal: Normal sinus rhythm at 72bpm - Other Rad CXR X-Ray: Viewed By Me, Read By Radiologist Interpretation: Date of service: 08/22/2018. HISTORY: hyperglycemia. COMPARISON: 07/28/2018. TECHNIQUE: 1 view obtained. FINDINGS: LUNGS: Lung volumes lower limits of normal.. This lung volumes much less than that suggested with the hyperinflated lungs noted on the June 24 2018 exam. Study limited rotated towards the right-some intrinsic asymmetrical thoracic cage development also is a consideration. This rightward mediastinal shift an apparent rightward rotation appear similar to multiple serial radiographs. PLEURA: Small bibasilar pleural effusions are probable. Some mild passive compressive atelectasis at both lung bases is not excluded. Lung volumes and blunting of the costophrenic angles is much different compared to the hyperinflated lungs from the 06/24/2018 study., no pneumothorax apparent. CARDIOVASCULAR: No aortic atherosclerotic calcification present. Limited evaluation of the heart size given the apparent mediastinal shift and rightward rotation. No change in this regard appreciated. No significant appearing pulmonary venous congestion. OSSEOUS STRUCTURES: As above. VISUALIZED UPPER ABDOMEN: Normal. OTHER FINDINGS: None. IMPRESSION: Overall lung volumes appear less now than before. Small bilateral pleural effusions and blunting of each costophrenic angle with possible mild subsegmental compressive atelectasis at both lung bases are a consideration. Current lung volumes and this bibasilar appearance is much different than the 06/24/2018 study but not significantly changed with the 07/28/2018 study. With exception of possible slight decrease right pleural effusion status. Medical Decision Making Medical Decision Making: Plan: ABG VBG EKG Labs CXR Insulin 10unit SC Blood Culture Urine Culture UA 14:49. Spoke to who states that when hospitalized the patient's manifold operator informed patient to stop taking insulin because she had hypoglycemia. Reevaluation. Patient's glucose improved and antibiotics prescribed due to a urine infection. Patient stable to be discharged home. Disposition Counseled Patient/Family Regarding: Studies Performed, Diagnosis, Need For Followup - Disposition Referrals: Suraj Rosas MD [Staff Provider] - Disposition: HOME/ ROUTINE Disposition Time: 15:07 Condition: IMPROVED Prescriptions: Nitrofurantoin Macrocrystals [Macrobid] 100 mg PO BID #14 cap Instructions: Urinary Tract Infection, Adult (DC), Hyperglycemia, Adult (DC) Forms: Gen Discharge Inst Yoruba, [employer] (Yoruba) Print Language: FIJIAN - Clinical Impression Clinical Impression: UTI (urinary tract infection), Hyperglycemia - Scribe Statement The provider has reviewed the documentation as recorded by the Gonzalesibfeng Sepulveda All medical record entries made by the Scribe were at my direction and personally dictated by me. I have reviewed the chart and agree that the record accurately reflects my personal performance of the history, physical exam, medical decision making, and the department course for this patient. I have also personally directed, reviewed, and agree with the discharge instructions and d isposition.
[2018-08-22 12:31] LABS: ABG ALLEN TEST POS; ARTERIAL BLOOD GAS HCO3 24.3 mmol/L (21-28); ARTERIAL BLOOD GAS HEMOGLOBIN 10.9 g/dL (11.7-17.4); ARTERIAL BLOOD GAS O2 SAT 97.3 % (95-98); ARTERIAL BLOOD GAS PCO2 36 mm/Hg (35-45); ARTERIAL BLOOD GAS PH 7.42 (7.35-7.45); ARTERIAL BLOOD GAS PO2 75 mm/Hg (80-100); ARTERIAL BLOOD GAS TCO2 24.5 mmol/L (22-28)
[2018-08-22 13:46] LABS: BASO % 0.5 % (0.0-2.0); EOS % 0.5 % (0.0-4.0); HEMOGLOBIN 10.7 g/dL (11.0-16.0); LYMPH # 2.1 K/uL (1.0-4.3); LYMPH % 30.7 % (20.0-40.0); MEAN CELL VOLUME 90.3 fL (81.0-99.0); MEAN CORPUSCULAR HEMOGLOBIN 30.5 pg (27.0-31.0); MEAN CORPUSCULAR HGB CONC 33.8 g/dL (33.0-37.0); MEAN PLATELET VOLUME 9.9 fL (7.2-11.7); MONO # 0.7 K/uL (0.0-0.8); MONO % 10.7 % (0.0-10.0); NEUT # 3.9 K/uL (1.8-7.0); NEUT % 57.6 % (50.0-75.0); RBC 3.52 Mil/uL (3.80-5.20); RED CELL DISTRIBUTION WIDTH 13.5 % (11.5-14.5); WHITE BLOOD COUNT 6.8 K/uL (4.8-10.8)
--- NOTE | 2018-08-22 13:47 | RAD ---
Date of service: 08/22/2018 HISTORY: hyperglycemia COMPARISON: 07/28/2018 TECHNIQUE: 1 view obtained. FINDINGS: LUNGS: Lung volumes lower limits of normal.. This lung volumes much less than that suggested with the hyperinflated lungs noted on the June 24 2018 exam. Study limited rotated towards the right-some intrinsic asymmetrical thoracic cage development also is a consideration. This rightward mediastinal shift an apparent rightward rotation appear similar to multiple serial radiographs. PLEURA: Small bibasilar pleural effusions are probable. Some mild passive compressive atelectasis at both lung bases is not excluded. Lung volumes and blunting of the costophrenic angles is much different compared to the hyperinflated lungs from the 06/24/2018 study., no pneumothorax apparent. CARDIOVASCULAR: No aortic atherosclerotic calcification present. Limited evaluation of the heart size given the apparent mediastinal shift and rightward rotation. No change in this regard appreciated. No significant appearing pulmonary venous congestion. OSSEOUS STRUCTURES: As above VISUALIZED UPPER ABDOMEN: Normal. OTHER FINDINGS: None. IMPRESSION: Overall lung volumes appear less now than before. Small bilateral pleural effusions and blunting of each costophrenic angle with possible mild subsegmental compressive atelectasis at both lung bases are a consideration. Current lung volumes and this bibasilar appearance is much different than the 06/24/2018 study but not significantly changed with the 07/28/2018 study. With exception of possible slight decrease right pleural effusion status.
[2018-08-22 14:04] LABS: URINE BACTERIA OCC (<OCC); URINE BILIRUBIN NEGATIVE (NEGATIVE); URINE BLOOD 1+ (NEGATIVE); URINE CLARITY Hazy (Clear); URINE COLOR Yellow (YELLOW); URINE GLUCOSE (UA) 3+ mg/dL (Normal); URINE LEUKOCYTE ESTERASE 3+ Leu/uL (Negative); URINE PROTEIN NEGATIVE (NEGATIVE); URINE UROBILINOGEN NORMAL mg/dL (0.2-1.0)
[2018-08-22 14:08] LABS: ALB/GLOB RATIO 1.1 (1.0-2.1); ALBUMIN 3.5 g/dL (3.5-5.0); ALT/SGPT 19 U/L (9-52); AST/SGOT 17 U/L (14-36); BLOOD UREA NITROGEN 18 mg/dL (7-17); CALCIUM 8.8 mg/dl (8.6-10.4); GFR NON-AFRICAN AMERICAN 60
[2018-08-22 14:09] VITALS: BP 149/72; PULSE 71; RESP 18; TEMP 98.1
[2018-08-22 14:16] VITALS: O2SAT 99
--- NOTE | 2018-08-24 00:27 | CARD ---
APPROVED REPORT Date of service: 08/22/2018 EKG Measurement Heart [id number] <Conclusion> Normal sinus rhythm Normal ECG
== END 2018-08-22 15:38 | disposition home or self-care (01) ==
LOC: C.ER 10:58
DX: E11.65 Type 2 diabetes mellitus with hyperglycemia (principal); N39.0 Urinary tract infection, site not specified; I10 Essential (primary) hypertension; G30.9 Alzheimer's disease, unspecified; F02.80 Dementia in other diseases classified elsewhere, unspecified severity, without behavioral disturbance, psychotic disturbance, mood disturbance, and anxiety; E78.00 Pure hypercholesterolemia, unspecified; Z86.73 Personal history of transient ischemic attack (TIA), and cerebral infarction without residual deficits